=== PATIENT | female | born 1940 | race Caucasian/White ===

== ENCOUNTER 2021-10-15 16:16 | Inpatient (IN) | payer MEDICARE ==
--- NOTE | 2021-10-15 17:57 | RAD REPORT ---
EXAM DESCRIPTION: RAD - Chest Single View - 10/15/2021 5:49 pm CLINICAL HISTORY: SOB Chest pain. COMPARISON: No comparisons FINDINGS: Portable technique limits examination quality. Bilateral pulmonary opacities are present which may represent pulmonary edema or pneumonia. The heart is moderately enlarged in size. Small right pleural effusion.
[2021-10-15 18:01] LABS: Absolute Lymphocytes (CBC) 0.9 K/uL (0.7-4.9); Hematocrit 42.5 % (36.0-45.0); Lymphocytes % 16.5 % (15.3-44.8); MCV 106.3 fL (80-100); MPV 8.6 fL (7.6-11.3); RBC Red Blood Cell Count 3.99 M/uL (3.86-4.86)
[2021-10-15 18:02] LABS: Protime INR 1.21
[2021-10-15 18:21] LABS: Albumin 3.5 g/dL (3.4-5.0); Bilirubin Direct 0.3 mg/dL (0-0.2); Bilirubin Total 0.7 mg/dL (0.2-1.0); Magnesium 1.5 mg/dL (1.8-2.4); Potassium 4.6 mmol/L (3.5-5.1); Protein, Total 7.5 g/dL (6.4-8.2)
[2021-10-15 18:32] LABS: Troponin High Sensitivity 1025.9 pg/mL (<58.9)
[2021-10-15] MEDS ORDERED: Magnesium Sulfate 2gm IVPB 2 G/50 ML BAG IV ONE (18:42)
[2021-10-15] MEDS ORDERED: METOPROLOL TARTRATE 5 MG/5 ML INJ IV ONE (18:51)
--- NOTE | 2021-10-15 19:59 | EDPHYS ---
Physician Documentation [facility] Name: Judy Acevedo Age: 81 yrs Sex: Female : 1940 Arrival Date: 10/15/2021 Time: 16:19 Bed 7 Private MD: TUAN Physician Herbert Garnica HPI: 10/15 16:51 This 81 yrs old Female presents to ER via Wheelchair with complaints of Cough, jmm Congestion, Weakness. 16:51 Onset: The symptoms/episode began/occurred gradually, 2 week(s) ago. jmm 16:51 This is a 81-year-old female with history of hypertension that presents emerged [facility] department with complaints of progressively worsening weakness and fatigue beginning approximately 2 weeks ago. Symptoms began as cough and congestion. Patient states that now she has difficulty walking and is very short of breath.. Historical: - Allergies: 16:29 No Known Allergies; vg1 - Home Meds: 16:29 Prilosec Oral [Active]; Simvastatin Oral [Active]; Zoloft Oral [Active]; vg1 - PMHx: 16:29 Hypertensive disorder; Breast Cancer; Bowel Obstruction; Syncope; vg1 - PSHx: 16:29 Hysterectomy; Left Mastectomy; vg1 - Immunization history:: Client reports receiving the 2nd dose of the Covid vaccine. - Social history:: Smoking status: Patient denies any tobacco usage or history of. ROS: 16:51 Abdomen/GI: Negative for abdominal pain, nausea, vomiting, diarrhea, and constipation. jmm 16:51 Constitutional: Positive for body aches, malaise. 16:51 Respiratory: Positive for shortness of breath. 16:51 Neuro: Positive for weakness. 16:51 All other systems are negative. Exam: 16:51 Constitutional: This is a well developed, well nourished patient who is awake, alert, jmm and in no acute distress. Head/Face: atraumatic. Eyes: EOMI, no conjunctival erythema appreciated ENT: Moist Mucus Membranes Neck: Trachea midline, Supple Chest/axilla: Normal chest wall appearance and motion. Respiratory: Normal respirations, no respiratory distress appreciated Abdomen/GI: Non distended, soft Back: Normal ROM Skin: General appearance color normal 16:51 Neuro: Awake and alert Psych: Behavior is normal, Mood is normal, Patient is cooperative and pleasant 16:51 Cardiovascular: Rate: tachycardic. 16:51 Musculoskeletal/extremity: Edema noted to the extremities bilaterally, compartments are soft, full dorsalis pedis pulse, neurovascular intact. 16:51 Skin: Appearance: Color: normal in color. Vital Signs: 16:26 BP 137 / 85; Pulse 125; Resp 18; Temp 98.6(TE); Pulse Ox 98% on R/A; Weight 60.78 kg; vg1 Height 5 ft. 6 in. (167.64 cm); Pain 0/10; 18:43 BP 142 / 96; Pulse 152; Resp 20 S; Pulse Ox 100% on R/A; jd3 19:02 BP 112 / 88; Pulse 130; Resp 20 S; Pulse Ox 95% on R/A; jd3 21:01 BP 130 / 96; Pulse 117; Resp 20; Pulse Ox 96% ; tw5 16:26 Body Mass Index 21.63 (60.78 kg, 167.64 cm) vg1 18:43 provider notified of heart rate jd3 MDM: 17:11 Patient medically screened. [facility] 19:56 Data reviewed: vital signs, nurses notes. [facility] 19:56 Counseling: I had a detailed discussion with the patient and/or guardian regarding: the [facility] historical points, exam findings, and any diagnostic results supporting the discharge/admit diagnosis, lab results, radiology results, the need for further work-up and treatment in the hospital. ED course: I discussed the patient with Ms. Yin Cerrato PA-C whom accepted the patient to Dr. Cristhian rhoades.. 10/15 16:51 Order name: Basic Metabolic Panel; Complete Time: 19:21 [facility] 10/15 16:51 Order name: CBC with Diff; Complete Time: 18:10 [facility] 10/15 16:51 Order name: LFT's; Complete Time: 19:21 [facility] 10/15 16:51 Order name: Magnesium; Complete Time: 19:21 [facility] 10/15 16:51 Order name: NT PRO-BNP; Complete Time: 19:21 [facility] 10/15 16:51 Order name: PT-INR; Complete Time: 18:10 [facility] 10/15 16:51 Order name: Troponin HS; Complete Time: 19:21 [facility] 10/15 16:51 Order name: XRAY Chest (1 view); Complete Time: 18:10 [facility] 10/15 16:52 Order name: SARS-COV-2 RT PCR (Document "Date of Onset" if Symptomatic); Complete Time: [facility] 19:10/15 16:52 Order name: Influenza Screen (a \\T\\ B); Complete Time: 18:31 [facility] 10/15 19:08 Order name: US Extremity Venous W Compression Wilberto; Complete Time: 20:53 [facility] 10/15 16:51 Order name: EKG; Complete Time: 16:52 [facility] 10/15 16:51 Order name: Cardiac monitoring; Complete Time: 18:35 [facility] 10/15 16:51 Order name: EKG - Nurse/Tech; Complete Time: 18:22 [facility] 10/15 16:51 Order name: IV Saline Lock; Complete Time: 18:22 [facility] 10/15 16:51 Order name: Labs collected and sent; Complete Time: 18:22 [facility] 10/15 16:51 Order name: O2 Per Protocol; Complete Time: 18:35 [facility] 10/15 16:51 Order name: O2 Sat Monitoring; Complete Time: 18:35 [facility] Administered Medications: 18:42 Drug: Magnesium Sulfate 2 grams Route: IVPB; Infused Over: 2 hrs; Site: right jd3 antecubital; 21:33 Follow up: IV Status: Infusion continued upon admission bb 18:48 Drug: Metoprolol 5 mg Route: IVP; Site: right antecubital; jd3 18:53 Drug: Metoprolol 5 mg Route: IVP; Site: right antecubital; jd3 18:58 Drug: Metoprolol 5 mg Route: IVP; Site: right antecubital; jd3 19:16 Follow up: Response: No adverse reaction jd3 20:06 Drug: Aspirin Chewable Tablet 324 mg Route: PO; jb4 21:33 Follow up: Response: No adverse reaction bb 20:07 Drug: Digoxin 0.5 mg Route: IVP; Site: right antecubital; jb4 21:33 Follow up: Response: No adverse reaction bb 20:20 Drug: Lovenox (enoxaparin) 1 mg/kg Route: Sub-Q; Site: right lower abdomen; jb4 21:33 Follow up: Response: No adverse reaction bb Disposition Summary: 10/15/21 19:58 Hospitalization Ordered Hospitalization Status: Inpatient Admission [facility] Provider: Reese Morrow Location: Telemetry/MedSurg (Inpatient) jmm Condition: Stable jmm Problem: new jmm Symptoms: have improved jmm Bed/Room Type: Standard [facility] Room Assignment: 214(10/15/21 20:57) bb Diagnosis - Unspecified atrial flutter jmm - Dyspnea jmm Forms: - Medication Reconciliation Form jmm - SBAR form jmm Addendum: 10/29/2021 13:52 Co-signature as Attending Physician, Herbert Garnica MD I agree with the assessment and c duncan plan of care. Signatures: Dispatcher [employer] EDHerbert Garcia MD MD cha Mickail, Joel, PA PA jmm Ballard, Brenda RN RN Alhaji Ugalde, RN RN jb4 Weston Kidd RN RN jMarbella Wilks RN RN vg1 Corrections: (The following items were deleted from the chart) 10/15 16:31 16:29 Home Meds: Bowel Obstruction; vg1 vg1 20:57 19:58 jmm bb
--- NOTE | 2021-10-15 19:59 | ER ---
Nurse's Notes [facility] Name: Judy Acevedo Age: 81 yrs Sex: Female : 1940 Arrival Date: 10/15/2021 Time: 16:19 Bed 7 Private MD: Diagnosis: Unspecified atrial flutter;Dyspnea Presentation: 10/15 16:26 Chief complaint: Patient states: cough and congestion x 2 weeks with SOB; states vg1 fatigue and decreased appetite. Also state Right foot swelling. Denies CP. Coronavirus screen: Vaccine status: Patient reports receiving the 2nd dose of the covid vaccine. Client denies travel out of the [place] in the last 14 days. Ebola Screen: Patient denies exposure to infectious person. Patient denies travel to an Ebola-affected area in the 21 days before illness onset. Initial Sepsis Screen: Does the patient meet any 2 criteria? HR > 90 bpm. Yes Does the patient have a suspected source of infection? No. Patient's initial sepsis screen is negative. Risk Assessment: Do you want to hurt yourself or someone else? Patient reports no desire to harm self or others. Onset of symptoms was October 01, 2021. 16:26 Method Of Arrival: Wheelchair vg1 16:26 Acuity: HENRIETTA 3 vg1 Triage Assessment: 16:29 General: Appears uncomfortable, Behavior is calm, cooperative. Pain: Denies pain. vg1 Respiratory: Airway is patent Respiratory effort is even, unlabored. Historical: - Allergies: 16:29 No Known Allergies; vg1 - Home Meds: 16:29 Prilosec Oral [Active]; Simvastatin Oral [Active]; Zoloft Oral [Active]; vg1 - PMHx: 16:29 Hypertensive disorder; Breast Cancer; Bowel Obstruction; Syncope; vg1 - PSHx: 16:29 Hysterectomy; Left Mastectomy; vg1 - Immunization history:: Client reports receiving the 2nd dose of the Covid vaccine. - Social history:: Smoking status: Patient denies any tobacco usage or history of. Screenin:50 Abuse screen: Denies threats or abuse. Nutritional screening: No deficits noted. jd3 Tuberculosis screening: No symptoms or risk factors identified. Fall Risk IV access (20 points). Ambulatory Aid- None/Bed Rest/Nurse Assist (0 pts). Gait- Weak (10 pts.). Mental Status- Oriented to own ability (0 pts). Total Cole Fall Scale indicates Low Risk Score (25-44 pts). Fall prevention measures have been instituted. Side Rails Up X 2 Placed close to Nursing Station Frequent Obs/Assesments occuring Family Present and informed to notify staff if they need to leave bedside. Assessment: 18:45 General: Appears uncomfortable, Behavior is calm, cooperative, appropriate for age, jd3 Reports fatigue for 2-3 days. Pain: Denies pain. Neuro: Merino Agitation-Sedation Scale (RASS): 0 - Alert and Calm Level of Consciousness is awake, alert, obeys commands, Oriented to person, place, time, situation. Cardiovascular: Denies chest pain, Heart tones present Capillary refill < 3 seconds Patient's skin is warm and dry. Rhythm is irregular. Respiratory: Reports shortness of breath at rest cough that is persistent Airway is patent Respiratory effort is even, unlabored, Respiratory pattern is regular, symmetrical, Breath sounds are clear bilaterally. GI: No signs and/or symptoms were reported involving the gastrointestinal system. Patient currently denies diarrhea, nausea, vomiting. : No signs and/or symptoms were reported regarding the genitourinary system. EENT: No signs and/or symptoms were reported regarding the EENT system. Derm: Skin is intact, Skin is dry, Skin is normal, Skin temperature is warm. Musculoskeletal: Circulation, motion, and sensation intact. Range of motion:. 21:02 Reassessment: Patient appears in no apparent distress at this time. tw5 Vital Signs: 16:26 BP 137 / 85; Pulse 125; Resp 18; Temp 98.6(TE); Pulse Ox 98% on R/A; Weight 60.78 kg; vg1 Height 5 ft. 6 in. (167.64 cm); Pain 0/10; 18:43 BP 142 / 96; Pulse 152; Resp 20 S; Pulse Ox 100% on R/A; jd3 19:02 BP 112 / 88; Pulse 130; Resp 20 S; Pulse Ox 95% on R/A; jd3 21:01 BP 130 / 96; Pulse 117; Resp 20; Pulse Ox 96% ; tw5 16:26 Body Mass Index 21.63 (60.78 kg, 167.64 cm) vg1 18:43 provider notified of heart rate jd3 ED Course: 16:19 Patient arrived in ED. rg4 16:29 Triage completed. vg1 16:29 Arm band placed on. vg1 16:39 [facility] jmm 16:39 Herbert Garnica MD is Attending Physician. jmm 17:40 Missed attempt(s): 22 gauge in right forearm. Bleeding controlled, band aid applied, ll1 catheter tip intact. 17:43 Missed attempt(s): 24 gauge in right forearm. Bleeding controlled, band aid applied, ll1 catheter tip intact. 17:51 XRAY Chest (1 view) In Process Unspecified. EDMS 18:16 EKG done, by ED staff, reviewed by Travis ARANDA. jw7 18:22 SARS-COV-2 RT PCR (Document "Date of Onset" if Symptomatic) Sent. ll1 18:22 Influenza Screen (a \\T\\ B) Sent. ll1 18:51 Patient has correct armband on for positive identification. Placed in gown. Bed in low jd3 position. Call light in reach. Side rails up X2. Child being held by parent. Client placed on continuous cardiac and pulse oximetry monitoring. NIBP monitoring applied. party director on. Pulse ox on. NIBP on. 19:09 Marianne Hilton is Primary Nurse. tw5 19:10 NT PRO-BNP Sent. tw5 19:57 Reese Morrow MD is Hospitalizing Provider. jmm 20:16 US Extremity Venous W Compression Wilberto In Process Unspecified. EDMS 21:02 No provider procedures requiring assistance completed. Patient admitted, IV remains in tw5 place. Administered Medications: 18:42 Drug: Magnesium Sulfate 2 grams Route: IVPB; Infused Over: 2 hrs; Site: right jd3 antecubital; 21:33 Follow up: IV Status: Infusion continued upon admission bb 18:48 Drug: Metoprolol 5 mg Route: IVP; Site: right antecubital; jd3 18:53 Drug: Metoprolol 5 mg Route: IVP; Site: right antecubital; jd3 18:58 Drug: Metoprolol 5 mg Route: IVP; Site: right antecubital; jd3 19:16 Follow up: Response: No adverse reaction jd3 20:06 Drug: Aspirin Chewable Tablet 324 mg Route: PO; jb4 21:33 Follow up: Response: No adverse reaction bb 20:07 Drug: Digoxin 0.5 mg Route: IVP; Site: right antecubital; jb4 21:33 Follow up: Response: No adverse reaction bb 20:20 Drug: Lovenox (enoxaparin) 1 mg/kg Route: Sub-Q; Site: right lower abdomen; jb4 21:33 Follow up: Response: No adverse reaction bb Medication: 18:50 VIS not applicable for this client. jd3 Outcome: 19:58 Decision to Hospitalize by Provider. tri 21:03 Admitted to Med/surg Report called to Attempted to call report. Spoke to Sun Banegas tw5 stated Gus will be receiving the patient. Nurse unavailable at this time. 21:03 Condition: stable 21:35 Patient left the ED. bb Signatures: Dispatcher [employer] EDMS Travis Sequeira PA PA jmm Ballard, Brenda, RN RN Stacey Taylor rg4 Alhaji Garza RN RN jb4 Weston Kidd RN RN Marbella De La Fuente RN RN martin1 Guille Melendez, RN RN Marianne Neville tw5 Ayala Small jw7 Corrections: (The following items were deleted from the chart) 16:31 16:29 Home Meds: Bowel Obstruction; vg1 vg1
[2021-10-15] MEDS ORDERED: DIGOXIN 0.25 MG/ML AMP ONE (20:01)
[2021-10-15] MEDS ORDERED: ASPIRIN 81 MG CHEWABLE TABLET ONE (20:01)
[2021-10-15] MEDS ORDERED: ENOXAPARIN 60 MG/0.6 ML SQ ONE (20:01)
--- NOTE | 2021-10-15 20:37 | P.HP ---
Certification for Inpatient Patient admitted to: Inpatient With expected LOS: <2 Midnights Patient will require the following post-hospital care: None Practitioner: I am a practitioner with admitting privileges, knowledge of patient current condition, hospital course, and medical plan of care. Services: Services provided to patient in accordance with Admission requirements found in Title 42 Section 412.3 of the Code of Federal Regulations <Marika Cerrato - Last Filed: 10/16/21 02:02> Patient History Date of Service: 10/15/21 Reason for admission: ACS R/O History of Present Illness: Patient is a 81 y/o F with PMH of HTN and HLD who presented to the ED with complaints of 2 weeks of increasing SHOB, weakness, fatigue, and R foot swelling. Labs significant for troponin 1025, BNP 32,000, mag 1.5, Cr 1.89, CXR showed Bilateral pulmonary opacities are present which may represent pulmonary edema or pneumonia. The heart is moderately enlarged in size. Small right pleural effusion. Venous US negative for VTE. EKG showed aflutter with rate ranging from 130-150. She denies chest pain. She was given a total of 15 mg IV metoprolol, 0.5 IV digoxin, 324 aspirin, 70 lovenox, and magnesium replacement. Patient denies cardiac history. Will admit patient for further evaluation and treatment. Home medications list reviewed: Yes - Past Medical/Surgical History Diabetic: No -: Hypertension -: Breast Cancer -: Hysterectomy -: Mastectomy - Family History Father -: Heart disease Brother -: Heart disease Sister -: Heart disease - Social History Smoking Status: Never smoker Alcohol use: Yes CD- Drugs: No Caffeine use: Yes Place of Residence: Home <Marika Cerrato - Last Filed: 10/16/21 02:02> Date of Service: 10/15/21 <Reese Morrow - Last Filed: 10/18/21 00:09> Allergies No Known Allergies Allergy (Verified 10/15/21 22:25) Home Medications: Celecoxib [Celebrex] 1 cap PO SEECOM 10/15/21 Hyoscyamine Sulfate [Anaspaz] 0.125 mg PO DAILY PRN 10/15/21 Irbesartan 150 mg PO DAILY 10/15/21 Magnesium Oxide [Mag 0X*] 1 tab PO BID 10/15/21 Omeprazole 20 mg PO BID 10/15/21 Sertraline [Zoloft*] 1 tab PO DAILY 10/15/21 Simvastatin 1 tab PO BEDTIME 10/15/21 Vit D3 50 Mcg (2,000 Unit Tab) 4,000 unit PO DAILY 10/15/21 Vitamin B Complex [B Complex] 1 tab PO DAILY 10/15/21 Review of Systems General: Weakness, Other (decreased appetite) Respiratory: Shortness of Breath Musculoskeletal: Other (R foot swelling) <Marika Cerrato - Last Filed: 10/16/21 02:02> Physical Examination - Physical Exam General: Alert, In no apparent distress HEENT: Atraumatic, PERRLA, EOMI, Sclerae nonicteric Neck: Supple, 2+ carotid pulse no bruit, No LAD, Without JVD or thyroid abnormality Respiratory: Clear to auscultation bilaterally, Normal air movement Cardiovascular: Normal S1 S2, Other (tachycardic) Gastrointestinal: Normal bowel sounds, Soft and benign, Non-distended, No tenderness Musculoskeletal: No erythema, No tenderness, No warmth, Swelling (mild swelling R foot ) Integumentary: No rashes Neurological: Normal speech, Normal strength at 5/5 x4 extr, Normal tone, Normal affect - Studies Laboratory Data (last 24 hrs) 10/15/21 17:50: PT 13.4 H, INR 1.21 10/15/21 17:50: WBC 5.5, Hgb 13.4, Hct 42.5, Plt Count 206 10/15/21 17:50: Sodium 139, Potassium 4.6, BUN 41 H, Creatinine 1.89 H, Glucose 111 H, Magnesium 1.5 L, Total Bilirubin 0.7, AST 45 H, ALT 29, Alkaline Phosphatase 31 L Microbiology Data (last 24 hrs): 10/15/21 17:16 Nasopharnyx Influenza Type A Antigen Screen - Final 10/15/21 17:16 Nasopharnyx Influenza Type B Antigen Screen - Final <Marika Cerrato - Last Filed: 10/16/21 02:02> - Studies Laboratory Data (last 24 hrs) 10/17/21 05:36: Sodium 137, Potassium 3.7, BUN 29 H, Creatinine 1.39 H, Glucose 103, Magnesium 1.5 L, Total Bilirubin 0.5, AST 35, ALT 24, Alkaline Phosphatase 23 L 06/05/22 05:36: WBC 5.3, Hgb 12.0, Hct 36.5, Plt Count 180 Microbiology Data (last 24 hrs): 10/16/21 00:08 Clean Catch Urine [place] Count - Final <10,000 CFU/ML. 10/16/21 00:08 Clean Catch Urine - Final MIXED RANJAN. <CristhianKassyryan Jonnathan - Last Filed: 10/18/21 00:09> Assessment and Plan - Problems (Diagnosis) (1) Elevated troponin Current Visit: Yes Status: Acute (2) Acute congestive heart failure Current Visit: Yes Status: Acute Qualifiers: Heart failure type: unspecified Qualified Code(s): I50.9 - Heart failure, unspecified (3) Hypomagnesemia Current Visit: Yes Status: Acute (4) BRAD (acute kidney injury) Current Visit: Yes Status: Acute (5) Hypertension Current Visit: Yes Status: Chronic Qualifiers: Hypertension type: primary hypertension Qualified Code(s): I10 - Essential (primary) hypertension - Plan -Cardiology consulted. NPO at midnight for possible catheterization. Echo ordered -Troponin elevated at 1025. Trend q6hx2 and check CPK and CKMB. Patient denies chest pain or cardiac history. Lovenox given in ED and ordered daily. -EKG showed aflutter with RVR. Patient has converted to NSR. Cont to monitor on telemetry -BNP elevated at 32,000. Chest xray showed pleural effusions. IV lasix and echo ordered. Patient does not have a history of CHF -Monitor and replace magnesium -Aspirin and atorvastatin daily -Reconcile and continue home medications -Lovenox for VTE ppx -Full code Discharge Plan: Home Plan to discharge in: 48 Hours - Advance Directives Does patient have a Living Will: No Does patient have a Durable POA for Healthcare: No - Code Status/Comfort Care Code Status Assessed: Yes (Full) Critical Care: No Time Spent Managing Pts Care (In Minutes): 70 <Marika Cerrato - Last Filed: 10/16/21 02:02> - Problems (Diagnosis) (1) BRAD (acute kidney injury) Current Visit: Yes Status: Acute (2) Acute congestive heart failure Current Visit: Yes Status: Acute Qualifiers: Heart failure type: unspecified Qualified Code(s): I50.9 - Heart failure, unspecified (3) Elevated troponin Current Visit: Yes Status: Acute (4) Hypomagnesemia Current Visit: Yes Status: Acute (5) Hypertension Current Visit: Yes Status: Chronic Qualifiers: Hypertension type: primary hypertension Qualified Code(s): I10 - Essential (primary) hypertension <Reese Morrow - Last Filed: 10/18/21 00:09> Date of Service: 10/15/21 Subjective: HPI as mentioned above Physical Examination: Vitals: Afebrile vital signs are stable Physical exam: Cardiovascular: Within normal limits. Lungs: Within normal limits Abdomen: Within normal limits Neuro: Awake, alert, oriented to person place and time Assessment: 1. Elevated troponin Plan: 1. Continue with current plan of care as mentioned above <Reese Morrow - Last Filed: 10/18/21 00:09>
--- NOTE | 2021-10-15 20:52 | RAD REPORT ---
EXAM DESCRIPTION: US - Extrem Venous W Compress Wilberto - 10/15/2021 8:14 pm CLINICAL HISTORY: leg swelling Bilateral leg edema and swelling. COMPARISON: No comparisons TECHNIQUE: Real-time sonographic interrogation of the left and right lower extremity deep venous sys tems was performed. FINDINGS: Normal compressibility, flow augmentation, phasic flow and spontaneous flow is identified in both the left and right lower extremity deep venous systems. IMPRESSION: No sonographic evidence of left or right lower extremity deep venous thrombosis.
[2021-10-15 21:41] LABS: Urine Blood Negative (Negative); Urine Glucose Negative (Negative); Urine Protein 2+ (Negative); Urine Specific Gravity >=1.030 (1.005-1.030); Urine pH 5.5 (5.0-7.0)
[2021-10-15] MEDS ORDERED: ACETAMINOPHEN 500 MG TAB PO PRN (21:59)
[2021-10-15] MEDS ORDERED: ONDANSETRON 4 MG/2 ML VIAL IV PRN (21:59)
[2021-10-15] MEDS: ATORVASTATIN 40 MG TAB PO SCH (21:59)
[2021-10-15] MEDS ORDERED: FUROSEMIDE 20 MG/ 2ML VIAL IV ONE (22:32)
[2021-10-15 22:40] VITALS: BMI 22.1
[2021-10-16 00:04] LABS: CKMB Creatine Kinase MB 4.1 ng/mL (1.0-3.6)
[2021-10-16 00:11] LABS: Urine Appearance Clear (Clear); Urine Bilirubin Negative (Negative); Urine Blood Negative (Negative); Urine Color Yellow (Yellow); Urine Glucose Negative (Negative); Urine Microscopic Reflex ORDER UMIC; Urine Protein 2+ (Negative); Urine Specific Gravity 1.025 (1.005-1.030); Urine Urobilinogen 0.2 mg/dL (0.2-1.0); Urine pH 5.5 (5.0-7.0)
[2021-10-16 00:46] LABS: Urine Bacteria >50 /HPF (<20); Urine RBC <5 /HPF (NONE SEEN)
[2021-10-16 00:47] LABS: Urine Amorphous Sediment 1+ /HPF (NONE SEEN); Urine Mucus 2+ /HPF (NONE SEEN)
[2021-10-16 06:10] LABS: Absolute Lymphocytes (CBC) 0.8 K/uL (0.7-4.9); Hematocrit 40.2 % (36.0-45.0); Lymphocytes % 16.5 % (15.3-44.8); MCV 106.7 fL (80-100); MPV 9.1 fL (7.6-11.3); RBC Red Blood Cell Count 3.77 M/uL (3.86-4.86)
[2021-10-16 06:40] LABS: Albumin 3.3 g/dL (3.4-5.0); Bilirubin Total 0.7 mg/dL (0.2-1.0); Magnesium 1.8 mg/dL (1.8-2.4); Potassium 4.4 mmol/L (3.5-5.1); Protein, Total 6.9 g/dL (6.4-8.2)
[2021-10-16 06:43] LABS: Thyroid Stimulating Hormone 6.39 uIU/mL (0.360-3.740)
[2021-10-16] MEDS ORDERED: MAGNESIUM SULFATE 1 gm IVPB 1 GM/100 ML BAG IV ONE (06:55)
[2021-10-16 09:04] LABS: Anisocytosis 2+; Blood Morphology Comment NOTED (NOT SEEN); Macrocytosis 2+; Platelet Estimate ADEQ; Platelets, Giant 1+; White Blood Cell Scan OK (OK)
[2021-10-16] MEDS: ASPIRIN EC 81 MG TAB PO SCH (09:58)
[2021-10-16] MEDS ORDERED: PNEUMOCOCCAL VACCINE 0.5 ML IMVAC ONE (12:00)
[2021-10-16] MEDS ORDERED: CEFTRIAXONE 1,000 MG in NA CHLORIDE 0.9% 50 ML IVPB ONE (12:16)
[2021-10-16] MEDS ORDERED: METOPROLOL TAR 25 MG TAB PO ONE (12:16)
[2021-10-16 13:36] LABS: Potassium 4.2 mmol/L (3.5-5.1)
[2021-10-16 14:13] LABS: Folic Acid, (Folate) > 20.0 ng/mL (3.1-17.5)
[2021-10-16] MEDS: NACHLORIDE 0.45% 1,000 ML with NA BICARB 8.4% 50 MEQ IV SCH ×2 (16:25)
--- NOTE | 2021-10-16 16:54 | CON ---
Date of Consultation: 10/16/2021 Reason For Consultation: Elevated troponin. History Of Present Illness: A 81-year-old female with no history of cardiac disease. She has histor y of hypertension, dyslipidemia, presented to the emergency room with worsening shortness of breath, fatigue, and extremity swelling. Troponin was above 1000 in the emergency room with elevated NT-proB MANAGER OF PATIENT. She had orthopnea as well and is having mild cough. She was tested for COVID and was negative. She was running fast initially with atrial fibrillation and flutter with rapid ventricular response, responded to IV metoprolol. Past Medical History: As outlined above in the HPI. Medications: Refer to reconciliation sheet for detailed list. Allergies: NO KNOWN DRUG ALLERGIES. Social History: She does not smoke or drink. Does not use any drugs. Family History: No premature coronary artery disease or cancer. Review of Systems: All systems reviewed and negative except for what mentioned in HPI. Physical Examination: Vital Signs: Temperature is 97.6, pulse is 84, breathing at 16, blood pressure 135/89, saturating 95 % on room air. General: Pleasant, elderly female, in no apparent distress. Head and Neck: Pupils are equal, reactive to light. Intact eye movements. No JVD. No cervical lym phadenopathy. Neck: Supple. Thyroid is not enlarged. Lungs: Clear to auscultation bilaterally. No rhonchi, rales, or crackles. No accessory muscle use. Heart: Irregular. No extra sounds. Abdomen: Soft, nontender. Bowel sounds positive. No organomegaly. No masses or hernia. No rigidi ty or rebound. Extremities: No clubbing or cyanosis. Intact pulses. Skin: No rash noted. Neurologic: Alert, awake, oriented x3. No acute focal deficits appreciated. Investigations: Troponin today is 904, down from 1000. Creatinine is 1.63 with BUN of 37. NT-proBN P is 37,000. Assessment And Recommendations: 1.Atrial fibrillation/flutter with rapid ventricular response. Increase metoprolol to 25 mg twice a day and continue Lovenox. 2.Non-ST elevation myocardial infarction. Continue baby aspirin and Lovenox. Increase metoprolol t o 25 mg twice a day and continue statin and plan for coronary angiogram on Monday. 3.Congestive heart failure, unknown ejection fraction. The patient will benefit from low-dose Lasix , start her on 40 mg IV q.24 hours and carefully monitor BUN, creatinine, and electrolytes. 4.Urinary tract infection, on antibiotics. SR/MODL Voice ID: [id number] Report ID: [id number]
[2021-10-16] MEDS: METOPROLOL TAR 25 MG TAB PO SCH (17:40)
[2021-10-16] MEDS ORDERED: LOPERAMIDE HCL 2 MG CAPSULE PO PRN (18:10)
[2021-10-16] MEDS: ENOXAPARIN 60 MG/0.6 ML SQ SCH (20:55)
[2021-10-16] MEDS: ATORVASTATIN 40 MG TAB PO SCH (20:55)
[2021-10-17] MEDS: NACHLORIDE 0.45% 1,000 ML with NA BICARB 8.4% 50 MEQ IV SCH ×8 (02:30→14:15)
[2021-10-17] MEDS: METOPROLOL TAR 25 MG TAB PO SCH ×2 (05:23→17:35)
[2021-10-17 06:16] LABS: Absolute Lymphocytes (CBC) 0.8 K/uL (0.7-4.9); Hematocrit 36.5 % (36.0-45.0); MCV 104.8 fL (80-100); MPV 8.6 fL (7.6-11.3); RBC Red Blood Cell Count 3.48 M/uL (3.86-4.86)
[2021-10-17 06:21] LABS: Albumin 2.9 g/dL (3.4-5.0); Bilirubin Total 0.5 mg/dL (0.2-1.0); Magnesium 1.5 mg/dL (1.8-2.4); Potassium 3.7 mmol/L (3.5-5.1); Protein, Total 6.2 g/dL (6.4-8.2)
[2021-10-17] MEDS ORDERED: Magnesium Sulfate 2gm IVPB 2 G/50 ML BAG IV ONE (07:50)
[2021-10-17] MEDS: ASPIRIN EC 81 MG TAB PO SCH (08:22)
[2021-10-17] MEDS: CEFTRIAXONE 1,000 MG in NA CHLORIDE 0.9% 50 ML IVPB SCH (08:22)
--- NOTE | 2021-10-17 12:53 | EKG ---
Test Date: 2021-10-15 Test Time: 18:11:37 Visual Merchandising Coordinator: MANISHA MEASUREMENT RESULTS: Intervals: Rate: 146 [place]: QRSD: 88 QT: 296 QTc: 461 [place]: P: NJ: QRS: 98 T: -47 INTERPRETIVE STATEMENTS: Atrial flutter with variable AV block Rightward axis Abnormal QRS-T angle, consider primary T wave abnormality Abnormal ECG No previous ECG available for comparison Electronically Signed On 10-17-21 12:51:59 CDT by Gilberto Barillas
--- NOTE | 2021-10-17 14:46 | PN ---
Date of Progress Note: 10/17/2021 Subjective: Seen by bedside, doing well. Has no chest pain. Review of Systems: No chest pain, shortness of breath, orthopnea, cough. No nausea, vomiting, diarrhea. No abdominal p ain. No dysuria, polyuria, or urinary urgency. No skin rash. All other systems reviewed and they w ere negative. Physical Examination: Vital Signs: Temperature is 98.8, heart rate is 91, breathing at 18, blood pressure is 148/85, satur ating 95% on room air. General: Pleasant elderly female, in no apparent distress. Head and Neck: Pupils are equal, reactive to light. Intact eye movements. No JVD. No cervical lym phadenopathy. Neck is supple. Thyroid is not enlarged. Lungs: Clear to auscultation. No rhonchi, wheezing, or crackles. No accessory muscle use. Heart: Irregular. No extra sounds. Abdomen: Soft, nontender. Bowel sounds positive. No organomegaly. No masses or hernia. No rigidi ty or rebound. Extremities: No clubbing or cyanosis. Intact pulses. Skin: No rash. Neurologic: Alert, awake, oriented x3. No acute focal deficits appreciated. Lymph Nodes: No cervical or axillary lymphadenopathy. Investigations: Creatinine is 1.39 today. Assessment And Recommendations: 1.Non-ST elevation myocardial infarction. Continue aspirin and Lovenox. Keep n.p.o. past midnight. Plan for coronary angiogram tomorrow morning and please obtain an echocardiogram. 2.Atrial fibrillation. Rate is still high and her blood pressure allows to go further on metoprolol . Please increase metoprolol to 50 mg twice a day for better rate control. The patient will need anticoagulation orally post discharge; however, we will wait until after the coronary angiogram. SR/MODL Voice ID: [id number] Report ID: [id number]
[2021-10-17] MEDS: ATORVASTATIN 40 MG TAB PO SCH (21:00)
[2021-10-17] MEDS: ENOXAPARIN 60 MG/0.6 ML SQ SCH (21:00)
[2021-10-17] MEDS ORDERED: DIAZEPAM 5 MG TABLET PO ONE (22:18)
[2021-10-17] MEDS ORDERED: METOPROLOL TAR 25 MG TAB PO ONE (23:00)
[2021-10-18] MEDS: NACHLORIDE 0.45% 1,000 ML with NA BICARB 8.4% 50 MEQ IV SCH ×6 (00:06→13:46)
--- NOTE | 2021-10-18 00:08 | P.PN ---
Subjective Date of Service: 10/16/21 Subjective: No new changes, No C/O voiced, Improving Review of Systems 10-point ROS is otherwise unremarkable Physical Examination - Vital Signs Temperature: 98.9 F Blood Pressure: 138/95 Pulse: 95 Respirations: 12 Pulse Ox (%): 93 - Physical Exam General: Alert, In no apparent distress, Oriented x3 Respiratory: Clear to auscultation bilaterally, Normal air movement Cardiovascular: Regular rate/rhythm, Normal S1 S2, No murmurs Gastrointestinal: Normal bowel sounds, Soft and benign, Non-distended, No tenderness Musculoskeletal: No clubbing, No swelling, No tenderness Neurological: Sensation intact, Cranial nerves 3-12 intact - Studies Laboratory Data (last 24 hrs) 10/17/21 05:36: Sodium 137, Potassium 3.7, BUN 29 H, Creatinine 1.39 H, Glucose 103, Magnesium 1.5 L, Total Bilirubin 0.5, AST 35, ALT 24, Alkaline Phosphatase 23 L 10/17/21 05:36: WBC 5.3, Hgb 12.0, Hct 36.5, Plt Count 180 Microbiology Data (last 24 hrs): 10/16/21 00:08 Clean Catch Urine [place] Count - Final <10,000 CFU/ML. 10/16/21 00:08 Clean Catch Urine - Final MIXED RANJAN. Medications List Reviewed: Yes Assessment & Plan - Problems (Diagnosis) (1) BRAD (acute kidney injury) Current Visit: Yes Status: Acute (2) Acute congestive heart failure Current Visit: Yes Status: Acute Qualifiers: Heart failure type: unspecified Qualified Code(s): I50.9 - Heart failure, unspecified (3) Elevated troponin Current Visit: Yes Status: Acute (4) Hypomagnesemia Current Visit: Yes Status: Acute (5) Hypertension Current Visit: Yes Status: Chronic Qualifiers: Hypertension type: primary hypertension Qualified Code(s): I10 - Essential (primary) hypertension - Plan -Cardiac cath in a.m. -Cardiology consultation appreciated -Echocardiogram in a.m. -Monitor renal function and continue bicarb drip until after cardiac catheterization -Continue with lipid profile -Transfer Iron Operator regarding modifying risk for cardiac disease Discharge Plan: Home Plan to discharge in: Greater than 2 days - Advance Directives Does patient have a Living Will: No Does patient have a Durable POA for Healthcare: No - Code Status/Comfort Care Code Status Assessed: Yes Code Status: Full Code Critical Care: No Time Spent Managing PTS Care (In Minutes): 45
--- NOTE | 2021-10-18 00:10 | P.PN ---
Subjective Date of Service: 10/16/21 Subjective: No new changes, No C/O voiced, Improving Review of Systems 10-point ROS is otherwise unremarkable Physical Examination - Vital Signs Temperature: 98.9 F Blood Pressure: 138/95 Pulse: 95 Respirations: 12 Pulse Ox (%): 93 - Physical Exam General: Alert, In no apparent distress, Oriented x3 HEENT: Atraumatic, PERRLA, EOMI Neck: Supple, JVD not distended Respiratory: Clear to auscultation bilaterally, Normal air movement Cardiovascular: Regular rate/rhythm, Normal S1 S2, No murmurs Gastrointestinal: Normal bowel sounds, Soft and benign, Non-distended, No tenderness Musculoskeletal: No clubbing, No swelling, No tenderness Neurological: Sensation intact, Cranial nerves 3-12 intact - Studies Laboratory Data (last 24 hrs) 10/17/21 05:36: Sodium 137, Potassium 3.7, BUN 29 H, Creatinine 1.39 H, Glucose 103, Magnesium 1.5 L, Total Bilirubin 0.5, AST 35, ALT 24, Alkaline Phosphatase 23 L 10/17/21 05:36: WBC 5.3, Hgb 12.0, Hct 36.5, Plt Count 180 Microbiology Data (last 24 hrs): 10/16/21 00:08 Clean Catch Urine [place] Count - Final <10,000 CFU/ML. 10/16/21 00:08 Clean Catch Urine - Final MIXED RANJAN. Medications List Reviewed: Yes Assessment & Plan - Problems (Diagnosis) (1) BRAD (acute kidney injury) Current Visit: Yes Status: Acute (2) Acute congestive heart failure Current Visit: Yes Status: Acute Qualifiers: Heart failure type: unspecified Qualified Code(s): I50.9 - Heart failure, unspecified (3) Elevated troponin Current Visit: Yes Status: Acute (4) Hypomagnesemia Current Visit: Yes Status: Acute (5) Hypertension Current Visit: Yes Status: Chronic Qualifiers: Hypertension type: primary hypertension Qualified Code(s): I10 - Essential (primary) hypertension - Plan Plan: 1. Continue with current plan of care with antiplatelet therapy and anticoagulation 2. Continue with statin therapy 3. Echo in the morning 4. Cardiac cath the morning/n.p.o. after midnight 5. Continue monitoring renal function; DC bicarb drip in a.m. 6. GI DVT prophylaxis Discharge Plan: Home Plan to discharge in: Greater than 2 days - Advance Directives Does patient have a Living Will: No Does patient have a Durable POA for Healthcare: No - Code Status/Comfort Care Code Status: Full Code Critical Care: No Time Spent Managing PTS Care (In Minutes): 45
--- NOTE | 2021-10-18 00:13 | P.PN ---
Date of Service: 10/17/21 Subjective Subjective: Patient continues to improve with no new complaints. Clinical symptoms are improved. Review of Systems 10-point ROS is otherwise unremarkable Physical Examination - Vital Signs Reviewed - Physical Exam General: Alert, In no apparent distress, Oriented x3 Respiratory: Clear to auscultation bilaterally, Normal air movement Cardiovascular: Regular rate/rhythm, Normal S1 S2, No murmurs Gastrointestinal: Normal bowel sounds, Soft and benign, Non-distended, No tende rness Musculoskeletal: No clubbing, No swelling, No tenderness Neurological: No focal deficits Assessment & Plan - Problems (Diagnosis) (1) BRAD (acute kidney injury) Current Visit: Yes Status: Acute (2) Acute congestive heart failure Current Visit: Yes Status: Acute Qualifiers: Heart failure type: unspecified Qualified Code(s): I50.9 - Heart failure, unspecified (3) Elevated troponin Current Visit: Yes Status: Acute (4) Hypomagnesemia Current Visit: Yes Status: Acute (5) Hypertension Current Visit: Yes Status: Chronic Qualifiers: Hypertension type: primary hypertension Qualified Code(s): I10 - Essential (primary) hypertension - Plan Continue plan of care as mentioned below: -Cardiac cath in a.m. -Cardiology consultation appreciated -Echocardiogram in a.m. -Monitor renal function and continue bicarb drip until after cardiac catheterization -Sales Receptionist regarding modifying risk for cardiac disease
[2021-10-18] MEDS: METOPROLOL TAR 50 MG TAB PO SCH ×2 (06:29→20:24)
[2021-10-18] MEDS: ASPIRIN EC 81 MG TAB PO SCH (06:30)
[2021-10-18] MEDS: CEFTRIAXONE 1,000 MG in NA CHLORIDE 0.9% 50 ML IVPB SCH (07:55)
[2021-10-18] MEDS ORDERED: NA CHLORIDE 0.9% 500 ML ONE (09:06)
[2021-10-18] MEDS ORDERED: FENTANYL CITR 100 MCG/2 ML ONE (10:04)
[2021-10-18] MEDS ORDERED: HEPA 1000U/500MLS 1,000 UNIT/500 ML BAG IV ONE (10:04)
[2021-10-18] MEDS ORDERED: LIDOCAINE 1% 20 ML MDV ONE (10:04)
[2021-10-18] MEDS ORDERED: MIDAZOLAM HCL 2 MG/2 ML INJ ONE (10:04)
[2021-10-18] MEDS ORDERED: NA CHLORIDE 0.9% 50 ML ONE (10:05)
[2021-10-18] MEDS ORDERED: ATROPINE SULF 1 MG/10 ML SYR IV ONE (10:05)
[2021-10-18] MEDS ORDERED: NITROGLYCERIN 100 MCG/ML SYR (for cath lab use only) IV ONE (10:05)
[2021-10-18] MEDS ORDERED: PRASUGREL (EFFIENT) 10 MG TAB ONE (10:54)
--- NOTE | 2021-10-18 12:13 | P.DS ---
Admission Date: 10/17/21 Discharge Date: 10/18/21 Disposition: ROUTINE DISCHARGE Discharge Condition: GOOD Reason for Admission: ACS R/O Brief History of Present Illness: Patient is a 81 y/o F with PMH of HTN and HLD who presented to the ED with complaints of 2 weeks of increasing SHOB, weakness, fatigue, and R foot swelling. Labs significant for troponin 1025, BNP 32,000, mag 1.5, Cr 1.89, CXR showed Bilateral pulmonary opacities are present which may represent pulmonary edema or pneumonia. The heart is moderately enlarged in size. Small right pleural effusion. Venous US negative for VTE. EKG showed aflutter with rate ranging from 130-150. She denies chest pain. She was given a total of 15 mg IV metoprolol, 0.5 IV digoxin, 324 aspirin, 70 lovenox, and magnesium replacement. Patient denies cardiac history. Will admit patient for further evaluation and treatment. Hospital Course: Pt was admitted for inpatient care and there was concern for possible ACS. She was started on therapeutic Lovenox and aspirin therapy and she was evaluated by cardiology. She had left heart cath done today and she had a stent placed in the left circumflex artery. After review by cardiology she was put on Plavix and Xarelto and Lasix therapy. She is to follow-up with layboy operator on outpatient. She will continue to take care of her comorbid health condition and to follow-up with her primary care doctor for post hospital discharge care. Vital Signs/Physical Exam: Temp Pulse Resp BP Pulse Ox 97.3 F 50 18 137/83 91 10/18/21 08:00 10/18/21 08:00 10/18/21 08:00 10/18/21 08:00 10/18/21 08:00 General: Alert, Oriented x3 HEENT: Atraumatic, Normocephalic Neck: Supple Respiratory: Normal air movement Cardiovascular: Regular rate/rhythm, Normal S1 S2 Gastrointestinal: Soft and benign Musculoskeletal: No swelling Neurological: Normal speech, Normal strength at 5/5 x4 extr Laboratory Data at Discharge: WBC 5.3 K/uL (4.3-10.9) 10/17/21 05:36 Hgb 12.0 g/dL (12.0-15.0) 10/17/21 05:36 Hct 36.5 % (36.0-45.0) 10/17/21 05:36 Plt Count 180 K/uL (152-406) 10/17/21 05:36 PT 13.4 SECONDS (9.5-12.5) H 10/15/21 17:50 INR 1.21 10/15/21 17:50 Sodium 137 mmol/L (136-145) 10/17/21 05:36 Potassium 3.7 mmol/L (3.5-5.1) 10/17/21 05:36 BUN 29 mg/dL (7-18) H 10/17/21 05:36 Creatinine 1.39 mg/dL (0.55-1.3) H 10/17/21 05:36 Glucose 103 mg/dL (74-106) 10/17/21 05:36 Magnesium 1.9 mg/dL (1.8-2.4) 10/18/21 06:10 Total Bilirubin 0.5 mg/dL (0.2-1.0) 10/17/21 05:36 AST 35 U/L (15-37) 10/17/21 05:36 ALT 24 U/L (12-78) 10/17/21 05:36 Alkaline Phosphatase 23 U/L (45-117) L 10/17/21 05:36 Triglycerides 104 mg/dL (<150) 10/16/21 05:22 Cholesterol 99 mg/dL (<200) 10/16/21 05:22 HDL Cholesterol 46 mg/dL (40-60) 10/16/21 05:22 Cholesterol/HDL Ratio 2.15 10/16/21 05:22 Home Medications: Celecoxib [Celebrex] 1 cap PO SEECOM 10/15/21 Hyoscyamine Sulfate [Anaspaz] 0.125 mg PO DAILY PRN 10/15/21 Irbesartan 150 mg PO DAILY 10/15/21 Magnesium Oxide [Mag 0X*] 1 tab PO BID 10/15/21 Omeprazole 20 mg PO BID 10/15/21 Sertraline [Zoloft*] 1 tab PO DAILY 10/15/21 Simvastatin 1 tab PO BEDTIME 10/15/21 Vit D3 50 Mcg (2,000 Unit Tab) 4,000 unit PO DAILY 10/15/21 Vitamin B Complex [B Complex] 1 tab PO DAILY 10/15/21 Diet: AHA Activity: Ad kendra Followup: NONE,NONE [Primary Care Provider] -
[2021-10-18] MEDS ORDERED: MORPHINE 4 MG/ML SYR IV PRN (12:41)
[2021-10-18] MEDS ORDERED: NITROGLYCERIN 0.4 MG/TAB SL PRN (13:00)
[2021-10-18] MEDS ORDERED: ACETAMINOPHEN 325 MG TABLET PO PRN (13:00)
--- NOTE | 2021-10-18 13:10 | OP ---
Surgeon: Allan Godfrey MD Nail Welter: Ms. Ethel Shaikh. Admitted to Dr. Morrow on 10/17/2021 with a non-STEMI. The patient was brought to the laboratory tech on 10/2021. She underwent a left heart catheterization, selective coronary arteriogram, primary stent of the circumflex and common femoral artery angiogram. Indication: Non-STEMI. Procedure In Detail: The patient was brought to the laboratory tech as an inpatient, prepped and draped in the routine sterile fashion. Given Versed and fentanyl for sedation. A 6-E[place]ian sheath was introduc ed in the right common femoral artery successfully using the Seldinger technique and 10 cc of Xylocai ne. Common femoral artery angiogram was done and was normal. Angio-Seal was used to close the case. Anna catheter left and right were used to cannulate the left main and right main respectively. RCA was normal. She was codominant on the left system. The JR4 cannulated the left main and the lef t main was normal. LAD had about 20% proximal and 20% mid stenosis with diffuse plaquing. The circu mflex was normal. In the proximal region, the distal area had a 90% stenosis. We decided to interve ne. She was given Angiomax. She was given Effient 60 mg. An XB3.5 with sidehole guide was used to cannulate the left main successfully. A [place] wire 0.14 was used to cross the lesion successfully. A 2.5 x 16 Synergy stent was deployed at 11 atmospheres without any residual stenosis. She was give n 100 mcg of intracoronary nitroglycerin before the final picture. There was no dissection, no throm bosis, excellent flow, 0% residual. Anesthesia: Total conscious sedation was 60 minutes. Complications: None. Blood Loss: 5 cc. Final Diagnosis: Coronary artery disease, status post successful primary circumflex stent. She will go home today in about 6 hours. Continue her home medication which should include statin, b eta-blockers, anticoagulation for atrial fibrillation as well as Plavix. WILLARD/MODL Voice ID: [id number] Report ID: [id number]
[2021-10-18] MEDS ORDERED: DIAZEPAM 5 MG TABLET PO ONE (13:38)
[2021-10-18 18:26] VITALS: O2SAT 96
[2021-10-18] MEDS: ENOXAPARIN 60 MG/0.6 ML SQ SCH (20:23)
[2021-10-18] MEDS: BENZONATATE 100 MG CAP PO PRN (20:24)
[2021-10-18] MEDS: ATORVASTATIN 40 MG TAB PO SCH (20:24)
[2021-10-19] MEDS: BENZONATATE 100 MG CAP PO PRN ×3 (03:25→20:48)
[2021-10-19 05:10] LABS: Absolute Lymphocytes (CBC) 0.8 K/uL (0.7-4.9); Hematocrit 32.7 % (36.0-45.0); Lymphocytes % 15.3 % (15.3-44.8); MCV 104.2 fL (80-100); MPV 8.7 fL (7.6-11.3); RBC Red Blood Cell Count 3.13 M/uL (3.86-4.86)
[2021-10-19 05:40] LABS: Magnesium 1.6 mg/dL (1.8-2.4); Phosphorus 2.6 mg/dL (2.5-4.9); Potassium 3.5 mmol/L (3.5-5.1)
[2021-10-19 05:42] LABS: Troponin High Sensitivity 387.7 pg/mL (<58.9)
--- NOTE | 2021-10-19 06:46 | ECHO ---
HEIGHT: 5 ft 6 in WEIGHT: 137 lb 9 oz DATE OF STUDY: 10/18/[address]: Marika Cerrato 2-DIMENSIONAL: YES M.MODE: YES DOPPLER: YES COLOR FLOW: YES TDS: PORTABLE: DEFINITY: BUBBLE STUDY: DIAGNOSIS: ACUTE CONORARY SYNDROME CARDIAC HISTORY: CATHERIZATION: YES SURGERY: PROSTHETIC VALVE: PACEMAKER: MEASUREMENTS (cm) DIASTOLIC (NORMALS) SYSTOLIC (NORMALS) IVSd 1.1 (0.6-1.2) LA Diam 3.9 (1.9-4.0) LVEF 25-30% LVIDd 5.2 (3.5-5.7) LVIDs 4.9 (2.0-3.5) %FS 5% LVPWd 1.2 (0.6-1.2) Ao Diam 2.8 (2.0-3.7) 2 DIMENSIONAL ASSESSMENT: RIGHT ATRIUM: NORMAL LEFT ATRIUM: NORMAL RIGHT VENTRICLE: NORMAL LEFT VENTRICLE: DEPRESSED LEFT VENTRICULAR EJECTION FRACTION TRICUSPID VALVE: MILD TRICUSPID REGURGITATION MITRAL VALVE: MILD MITRAL REGURGITATION PULMONIC VALVE: MILD PULMONIC INSUFFICIENCY AORTIC VALVE: MILD AORTIC INSUFFICIENCY PERICARDIAL EFFUSION: NONE AORTIC ROOT: NORMAL LEFT VENTRICULAR WALL MOTION: MODERATE GLOBAL HYPOKINESIS WITH SEVERE ANTERIOR/ JOI SEPTAL HYPOKINESIS. DOPPLER/COLOR FLOW: SEE BELOW COMMENTS: SEVERELY DEPRESSED LEFT VENTRICULAR EJECTION FRACTION 25-30%. MODERATELY GLOBAL HYPOKINESIS AND SEVERE ANTERIOR HYPOKINESIS. MILD TRICUSPID REGURGITATION. MILD MITRAL REGURGITATION. MILD AORTIC INSUFFICIENCY. MILD PULMONIC INSUFFICIENCY. TECHNOLOGIST: ZELDA [place]
[2021-10-19] MEDS ORDERED: CLOPIDOGREL 75 MG TABLET PO SCH (09:00)
[2021-10-19] MEDS: ASPIRIN EC 81 MG TAB PO SCH (09:05)
[2021-10-19] MEDS: METOPROLOL TAR 50 MG TAB PO SCH ×2 (09:06→20:47)
[2021-10-19] MEDS: ATORVASTATIN 40 MG TAB PO SCH (20:47)
[2021-10-19 20:48] VITALS: BP 178/96
[2021-10-20 00:19] VITALS: TEMP 98.8
== END 2021-10-19 21:00 | disposition home or self-care (01) | DRG 246 ==
LOC: ER 16:16 → ERHOLD 20:32 → OBSVTOIN 20:32 → INTOOBSV 20:32 → 2ND 21:01 → INTOOBSV 10-17 09:50 → OBSVTOIN 10-17 09:50
PROVIDERS: ADMIT Hospitalist; ATTEND Hospitalist
PROC: 027034Z Dilation of Coronary Artery, One Artery with Drug-eluting Intraluminal Device, Percutaneous Approach (ICD-10-PCS; principal; 2021-10-18)
PROC: B2011ZZ Plain Radiography of Multiple Coronary Arteries using Low Osmolar Contrast (ICD-10-PCS; 2021-10-18)
DX: I21.4 Non-ST elevation (NSTEMI) myocardial infarction (principal); I50.21 Acute systolic (congestive) heart failure; J18.9 Pneumonia, unspecified organism; N17.9 Acute kidney failure, unspecified; N39.0 Urinary tract infection, site not specified; I48.92 Unspecified atrial flutter; I11.0 Hypertensive heart disease with heart failure; E78.5 Hyperlipidemia, unspecified; E83.42 Hypomagnesemia; Z23 Encounter for immunization; I48.91 Unspecified atrial fibrillation; Z85.3 Personal history of malignant neoplasm of breast; Z90.10 Acquired absence of unspecified breast and nipple; Z20.822 Contact with and (suspected) exposure to COVID-19
CPT/HCPCS: 36415; 71045; 80048; 80053; 80061; 80076; 81003; 81015; 82550; 82553; 82607; 82746; 83735; 83880; 84100; 84439; 84443; 84484; 85025; 85347; 85610; 87086; 87088; 87804; 90471; 90732; 93005; 93306; 93458; 93970; 96365; 96366; 96372; 96375; 99285; C1725; C1760; C1893; C9600; G0269; J0583; J1160; J1644; J1650; J1940; J2250; J3010; J3475; J7040; Q9967; U0003

== ENCOUNTER 2022-01-07 14:30 | Emergency (ER) | payer MEDICARE ==
[2022-01-07] MEDS ORDERED: FENTANYL CITR 100 MCG/2 ML ONE (15:47)
[2022-01-07] MEDS ORDERED: ONDANSETRON 4 MG/2 ML VIAL ONE (15:48)
[2022-01-07 15:55] LABS: Absolute Lymphocytes (CBC) 1.2 K/uL (0.7-4.9); Hematocrit 44.4 % (36.0-45.0); Lymphocytes % 13.9 % (15.3-44.8); MCV 95.8 fL (80-100); MPV 8.1 fL (7.6-11.3); RBC Red Blood Cell Count 4.63 M/uL (3.86-4.86)
[2022-01-07 15:57] LABS: Protime INR 1.33
[2022-01-07 16:13] LABS: Magnesium 2.1 mg/dL (1.8-2.4); Potassium 4.6 mmol/L (3.5-5.1)
[2022-01-07 16:18] LABS: Troponin High Sensitivity 61.8 pg/mL (<58.9)
--- NOTE | 2022-01-07 16:22 | RAD REPORT ---
EXAM DESCRIPTION: CT - Head C Spine Cap Shant Be - 01/07/2022 3:53 pm CLINICAL HISTORY: fall, low back pain, head and neck injury, chest pain, abdominal pain COMPARISON: No comparisons TECHNIQUE: Axial [address] head images were obtained. Axial [address] cervical spine images were obtaine d with sagittal and coronal reconstruction images reviewed. During dynamic enhancement of 100mL non-i onic contrast, axial 5 mm images of the chest, abdomen and pelvis were obtained. Biphasic technique p erformed of the abdomen and pelvis. All CT scans are performed using dose optimization technique as appropriate and may include automated exposure control or mA/KV adjustment according to patient size. FINDINGS: No intracranial hemorrhage, mass or edema. No midline shift or abnormal fluid collection. Moderate severity atrophy is present with ventricles in proportion. Chronic ischemic changes are mild . Arterial calcifications are present. Mastoid air cells and paranasal sinuses are clear. No skull fr acture. CT cervical spine imaging shows normal height. 2 mm anterior subluxation of C3 on C4 and C4 on C5 not ed secondary to prominent facet joint degenerative change. Prominent disc space narrowing and C5-6 an d C6-7. Endplate spurring changes are present at these levels. Prominent facet joint degenerative carmencita nges are seen. Left foraminal stenosis present at C3-4 and on the right at C4-5. Bilateral foraminal stenosis present at C5-6 and C6-7. No paraspinal mass or hematoma seen. Central canal detail is inher ently limited. No fracture or pathologic bone process seen. Concerns for traumatic disc herniation or traumatic cord injury can be further addressed with MR imaging. Extensive fibro emphysematous lung changes are present worse in each lung base. CT chest shows no pne umothorax, pulmonary contusion or pleural fluid collection. No mediastinal hematoma and the aorta and pulmonary arteries are unremarkable. No chest will mass or abnormal axillary finding. No displaced r ib fractures are present. Irregular cortical margins are seen in the anterior left fourth-sixth ribs near the costochondral junction suspicious for fracture. Correlation is needed with any localized sym ptoms. Patient appears to have left mastectomy surgical changes. No acute or pathologic changes in th e thoracic spine. CT abdomen and pelvis show no injury to solid abdominal viscera. Gallbladder is distended but not dil ated. Acute gallbladder process is doubtful. No abnormal biliary tree dilatation. No bowel injury or significant finding. No free air, free fluid or abnormal stranding. No urinary bladder abnormality. No fracture of the bony pelvis or proximal femora. L1 compression fractures present approximately 20% loss in height. Posterior wall height is preserved. No bony encroachment into the central canal. Fra cture appears to be acute. There is no pathologic component. Remaining lumbar vertebrae without acute finding. No significant vascular finding. IMPRESSION: Approximately 20% L1 compression fracture suspected to be acute. Posterior wall height i s preserved with no encroachment into the central canal. No pathologic component. No acute intracranial finding. Patient has moderate severity atrophy and mild chronic ischemic change . Cervical spine degenerative change as detailed with no acute finding. Suspected nondisplaced fractures of the anterior left fourth- sixth ribs at the costochondral junctio n. Correlation is needed with any focal symptoms. Extensive fibro emphysematous lung parenchymal change. No posttraumatic injury to the lung parenchyma or pleura. No acute traumatic injury to the soft tissues of the abdomen or pelvis.
--- NOTE | 2022-01-07 17:22 | EDPHYS ---
Physician Documentation [facility] Name: Judy Acevedo Age: 81 yrs Sex: Female : 1940 Arrival Date: 01/07/2022 Time: 14:32 Bed 12 Private MD: Isabella Richardson ED Physician Nino Barrett HPI: 01/07 15:25 This 81 yrs old Female presents to ER via Wheelchair with complaints of Fall Injury, cp Back Pain. 15:25 Details of fall: The patient fell from an upright position, while walking, and struck a cp tile surface, with lower back striking toilet. Onset: The symptoms/episode began/occurred 2 day(s) ago, early Monday morning at about 0400. Associated injuries: The patient sustained injury to the low back, contusion, pain, pain with movement. Severity of symptoms: in the emergency department the symptoms are unchanged, despite home interventions. Patient reports getting up to use bathroom Monday morning at about 0400, becoming lightheaded, passing out and falling to ground. Historical: - Allergies: 14:45 No Known Allergies; ap3 - PMHx: 14:45 bowel obstruction; breast cancer; Hypertensive disorder; syncope; ap3 - PSHx: 14:45 hysterectomy; Left Mastectomy; ap3 - Immunization history:: Client reports receiving the 2nd dose of the Covid vaccine. - Social history:: Smoking status: Patient denies any tobacco usage or history of. ROS: 15:40 Constitutional: Negative for body aches, chills, fever, poor PO intake. cp 15:40 Eyes: Negative for injury, pain, redness, and discharge. cp 15:40 ENT: Negative for drainage from ear(s), ear pain, sore throat, difficulty swallowing, difficulty handling secretions. 15:40 Neck: Negative for pain with movement, pain at rest, stiffness. 15:40 Cardiovascular: Negative for chest pain, edema, palpitations. 15:40 Respiratory: Negative for cough, shortness of breath, wheezing. 15:40 Abdomen/GI: Positive for nausea and vomiting, Negative for abdominal pain, constipation. 15:40 Back: Positive for pain at rest, pain with movement, of the lumbar area. 15:40 : Negative for urinary symptoms, difficulty urinating, bladder incontinence. 15:40 Neuro: Positive for syncope, weakness, Negative for altered mental status, headache, numbness. 15:40 All other systems are negative. Exam: 15:43 Constitutional: The patient appears in no acute distress, alert, awake, non-toxic, well cp developed, well nourished, uncomfortable. 15:43 Head/Face: Normocephalic, atraumatic. cp 15:43 Eyes: Periorbital structures: appear normal, Conjunctiva: normal, no exudate, no injection, Sclera: no appreciated abnormality, Lids and lashes: appear normal, bilaterally. 15:43 ENT: External ear(s): are unremarkable, Nose: is normal, Mouth: Lips: moist, Oral mucosa: pink and intact, moist, Posterior pharynx: Airway: no evidence of obstruction, patent. 15:43 Neck: ROM/movement: is normal, is supple, without pain, no range of motions limitations, no nuchal rigidity. 15:43 Chest/axilla: Inspection: normal, Palpation: is normal, no crepitus, no tenderness. 15:43 Cardiovascular: Rate: normal, Rhythm: regular, Edema: is not appreciated, JVD: is not appreciated. 15:43 Respiratory: the patient does not display signs of respiratory distress, Respirations: normal, no use of accessory muscles, no retractions, labored breathing, is not present, Breath sounds: are clear throughout, no decreased breath sounds, no stridor, no wheezing. 15:43 Abdomen/GI: Inspection: abdomen appears normal, Bowel sounds: active, all quadrants, Palpation: abdomen is soft and non-tender, in all quadrants. 15:43 Back: pain, that is severe, of the lumbar area, ROM is painful, with all movement, Straight leg raises: of both lower extremities does not illicit pain. 15:43 Musculoskeletal/extremity: Extremities: all appear grossly normal, with no appreciated pain with palpation. 15:43 Neuro: Orientation: to person, place \T\ time. Mentation: is normal, Motor: moves all fours, general weakness with no focal deficits, Sensation: is normal. 16:15 ECG was reviewed by the Attending Physician. cp Vital Signs: 14:44 Temp 98.7; Weight 52.62 kg; Height 5 ft. 6 in. (167.64 cm); ap3 16:18 BP 123 / 63; Pulse 70; Resp 16; Pulse Ox 98% ; Pain 6/10; mb8 14:44 Body Mass Index 18.72 (52.62 kg, 167.64 cm) ap3 MDM: 14:56 Patient medically screened. cp 17:15 Test interpretation: by ED physician or midlevel provider: ECG. ED course: VSS. cp Discussed results of labs, trauma CT indicating acute L1 compression fracture. Patient reports pain improved and requesting discharge to home. 17:20 Data reviewed: vital signs, nurses notes, lab test result(s), EKG, radiologic studies, cp CT scan. 17:20 Counseling: I had a detailed discussion with the patient and/or guardian regarding: the cp historical points, exam findings, and any diagnostic results supporting the discharge/admit diagnosis, lab results, radiology results, to return to the emergency department if symptoms worsen or persist or if there are any questions or concerns that arise at home. 01/07 15:18 Order name: Basic Metabolic Panel; Complete Time: 16:44 01/07 16:44 Interpretation: Normal except: NA 134; CL 97; GLUC 160; BUN 55; CRE 1.65; GFR 31; CA cp 10.5. 01/07 15:18 Order name: CBC with Diff; Complete Time: 16:44 01/07 16:44 Interpretation: Normal except: MCV 95.8; RDW 17.2; LYM% 13.9. 01/07 15:18 Order name: Magnesium; Complete Time: 16:44 01/07 16:45 Interpretation: MG 2.1; Reviewed. 01/07 15:18 Order name: NT PRO-BNP; Complete Time: 16:44 01/07 16:45 Interpretation: Abnormal: NT PRO-BNP 02903. 01/07 15:18 Order name: PT-INR; Complete Time: 16:44 01/07 15:18 Order name: Troponin HS; Complete Time: 16:44 01/07 16:45 Interpretation: Abnormal: Troponin HS 61.8. 01/07 15:18 Order name: EKG; Complete Time: 15:19 01/07 15:18 Order name: Cardiac monitoring; Complete Time: 16:14 01/07 15:18 Order name: EKG - Nurse/Tech; Complete Time: 16:14 01/07 15:18 Order name: IV Saline Lock; Complete Time: 15:39 cp 01/07 15:18 Order name: CT Traumagram (Head C Spine CAP W Con); Complete Time: 16:44 cp 01/07 17:09 Order name: CREATININE WHOLE BLOOD; Complete Time: 17:12 EDMS 01/07 15:18 Order name: Labs collected and sent; Complete Time: 15:39 cp 01/07 15:18 Order name: O2 Per Protocol; Complete Time: 15:39 cp 01/07 15:18 Order name: O2 Sat Monitoring; Complete Time: 15:39 cp EC:15 Rate is 77 beats/min. Rhythm is regular. [place] interval is normal. QRS interval is cp prolonged at 150 msec. QT interval is normal. T waves are Inverted in leads I, aVL, V5, V6. Interpreted by me. Reviewed by me. Administered Medications: 16:04 Drug: fentaNYL (PF) 25 mcg Route: IVP; Site: right antecubital; mb8 16:24 Follow up: Response: No adverse reaction; Pain is decreased mb8 16:04 Drug: Zofran (Ondansetron) 4 mg Route: IVP; Site: right antecubital; mb8 16:24 Follow up: Response: No adverse reaction; Nausea is decreased mb8 Disposition: 17:54 Co-signature as Attending Physician, Nino Barrett MD I agree with the assessment and kdr plan of care. Disposition Summary: 01/07/22 17:21 Discharge Ordered Location: Home cp Problem: new cp Symptoms: have improved cp Condition: Stable cp Diagnosis - Syncope Near cp - Fall on same level, unspecified cp - Fracture of first lumbar vertebra - Compression type cp Followup: cp - With: Isabella Richardson MD - When: 2 - 3 days - Reason: Recheck today's complaints Discharge Instructions: - Discharge Summary Sheet cp - Spinal Compression Fracture cp - Fall Prevention in the Home, Adult cp - Syncope cp Forms: - Medication Reconciliation Form cp - Thank You Letter cp - Antibiotic Education cp - Prescription Opioid Use cp Prescriptions: - Tylenol-Codeine #3 300 mg-30 mg Oral - take 2 tablet by ORAL route every 8-10 hours; 20 tablet; Refills: 0, Product cp Selection Permitted Signatures: Dispatcher [employer] Nino Reyes MD MD kdr Page, Corey, PA PA cp Deana Mason RN RN ap3 Zacarias Schneider RN RN mb8 Corrections: (The following items were deleted from the chart) 16:44 16:44 Normal except: NA 134; CL 97; GLUC 160; BUN 55; CRE 1.65; GFR 31. cp cp 17:24 17:21 Wedge compression fracture of first lumbar vertebra cp cp
--- NOTE | 2022-01-07 17:22 | ER ---
Nurse's Notes [facility] Name: Judy Acevedo Age: 81 yrs Sex: Female : 1940 Arrival Date: 01/07/2022 Time: 14:32 Bed 12 Private MD: Isabella Richardson Diagnosis: Syncope Near;Fall on same level, unspecified;Fracture of first lumbar vertebra-Compression type Presentation: 01/07 14:44 Chief complaint: Patient states: she fell at approx 0400 Monday01/05/2022. Patient ap3 denies LOC, but reports continued back pain and nausea from the pain. Coronavirus screen: At this time, the client does not indicate any symptoms associated with coronavirus-19. Ebola Screen: No symptoms or risks identified at this time. Initial Sepsis Screen:. Risk Assessment: Do you want to hurt yourself or someone else? Patient reports no desire to harm self or others. Onset of symptoms was January 05, 2022. 14:44 Method Of Arrival: Wheelchair ap3 14:44 Acuity: [place] 4 ap3 14:48 Initial Sepsis Screen: Does the patient meet any 2 criteria?. mb8 16:17 Acuity: HENRIET[place] 3 iw 17:40 Initial Sepsis Screen: Does the patient have a suspected source of infection? No. mb8 Patient's initial sepsis screen is negative. Triage Assessment: 14:46 General: Appears uncomfortable, Behavior is calm, cooperative. Pain: Complains of pain ap3 in back. Neuro: Level of Consciousness is awake, alert, obeys commands, Oriented to person, place, time, situation. Cardiovascular: Patient's skin is warm and dry. Respiratory: Airway is patent Respiratory effort is even, unlabored. Musculoskeletal: Reports pain in back. Historical: - Allergies: 14:45 No Known Allergies; ap3 - PMHx: 14:45 bowel obstruction; breast cancer; Hypertensive disorder; syncope; ap3 - PSHx: 14:45 hysterectomy; Left Mastectomy; ap3 - Immunization history:: Client reports receiving the 2nd dose of the Covid vaccine. - Social history:: Smoking status: Patient denies any tobacco usage or history of. Screenin:47 Abuse screen: Denies threats or abuse. Nutritional screening: No deficits noted. ap3 Tuberculosis screening: No symptoms or risk factors identified. 14:47 Abuse screen: Denies threats or abuse. Denies injuries from another. Nutritional mb8 screening: No deficits noted. Tuberculosis screening: No symptoms or risk factors identified. Fall Risk Fall in past 12 months (25 points). Secondary diagnosis (15 points) No IV (0 pts). Ambulatory Aid- None/Bed Rest/Nurse Assist (0 pts). Gait- Weak (10 pts.). Mental Status- Oriented to own ability (0 pts). Total Cole Fall Scale indicates Low Risk Score (25-44 pts). Side Rails Up X 2 Family Present and informed to notify staff if they need to leave bedside As available Patient and Family Educated on Fall Prevention Program and strategies. Assessment: 14:46 General: Appears uncomfortable, Behavior is calm, cooperative, appropriate for age. mb8 Pain: Complains of pain in lower back Pain began 2-3 days ago. Also complains of nausea, Current management is with Tylenol. Respiratory: No deficits noted. Musculoskeletal: Circulation, motion, and sensation intact. Capillary refill < 3 seconds, Range of motion: intact in all extremities, bruising to lower back. 16:18 Reassessment: Patient and/or family updated on plan of care and expected duration. Pain mb8 level reassessed. Patient is alert, oriented x 3, equal unlabored respirations, skin warm/dry/pink. Patient states feeling better. Vital Signs: 14:44 Temp 98.7; Weight 52.62 kg; Height 5 ft. 6 in. (167.64 cm); ap3 16:18 BP 123 / 63; Pulse 70; Resp 16; Pulse Ox 98% ; Pain 6/10; mb8 14:44 Body Mass Index 18.72 (52.62 kg, 167.64 cm) ap3 ED Course: 14:32 Patient arrived in ED. rg4 14:33 Isabella Richardson MD is Private Physician. rg4 14:39 Zacarias Schneider RN is Primary Nurse. mb8 14:43 [facility]. cp 14:43 Nino Barrett MD is Attending Physician. cp 14:45 Triage completed. ap3 14:47 Arm band placed on right wrist. ap3 14:48 Patient has correct armband on for positive identification. Bed in low position. Call ap3 light in reach. Side rails up X 1. Adult w/ patient. Pulse ox on. NIBP on. Door closed. Noise minimized. 14:48 No provider procedures requiring assistance completed. mb8 15:39 Note: 20 g iv to rt ac and labs collected and sent by golf club head inspector . 15:55 CT Traumagram (Head C Spine CAP W Con) In Process Unspecified. EDMS 16:18 Client placed on continuous cardiac and pulse oximetry monitoring. NIBP monitoring mb8 applied. satellite project site monitor on. 17:19 Isabella Richardson MD is Referral Physician. cp 17:38 Walker given to patient. Return demostration preformed correctly. mb8 17:40 IV discontinued, intact, bleeding controlled, No redness/swelling at site. Pressure mb8 dressing applied. Administered Medications: 16:04 Drug: fentaNYL (PF) 25 mcg Route: IVP; Site: right antecubital; mb8 16:24 Follow up: Response: No adverse reaction; Pain is decreased mb8 16:04 Drug: Zofran (Ondansetron) 4 mg Route: IVP; Site: right antecubital; mb8 16:24 Follow up: Response: No adverse reaction; Nausea is decreased mb8 Medication: 14:47 VIS not applicable for this client. mb8 Outcome: 17:21 Discharge ordered by MD. cp 17:39 Discharged to home with family. mb8 17:39 Condition: stable 17:39 Discharge instructions given to patient, family, Instructed on discharge instructions, follow up and referral plans. medication usage, walker use Demonstrated understanding of instructions, follow-up care, medications, walker use Prescriptions given X 1. 17:40 Patient left the ED. mb8 Signatures: Dispatcher [employer] Ellie Campbell Irene, RN RN iw Herbert Arreguin PA PA cp Garcia, Rubi rg4 Deana Mason RN RN ap3 Zacarias Schneider RN RN mb8
[2022-01-07 18:31] VITALS: TEMP 98.7
[2022-01-07 18:42] VITALS: BP 123/63; O2SAT 98
--- NOTE | 2022-01-08 15:20 | EKG ---
Test Date: 2022-01-07 Test Time: 16:09:35 Senior Sales Administrator: MEASUREMENT RESULTS: Intervals: Rate: 77 MT: 186 QRSD: 150 QT: 450 QTc: 509 [place]: P: 19 MT: 186 QRS: -38 T: 129 INTERPRETIVE STATEMENTS: Normal sinus rhythm Left axis deviation Left bundle branch block Abnormal ECG Compared to ECG 10/15/2021 18:11:37 Left-axis deviation now present Left bundle-branch block now present Atrial flutter no longer present Right-axis deviation no longer present T-wave abnormality no longer present Electronically Signed On 01-08-22 15:18:40 CDT by Gilberto Barillas
== END 2022-01-07 17:40 | disposition home or self-care (01) ==
LOC: ER 14:30
DX: R55 Syncope and collapse (principal); S32.019A Unspecified fracture of first lumbar vertebra, initial encounter for closed fracture; W18.30XA Fall on same level, unspecified, initial encounter; I10 Essential (primary) hypertension; Z85.3 Personal history of malignant neoplasm of breast; Z90.12 Acquired absence of left breast and nipple
CPT/HCPCS: 93005; 85025; 80048; 36415; 83735; 85610; 82565; 84484; 83880; 70450; 72125; 71260; 74177; 96375; 96374; 99284; Q9967; J3010; J2405

== ENCOUNTER 2022-02-14 12:26 | Inpatient (IN) | payer OTHER ==
--- OUTSIDE RECORDS SUMMARY | 2022-02-14 12:30 | XMS REPORT | Continuity of Care Document ---
:1940 Author Organization [facility] t Address [address] [place] [address] Care Team Providers Name Role Phone Debra Isabella Attending Clinician Unavailable Gilberto Barillas Attending Clinician Unavailable Physician, No Primary or Family Admitting Clinician [facility] Payers Payer Name Policy Type Policy Number Effective Date Expiration Date S ource Problems This patient has no known problems. Allergies, Adverse Reactions, Alerts This patient has no known allergies or adverse reactions. Medications This patient has no known medications. Procedures This patient has no known procedures. Encounters Start End Encounter Admission Attending Care Care Encounter Source Date/Time Date/Time Type Type Clinicians Facility Department ID 2022-01-[address] [facility] [id number] Common 14:16:03 [facility] 2022-01-[address] [facility] [id number] Common 15:58:02 Isabella [facility] 2022-01-12 Inpatient ULISES Agudelo [facility] [id number] [facility] 09:15:00 Gilberto [facility] 2022-01-10 Outpatient Richardson, STLMLC STLMLC [id number] Common 10:43:01 Isabella [facility] 2021-12-22 Outpatient Richardson, STLMLC STLMLC [id number] Common 14:43:01 Isabella [facility] 2021-11-09 Outpatient Richardson, STLMLC STLMLC [id number] Common 13:02:02 Isabella [facility] 2021-11-08 Outpatient Richardson, STLMLC STLMLC [id number] Common 14:34:03 Isabella [facility] 2022-01-28 2022-01-28 ambulatory STLMLC STLMLC [id number] Common 00:00:00 00:00:00 [facility] 2022-01-27 2022-01-27 ambulatory STLMLC STLMLC [id number] Common 00:00:00 00:00:00 [facility] 2022-01-26 2022-01-26 ambulatory STLMLC STLMLC [id number] Common 00:00:00 00:00:00 [facility] 2022-01-26 2022-01-26 ambulatory STLMLC STLMLC [id number] Common 00:00:00 00:00:00 [facility] 2022-01-13 2022-01-13 ambulatory STLMLC STLMLC [id number] Common 00:00:00 00:00:00 [facility] 2022-01-12 2022-01-12 ambulatory STLMLC STLMLC [id number] Common 00:00:00 00:00:00 [facility] 2022-01-10 2022-01-10 ambulatory STLMLC STLMLC [id number] Common 00:00:00 00:00:00 [facility] 2021-12-24 2021-12-24 ambulatory STLMLC STLMLC [id number] Common 00:00:00 00:00:00 [facility] 2021-12-24 2021-12-24 ambulatory STLMLC STLMLC [id number] Common 00:00:00 00:00:00 [facility] 2021-12-21 2021-12-21 ambulatory STLMLC STLMLC [id number] Common 00:00:00 00:00:00 [facility] 2021-11-09 2021-11-09 ambulatory STLMLC STLMLC [id number] Common 00:00:00 00:00:00 [facility] 2021-11-09 2021-11-09 ambulatory STLMLC STLMLC [id number] Common 00:00:00 00:00:00 [facility] Results This patient has no known results.
[2022-02-14] MEDS ORDERED: NA CHLORIDE 0.9% 1,000 ML ONE ×2 (12:46→15:20)
[2022-02-14 13:15] LABS: Absolute Lymphocytes (CBC) 1.4 K/uL (0.7-4.9); Hematocrit 32.1 % (36.0-45.0); Lymphocytes % 22.9 % (15.3-44.8); MCV 94.8 fL (80-100); MPV 9.5 fL (7.6-11.3); RBC Red Blood Cell Count 3.39 M/uL (3.86-4.86)
[2022-02-14 13:31] LABS: Potassium 3.9 mmol/L (3.5-5.1)
--- NOTE | 2022-02-14 15:00 | ER ---
Nurse's Notes [facility] Name: Judy Acevedo Age: 81 yrs Sex: Female : 1940 Arrival Date: 02/14/2022 Time: 12:27 Bed 6 Private MD: Diagnosis: Dehydration;Acute kidney failure, unspecified Presentation: 02/14 12:42 Chief complaint: Patient's son or daughter states: Nausea, weakness, no appetite for 6 ll1 days. Coronavirus screen: Vaccine status: Patient reports receiving the 2nd dose of the covid vaccine. Client denies travel out of the [place] in the last 14 days. fatigue, nausea, Client presents with at least one sign or symptom that may indicate coronavirus-19. Standard/surgical mask placed on the client. Ebola Screen: Patient denies travel to an Ebola-affected area in the 21 days before illness onset. Initial Sepsis Screen: Does the patient meet any 2 criteria? No. Patient's initial sepsis screen is negative. Does the patient have a suspected source of infection? No. Patient's initial sepsis screen is negative. Risk Assessment: Do you want to hurt yourself or someone else? Patient reports no desire to harm self or others. Onset of symptoms was February 10, 2022. 12:42 Method Of Arrival: Wheelchair ll1 12:42 Acuity: HEN[place]ET[place] 3 ll1 Triage Assessment: 12:45 General: Appears ill, Behavior is cooperative, appropriate for age. Pain: Denies pain. ll1 Neuro: Reports weakness. GI: Reports nausea. Historical: - Allergies: 12:38 No Known Allergies; kr3 - PMHx: 12:38 bowel obstruction; breast cancer; Hypertensive disorder; syncope; kr3 - PSHx: 12:38 hysterectomy; Left Mastectomy; kr3 - Immunization history:: Client reports receiving the 2nd dose of the Covid vaccine. - Social history:: Smoking status: Patient denies any tobacco usage or history of. Screenin:11 Abuse screen: Denies threats or abuse. Nutritional screening: Has had N/V for 3 or more ll1 days Intervention for positive screen: ED Physician notified. Tuberculosis screening: No symptoms or risk factors identified. Fall Risk IV access (20 points). Ambulatory Aid- Crutches/Cane/Walker (15 pts). Gait- Weak (10 pts.). Total Cole Fall Scale indicates High Risk Score (45 or more points). Fall prevention measures have been instituted. Side Rails Up X 2 Placed Close to Nursing Station Frequent Obs/Assessments Occuring Family Present and informed to notify staff if the need to leave the bedside As available patient and family educated on Fall Prevention Program and Strategies. Assessment: 13:11 Reassessment: No changes from previously documented assessment. Patient and/or family ll1 updated on plan of care and expected duration. Pain level reassessed. Patient is alert, oriented x 3, equal unlabored respirations, skin warm/dry/pink. given warm blanket. 13:41 Reassessment: No changes from previously documented assessment. drinking water. kr3 14:15 Reassessment: No changes from previously documented assessment. kr3 15:25 Reassessment: No changes from previously documented assessment. Patient and/or family kr3 updated on plan of care and expected duration. Pain level reassessed. 16:23 Reassessment: No changes from previously documented assessment. Patient and/or family kr3 updated on plan of care and expected duration. Pain level reassessed. Patient states feeling better. 17:30 Reassessment: No changes from previously documented assessment. Patient and/or family kr3 updated on plan of care and expected duration. Pain level reassessed. Patient is alert, oriented x 3, equal unlabored respirations, skin warm/dry/pink. 19:57 General: Appears in no apparent distress. Behavior is calm, cooperative. Pain: Denies kd3 pain. Neuro: Level of Consciousness is awake, alert, Oriented to person, place, time, situation. Respiratory: Airway is patent Trachea midline Respiratory effort is even, unlabored, Respiratory pattern is regular, symmetrical. GI: Abdomen is flat, non-distended, Reports not eating for a week due to nausea and has cause weakness. pt. eating right now and denies any nausea at this moment. 21:50 Reassessment: Patient and/or family updated on plan of care and expected duration. Pain ha1 level reassessed. Patient is alert, oriented x 3, equal unlabored respirations, skin warm/dry/pink. Vital Signs: 12:42 BP 94 / 54; Pulse 62; Resp 16; Temp 97.2; Pulse Ox 100% on R/A; ll1 13:42 BP 117 / 73; Pulse 67; Resp 16; Pulse Ox 100% on R/A; kr3 14:42 BP 122 / 68; Pulse 70; Resp 16; Pulse Ox 100% on R/A; kr3 15:45 BP 111 / 64; Pulse 67; Resp 67; Pulse Ox 100% on R/A; kr3 16:45 BP 114 / 77; Pulse 66; Resp 16; Pulse Ox 100% on R/A; kr3 17:54 BP 129 / 73; Pulse 63; Resp 16; Pulse Ox 97% on R/A; kr3 19:50 BP 120 / 62; Pulse 62; Resp 18 S; Pulse Ox 100% on R/A; ha1 ED Course: 12:27 Patient arrived in ED. rg4 12:30 Tammi Hilton FNP-C is PHCP. kb 12:30 González Reagan MD is Attending Physician. kb 12:38 Arm band placed on Patient placed in an exam room, on a stretcher. kr3 12:42 Tabitha Francois, RN is Primary Nurse. kr3 12:45 Triage completed. ll1 13:00 Inserted saline lock: 24 gauge in right antecubital area, using aseptic technique. ll1 Blood collected. 13:12 Patient has correct armband on for positive identification. Bed in low position. Call ll1 light in reach. Side rails up X 1. Client placed on continuous cardiac and pulse oximetry monitoring. NIBP monitoring applied. 14:59 José Antonio Correia MD is Hospitalizing Provider. kb 15:28 IV discontinued, intact, bleeding controlled, Pressure dressing applied, IV infiltrated kr3 slightly while flushing. 16:00 Inserted saline lock: 22 gauge in right antecubital area, using aseptic technique. dh3 17:31 SARS-COV-2 Antigen Rapid Sent. kr3 19:27 Primary Nurse role handed off by Tabitha Francois, RN mw2 19:57 Eve Reyes, MANUEL is Primary Nurse. kd3 02/15 10:32 No provider procedures requiring assistance completed. ha1 Administered Medications: 02/14 13:10 Drug: NS 0.9% 1000 ml Route: IV; Rate: 1000 ml; Site: right antecubital; ll1 15:27 Follow up: Response: No adverse reaction; IV Status: Completed infusion; IV Intake: kr3 1000ml 16:05 Drug: NS 0.9% 1000 ml Route: IV; Rate: 75 ml/hr; Site: right antecubital; kr3 Medication: 13:12 VIS not applicable for this client. ll1 Intake: 15:27 IV: 1000ml; Total: 1000ml. kr3 Outcome: 15:00 Decision to Hospitalize by Provider. kb 02/15 10:32 Admitted to Med/surg accompanied by nurse, via stretcher, room 210. ha1 Condition: stable 10:33 Patient left the ED. ha1 Signatures: Tammi Hilton, CALLI CELESTINP-Stacey Hernandez rg4 Alicia Feliz 3 Sara Kothari 2 Guille Melendez RN RN ll1 Eve Reyes RN RN kd3 Faviola Mason RN RN 1 Tabitha Francois, RN RN kr3 Corrections: (The following items were deleted from the chart) 02/14 20:07 19:57 GI: Abdomen is flat, non-distended, Reports not eating for a week kd3 ha1
--- NOTE | 2022-02-14 15:00 | EDPHYS ---
Physician Documentation [facility] Name: Judy Acevedo Age: 81 yrs Sex: Female : 1940 Arrival Date: 02/14/2022 Time: 12:27 Bed 6 Private MD: ED Physician González Reagan HPI: 02/14 15:18 This 81 yrs old Female presents to ER via Wheelchair with complaints of Nausea, kb Weakness. 15:18 The patient presents with generalized weakness. Onset: The symptoms/episode kb began/occurred 6 day(s) ago. Context: occurred at home, just prior to the episode the patient experienced nausea, decreased appetite. Modifying factors: The symptoms are alleviated by nothing, the symptoms are aggravated by nothing. Associated signs and symptoms: Pertinent positives: nausea, decreased appetite. Severity of symptoms: At their worst the symptoms were moderate in the emergency department the symptoms are unchanged. Patient's baseline: Neuro: alert and fully oriented, Motor: no deficits, Ambulation: walks with assist only, Speech: normal. The patient has not experienced similar symptoms in the past. The patient has not recently seen a physician. Son reports pt has had nausea and decreased appetite for 6 days. States she has become weak due to not eating. States they were at the hospital for a MRI so he brought her by to get her electrolytes checked and IV fluids. Historical: - Allergies: 12:38 No Known Allergies; kr3 - PMHx: 12:38 bowel obstruction; breast cancer; Hypertensive disorder; syncope; kr3 - PSHx: 12:38 hysterectomy; Left Mastectomy; kr3 - Immunization history:: Client reports receiving the 2nd dose of the Covid vaccine. - Social history:: Smoking status: Patient denies any tobacco usage or history of. ROS: 15:13 Constitutional: Negative for fever, chills, and weight loss. kb 15:13 Constitutional: Positive for poor PO intake. 15:13 Abdomen/GI: Positive for nausea, Negative for abdominal pain, vomiting, diarrhea. 15:13 Neuro: Positive for weakness. 15:13 All other systems are negative. Exam: 15:13 Constitutional: This is a well developed, well nourished patient who is awake, alert, kb and in no acute distress. Head/Face: Normocephalic, atraumatic. ENT: Moist Mucous membranes Cardiovascular: Regular rate and rhythm with a normal S1 and S2. No gallops, murmurs, or rubs. No pulse deficits. Respiratory: Respirations even and unlabored. No increased work of breathing. Talking in full sentences Abdomen/GI: Soft, non-tender. No distention Skin: Warm, dry with normal turgor. Normal color. MS/ Extremity: Pulses equal, no cyanosis. Neurovascular intact. Full, normal range of motion. Neuro: Awake and alert, GCS 15, oriented to person, place, time, and situation. Moves all extremities. Normal gait, but needs assist due to weakness Psych: Awake, alert, with orientation to person, place and time. Behavior, mood, and affect are within normal limits. Vital Signs: 12:42 BP 94 / 54; Pulse 62; Resp 16; Temp 97.2; Pulse Ox 100% on R/A; ll1 13:42 BP 117 / 73; Pulse 67; Resp 16; Pulse Ox 100% on R/A; kr3 14:42 BP 122 / 68; Pulse 70; Resp 16; Pulse Ox 100% on R/A; kr3 15:45 BP 111 / 64; Pulse 67; Resp 67; Pulse Ox 100% on R/A; kr3 16:45 BP 114 / 77; Pulse 66; Resp 16; Pulse Ox 100% on R/A; kr3 17:54 BP 129 / 73; Pulse 63; Resp 16; Pulse Ox 97% on R/A; kr3 19:50 BP 120 / 62; Pulse 62; Resp 18 S; Pulse Ox 100% on R/A; ha1 MDM: 12:40 Patient medically screened. kb 14:59 Data reviewed: vital signs, nurses notes. Data interpreted: Pulse oximetry: on room air kb is 100 %. Interpretation: normal. Counseling: I had a detailed discussion with the patient and/or guardian regarding: the historical points, exam findings, and any diagnostic results supporting the discharge/admit diagnosis, lab results, the need for further work-up and treatment in the hospital. Physician consultation: Oni contacted about admission. Pt accepted under Dr Correia to hospitalist group. 02/14 12:40 Order name: CBC with Diff kb 02/14 12:40 Order name: Basic Metabolic Panel kb 02/14 13:31 Order name: CBC with Automated Diff; Complete Time: 13:33 EDMS 02/14 13:33 Order name: Basic Metabolic Panel; Complete Time: 13:33 EDMS 02/14 16:54 Order name: SARS-COV-2 Antigen Rapid bd 02/14 17:32 Order name: Phosphorus; Complete Time: 22:24 EDMS 02/14 17:32 Order name: Creatine Phosphokinase; Complete Time: 22:24 EDMS 02/14 17:32 Order name: Magnesium; Complete Time: 22:24 EDMS 02/14 17:34 Order name: SARS-COV-2 Antigen Rapid; Complete Time: 22:24 EDMS 02/14 18:50 Order name: NT PRO-BNP; Complete Time: 22:24 EDMS 02/14 21:58 Order name: RAD; Complete Time: 22:24 EDMS 02/15 03:12 Order name: CBC with Automated Diff; Complete Time: 10:30 EDMS 02/15 03:12 Order name: Basic Metabolic Panel; Complete Time: 10:30 EDMS 02/14 12:40 Order name: IV Start; Complete Time: 13:10 kb Administered Medications: 13:10 Drug: NS 0.9% 1000 ml Route: IV; Rate: 1000 ml; Site: right antecubital; ll1 15:27 Follow up: Response: No adverse reaction; IV Status: Completed infusion; IV Intake: kr3 1000ml 16:05 Drug: NS 0.9% 1000 ml Route: IV; Rate: 75 ml/hr; Site: right antecubital; kr3 Disposition: 17:29 PA/CULINARY WORKER's history reviewed, patient interviewed, and examined. I agree with assessment jr11 and care plan and confirm the diagnosis (es) above. Attestation: The patient's history, exam findings, diagnostics, and a summary of any interventions or procedures was reviewed in detail with Tammi MCCURDY. Disposition Summary: 02/14/22 15:00 Hospitalization Ordered Hospitalization Status: Observation kb Provider: José Antonio Correia Condition: Stable kb Problem: new kb Symptoms: are unchanged kb Bed/Room Type: Standard kb Location: Telemetry/MedSurg (observation)(02/15/22 08:04) bd Room Assignment: 210(02/15/22 08:04) bd Diagnosis - Dehydration kb - Acute kidney failure, unspecified kb Forms: - Medication Reconciliation Form kb - SBAR form kb Signatures: Dispatcher [employer] EDMS Tammi Hilton, NOUGAT CANDY MAKER HELPER-C NOUGAT CANDY MAKER HELPER-Ckb Mayuri Cooper Cindy, RN RN cg Guille Melendez RN RN ll1 González Reagan MD MD jr11 Tabitha Francois RN RN kr3 Marika Cerrato PA-C PAAsher sb4 Corrections: (The following items were deleted from the chart) 15:17 15:13 Constitutional: This is a well developed, well nourished patient who is awake, kb alert, and in no acute distress. Head/Face: Normocephalic, atraumatic. ENT: Moist Mucous membranes Cardiovascular: Regular rate and rhythm with a normal S1 and S2. No gallops, murmurs, or rubs. No pulse deficits. Respiratory: Respirations even and unlabored. No increased work of breathing. Talking in full sentences Abdomen/GI: Soft, non-tender. No distention Skin: Warm, dry with normal turgor. Normal color. MS/ Extremity: Pulses equal, no cyanosis. Neurovascular intact. Full, normal range of motion. Neuro: Awake and alert, GCS 15, oriented to person, place, time, and situation. Moves all extremities. Normal gait. Psych: Awake, alert, with orientation to person, place and time. Behavior, mood, and affect are within normal limits. kb 15:17 15:13 Constitutional: This is a well developed, well nourished patient who is awake, kb alert, and in no acute distress. Head/Face: Normocephalic, atraumatic. ENT: Moist Mucous membranes Cardiovascular: Regular rate and rhythm with a normal S1 and S2. No gallops, murmurs, or rubs. No pulse deficits. Respiratory: Respirations even and unlabored. No increased work of breathing. Talking in full sentences Abdomen/GI: Soft, non-tender. No distention Skin: Warm, dry with normal turgor. Normal color. MS/ Extremity: Pulses equal, no cyanosis. Neurovascular intact. Full, normal range of motion. Neuro: Awake and alert, GCS 15, oriented to person, place, time, and situation. Moves all extremities. Normal gait, but weak. Psych: Awake, alert, with orientation to person, place and time. Behavior, mood, and affect are within normal limits. kb 20:03 15:00 Telemetry/MedSurg (observation) kb cg 20:03 15:00 kb cg 02/15 08:04 02/14 20:03 [facility] ER HOLD cg bd 02/15 08:04 02/14 20:03 ERHOLD- cg bd
[2022-02-14] MEDS ORDERED: HYOSCYAMINE SULF 0.125 MG TAB PO PRN (16:47)
[2022-02-14] MEDS ORDERED: HYDROCODONE/APAP 5/325 MG TAB PO PRN (16:50)
--- NOTE | 2022-02-14 17:00 | P.HP ---
Certification for Inpatient Patient admitted to: Observation With expected LOS: <2 Midnights Patient will require the following post-hospital care: None Practitioner: I am a practitioner with admitting privileges, knowledge of patient current condition, hospital course, and medical plan of care. Services: Services provided to patient in accordance with Admission requirements found in Title 42 Section 412.3 of the Code of Federal Regulations Patient History Date of Service: 02/14/22 Reason for admission: Dehydration, Poor PO intake History of Present Illness: Patient is a 81-year-old female with a past medical history significant for hypertension, GERD, CHF, atrial fibrillation, breast cancer, depression, hyperlipidemia, osteoarthritis who presents with complaint of poor p.o. intake and dehydration. Patient was on hospice for heart failure prior to admission. Patient's son reported that patient had a compression fracture on January 07, 2022. Patient was seen in the ER and discharged home. Patient followed up with her PCP who referred her to a spine doctor. Patient followed up with the spine doctor who requested an MRI lumbar to assess if patient is a candidate for vertebroplasty and MRI was done today. Patient's son decided to bring patient to the ER after the MRI procedure out of concern for dehydration since patient has been having poor p.o. intake and nausea for the past 6 days. Patient reported associated signs and symptoms of lethargy, weakness and nausea. Patient denies any other signs and symptoms. Symptoms are aggravated or relieved by nothing. Patient currently resting in bed with son at bedside. Allergies No Known Allergies Allergy (Verified 10/15/21 22:25) Home Medications: Celecoxib [Celebrex] 1 cap PO SEECOM 10/15/21 Hyoscyamine Sulfate [Anaspaz] 0.125 mg PO DAILY PRN 10/15/21 Irbesartan 150 mg PO DAILY 10/15/21 Magnesium Oxide [Mag 0X*] 1 tab PO BID 10/15/21 Omeprazole 20 mg PO BID 10/15/21 Sertraline [Zoloft*] 1 tab PO DAILY 10/15/21 Vit D3 50 Mcg (2,000 Unit Tab) 4,000 unit PO DAILY 10/15/21 Vitamin B Complex [B Complex] 1 tab PO DAILY 10/15/21 Atorvastatin Calcium [Lipitor] 40 mg PO BEDTIME tab 10/18/21 Loperamide [Imodium*] 2 mg PO Q4H PRN cap 10/18/21 Metoprolol Tartrate [Lopressor*] 50 mg PO BID tab 10/18/21 Apixaban [Eliquis] 2.5 mg PO BID 30 Days #60 tablet 10/19/21 Atorvastatin Calcium [Lipitor] 40 mg PO BEDTIME 30 Days #30 tablet 10/19/21 Clopidogrel Bisulfate [Plavix] 75 mg PO DAILY 30 Days #30 tablet 10/19/21 Metoprolol Tartrate 50 mg PO BID 30 Days #60 tablet 10/19/21 - Past Medical/Surgical History Diabetic: No -: Hypertension -: Breast Cancer -: Hypertension -: CHF -: GERD -: Hysterectomy -: Mastectomy - Family History Father -: Heart disease Brother -: Heart disease Sister -: Heart disease - Social History Smoking Status: Never smoker Alcohol use: Yes CD- Drugs: No Caffeine use: Yes Place of Residence: Home Review of Systems General: Weakness, Other (Lethargy, Poor PO intake ) Eyes: Unremarkable ENT: Unremarkable Respiratory: Unremarkable Cardiovascular: Unremarkable Gastrointestinal: Nausea Genitourinary: Unremarkable Musculoskeletal: Unremarkable Integumentary: Unremarkable Neurological: Weakness Lymphatics: Unremarkable Physical Examination - Physical Exam General: Alert, Oriented x3 HEENT: Normocephalic, PERRLA Neck: Supple, 2+ carotid pulse no bruit, JVD not distended Respiratory: Clear to auscultation bilaterally, Normal air movement Cardiovascular: No edema, Normal pulses Capillary refill: <2 Seconds Gastrointestinal: Normal bowel sounds, Soft and benign Musculoskeletal: No clubbing, No swelling, No contractures, No erythema Integumentary: No rashes, No breakdown, No significant lesion, No tenderness/swelling, No erythema Neurological: Normal speech, Normal tone Lymphatics: No axilla or inguinal lymphadenopathy - Studies Laboratory Data (last 24 hrs) 02/14/22 13:00: Sodium 134 L, Potassium 3.9, BUN 138 H, Creatinine 5.97 H*, Glucose 111 H 02/14/22 13:00: WBC 6.20, Hgb 10.7 L, Hct 32.1 L, Plt Count 260 Assessment and Plan - Plan --Acute renal failure. Patient has a baseline of CKD 3B. Patient given bolus IV hydration in the ER. Nephrology consulted. We will continue gentle IV hydration pending assessment by cone chocolate dipper. We will await further recommendation from cone chocolate dipper. . --Chronic systolic CHF. Patient's son reported that patient has been off Lasix for the past 6 days due to patient's poor p.o. intake. BNP pending. Daily weight and strict I/O. Continue supportive care. --Compression fracture. MRI indicates proximally 60% subacute compression fracture L1 body. Patient follows up with an orthopedic spine doctor outpatient. We will manage pain with current pain medication regimen. Continue supportive care. --Hypertension. Patient currently hypotensive. Patient had IV bolus hydration in the ER. We will continue gentle IV hydration and continue to monitor blood pressure. --GERD. Continue home medication. --Depression. Continue Zoloft. --Hyperlipidemia. Continue statin. -- Osteoarthritis. We will manage pain with current pain medication regimen. --Anemia of chronic disease. H&H stable. We will continue to monitor hemoglobin and transfuse if less than 7.0. --Atrial fibrillation. Continue Eliquis. --Nausea. Antiemetics on board. --History of breast cancer. Status unknown. Continue supportive care. -- Poor p.o. intake. Dam Operator consulted. Will await further recommendations. -- DVT prophylaxis with Eliquis. Discharge Plan: Home Plan to discharge in: 48 Hours - Advance Directives Does patient have a Living Will: No Does patient have a Durable POA for Healthcare: No - Code Status/Comfort Care Code Status Assessed: Yes Code Status: Do Not Attempt Resuscitat Physician Review: Patient Assessed, Agree with Above Assessment and Plan Critical Care: No
[2022-02-14 17:32] LABS: Magnesium 1.8 mg/dL (1.8-2.4); Phosphorus 5.4 mg/dL (2.5-4.9)
[2022-02-14 17:34] LABS: SARS-CoV-2 Antigen Rapid Res Negative (Negative)
[2022-02-14] MEDS ORDERED: NA CHLORIDE 0.9% 1,000 ML IV SCH ×2 (18:00→20:40)
[2022-02-14] MEDS: MAGNESIUM OXIDE 400 MG TAB PO SCH (21:00)
[2022-02-14] MEDS ORDERED: HOME MED 1 EA UNK (Omeprazole [Omeprazole] 20 MG Tablet.Dr) PO SCH (21:00)
[2022-02-14] MEDS: APIXABAN 2.5 MG TABLET PO SCH (21:00)
--- NOTE | 2022-02-14 21:57 | RAD REPORT ---
EXAM DESCRIPTION: RAD - Chest Pa And Lat (2 Views) - 02/14/2022 9:36 pm CLINICAL HISTORY: connie COMPARISON: Portable 10/15/2021 TECHNIQUE: Frontal and lateral views of the chest were obtained. FINDINGS: The lungs are slightly underinflated. Fibrotic lung pattern is present most pronounced at each lung base. Findings are not substantially different from comparison. Mild or early lung base inf iltrates could be masked. Numerous surgical clips are seen along the left chest and axilla. Right axi llary surgical clips are seen. Heart size is normal and central vasculature is within normal limits. No pleural effusion or pneu mothorax seen. Compression fracture of the thoracolumbar junction is detailed on the MRI study of e same date. No aortic abnormality. IMPRESSION: Chronic interstitial lung disease most pronounced at each lung base. Lung markings are a ccentuated by shallow inspiration. Baseline pattern could mask early edema or infiltrate.
[2022-02-14] MEDS: ATORVASTATIN 40 MG TAB PO SCH (23:00)
[2022-02-14] MEDS ORDERED: APIXABAN 5 MG TABLET ONE (23:35)
[2022-02-14] MEDS ORDERED: MAGNESIUM OXIDE 400 MG TAB ONE (23:36)
[2022-02-14] MEDS ORDERED: ATORVASTATIN 20 MG TAB ONE (23:36)
[2022-02-15 03:06] LABS: Absolute Lymphocytes (CBC) 1.1 K/uL (0.7-4.9); Hematocrit 37.4 % (36.0-45.0); Lymphocytes % 29.9 % (15.3-44.8); MCV 95.3 fL (80-100); MPV 9.5 fL (7.6-11.3); RBC Red Blood Cell Count 3.92 M/uL (3.86-4.86)
[2022-02-15] MEDS ORDERED: ALBUMIN HUMAN 25% 50 ML IV ONE ×2 (04:15→04:29)
[2022-02-15] MEDS ORDERED: NA CHLORIDE 0.9% 0 ML IV ONE (04:29)
[2022-02-15] MEDS: PANTOPRAZOLE 40MG TABLET PO SCH ×2 (07:30→16:38)
[2022-02-15] MEDS ORDERED: PNEUMOCOCCAL VACCINE 0.5 ML IMVAC ONE (08:00)
[2022-02-15] MEDS ORDERED: INFLUENZA VACCINE (for 6+ mo) 0.5 ML DOSE IMVAC ONE (08:00)
[2022-02-15] MEDS: VITAMIN B COMPLEX 1 CAP PO SCH (09:00)
[2022-02-15] MEDS ORDERED: CHOLECALCIFEROL PO SCH (09:00)
[2022-02-15] MEDS: ASPIRIN EC 81 MG TAB PO SCH (09:00)
[2022-02-15] MEDS: SERTRALINE HCL 100 MG TAB PO SCH (09:00)
[2022-02-15] MEDS: VITAMIN D 1000 UNIT TAB PO SCH (09:00)
[2022-02-15] MEDS: CLOPIDOGREL 75 MG TABLET PO SCH (09:00)
[2022-02-15] MEDS: MAGNESIUM OXIDE 400 MG TAB PO SCH ×2 (09:00→21:16)
[2022-02-15] MEDS ORDERED: HOME MED 1 EA UNK (Vitamin B Complex [B Complex] Tablet) PO SCH (09:00)
[2022-02-15] MEDS: APIXABAN 2.5 MG TABLET PO SCH ×2 (09:00→21:16)
[2022-02-15] MEDS ORDERED: ASPIRIN EC 81 MG TAB PO ONE (09:05)
[2022-02-15] MEDS ORDERED: ATORVASTATIN 20 MG TAB ONE (09:06)
[2022-02-15] MEDS ORDERED: APIXABAN 5 MG TABLET ONE (09:06)
[2022-02-15] MEDS ORDERED: VITAMIN D 1000 UNIT TAB ONE (09:06)
[2022-02-15] MEDS ORDERED: CLOPIDOGREL 75 MG TABLET ONE (09:06)
[2022-02-15] MEDS ORDERED: MAGNESIUM OXIDE 400 MG TAB ONE (09:06)
[2022-02-15] MEDS ORDERED: VITAMIN B COMPLEX 1 CAP ONE (09:13)
[2022-02-15] MEDS ORDERED: NA CHLORIDE 0.9% 1,000 ML IV ONE (14:02)
[2022-02-15] MEDS ORDERED: NA CHLORIDE 0.9% 1,000 ML IV SCH (15:00)
--- NOTE | 2022-02-15 15:02 | RAD REPORT ---
EXAM DESCRIPTION: US - Renal Ultrasound-Complete - 02/15/2022 2:48 pm CLINICAL HISTORY: BRAD Flank pain COMPARISON: No comparisons FINDINGS: Both kidneys appear mildly echogenic. The right kidney measures 10.2 x 3.7 x 3.5 cm. Mild hydronephrosis. The left kidney measures 8.9 x 4.1 x 3.6 cm. Mild hydronephrosis. The urinary bladder is incompletely distended without gross abnormality seen. IMPRESSION: Mild bilateral hydronephrosis is noted.
--- NOTE | 2022-02-15 15:31 | P.PN ---
Subjective Date of Service: 02/15/22 Chief Complaint: Dehydration, Poor PO intake Patient is awake and denies any complaint. She denies any back pain. She endorsed poor oral intake. Physical Examination - Vital Signs Temperature: 96.6 F Blood Pressure: 85/52 Pulse: 89 Respirations: 18 Pulse Ox (%): 97 - Studies Laboratory Data (last 24 hrs) 02/14/22 13:00: Phosphorus 5.4 H, Magnesium 1.8 Assessment And Plan - Current Problems (Diagnosis) (1) BRAD (acute kidney injury) Current Visit: No Status: Acute (2) Chronic systolic heart failure Current Visit: Yes Status: Acute (3) Hypotension Current Visit: Yes Status: Acute (4) Vertebral compression fracture Current Visit: Yes Status: Acute Qualifiers: Lumbar vertebra fracture level: L1 (5) Functional quadriplegia Current Visit: Yes Status: Acute - Plan Physical Exam General: Alert, Oriented x3 Neck: Supple, JVD not distended Respiratory: Clear to auscultation bilaterally, Normal air movement Cardiovascular: No edema, Normal pulses Gastrointestinal: Normal bowel sounds, Soft and benign, nontender. Musculoskeletal: No clubbing, No swelling, No contractures, No erythema Integumentary: No rashes, No breakdown, No tenderness/swelling, No erythema Neurological: Normal speech, Normal tone Lymphatics: No axilla or inguinal lymphadenopathy Plan: Patient has a baseline of CKD 3B Continue IV fluid. Renal ultrasound shows mild bilateral hydronephrosis. Nephrology was consulted. Encourage oral intake. Continue to monitor renal function. Hold Lasix. Follow-up with spine surgery as an outpatient regarding L1 vertebral compression fracture. Patient is currently bedridden. Continue Eliquis for atrial fibrillation. Metoprolol on hold due to low blood pressure. Patient appears compensated for CHF IV normal saline bolus as needed for hypotension. PT evaluation once BP stabilizes. Continue home medications for other chronic medical problems. Physician Review: Patient Assessed, Agree with Above Assessment and Plan
--- NOTE | 2022-02-15 20:19 | CON ---
Date of Consultation: 02/15/2022 Reason For Consultation: Elevated BUN and creatinine, dehydration, fluid management. History Of Present Illness: This is a pleasant 81-year-old female with significant past medical history of hypertension, CAD complicated with congestive heart failure, ejection fraction of 60%, diastolic dysfunction, GERD, breast cancer, AFib, CAD status post PTCA back in October 2021, the patient was in her regular state of health. The patient used to be on hospice, had compression fracture back in December 2021, admitted to the ER, then released to outpatient. The patient came for evaluation by her PCP for spinal MRI. After the MRI, apparently patient was so weak. For that reason, the son brought her to the hospital. According to the family, the patient used to be on Lasix that was discontinued 1 week ago as the patient has poor intake, nausea and vomiting. The patient denied taking any nonsteroidal. The patient had IV contrast as I mentioned in October 2021 for the cardiac cath and stenting. Reviewing the record of the patient, the patient's home medication was include Celebrex and metformin and irbesartan and as I mentioned the patient used to be on Lasix that has been discontinued 1 week ago. Upon arrival to the hospital, creatinine was above 5. The patient was started on aggressive hydration, kidney function improved, creatinine down to 3. Obstructive uropathy has been ruled out with the ultrasound. Insulting medication has been held and as I mentioned, kidney function has been improved. Past Medical History: Includes; 1. Chronic kidney disease, baseline creatinine back in December 2021 of 1.6. According to the family back in January, her GFR was 27. 2. Breast cancer. 3. CAD, status post PTCA back in October 2021 complicated with congestive heart failure, preserved ejection fraction, ejection fraction of 60%. 4. GERD. 5. AFib. Allergies: NO KNOWN DRUG ALLERGIES. Home Medications: Include Celebrex, irbesartan, omeprazole, Zoloft, B complex, vitamin D, atorvastatin, loperamide, metoclopramide, Eliquis, Plavix, and metoprolol. Past Surgical History: Includes spinal fusion. Family History: Positive for CAD, hypertension. Social History: Denied smoking. Occasional alcohol. Denied drugs abuse. Review of Systems: Head and Neck: Has neck pain. GI: Has nausea. No vomiting. Poor intake. : No polyuria. No dysuria. No hematuria. Chronometer Assembler: No vaginal discharge. Respiratory: No shortness of breath. Cardiovascular: No chest pain. No orthopnea. Endocrine: No polydipsia. Skin: No rash. Neuro: Has neck pain and weakness. Musculoskeletal: Low back pain. Physical Examination: Vital Signs: When I saw the patient; blood pressure 85/52, pulse of 89, afebrile. Chest: Clear to auscultation. Heart: S1, S2. Regular. Abdomen: Soft, nontender. Extremity: No edema. Neurologic: Alert. No focality. Laboratory Data: Upon admission yesterday; WBC 6.2, H and H 10.7/32.1. Sodium 134, potassium 3.9, bicarb 24, BUN 138, creatinine 5.9, calcium 10.5. Today lab data; sodium 139, potassium 4, bicarb 23, BUN 111, creatinine 3.7, GFR of 12, calcium 8.7, phosphorus 5.4, CK 214. BNP 2100. Hemoglobin 12.4. Chest x-ray, no congestion. Current Medications: The patient on include; 1. IV fluid. 2. Aspirin. 3. Eliquis. 4. Atorvastatin. 5. Zoloft. 6. Magnesium oxide. 7. Cholecalciferol. Assessment And Plan: 1. Acute kidney injury secondary to prerenal, superimposed with ARB use, diuresis and nonsteroidal anti-inflammatory drug abuse including Celebrex. Nonoliguric, still on the dry side, superimposed with calcium diuresis secondary to hypercalcemia. I am going to resume IV fluid and we will monitor the patient closely. I agree with holding Celebrex, ARB, and/or other blood pressure medications given the low blood pressure. We will aggressively hydrate. We will send for renal ultrasound and PTH to evaluate the chronicity of the disease and we will follow up. 2. Hypercalcemia, mostly secondary to depletional, secondary to poor intake. Discontinue any calcium supplement, start hydrating, and we will follow up. We will send for PTH, vitamin D to rule out any Milk-alkali. 3. Mild rhabdomyolysis secondary to bed-bound. We will start hydration. 4. Hyponatremia, depletional as above. We will continue hydration. 5. Chronic kidney disease, baseline creatinine on December 2021 of 1.6, GFR of 35 with acute kidney injury as above. 6. Hypertension, currently blood pressure on the lower side. Hold all blood pressure medications, especially ARB and we will start hydration. I am going to go ahead and send for cortisol, TSH and we will follow up the patient closely. Thank you, Dr. Correia for allowing us to participate in the care of your patient. Time spent examining the patient, [id number], reviewing data and radiology, placing ordered, discussing the case with the hospitalist and the caregiver by bedside / son , discussing the case with nursing more than 65 minutes. OTTO Voice ID: [id number] Report ID: [id number] WILL
[2022-02-15 20:23] LABS: Specific Gravity 1.011 (1.005-1.030); Urine Bacteria <20 /HPF (<20); Urine Bilirubin NEGATIVE (Negative); Urine Blood 1+ (Negative); Urine Clarity Clear (Clear); Urine Color Light-Yellow (Yellow); Urine Glucose NEGATIVE (Negative); Urine Mucus Slight /HPF (None Seen); Urine Protein NEGATIVE (Negative); Urine RBC <5 /HPF (None Seen); Urine Urobilinogen Normal (Normal); Urine pH 5.5 (5.0-7.0)
[2022-02-15] MEDS: ATORVASTATIN 40 MG TAB PO SCH (21:16)
[2022-02-15 23:05] LABS: UR PROTEIN 28.5 mg/dL (<11.9); Urine Protein/Creatinine Ratio 0.39 ratio (<0.15)
[2022-02-16] MEDS: ACETAMINOPHEN 500 MG TAB PO PRN (04:59)
[2022-02-16 06:04] LABS: Albumin 2.9 g/dL (3.4-5.0); Magnesium 1.8 mg/dL (1.8-2.4); Phosphorus 3.1 mg/dL (2.5-4.9); Thyroid Stimulating Hormone 0.831 uIU/mL (0.360-3.740); Uric Acid 13.9 mg/dL (2.6-6.0)
[2022-02-16] MEDS: VITAMIN D 1000 UNIT TAB PO SCH (09:34)
[2022-02-16] MEDS: ASPIRIN EC 81 MG TAB PO SCH (09:34)
[2022-02-16] MEDS: VITAMIN B COMPLEX 1 CAP PO SCH (09:34)
[2022-02-16] MEDS: PANTOPRAZOLE 40MG TABLET PO SCH (09:34)
[2022-02-16] MEDS: APIXABAN 2.5 MG TABLET PO SCH ×2 (09:34→21:54)
[2022-02-16] MEDS: CLOPIDOGREL 75 MG TABLET PO SCH (09:35)
[2022-02-16] MEDS: SERTRALINE HCL 100 MG TAB PO SCH (09:35)
[2022-02-16] MEDS: MAGNESIUM OXIDE 400 MG TAB PO SCH ×2 (09:35→21:54)
[2022-02-16] MEDS: D5 0.45 NS 1,000 ML IV SCH (10:57)
--- NOTE | 2022-02-16 14:06 | P.PN ---
Subjective Date of Service: 02/16/22 Chief Complaint: Dehydration, Poor PO intake Patient reports loss of appetite. According to the son patient anorexia started about 1 and half months ago. Patient denied altered taste in the mouth or easy satiety. She was on Lasix for CHF which was discontinued by hospice a few days ago. Physical Examination - Vital Signs Temperature: 97.9 F Blood Pressure: 157/93 Pulse: 85 Respirations: 16 Pulse Ox (%): 96 Assessment And Plan - Current Problems (Diagnosis) (1) BRAD (acute kidney injury) Current Visit: No Status: Acute (2) Chronic systolic heart failure Current Visit: Yes Status: Acute (3) Hypotension Current Visit: Yes Status: Acute (4) Vertebral compression fracture Current Visit: Yes Status: Acute Qualifiers: Lumbar vertebra fracture level: L1 (5) Functional quadriplegia Current Visit: Yes Status: Acute - Plan Physical Exam General: Alert, Oriented x3 Neck: Supple, JVD not distended Respiratory: Clear to auscultation bilaterally, Normal air movement Cardiovascular: No edema, Normal pulses Gastrointestinal: Normal bowel sounds, Soft and benign, nontender. Musculoskeletal: No swelling, No erythema Integumentary: No rashes, No breakdown. Neurological: Normal speech, No focal motor deficit. Plan: Patient has a baseline of CKD 3B. Serum creatinine is responding to IV hydration, and down to 2.9 Continue IV fluid. Renal ultrasound shows mild bilateral hydronephrosis. Nephrology is following Encourage oral intake. Trial of PPI. Continue to monitor renal function. Hold Lasix. Follow-up with spine surgery as an outpatient regarding L1 vertebral compression fracture. Patient is currently bedridden. Continue Eliquis for atrial fibrillation. Resume metoprolol once systolic blood pressure is consistently greater than 140. Patient appears compensated for CHF IV normal saline bolus as needed for hypotension. PT evaluation. Continue home medications for other chronic medical problems. I had a discussion with the son who stated he and the patient are not interested in hospice and would rather prefer home health. They are looking forward for appetite to improve, see the spine surgeon for possible vertebroplasty followed by rehab with a goal of getting her to walk if that is feasible. Physician Review: Patient Assessed, Agree with Above Assessment and Plan
[2022-02-16] MEDS ORDERED: SODIUM CHLORIDE 0.9% 10ML INJ IV PRN (14:09)
--- NOTE | 2022-02-16 15:01 | PN ---
Date of Progress Note: 02/16/2022 Subjective: The patient was admitted with acute kidney injury secondary to prerenal, secondary to over diuresis superimposed with Entresto. The patient was started on aggressive hydration. The patient still feeling weak, poor appetite. Blood pressure still on the lower side. Physical Examination: Vital Signs: Blood pressure 91/57, pulse of 87, afebrile. Chest: Clear to auscultation. Heart: S1, S2. Systolic murmur. Abdomen: Soft, nontender. Extremities: No edema. Neurologic: Alert. No focality. Laboratory Data: WBC 3.8, H and H 12.4/37.4. Sodium 138, potassium 4, bicarb 25, BUN 99, creatinine 2.9, GFR of 16, uric acid 13.9, calcium 10.1, phosphorus 3.1, magnesium 1.8, albumin 2.9, corrected calcium is 11, PTH of 15. Current Medications: The patient on include Eliquis, Plavix, atorvastatin, and Zoloft. Assessment And Plan: 1. Acute kidney injury secondary to prerenal, secondary to over diuresis superimposed with Lasix and Entresto, on the recovery phase, nonoliguric. No hyperkalemia. I am going to resume IV fluid and we will monitor. 2. Hypercalcemia, trending down. Continue hydration. Keep avoiding any supplement. PTH appropriately suppressed. We will follow up vitamin D level. 3. Hyponatremia, depletional. We will resume IV fluid. 4. Rhabdomyolysis. Continue hydration. 5. Congestive heart failure, currently the patient on the dry side. I am going to resume IV fluid. Keep holding diuresis. Keep holding Entresto. 6. Altered mental status, improving. Time spent examining the patient, [id number], reviewing data and radiology, placing ordered, discussing the case with the hospitalist a, discussing the case with nursing more than 35 minutes. OTTO Voice ID: [id number] Report ID: [id number] WILL
[2022-02-16] MEDS ORDERED: INFLUENZA VACCINE (for 6+ mo) 0.5 ML DOSE IMVAC ONE (21:00)
[2022-02-16] MEDS ORDERED: PNEUMOCOCCAL VACCINE 0.5 ML IMVAC ONE (21:00)
[2022-02-16] MEDS: PANTOPRAZOLE 40 MG INJ IVP SCH (21:53)
[2022-02-16] MEDS: ATORVASTATIN 40 MG TAB PO SCH (21:54)
[2022-02-16] MEDS: MIRTAZAPINE 15 MG TAB PO SCH (22:01)
[2022-02-16] MEDS: ENSURE CLEAR 200 ML CAN PO SCH (22:09)
[2022-02-17] MEDS ORDERED: DIPHENHYDRAMINE 25 MG TAB/CAP PO ONE (01:21)
[2022-02-17] MEDS: ACETAMINOPHEN 500 MG TAB PO PRN (01:42)
[2022-02-17 03:52] LABS: Albumin 2.8 g/dL (3.4-5.0); Phosphorus 2.1 mg/dL (2.5-4.9); Potassium 3.3 mmol/L (3.5-5.1)
[2022-02-17] MEDS: D5 0.45 NS 1,000 ML IV SCH (08:28)
[2022-02-17 08:59] LABS: Albumin 2.9 g/dL (3.4-5.0); Bilirubin Direct 0.2 mg/dL (0-0.2); Bilirubin Total 0.6 mg/dL (0.2-1.0); Protein, Total 7.6 g/dL (6.4-8.2)
[2022-02-17] MEDS: MAGNESIUM OXIDE 400 MG TAB PO SCH ×2 (09:00→20:35)
[2022-02-17] MEDS ORDERED: POTASSIUM CL SA 10 MEQ TAB PO ONE (09:00)
[2022-02-17] MEDS: ENSURE CLEAR 200 ML CAN PO SCH ×2 (09:00→20:35)
[2022-02-17] MEDS: ASPIRIN EC 81 MG TAB PO SCH (09:53)
[2022-02-17] MEDS: VITAMIN B COMPLEX 1 CAP PO SCH (09:53)
[2022-02-17] MEDS: APIXABAN 2.5 MG TABLET PO SCH ×2 (09:53→20:35)
[2022-02-17] MEDS: POTASS/SODIUM PHOSPHATE 1 PKT POWD.PACK PO SCH ×2 (09:55→09:56)
[2022-02-17] MEDS: CLOPIDOGREL 75 MG TABLET PO SCH (09:56)
[2022-02-17] MEDS: PANTOPRAZOLE 40 MG INJ IVP SCH ×2 (09:56→20:35)
[2022-02-17] MEDS: SERTRALINE HCL 100 MG TAB PO SCH (09:56)
[2022-02-17] MEDS: VITAMIN D 1000 UNIT TAB PO SCH (09:56)
[2022-02-17] MEDS: D5.45NS W/KCL 20MEQ 1,000 ML IV SCH (13:08)
--- NOTE | 2022-02-17 15:54 | P.PN ---
Subjective Date of Service: 02/17/22 Chief Complaint: Dehydration, Poor PO intake Son states patient's appetite was better this morning. She ate half of her breakfast. Serum creatinine continue to improve. She has no other complaint. Physical Examination - Vital Signs Temperature: 97.4 F Blood Pressure: 109/63 Pulse: 98 Respirations: 16 Pulse Ox (%): 94 Assessment And Plan - Current Problems (Diagnosis) (1) BRAD (acute kidney injury) Current Visit: No Status: Acute (2) Chronic systolic heart failure Current Visit: Yes Status: Acute (3) Hypotension Current Visit: Yes Status: Acute (4) Vertebral compression fracture Current Visit: Yes Status: Acute Qualifiers: Lumbar vertebra fracture level: L1 (5) Functional quadriplegia Current Visit: Yes Status: Acute - Plan Physical Exam General: Alert, Oriented x3 Neck: Supple, JVD not distended Respiratory: Clear to auscultation bilaterally, Normal air movement Cardiovascular: No edema, Normal pulses Gastrointestinal: Normal bowel sounds, Soft and benign, nontender. Musculoskeletal: No swelling, No erythema Integumentary: No rashes, No breakdown. Neurological: Normal speech, No focal motor deficit. Plan: Patient has a baseline of CKD 3B. Serum creatinine continue to improve with IV fluid. Creatinine is down to 2.3. Renal ultrasound shows mild bilateral hydronephrosis. Nephrology is following Patient stated her appetite is better today. She was started on Remeron last night. Continue PPI On IV fluid per nephrology. Continue to monitor renal function. Hold Lasix. Follow-up with spine surgery as an outpatient regarding L1 vertebral compression fracture. Patient is currently bedridden. Continue Eliquis for atrial fibrillation. Resume metoprolol once systolic blood pressure is consistently greater than 140. Patient appears compensated for CHF IV normal saline bolus as needed for hypotension. PT evaluation. Continue home medications for other chronic medical problems. I had a discussion with the son who stated he and the patient are not interested in hospice and would rather prefer home health. They are looking forward for appetite to improve, see the spine surgeon for possible vertebroplasty followed by rehab with a goal of getting her to walk if that is feasible. Physician Review: Patient Assessed, Agree with Above Assessment and Plan
--- NOTE | 2022-02-17 16:55 | PN ---
Date of Progress Note: 02/17/2022 Subjective: The patient was admitted to the hospital with acute kidney injury secondary to dehydration, over diuresis. The patient was started on IV hydration, tolerated well. The patient complaining from diarrhea today. Physical Examination: Vital Signs: When I saw the patient; blood pressure 109/63, pulse of 98, afebrile. Chest: Clear to auscultation. Heart: S1, S2. Regular. Abdomen: Soft, nontender. Extremity: No edema. Neurologic: Alert. No focality. Laboratory Data: Hemoglobin 12.4. Sodium 138, potassium 3.3, bicarb 29, BUN 76, creatinine 2.3, GFR of 21, calcium 10.2, phosphorus 2.1. TSH 0.8. Current Medications: The patient on include; 1. Aspirin. 2. Diphenhydramine. 3. Plavix. 4. Atorvastatin. 5. Mirtazapine. 6. Zoloft. 7. Ensure. Assessment And Plan: 1. Acute kidney injury secondary to prerenal, dehydration, superimposed with diuresis, superimposed with ARB and rhabdomyolysis, on the recovery phase. Given the presence of diarrhea, I am going to go ahead and continue on the hydration for the time being. 2. Hypokalemia. The patient started on supplement. We will add potassium to her fluid. 3. Hypertension, controlled, optimal. Keep holding diuresis. 4. Diarrhea as by primary. 5. Rhabdomyolysis, recovered, resolved. 6. Hypercalcemia secondary to Milk-alkali/immobilization. Calcium continued to trend down. We will follow up. 7. Hyponatremia, depletional. Continue IV hydration. Time spent examining the patient, [id number], reviewing data and radiology, placing ordered, discussing the case with the hospitalist a, discussing the case with nursing more than 35 minutes. OTTO Voice ID: [id number] Report ID: [id number] WILL
[2022-02-17] MEDS: ATORVASTATIN 40 MG TAB PO SCH (20:35)
[2022-02-17] MEDS: MIRTAZAPINE 15 MG TAB PO SCH (20:35)
[2022-02-18] MEDS: D5.45NS W/KCL 20MEQ 1,000 ML IV SCH (05:34)
[2022-02-18 06:42] LABS: Absolute Lymphocytes (CBC) 1.3 K/uL (0.7-4.9); Hematocrit 34.3 % (36.0-45.0); Lymphocytes % 26.5 % (15.3-44.8); MCV 93.5 fL (80-100); MPV 9.2 fL (7.6-11.3); RBC Red Blood Cell Count 3.67 M/uL (3.86-4.86)
[2022-02-18 07:01] LABS: Albumin 2.6 g/dL (3.4-5.0); Phosphorus 1.2 mg/dL (2.5-4.9)
[2022-02-18] MEDS: ENSURE CLEAR 200 ML CAN PO SCH ×2 (09:00→21:12)
[2022-02-18] MEDS: MAGNESIUM OXIDE 400 MG TAB PO SCH ×2 (09:00→21:09)
[2022-02-18] MEDS: SERTRALINE HCL 100 MG TAB PO SCH (09:00)
[2022-02-18] MEDS: PANTOPRAZOLE 40 MG INJ IVP SCH ×2 (10:32→21:09)
[2022-02-18] MEDS: CLOPIDOGREL 75 MG TABLET PO SCH (10:33)
[2022-02-18] MEDS: APIXABAN 2.5 MG TABLET PO SCH ×2 (10:33→21:08)
[2022-02-18] MEDS: VITAMIN B COMPLEX 1 CAP PO SCH (10:33)
[2022-02-18] MEDS: VITAMIN D 1000 UNIT TAB PO SCH (10:33)
[2022-02-18] MEDS: ASPIRIN EC 81 MG TAB PO SCH (10:33)
--- NOTE | 2022-02-18 11:55 | P.PN ---
Subjective Date of Service: 02/18/22 Chief Complaint: Dehydration, Poor PO intake Subjective: No new changes Physical Examination - Vital Signs Temperature: 97.4 F Blood Pressure: 105/70 Pulse: 110 Respirations: 18 Pulse Ox (%): 96 - Physical Exam General: Other (appears as her stated age) HEENT: Atraumatic, Normocephalic Neck: Supple Respiratory: Other (symmetric chest expansion) Cardiovascular: No rubs, No murmurs Gastrointestinal: Soft and benign, No rebound Musculoskeletal: No clubbing Integumentary: No warmth Neurological: Normal tone Urinary: Other (no bladder distention) External genitalia: Deferred Rectal: Deferred Assessment And Plan - Plan 1. Acute kidney injury secondary to prerenal, dehydration, superimposed with diuresis, superimposed with ARB and rhabdomyolysis. SCr improved to 2.2. [place] po fluid intake. 2. Hypokalemia. KCl suppl prn. 3. Hypertension. BP controlled. Cont current med regimen. 4. Diarrhea as per primary. 5. Rhabdomyolysis, recovered, resolved. 6. Hypercalcemia secondary to Milk-alkali/immobilization. Calcium continued to trend down. We will follow up. 7. Hyponatremia, depletional. Continue IV hydration. 8. HypoPO4. Phos IV repletion today. 9. Afib - Eliquis 10. Vertebral compression fx. Per other services. Physician Review: Patient Assessed, Agree with Above Assessment and Plan
[2022-02-18] MEDS ORDERED: SODIUM PHOSPHATE 10 MM in NA CHLORIDE 0.9% 250 ML IV ONE (13:00)
--- NOTE | 2022-02-18 14:43 | P.PN ---
Subjective Date of Service: 02/18/22 Chief Complaint: Dehydration, Poor PO intake Patient report better appetite. She is eating more. Stated she slept well last night. She is needing assistance with transfers. Physical Examination - Vital Signs Temperature: 97.1 F Blood Pressure: 105/63 Pulse: 98 Respirations: 18 Pulse Ox (%): 95 Assessment And Plan - Current Problems (Diagnosis) (1) BRAD (acute kidney injury) Current Visit: No Status: Acute (2) Chronic systolic heart failure Current Visit: Yes Status: Acute (3) Hypotension Current Visit: Yes Status: Acute (4) Vertebral compression fracture Current Visit: Yes Status: Acute Qualifiers: Lumbar vertebra fracture level: L1 (5) Functional quadriplegia Current Visit: Yes Status: Acute - Plan Physical Exam General: Alert, Oriented x3 Respiratory: Clear to auscultation bilaterally, Normal air movement Cardiovascular: No edema, regular heart rhythm Gastrointestinal: Normal bowel sounds, Soft and benign, nontender. Musculoskeletal: No swelling, No erythema Integumentary: No rashes, No breakdown. Neurological: Normal speech, No focal motor deficit. Plan: Patient has a baseline of CKD 3B. Not much improvement in serum creatinine compared to yesterday. Renal ultrasound shows mild bilateral hydronephrosis. Nephrology is following Appetite is improving, patient is eating more. Continue PPI On IV fluid per nephrology. Continue to monitor renal function. Lasix is on hold Follow-up with spine surgery as an outpatient regarding L1 vertebral compression fracture. Patient currently able to transfer with assistance. PT consult Continue Eliquis for atrial fibrillation. Metoprolol is on hold due to soft blood pressure She is compensated for CHF IV normal saline bolus as needed for hypotension. Continue home medications for other chronic medical problems. Goals of care: Patient goal is improvement in performance status. Anticipating home with home health for PT. She may need outpatient follow-up for evaluation for vertebroplasty. Physician Review: Patient Assessed, Agree with Above Assessment and Plan
[2022-02-18] MEDS: POTASS/SODIUM PHOSPHATE 1 PKT POWD.PACK PO SCH ×2 (16:00→17:00)
[2022-02-18] MEDS: MIRTAZAPINE 15 MG TAB PO SCH (21:07)
[2022-02-18] MEDS: ATORVASTATIN 40 MG TAB PO SCH (21:08)
[2022-02-19] MEDS: D5.45NS W/KCL 20MEQ 1,000 ML IV SCH (04:46)
[2022-02-19 05:39] LABS: Albumin 2.6 g/dL (3.4-5.0); Phosphorus 1.3 mg/dL (2.5-4.9); Potassium 4.1 mmol/L (3.5-5.1)
[2022-02-19] MEDS: ENSURE CLEAR 200 ML CAN PO SCH ×2 (08:05→20:42)
[2022-02-19] MEDS: POTASS/SODIUM PHOSPHATE 1 PKT POWD.PACK PO SCH ×3 (08:05→11:22)
[2022-02-19] MEDS: VITAMIN D 1000 UNIT TAB PO SCH (08:06)
[2022-02-19] MEDS: SERTRALINE HCL 100 MG TAB PO SCH (08:06)
[2022-02-19] MEDS: APIXABAN 2.5 MG TABLET PO SCH ×2 (08:06→20:31)
[2022-02-19] MEDS: VITAMIN B COMPLEX 1 CAP PO SCH (08:06)
[2022-02-19] MEDS: PANTOPRAZOLE 40 MG INJ IVP SCH ×2 (08:06→20:33)
[2022-02-19] MEDS: CLOPIDOGREL 75 MG TABLET PO SCH (08:06)
[2022-02-19] MEDS: ASPIRIN EC 81 MG TAB PO SCH (08:06)
[2022-02-19] MEDS: MAGNESIUM OXIDE 400 MG TAB PO SCH ×2 (08:07→20:31)
--- NOTE | 2022-02-19 12:48 | P.PN ---
Subjective Date of Service: 02/19/22 Chief Complaint: Dehydration, Poor PO intake Pt with quadriplegia , admitted with poor roal intake and BRAD , in ER Cr 5.9 today No overnight events cr down to 1.9 cont gentle hydration will repeat renal US Physical exam General: Awake, NAD HEENT: Atraumatic, Normocephalic Neck: Supple, no elevated JVD Respiratory: Other CTAB. No rales or wheezes Cardiovascular: No rubs, No murmurs Gastrointestinal: Soft and benign, Non-distended Musculoskeletal: No clubbing Integumentary: No warmth Neurological: Normal tone, Sensation intact Lymphatics: No axilla or inguinal lymphadenopathy Urinary: Other (no bladder distention) A/P # Acute kidney injury secondary to prerenal, dehydration, superimposed with diuresis, superimposed with ARB and rhabdomyolysis. cr in Er 5.9 and imoroving to 1.9 today renal diet renal dose medications avoid NSAID and contrast #mild hydronephrosis will repeat US today #Hypokalemia. KCl suppl prn. #Hypertension. BP controlled. Cont current med regimen. #Hypercalcemia secondary to Milk-alkali/immobilization. Calcium continued to trend down. We will follow up. #HypoPO4. Monitor and replace prn #Afib - Eliquis #Vertebral compression fx. F/u with Ortho as an OP Total time spent 45 minutes including documentation, reviewing labs , placing orders and discussing plan of care with medical staff and pt Physical Examination - Vital Signs Temperature: 97.9 F Blood Pressure: 109/68 Pulse: 112 Respirations: 14 Pulse Ox (%): 96 Assessment And Plan Physician Review: Patient Assessed, Agree with Above Assessment and Plan
--- NOTE | 2022-02-19 14:35 | P.PN ---
Subjective Date of Service: 02/19/22 Chief Complaint: Dehydration, Poor PO intake Patient is more functional. She was seen walking to the bathroom with 2 person assist. Serum creatinine continues to improve and she is tolerating her diet. Physical Examination - Vital Signs Temperature: 97.9 F Blood Pressure: 109/68 Pulse: 112 Respirations: 14 Pulse Ox (%): 96 Assessment And Plan - Current Problems (Diagnosis) (1) BRAD (acute kidney injury) Current Visit: No Status: Acute (2) Chronic systolic heart failure Current Visit: Yes Status: Acute (3) Hypotension Current Visit: Yes Status: Acute (4) Vertebral compression fracture Current Visit: Yes Status: Acute Qualifiers: Lumbar vertebra fracture level: L1 (5) Functional quadriplegia Current Visit: Yes Status: Acute - Plan Physical Exam General: Alert, Oriented x3 Respiratory: Clear to auscultation bilaterally, Normal air movement Cardiovascular: No edema, regular heart rhythm Gastrointestinal: Normal bowel sounds, Soft and benign, nontender. Musculoskeletal: No swelling, No erythema Integumentary: No rashes, No breakdown. Neurological: Normal speech, No focal motor deficit. Plan: Serum creatinine continues to improve. Renal ultrasound shows mild bilateral hydronephrosis. Nephrology is following Appetite is improving, patient is eating more. Continue PPI On IV fluid per nephrology. Continue to monitor renal function. Jose Miguel is on hold Follow-up with spine surgery as an outpatient regarding L1 vertebral compression fracture. Patient currently able to transfer with assistance and ambulating with PT assist. She is looking forward to acute rehab Continue PT. Continue Eliquis for atrial fibrillation. Metoprolol is on hold due to soft blood pressure She is compensated for CHF Continue home medications for other chronic medical problems. Physician Review: Patient Assessed, Agree with Above Assessment and Plan
[2022-02-19] MEDS: MIRTAZAPINE 15 MG TAB PO SCH (20:32)
[2022-02-19] MEDS: ATORVASTATIN 40 MG TAB PO SCH (20:32)
[2022-02-19 23:58] LABS: Vitamin D 1,25-Dihydroxy Total 16 pg/mL (18-72); Vitamin D,1,25-OH2, D2 <8 pg/mL
[2022-02-20] MEDS: D5.45NS W/KCL 20MEQ 1,000 ML IV SCH (00:26)
[2022-02-20 06:30] LABS: Phosphorus 1.2 mg/dL (2.5-4.9); Potassium 4.1 mmol/L (3.5-5.1)
[2022-02-20 06:42] LABS: Albumin 2.5 g/dL (3.4-5.0); Phosphorus 1.1 mg/dL (2.5-4.9); Potassium 4.1 mmol/L (3.5-5.1)
--- NOTE | 2022-02-20 08:22 | RAD REPORT ---
EXAM DESCRIPTION: US - Renal Ultrasound-Complete - 02/20/2022 12:09 am CLINICAL HISTORY: F/U on hydronephrosis COMPARISON: Renal Ultrasound-Complete dated 02/15/2022 FINDINGS: Both kidneys are normal in size, shape and echotexture. The right kidney measures 9.9 cm. Mild hydronephrosis is present. 6 mm echogenic focus in the interpo lar aspect of the right kidney is likely a stone. Normal echotexture. The left kidney measures 9.1 cm. Mild hydronephrosis is present. Normal echotexture. The urinary bladder is incompletely distended without gross abnormality seen. IMPRESSION: Similar mild bilateral hydronephrosis. Probable right renal calculus.
[2022-02-20] MEDS: PANTOPRAZOLE 40 MG INJ IVP SCH ×2 (08:33→21:24)
[2022-02-20] MEDS: SERTRALINE HCL 100 MG TAB PO SCH (08:33)
[2022-02-20] MEDS: VITAMIN D 1000 UNIT TAB PO SCH (08:33)
[2022-02-20] MEDS: MAGNESIUM OXIDE 400 MG TAB PO SCH (08:33)
[2022-02-20] MEDS: ASPIRIN EC 81 MG TAB PO SCH (08:33)
[2022-02-20] MEDS: CLOPIDOGREL 75 MG TABLET PO SCH (08:33)
[2022-02-20] MEDS: APIXABAN 2.5 MG TABLET PO SCH ×2 (08:33→21:22)
[2022-02-20] MEDS: VITAMIN B COMPLEX 1 CAP PO SCH (08:33)
[2022-02-20] MEDS: POTASS/SODIUM PHOSPHATE 1 PKT POWD.PACK PO SCH ×3 (08:33→10:00)
[2022-02-20] MEDS: ENSURE CLEAR 200 ML CAN PO SCH ×2 (08:34→21:00)
[2022-02-20] MEDS ORDERED: POTASSIUM PHOS IN 0.9 % NACL 15 MMOL/250 ML BAG IV ONE (10:00)
[2022-02-20] MEDS ORDERED: D5 0.45 NS 1,000 ML IV SCH (10:00)
--- NOTE | 2022-02-20 11:11 | P.PN ---
Subjective Date of Service: 02/20/22 Chief Complaint: Dehydration, Poor PO intake Pt with quadriplegia , admitted with poor roal intake and BRAD , in ER Cr 5.9 today No overnight events cr down to 1.8 us with hydronephrosis , will order CT scan without contrast corrected calcium 11.5, will change IVF to NS , will order SPEP and UPEP Physical exam General: Awake, NAD HEENT: Atraumatic, Normocephalic Neck: Supple, no elevated JVD Respiratory: Other CTAB. No rales or wheezes Cardiovascular: No rubs, No murmurs Gastrointestinal: Soft and benign, Non-distended Musculoskeletal: No clubbing Integumentary: No warmth Neurological: Normal tone, Sensation intact Lymphatics: No axilla or inguinal lymphadenopathy A/P # Acute kidney injury secondary to prerenal, dehydration, superimposed with diuresis, superimposed with ARB and rhabdomyolysis. cr in Er 5.9 and imoroving to 1.9 today renal diet renal dose medications avoid NSAID and contrast #mild hydronephrosis US X2 ; showed hydronephrosis hx of bowel obstruction and hysterectomy us with hydronephrosis , will order CT scan without contrast corrected calcium 11.5, will change IVF to NS , will order SPEP and UPEP #Hypokalemia. KCl suppl prn. #Hypertension. BP controlled. Cont current med regimen. #Hypercalcemia secondary to immobilization. corrected calcium 11.5 PTH appropriately suppressed will change IVF to NS will order SPEP an UPEP #HypoPO4. Monitor and replace prn #Afib - Eliquis #Vertebral compression fx. F/u with Ortho as an OP Total time spent 45 minutes including documentation, reviewing labs , placing orders and discussing plan of care with medical staff and pt Physical Examination - Vital Signs Temperature: 97.1 F Blood Pressure: 135/74 Pulse: 114 Respirations: 14 Pulse Ox (%): 96 Assessment And Plan Physician Review: Patient Assessed, Agree with Above Assessment and Plan
[2022-02-20] MEDS: NA CHLORIDE 0.9% 1,000 ML IV SCH (12:08)
--- NOTE | 2022-02-20 12:30 | RAD REPORT ---
EXAM DESCRIPTION: CTAbdomen Pelvis Wo Contrast - 02/20/2022 11:40 am CLINICAL HISTORY: Hydronephrosis, dehydration, poor p.o. intake COMPARISON: Lumbar Spine Wo Con dated 02/14/2022; Renal Ultrasound-Complete dated 02/19/2022; Renal Ul trasound-Complete dated 02/15/2022 TECHNIQUE: CT of the abdomen and pelvis was performed without contrast. All CT scans are performed using dose optimization technique as appropriate and may include automated exposure control or mA/KV adjustment according to patient size. FINDINGS: Lower chest: Fibrotic changes are present in the lung bases. Coronary artery calcification s. Liver: No acute abnormality or suspicious lesions. Biliary: No biliary ductal dilatation. Stomach: No significant focal abnormality. Duodenum: No significant focal abnormality. Pancreas: No significant abnormality. Spleen: No significant abnormality. Adrenal: No suspicious lesions. Kidney/ureter: No hydronephrosis. No renal calculi. Bilateral pelvicaliectasis but no josue hydroneph rosis. Retroperitoneum: No retroperitoneal adenopathy. Vascular: No aneurysm. Bowel: Scattered air-fluid levels in the colon with mild colonic wall thickening.. Peritoneum: No ascites or free air. Bladder: Grossly unremarkable. Reproductive: No adnexal masses. Hysterectomy. Bones: L1 compression fracture with bony retropulsion that results in mild central spinal stenosis. T his was better assessed on the MRI from 02/14/2022. 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 Other: n/a IMPRESSION: Multiple air-fluid levels are present within the colon with mild colonic wall thickening that may represent a colitis. Bilateral pelvicaliectasis but no josue hydronephrosis.
--- NOTE | 2022-02-20 14:30 | P.PN ---
Subjective Date of Service: 02/20/22 Chief Complaint: Dehydration, Poor PO intake Patient an episode of diarrhea yesterday. Patient denies diarrhea today. Not much change in serum creatinine from yesterday. Patient was able to ambulate to the bathroom with one-person assist. Physical Examination - Vital Signs Temperature: 97.9 F Blood Pressure: 108/70 Pulse: 115 Respirations: 14 Pulse Ox (%): 96 Assessment And Plan - Current Problems (Diagnosis) (1) BRAD (acute kidney injury) Current Visit: No Status: Acute (2) Chronic systolic heart failure Current Visit: Yes Status: Acute (3) Hypotension Current Visit: Yes Status: Acute (4) Vertebral compression fracture Current Visit: Yes Status: Acute Qualifiers: Lumbar vertebra fracture level: L1 (5) Functional quadriplegia Current Visit: Yes Status: Acute - Plan Physical Exam General: Alert, Oriented x3 Respiratory: Clear to auscultation bilaterally, Normal air movement Cardiovascular: No edema, regular heart rhythm Gastrointestinal: Normal bowel sounds, Soft and benign, nontender. Musculoskeletal: No swelling, No erythema Integumentary: No rashes, No breakdown. Neurological: Normal speech, No focal motor deficit. Plan: Not much change in serum creatinine from yesterday Renal ultrasound shows mild bilateral hydronephrosis. CT abdomen pelvis shows no hydronephrosis but bilateral pelvicaliectasis. Nephrology is following. Noted hypercalcemia. Screen for multiple myeloma ordered by nephrology. PTH-low. Appetite is improving, patient is eating more. Continue PPI On IV fluid per nephrology. Continue to monitor renal function. Lasix is on hold CT abdomen and pelvis demonstrated air-fluid levels in the colon suggesting colitis. Check stool for C. difficile. Follow-up with spine surgery as an outpatient regarding L1 vertebral compression fracture. Patient currently able to transfer with assistance and ambulating with assistance. She is looking forward to skilled rehab. Continue PT. Continue Eliquis for atrial fibrillation. Metoprolol is on hold due to soft blood pressure She is compensated for CHF Continue home medications for other chronic medical problems. Physician Review: Patient Assessed, Agree with Above Assessment and Plan
[2022-02-20 19:17] LABS: UR PROTEIN 20.7 mg/dL (<11.9); Urine Protein/Creatinine Ratio 0.35 ratio (<0.15)
[2022-02-20] MEDS: ATORVASTATIN 40 MG TAB PO SCH (21:23)
[2022-02-20] MEDS: MIRTAZAPINE 15 MG TAB PO SCH (21:23)
[2022-02-21] MEDS: PANTOPRAZOLE 40 MG INJ IVP SCH ×2 (08:40→21:03)
[2022-02-21] MEDS: NA CHLORIDE 0.9% 1,000 ML IV SCH (08:40)
[2022-02-21] MEDS: VITAMIN D 1000 UNIT TAB PO SCH (08:40)
[2022-02-21] MEDS: CLOPIDOGREL 75 MG TABLET PO SCH (08:41)
[2022-02-21] MEDS: APIXABAN 2.5 MG TABLET PO SCH ×2 (08:41→21:02)
[2022-02-21] MEDS: ASPIRIN EC 81 MG TAB PO SCH (08:41)
[2022-02-21] MEDS: MAGNESIUM OXIDE 400 MG TAB PO SCH (08:41)
[2022-02-21] MEDS: VITAMIN B COMPLEX 1 CAP PO SCH (08:41)
[2022-02-21] MEDS: ENSURE CLEAR 200 ML CAN PO SCH (08:41)
[2022-02-21] MEDS: SERTRALINE HCL 100 MG TAB PO SCH (08:41)
[2022-02-21 09:06] LABS: Absolute Lymphocytes (CBC) 1.1 K/uL (0.7-4.9); Hematocrit 30.7 % (36.0-45.0); Lymphocytes % 23.9 % (15.3-44.8); MCV 96.1 fL (80-100); MPV 9.1 fL (7.6-11.3)
[2022-02-21 09:16] LABS: Phosphorus 2.6 mg/dL (2.5-4.9); Potassium 3.5 mmol/L (3.5-5.1)
[2022-02-21] MEDS ORDERED: POTASSIUM CL SA 10 MEQ TAB PO ONE (10:12)
--- NOTE | 2022-02-21 13:10 | P.PN ---
Subjective Date of Service: 02/21/22 Chief Complaint: Dehydration, Poor PO intake Patient denies any diarrhea. She is eating more. No issues overnight. She is eager to move onto the next stage-skilled rehab. Physical Examination - Vital Signs Temperature: 97.1 F Blood Pressure: 104/77 Pulse: 125 Respirations: 18 Pulse Ox (%): 98 Assessment And Plan - Current Problems (Diagnosis) (1) BRAD (acute kidney injury) Current Visit: No Status: Acute (2) Chronic systolic heart failure Current Visit: Yes Status: Acute (3) Hypotension Current Visit: Yes Status: Acute (4) Vertebral compression fracture Current Visit: Yes Status: Acute Qualifiers: Lumbar vertebra fracture level: L1 (5) Functional quadriplegia Current Visit: Yes Status: Acute - Plan Physical Exam General: Alert, Oriented x3 Respiratory: Clear to auscultation bilaterally, Normal air movement Cardiovascular: No edema, regular heart rhythm Gastrointestinal: Normal bowel sounds, Soft and benign, nontender. Musculoskeletal: No swelling, No erythema Integumentary: No rashes, No breakdown. Neurological: Normal speech, No focal motor deficit. Plan: Serum creatinine continue to improve. Level is almost normal. Renal ultrasound shows mild bilateral hydronephrosis. CT abdomen pelvis shows no hydronephrosis but bilateral pelvicaliectasis. Nephrology is following. Noted hypercalcemia. Screen for multiple myeloma ordered by nephrology. PTH-low. Appetite is improving, patient is eating more. Continue PPI On IV fluid per nephrology. Continue to monitor renal function. Lasix is on hold CT abdomen and pelvis demonstrated air-fluid levels in the colon suggesting colitis. Stool studies are pending. Follow-up with spine surgery as an outpatient regarding L1 vertebral compression fracture. Patient currently able to transfer with assistance and ambulating with assistance. She is looking forward to skilled rehab. Continue PT. Continue Eliquis for atrial fibrillation. Metoprolol is on hold due to soft blood pressure She is compensated for CHF Continue home medications for other chronic medical problems. Physician Review: Patient Assessed, Agree with Above Assessment and Plan
--- NOTE | 2022-02-21 20:48 | P.PN ---
Date of Service: 02/22/22 Subjective: no acute events overnight overall feels better more energy, more appetite, but not much increased PO intake, which patient and son report is typical does not like ensure - too sweet ROS: 10 point ROS as noted above, otherwise negative Physical Exam: Gen: NAD, AOx3 HEENT: normal conjunctiva, sclera anicteric CV: sinus tachycardia, no edema Pulm: non-labored respirations, clear bilaterally Abd: soft, non-tender, non-distended Neuro: normal speech, normal affect vitals reviewed Problem List BRAD secondary to dehydration, poor PO intake chronic systolic CHF vertebral compression fracture functional quadriplegia HTN hypercalcemia seocndary to immobilization afib, paroxysmal Severe Protein-Calorie Malnutrition BRAD resolving with IVF; nearly back to baseline secondary to prerenal - decreased PO intake / dehydration, diuretic usage nephrology consulted on IVF - NS@50 ml/hr at this time; dc today, monitor overnight renal U/S: mild b/l hydronephorisis CT abd/pelvis: no hydronephrosis noted, but bilateral pelvicaliectasis hypercalcemia felt secondary to immobilization Screen for multiple myeloma ordered by nephrology. PTH-low. Appetite is improving, patient is eating more, but still only 20-25% of meals Continue PPI CT abdomen and pelvis demonstrated air-fluid levels in the colon suggesting colitis. Stool studies are pending. loose stool, not having multiple diarrhea episodes c.diff antigen +, toxin negative ; improving, not on antibiotics Follow-up with spine surgery as an outpatient regarding L1 vertebral compression fracture. Patient currently able to transfer with assistance and ambulating with assistance. She is looking forward to skilled rehab. Continue PT. Continue Eliquis for atrial fibrillation. Metoprolol is on hold due to soft blood pressure, restart at lower dose, patient with sinus tachycardia She is compensated for CHF Continue home medications for other chronic medical problems. VTE: home eliquis Code: DNR Dispo: SNF, 1-2 days Time Spent Managing Pts Care (In Minutes): 35
[2022-02-21] MEDS: ATORVASTATIN 40 MG TAB PO SCH (21:02)
[2022-02-21] MEDS: MIRTAZAPINE 15 MG TAB PO SCH (21:03)
--- NOTE | 2022-02-22 02:37 | PN ---
Date of Progress Note: 02/21/2022 Chief Complaint: Acute kidney injury. In the emergency room, creatinine level was 5.9. The patient presented to the hospital because of generalized weakness and fatigue. She has had poor p.o. intake. She denies melena or hematemesis. Review of Systems: Denies fever or chills. Physical Examination: Lungs: Clear to auscultation bilaterally. Heart: S1 and S2. Abdomen: Soft. Extremities: Minimal edema. Diagnostic Studies: CT scan per stone protocol did not show hydronephrosis, but there are some changes showing pelviectasis bilaterally. The patient developed acute kidney injury secondary to renal hypoperfusion with volume depletion and diuretic effect with underlying angiotensin receptor abel and rhabdomyolysis. Serum creatinine level has improved to 1.9. Renal diet was started to prevent hyperkalemia. The patient is to avoid nonsteroidal anti-inflammatory medication. Impression And Plan: 1. Acute kidney injury. Continue to monitor urine output, avoid nephrotoxic medication. 2. Hypertension. Angiotensin receptor abel is on hold. 3. Rhabdomyolysis. Continue IV fluids with mild hydration when the patient is recovering from acute kidney injury and rhabdomyolysis. The patient may need to be seen by Urology, this can be done outpatient. The patient will need to follow up with Nephrology. Monitor renal panel. Avoid nephrotoxic medication. HERNAN/DEXTER Voice ID: [id number] Report ID: [id number] MTDD
[2022-02-22] MEDS: NA CHLORIDE 0.9% 1,000 ML IV SCH (04:05)
[2022-02-22 04:24] LABS: Potassium 3.9 mmol/L (3.5-5.1)
[2022-02-22 08:51] LABS: C.diff Antigen/Toxin Ag pos : Tox neg (NEG : NEG)
[2022-02-22] MEDS ORDERED: POTASSIUM CL SA 10 MEQ TAB PO ONE (09:00)
[2022-02-22] MEDS: PANTOPRAZOLE 40 MG INJ IVP SCH ×2 (10:31→20:19)
[2022-02-22] MEDS: VITAMIN B COMPLEX 1 CAP PO SCH (10:31)
[2022-02-22] MEDS: VITAMIN D 1000 UNIT TAB PO SCH (10:31)
[2022-02-22] MEDS: ASPIRIN EC 81 MG TAB PO SCH (10:32)
[2022-02-22] MEDS: APIXABAN 2.5 MG TABLET PO SCH ×2 (10:32→20:18)
[2022-02-22] MEDS: CLOPIDOGREL 75 MG TABLET PO SCH (10:32)
[2022-02-22] MEDS: MAGNESIUM OXIDE 400 MG TAB PO SCH (10:32)
[2022-02-22] MEDS: SERTRALINE HCL 100 MG TAB PO SCH (10:32)
--- NOTE | 2022-02-22 13:37 | EKG ---
Test Date: 2022-02-19 Test Time: 22:29:41 Communications Station Manager: RT MEASUREMENT RESULTS: Intervals: Rate: 123 ND: 220 QRSD: 90 QT: 328 QTc: 469 Paisley: P: 35 ND: 220 QRS: 20 T: 174 INTERPRETIVE STATEMENTS: Sinus tachycardia with 1st degree AV block ST & T wave abnormality, consider inferior ischemia ST & T wave abnormality, consider anterolateral ischemia Abnormal ECG Compared to ECG 01/07/2022 16:09:35 First degree AV block now present ST (T wave) deviation now present Possible ischemia now present Sinus rhythm no longer present Left-axis deviation no longer present Left bundle-branch block no longer present Electronically Signed On 02-22-22 13:35:07 CDT by Gilberto Barillas
--- NOTE | 2022-02-22 16:07 | PN ---
Date of Progress Note: 02/22/2022 Subjective: The patient was admitted with acute kidney injury secondary to dehydration and rhabdo with hyponatremia and hypercalcemia. The patient's after hydration kidney function has been improved. Physical Examination: Vital Signs: When I saw the patient; blood pressure 104/63, pulse of 119, afebrile. Chest: Clear to auscultation. Heart: S1, S2. Regular. Abdomen: Soft, nontender. Extremity: No edema. Neurologic: Alert. No focality. Laboratory Data: H and H 10.06/13.7. Sodium 138, potassium 3.9, bicarb 21, BUN 18, creatinine 1.4, calcium 9.1, phosphorus 2.6. Current Medications: The patient on include Plavix, Eliquis, aspirin, mirtazapine, Zoloft, Zofran, normal saline, cholecalciferol. Assessment And Plan: 1. Acute kidney injury secondary to prerenal, superimposed with nonsteroidal, rhabdomyolysis, and dehydration and hypercalcemia. The patient's kidney function has been plateaued. We will continue to monitor. I am going to discontinue IV fluid. We will monitor the patient off IV fluid. 2. Hypertension, controlled, optimal. Continue current treatment. 3. Hypercalcemia. I am going to hold on any supplement and we will follow up. Hold the vitamin D. 4. Vitamin D deficiency with the presence of hypercalcemia recently. I will hold on the supplement. 5. Hyponatremia, depletional, recovered, resolved. 6. Rhabdomyolysis, resolved. Time spent examining the patient, [id number], reviewing data and radiology, placing ordered, discussing the case with the hospitalist a, discussing the case with nursing more than 35 minutes. OTTO Voice ID: [id number] Report ID: [id number] WILL
[2022-02-22] MEDS: ATORVASTATIN 40 MG TAB PO SCH (20:18)
[2022-02-22] MEDS: MIRTAZAPINE 15 MG TAB PO SCH (20:18)
[2022-02-23 03:03] LABS: Hematocrit 30.6 % (36.0-45.0); MPV 9.1 fL (7.6-11.3); RBC Red Blood Cell Count 3.18 M/uL (3.86-4.86)
[2022-02-23 03:25] LABS: Potassium 3.8 mmol/L (3.5-5.1)
[2022-02-23] MEDS ORDERED: POTASSIUM CL SA 10 MEQ TAB PO ONE (09:00)
[2022-02-23] MEDS: MAGNESIUM OXIDE 400 MG TAB PO SCH (09:00)
[2022-02-23] MEDS: VITAMIN B COMPLEX 1 CAP PO SCH (09:56)
[2022-02-23] MEDS: SERTRALINE HCL 100 MG TAB PO SCH (09:56)
[2022-02-23] MEDS: PANTOPRAZOLE 40MG TABLET PO SCH ×2 (09:56→16:11)
[2022-02-23] MEDS: APIXABAN 2.5 MG TABLET PO SCH ×2 (09:57→21:00)
[2022-02-23] MEDS: METOPROLOL TAR 25 MG TAB PO SCH ×2 (09:57→16:59)
[2022-02-23] MEDS: CLOPIDOGREL 75 MG TABLET PO SCH (09:58)
[2022-02-23] MEDS: ONDANSETRON 4 MG/2 ML VIAL IV PRN ×2 (10:13→16:00)
[2022-02-23] MEDS ORDERED: KCL 20 MEQ/100 mL IVPB 20 MEQ/100 ML BAG IV SCH (11:00)
--- NOTE | 2022-02-23 12:37 | PN ---
Date of Progress Note: 02/23/2022 Subjective: The patient was admitted with acute kidney injury, hypercalcemia, and hyponatremia with rhabdomyolysis. The patient received hydration, kidney function back to baseline. Baseline creatinine used to be in 05.20. Physical Examination: Vital Signs: When I saw the patient; blood pressure 137/89, pulse 122, afebrile. The patient had good urine output, voiding. Chest: Clear to auscultation. Heart: S1, S2. Regular. Systolic murmur. Abdomen: Soft, nontender. Extremity: No edema. Neurologic: Alert. No focality. Laboratory Data: WBC 6, H and H 9.8/30.6. Sodium 139, potassium 3.8, bicarb 21, BUN 18, creatinine 1.4 back to baseline, GFR of 36, calcium of 9. Albumin 2.5, corrected calcium is 10.2. Current Medications: The patient on include; 1. Eliquis. 2. Plavix. 3. Atorvastatin. 4. Metoprolol 12.5 b.i.d. 5. Zoloft. 6. Magnesium oxide. Assessment And Plan: 1. Acute kidney injury, multifactorial, secondary to prerenal, superimposed with nonsteroidal use and ARB, recovered back to baseline, normal volume currently. Continue to monitor. 2. Hypercalcemia secondary to immobilization and calcium supplement/milk- alkali syndrome. The patient recovered. We will continue to monitor. 3. Tachycardia as by primary. I am going to go ahead and get chest x-ray for better evaluation of the fluid status for the patient. 4. Hyponatremia secondary to depletion, has been resolved. Currently, the patient normal volume. 5. Rhabdomyolysis, recovered, resolved. 6. Hypokalemia. We will supplement. Time spent examining the patient, [id number], reviewing data and radiology, placing ordered, discussing the case with the hospitalist a, discussing the case with nursing more than 35 minutes. OTTO Voice ID: [id number] Report ID: [id number] WILL
--- NOTE | 2022-02-23 13:53 | RAD REPORT ---
EXAM DESCRIPTION: Elbert Single View02/23/2022 12:42 pm CLINICAL HISTORY: Chest pain COMPARISON: February 14, 2022 FINDINGS: Moderate to marked bilateral interstitial lung opacities without significant change Heart is borderline enlarged IMPRESSION: Moderate to marked bilateral interstitial lung opacities probably pulmonary fibrosis
[2022-02-23] MEDS: VANCOMYCIN ORAL SOLN 250 MG/5 ML OSYR PO SCH (18:00)
[2022-02-23] MEDS ORDERED: NA CHLORIDE 0.9% 1,000 ML ONE (18:13)
[2022-02-23] MEDS ORDERED: PROMETHAZINE INJ 25 MG/ML AMP ONE (18:17)
[2022-02-23 18:36] LABS: Albumin, (SPE) 2.5 g/dL (3.8-4.8); Alpha-1-Globulins 0.3 g/dL (0.2-0.3); Alpha-2-Globulins 0.7 g/dL (0.5-0.9); Gamma Globulins 1.3 g/dL (0.8-1.7); INTERPRETATION REPORT
[2022-02-23] MEDS ORDERED: NA CHLORIDE 0.9% 1,000 ML IV SCH (19:00)
--- NOTE | 2022-02-23 20:14 | P.PN ---
Date of Service: 02/23/22 Subjective: increased diarrhea and nausea no abd pain not much PO intake ROS: 10 point ROS as noted above, otherwise negative Physical Exam: Gen: NAD, AOx3 HEENT: normal conjunctiva, sclera anicteric CV: sinus tachycardia, no edema Pulm: non-labored respirations, diminished bilaterally Abd: soft, non-tender, non-distended Neuro: normal speech, normal affect vitals reviewed Problem List BRAD secondary to dehydration, poor PO intake chronic systolic CHF vertebral compression fracture functional quadriplegia HTN hypercalcemia seocndary to immobilization afib, paroxysmal Severe Protein-Calorie Malnutrition BRAD resolving with IVF; nearly back to baseline secondary to prerenal - decreased PO intake / dehydration, diuretic usage nephrology consulted IVF dc'd 02/22; restart gentle IVF today due to decreased PO, n/v, diarrhea renal U/S: mild b/l hydronephorisis CT abd/pelvis: no hydronephrosis noted, but bilateral pelvicaliectasis hypercalcemia felt secondary to immobilization Screen for multiple myeloma ordered by nephrology. PTH-low. Appetite was improving, patient was eating more, but still only 20-25% of meals; worsened nausea/diarrhea 02/23 CT abdomen and pelvis demonstrated air-fluid levels in the colon suggesting colitis. Stool studies are pending. worsening diarrhea c.diff antigen +, toxin negative ; was improving, not on antibiotics now seems to be worsening 02/23 start PO vancomycin; gentle IVF zofran switched to phenergan Follow-up with spine surgery as an outpatient regarding L1 vertebral compression fracture. Patient currently able to transfer with assistance and ambulating with assistance. She is looking forward to skilled rehab. Continue PT. Continue Eliquis for atrial fibrillation. Metoprolol was on hold due to soft blood pressure, restarted at lower dose, patient with sinus tachycardia She is compensated for CHF Continue home medications for other chronic medical problems. VTE: home eliquis Code: DNR Dispo: SNF, ~2 days Time Spent Managing Pts Care (In Minutes): 35
[2022-02-23] MEDS: ATORVASTATIN 40 MG TAB PO SCH (21:00)
[2022-02-23] MEDS: MIRTAZAPINE 15 MG TAB PO SCH (21:00)
[2022-02-23] MEDS: PROMETHAZINE INJ 25 MG/ML AMP IV PRN (23:34)
[2022-02-24] MEDS: VANCOMYCIN ORAL SOLN 250 MG/5 ML OSYR PO SCH ×4 (01:00→17:36)
[2022-02-24] MEDS: PROMETHAZINE INJ 25 MG/ML AMP IV PRN (04:59)
[2022-02-24] MEDS: METOPROLOL TAR 25 MG TAB PO SCH ×2 (06:05→17:33)
[2022-02-24 06:12] LABS: Absolute Lymphocytes (CBC) 1.1 K/uL (0.7-4.9); Hematocrit 36.5 % (36.0-45.0); Lymphocytes % 16.5 % (15.3-44.8); MCV 97.1 fL (80-100); MPV 9.6 fL (7.6-11.3); RBC Red Blood Cell Count 3.76 M/uL (3.86-4.86)
[2022-02-24 06:27] LABS: C-Reactive Protein 9.05 mg/L (<3.00); Phosphorus 3.2 mg/dL (2.5-4.9); Potassium 4.5 mmol/L (3.5-5.1)
[2022-02-24] MEDS ORDERED: Magnesium Sulfate 2gm IVPB 2 G/50 ML BAG IV ONE (07:30)
[2022-02-24] MEDS: APIXABAN 2.5 MG TABLET PO SCH ×2 (08:26→20:49)
[2022-02-24] MEDS: VITAMIN B COMPLEX 1 CAP PO SCH (08:26)
[2022-02-24] MEDS: SERTRALINE HCL 100 MG TAB PO SCH (08:27)
[2022-02-24] MEDS: CLOPIDOGREL 75 MG TABLET PO SCH (08:27)
[2022-02-24] MEDS: MAGNESIUM OXIDE 400 MG TAB PO SCH (08:28)
[2022-02-24] MEDS: MAGNESIUM 50% 3 GM in NA CHLORIDE 0.9% 100 ML IV ONE ×2 (10:37→11:17)
[2022-02-24] MEDS ORDERED: PANTOPRAZOLE 40 MG INJ IVP ONE (10:54)
[2022-02-24] MEDS ORDERED: SODIUM CHLORIDE 0.9% 10ML INJ IV PRN (10:55)
[2022-02-24] MEDS: AMIODARONE HCL 200 MG TAB PO SCH ×2 (11:14→20:50)
[2022-02-24] MEDS ORDERED: NA CHLORIDE 0.9% IV ONE (11:17)
[2022-02-24] MEDS ORDERED: MAGNESIUM IV ONE (11:17)
--- NOTE | 2022-02-24 11:34 | CON ---
Date of Consultation: 02/24/2022 The patient has been in the hospital since 02/15/2022. I saw on 02/24/2022 because of an arrhythmia, possible atrial fibrillation or flutter. History Of Present Illness: Ms. Carrion came in with dehydration, acute renal failure, has a known ejection fraction 20% to 25%. Had a stent in October 2021 for circumflex. Has had paroxysmal atrial fi brillation, dyslipidemia, hypertension, gastroesophageal reflux disease. While she is being here renny carter treated for her dehydration and renal failure, she developed what appeared to be in atrial flutter , atrial fibrillation with a rate of 135. At one point, she was Entresto, which was stopped because of her renal failure. She was supposed to have a Watchman procedure for her atrial fibrillation and multiple falls, but that was canceled because she was admitted to the hospital. Past Medical History: As stated above. Allergies: NONE. Social History: Positive for DNR. She was supposed to be at hospice at one point, but that was can eled. Review of Systems: Negative. Medications: Presently include aspirin, Plavix, Eliquis, Lipitor, magnesium, metoprolol that is bein g held, normal saline, antibiotics, and Protonix. Physical Examination: General: She is alert and oriented x3. Vital Signs: Atrial fibrillation, flutter at 135. Afebrile. HEENT: Negative. Neck: Supple with no bruit. Chest: Clear. Cardiac: Revealed atrial fibrillation. No murmurs, gallops, or rubs. Abdomen: Benign. Extremities: Revealed no clubbing, cyanosis, or edema. Diagnostic Data: As stated earlier. Impression And Plan: 1.Renal failure, chronic with acute exacerbation secondary to dehydration. Off Entresto right now. Continue gentle hydration. 2.Chronic systolic congestive heart failure, ejection fraction 20% to 25%, not tolerating metoprolol because of hypotension. She is not a candidate for GEO inhibitors. We need to continue low-dose La six if we can after she gets hydrated. 3.Possible atrial fibrillation or flutter. I think we need to put her on amiodarone 400 mg b.i.d. Instead of metoprolol, we will put her on that for a week and see how she does and then we can switch her to 200 mg daily. Her other problems include dyslipidemia and gastroesophageal reflux disease, t hose are stable at this point. She has coronary artery disease, status post stent of the circumflex in October, this is stable. The case was discussed with Dr. Correia. She has magnesium of 1.0. She need s magnesium supplemented as well. We will continue to follow. WILLARD/DEXTER Voice ID: [id number] Report ID: [id number]
--- NOTE | 2022-02-24 12:25 | PN ---
Date of Progress Note: 02/24/2022 Subjective: The patient was admitted with acute kidney injury secondary to prerenal, ARB, and nonsteroidal use, superimposed with hypercalcemia and calcium diuresis. The patient's after hydration kidney function plateaued. The patient is still feeling weak. The patient off IV fluids. Physical Examination: Vital Signs: Blood pressure 100/66, tachycardic 133, afebrile. Chest: Clear to auscultation. Heart: S1, S2. Tachy cardiac. Abdomen: Soft, nontender. Extremity: No edema. Neuro: Alert. No focality. Generalized weakness. Laboratory Data: WBC 6.6, H and H 11.7/36.5. Sodium 138, potassium 4.5, bicarb 17, BUN 18, creatinine 1.6, GFR of 31, calcium 9.8, phosphorus 3.2, magnesium of 1. Chest x-ray; emphysematous change, no congestion. Current Medications: The patient on include vancomycin 125 every 6 hours, Plavix, Eliquis, amiodarone, metoprolol, mirtazapine, Zoloft, pantoprazole. Assessment And Plan: 1. Acute kidney injury, multifactorial, secondary to rhabdomyolysis, dehydration, nonsteroidal use and ARB use, on the recovery. Currently, slightly on the dry side. I am going to start the patient back on IV fluid normal saline at 50 per hour and we will follow up the patient. 2. Rhabdomyolysis, recovered, resolved. 3. Hyponatremia secondary to depletional, poor intakes, resolved. 4. Hypercalcemia, Milk-alkali and dehydration, resolved. 5. Tachycardia, possible component of dehydration. I am going to start back on the fluid. We will follow up with primary. I am going to go ahead and send for uric acid. 6. Gastroenteritis, Clostridium difficile. The patient on vancomycin. We will follow up with ID and primary. Time spent examining the patient, [id number], reviewing data and radiology, placing ordered, discussing the case with the hospitalist a, discussing the case with nursing more than 35 minutes. OTTO Voice ID: [id number] Report ID: [id number] WILL
[2022-02-24] MEDS: NA CHLORIDE 0.9% 1,000 ML IV SCH (12:40)
[2022-02-24] MEDS: SUCRALFATE 1GM/10ML UCUP FT SCH ×3 (12:40→20:49)
--- NOTE | 2022-02-24 20:17 | P.PN ---
Date of Service: 02/24/22 Subjective: diarrhea improving yesterday with increased nausea/vomiting, worse overnight this morning with burning feeling/ pain of stomach/throat denies abdominal cramping / pain son upset regarding slow response to his concerns yesterday regarding reinitiation of fluids upset protonix was discontinued. explained risks / association with c.diff esophageal pain/stomach acid pain began this morning, after patient had several small episodes of emesis ROS: 10 point ROS as noted above, otherwise negative Physical Exam: Gen: uncomfortable appearing, nauseous HEENT: normal conjunctiva, sclera anicteric CV: Tachycardia, no edema Pulm: non-labored respirations, diminished bilaterally Abd: soft, mildmoderate tenderness in epigastrium, non-distended Neuro: normal speech, normal affect, moves all extremities vitals reviewed Problem List BRAD secondary to dehydration, poor PO intake chronic systolic CHF vertebral compression fracture GERD HTN hypercalcemia secondary to immobilization afib/aflutter, paroxysmal Severe Protein-Calorie Malnutrition BRAD secondary to prerenaldecreased p.o. intake/dehydration/diuretic usage Initially resolved with IV fluids Over the last 24 to 36 hours, IV fluids were discontinued, patient developed more nausea, decreased p.o. intake Renal function worsened restarted IVF evening of 02/23; avoid over volume, last echo: 25% EF nephrology consulted renal U/S: mild b/l hydronephorisis CT abd/pelvis: no hydronephrosis noted, but bilateral pelvicaliectasis hypercalcemia secondary to immobilization Screen for multiple myeloma ordered by nephrology. PTH-low. Appetite was improving, patient was eating more, but still only 20-25% of meals; worsened nausea/diarrhea 02/23 CT abdomen and pelvis on admission demonstrated air-fluid levels in the colon suggesting colitis. worsening diarrhea c.diff antigen +, toxin negative; had mild improvements, without antibiotics, then worsened on 02/23 start PO vancomycin; gentle IVF on 02/23 zofran switched to phenergan Discontinued Protonix on 02/23, son upset regarding this change, discussed risk in association with C. difficile. Restarted at family request ID consulted 02/24 Follow-up with spine surgery as an outpatient regarding L1 vertebral compression fracture. Patient currently able to transfer with assistance and ambulating with assistance. She is looking forward to skilled rehab. Continue PT. Continue Eliquis for atrial fibrillation. Metoprolol was on hold due to soft blood pressure, restarted at lower dose, patient with sinus tachycardia vs aflutter Cardiology consulted 02/24 Recommended starting the patient on amiodarone 400 p.o. twice daily, suspect patient is in a flutter continue Eliquis and Plavix, no need for aspirin Continue home medications for other chronic medical problems. VTE: home eliquis Code: DNR Dispo: SNF, ~4 days Time Spent Managing Pts Care (In Minutes): 35
[2022-02-24] MEDS: ONDANSETRON 4 MG/2 ML VIAL IV PRN (20:48)
[2022-02-24] MEDS: PANTOPRAZOLE 40 MG INJ IVP SCH (20:49)
[2022-02-24] MEDS: ATORVASTATIN 40 MG TAB PO SCH (20:49)
[2022-02-24] MEDS: MIRTAZAPINE 15 MG TAB PO SCH (20:49)
--- NOTE | 2022-02-24 22:34 | CON ---
History Of Present Illness: Patient is a 81-year-old female. We are being consulted for Clostridium difficile antigen positive, toxin negative. The patient does not have any diarrhea at this time. S he was initially admitted to the hospital on February 15 with significant past medical history of hyper tension, reflux disease, congestive heart failure, atrial fibrillation, breast cancer, depression, hy perlipidemia, osteoarthritis with poor oral intake. The patient was on hospice care for heart failur e prior to admission. Had a compression fracture of the spine on January 07, 2022. She was then seen by spine doctor who requested MRI of the lumbar to assess if the patient is a candidate for vertebro plasty and MRI was done today. She was admitted for dehydration and poor oral intake. Past Medical History: As per HPI. Social History: Nonsmoker. Nondrinker. Family History: Noncontributory. Medications: Vancomycin p.o. See MAR for other medications. Allergies: NO KNOWN DRUG ALLERGIES. Review of Systems: A 10-point review was performed. Physical Examination: General: This is a 81-year-old female, lying in bed, not in any acute cardiopulmonary distress. Vital Signs: Temperature 97.2, pulse 121, respirations 18, blood pressure 120/80. HEENT: Unremarkable. Neck: Supple. Lungs: Basal crackles. Heart: S1, S2, regular. Abdomen: Soft, nontender. Bowel sounds present. Extremities: No edema. Laboratory Data: Shows WBC 6.6, hemoglobin 11.7, platelets are 316. Chemistry shows sodium 138, pot assium 4.5, chloride 108, bicarb 17, BUN 18, creatinine 1.66. Albumin level is 2.5. Assessment And Plan: A 81-year-old female with multiple medical problem. Concern regarding Clostrid ium difficile antigen positive and toxin negative. Currently not on any antibiotic. I agree with p. o. vancomycin. Consider nutritional support as patient is moderately protein-calorie malnourished. Consider probiotic. Renal insufficiency, anemia of chronic disease, history of breast cancer. We wi ll follow the patient closely. Consider holding proton pump inhibitors. Thank you Dr. Correia for consult. NF/MODL Voice ID: [id number] Report ID: [id number]
[2022-02-25] MEDS: VANCOMYCIN ORAL SOLN 250 MG/5 ML OSYR PO SCH ×4 (00:47→17:21)
[2022-02-25] MEDS: METOPROLOL TAR 25 MG TAB PO SCH (05:53)
[2022-02-25 05:54] LABS: Hematocrit 27.3 % (36.0-45.0); MCV 97.7 fL (80-100); MPV 8.9 fL (7.6-11.3)
--- NOTE | 2022-02-25 06:04 | P.PN ---
Date of Service: 02/25/22 Subjective: nausea better overnight had appetite for breakfast, ate quite a bit then had severe nausea and threw up increased burping no abd pain ROS: 10 point ROS as noted above, otherwise negative Physical Exam: Gen: uncomfortable appearing, nauseous HEENT: normal conjunctiva, sclera anicteric CV: Tachycardia, trace b/l pedal edema Pulm: non-labored respirations, diminished bilaterally Abd: soft, mildmoderate tenderness in epigastrium, non-distended Neuro: normal speech, normal affect, moves all extremities vitals reviewed Problem List BRAD secondary to dehydration, poor PO intake chronic systolic CHF vertebral compression fracture GERD HTN hypercalcemia secondary to immobilization afib/aflutter, paroxysmal Severe Protein-Calorie Malnutrition BRAD secondary to prerenaldecreased p.o. intake/dehydration/diuretic usage Initially resolved with IV fluids Over the last 24 to 36 hours, IV fluids were discontinued, patient developed more nausea, decreased p.o. intake had some increase in diarrhea, started on vancomycin for cdiff coverage Renal function worsened restarted IVF evening of 02/23; avoid over volume, last echo: 25% EF nephrology consulted renal U/S: mild b/l hydronephorisis CT abd/pelvis: no hydronephrosis noted, but bilateral pelvicaliectasis hypercalcemia secondary to immobilization Appetite was improving, patient was eating more, but still only 20-25% of meals; worsened nausea/diarrhea 02/23 CT abdomen and pelvis on admission demonstrated air-fluid levels in the colon suggesting colitis. worsening diarrhea on 02/23, loose, +2-3 more a day c.diff antigen +, toxin negative; had mild improvements, without antibiotics, then worsened on 02/23 started PO vancomycin; gentle IVF on 02/23 zofran switched to phenergan, patient feels phenergan may have caused her to feel twitch Discontinued Protonix on 02/23, son upset regarding this change, discussed risk in association with C. difficile. Restarted at family request ID consulted 02/24 nausea worsened yesterday; possibly secondary to tachycardia or PO vanc; will discuss with ID Follow-up with spine surgery as an outpatient regarding L1 vertebral compression fracture. Patient currently able to transfer with assistance and ambulating with assistance. She is looking forward to skilled rehab. Continue PT. Continue Eliquis for atrial fibrillation. Metoprolol was on hold due to soft blood pressure, restarted at lower dose, patient with sinus tachycardia vs aflutter Cardiology consulted 02/24 Recommended starting the patient on amiodarone 400 p.o. twice daily, suspect patient is in a flutter.. dc beta abel continue Eliquis and Plavix, no need for aspirin Continue home medications for other chronic medical problems. VTE: home eliquis Code: DNR Dispo: SNF, ~4 days Time Spent Managing Pts Care (In Minutes): 35
[2022-02-25 06:22] LABS: Albumin 2.5 g/dL (3.4-5.0); Bilirubin Total 0.6 mg/dL (0.2-1.0); C-Reactive Protein 6.07 mg/L (<3.00); Magnesium 2.3 mg/dL (1.8-2.4); Phosphorus 3.2 mg/dL (2.5-4.9); Protein, Total 6.2 g/dL (6.4-8.2)
[2022-02-25] MEDS: NA CHLORIDE 0.9% 1,000 ML IV SCH (06:26)
[2022-02-25] MEDS: SERTRALINE HCL 100 MG TAB PO SCH (09:33)
[2022-02-25] MEDS: APIXABAN 2.5 MG TABLET PO SCH ×2 (09:33→21:30)
[2022-02-25] MEDS: MAGNESIUM OXIDE 400 MG TAB PO SCH (09:33)
[2022-02-25] MEDS: CLOPIDOGREL 75 MG TABLET PO SCH (09:33)
[2022-02-25] MEDS: VITAMIN B COMPLEX 1 CAP PO SCH (09:33)
[2022-02-25] MEDS: AMIODARONE HCL 200 MG TAB PO SCH ×2 (09:33→21:31)
[2022-02-25] MEDS: LACTOBACILLUS/ACIDOPHILUS TAB PO SCH ×2 (09:33→21:31)
[2022-02-25] MEDS: PANTOPRAZOLE 40 MG INJ IVP SCH ×2 (09:33→21:32)
[2022-02-25] MEDS: SUCRALFATE 1GM/10ML UCUP FT SCH ×4 (09:55→22:14)
[2022-02-25] MEDS: ONDANSETRON 4 MG/2 ML VIAL IV PRN ×2 (11:13→15:26)
--- NOTE | 2022-02-25 11:57 | P.PN ---
Subjective Date of Service: 02/25/22 Chief Complaint: Dehydration, Poor PO intake Subjective: Other (Remains bedbound) Physical Examination - Vital Signs Temperature: 97.1 F Blood Pressure: 108/74 Pulse: 88 Respirations: 16 Pulse Ox (%): 90 - Physical Exam General: Other (chronically ill appearing) HEENT: Atraumatic, Normocephalic Neck: Supple, JVD not distended Respiratory: Diminished Cardiovascular: No rubs, No murmurs Gastrointestinal: Soft and benign Musculoskeletal: No clubbing Integumentary: No warmth Neurological: Other (Non focal) Urinary: Other (No bladder distention) External genitalia: Deferred Rectal: Deferred Assessment And Plan - Plan 1. Acute kidney injury secondary to prerenal, dehydration, superimposed with diuresis, superimposed with ARB and rhabdomyolysis. SCr improved/plateaued at 1.7. [place] po fluid intake. Cont IV fluid. 2. Hypertension. BP controlled. Cont current med regimen. 3. Rhabdomyolysis, recovered, resolved. 4. Hypercalcemia secondary to Milk-alkali/immobilization. Resolved. Monitor. 5. HypoPO4. Monitor/replete prn. 6. Afib - Eliquis 7. Vertebral compression fx. Per other services. 8. Gastroenteritis, Clostridium difficile colitis. Abx. 9. Acidosis. Bicitra po x 3 doses today. Physician Review: Patient Assessed, Agree with Above Assessment and Plan
[2022-02-25] MEDS ORDERED: METOCLOPRAMIDE 10 MG/2mL INJ IV SCH (14:00)
--- NOTE | 2022-02-25 14:08 | RAD REPORT ---
EXAM DESCRIPTION: CT - Abdomen Pelvis Wo Contrast - 02/25/2022 1:55 pm CLINICAL HISTORY: Abdominal pain. nausea/vomiting, f/u colitis COMPARISON: Abdomen Pelvis Wo Contrast dated 02/20/2022bdomen Pelvis Wo Contrast dated 02/20/2022 ; Lumbar Spine Wo Con dated 02/14/2022 TECHNIQUE: CT imaging of the abdomen and pelvis was performed without contrast. Solid organ, bowel a nd vascular assessment is limited due to lack of IV and oral contrast. All CT scans are performed using dose optimization technique as appropriate and may include automated exposure control or mA/KV adjustment according to patient size. FINDINGS: Significant emphysematous and fibrotic lung bases with trace bilateral pleural effusions. The liver, spleen, pancreas, adrenal glands and kidneys are within normal limits for a limited non-co ntrast examination. No bowel obstruction, free air, intra-abdominal free fluid or abscess. Sigmoid diverticulosis without diverticulitis. Cholecystectomy. Appendectomy. Hysterectomy. Small volume pelvic free fluid. There is high-grade compression fracture of L1 with mild posterior canal narrowing. IMPRESSION: No acute intra-abdominal or pelvic findings. A limited non-contrast examination was performed as detailed.
[2022-02-25] MEDS: NA CIT/CITRIC AC 30 ML ORAL UDC PO SCH ×3 (14:33→21:32)
--- NOTE | 2022-02-25 15:31 | PN ---
Subjective: Patient lying in bed. No new complaints. Objective: Vital signs: Reviewed. Lungs: Clear to auscultation. Heart: S1, S2. Regular. Abdomen: Soft, nontender. Bowel sounds present. Extremities: No edema. Patient currently on lactobacillus and vancomycin p.o. Assessment/plan: Clostridium difficile colitis, anemia of chronic disease, moderate protein-calorie malnourishment, history of breast cancer. Prognosis guarded. We will follow the patient as needed. NF/MODL Voice ID: [id number] Report ID: [id number]
[2022-02-25] MEDS: ATORVASTATIN 40 MG TAB PO SCH (21:30)
[2022-02-25] MEDS: MIRTAZAPINE 15 MG TAB PO SCH (21:30)
[2022-02-26 04:13] LABS: Hematocrit 27.3 % (36.0-45.0); MCV 97.4 fL (80-100); MPV 9.4 fL (7.6-11.3)
[2022-02-26 04:33] LABS: Albumin 2.5 g/dL (3.4-5.0); Bilirubin Total 0.5 mg/dL (0.2-1.0); C-Reactive Protein 8.58 mg/L (<3.00); Magnesium 1.9 mg/dL (1.8-2.4); Phosphorus 3.1 mg/dL (2.5-4.9); Potassium 3.4 mmol/L (3.5-5.1); Protein, Total 6.1 g/dL (6.4-8.2)
[2022-02-26] MEDS ORDERED: POTASSIUM CL SA 10 MEQ TAB PO ONE (05:00)
[2022-02-26] MEDS: NA CHLORIDE 0.9% 1,000 ML IV SCH ×2 (05:18→22:46)
[2022-02-26] MEDS: MAGNESIUM OXIDE 400 MG TAB PO SCH (09:00)
[2022-02-26] MEDS: PANTOPRAZOLE 40 MG INJ IVP SCH ×2 (09:20→21:40)
[2022-02-26] MEDS: LACTOBACILLUS/ACIDOPHILUS TAB PO SCH ×2 (09:20→21:40)
[2022-02-26] MEDS: VITAMIN B COMPLEX 1 CAP PO SCH (09:22)
[2022-02-26] MEDS: SERTRALINE HCL 100 MG TAB PO SCH (09:22)
[2022-02-26] MEDS: APIXABAN 2.5 MG TABLET PO SCH ×2 (09:22→21:39)
[2022-02-26] MEDS: CLOPIDOGREL 75 MG TABLET PO SCH (09:22)
[2022-02-26] MEDS: AMIODARONE HCL 200 MG TAB PO SCH ×2 (09:23→21:39)
[2022-02-26] MEDS: SUCRALFATE 1GM/10ML UCUP FT SCH ×2 (09:30→12:12)
--- NOTE | 2022-02-26 13:24 | P.PN ---
Subjective Date of Service: 02/26/22 Chief Complaint: Dehydration, Poor PO intake Subjective: No new changes Physical Examination - Vital Signs Temperature: 97.8 F Blood Pressure: 120/80 Pulse: 100 Respirations: 18 Pulse Ox (%): 95 - Physical Exam General: Other (Appears as her stated age) HEENT: Atraumatic, Normocephalic Neck: Supple Respiratory: Other (Symmetric chest expansion) Cardiovascular: No rubs, No murmurs Gastrointestinal: Soft and benign, No rebound Musculoskeletal: No clubbing Integumentary: No warmth Neurological: Normal tone Urinary: Other (No bladder distention) External genitalia: Deferred Rectal: Deferred Assessment And Plan - Plan 1. Acute kidney injury secondary to prerenal, dehydration, superimposed with diuresis, superimposed with ARB and rhabdomyolysis. SCr improved/plateaued at 1.7-1.8. [place] po fluid intake. Cont IV fluid. 2. Hypertension. BP controlled. Cont current med regimen. 3. Rhabdomyolysis, recovered, resolved. 4. Hypercalcemia secondary to Milk-alkali/immobilization. Resolved. Monitor. 5. HypoPO4. Monitor/replete prn. 6. Afib - Eliquis 7. Vertebral compression fx. Per other services. 8. Gastroenteritis, Clostridium difficile colitis. Abx. 9. Acidosis. Bicitra po x 3 doses received. Physician Review: Patient Assessed, Agree with Above Assessment and Plan
--- NOTE | 2022-02-26 14:48 | P.PN ---
Date of Service: 02/26/22 Subjective: improved overnight denies nausea this morning hungry 2-3 loose small BMs no abd pain, no acid reflux feels better ROS: 10 point ROS as noted above, otherwise negative Physical Exam: Gen: NAD, +dementia HEENT: normal conjunctiva, sclera anicteric CV: regular rate/rhythm, trace b/l pedal edema Pulm: non-labored respirations, diminished bilaterally Abd: soft, mild tenderness in epigastrium, non-distended Neuro: normal speech, normal affect, moves all extremities vitals reviewed Problem List BRAD secondary to dehydration, poor PO intake chronic systolic CHF vertebral compression fracture GERD HTN hypercalcemia secondary to immobilization afib/aflutter, paroxysmal Severe Protein-Calorie Malnutrition BRAD secondary to prerenal decreased p.o. intake/dehydration/diuretic usage Initially resolved with IV fluids worsened, after PO trial, diarrhea, nauea/vomiting restarted IVF evening of 02/23; avoid over volume, last echo: 25% EF wean IVF, advance diet Appetite was improving, patient was eating more, but still only 20-25% of meals; worsened nausea/diarrhea 02/23 nephrology consulted renal U/S: mild b/l hydronephorisis CT abd/pelvis: no hydronephrosis noted, but bilateral pelvicaliectasis hypercalcemia secondary to immobilization CT abdomen and pelvis on admission demonstrated air-fluid levels in the colon suggesting colitis. worsening diarrhea on 02/23, loose, +2-3 more a day c.diff antigen +, toxin negative; had mild improvements, without antibiotics, then worsened on 02/23 started PO vancomycin; gentle IVF on 02/23 dc'd PO vanc on 02/25, patient developed severe gas pains, burping, nausea/vomiting zofran switched to phenergan, patient feels phenergan may have caused her to feel twitch ID consulted 02/24 Follow-up with spine surgery as an outpatient regarding L1 vertebral compression fracture. Patient currently able to transfer with assistance and ambulating with assistance. She is looking forward to skilled rehab. Continue PT. Continue Eliquis for atrial fibrillation. Metoprolol was on hold due to soft blood pressure, restarted at lower dose, patient with sinus tachycardia vs aflutter Cardiology consulted 02/24 Recommended starting the patient on amiodarone 400 p.o. twice daily, suspect patient is in a flutter.. dc beta abel continue Eliquis and Plavix, no need for aspirin Continue home medications for other chronic medical problems. VTE: home eliquis Code: DNR Dispo: SNF, ~2-3 days Time Spent Managing Pts Care (In Minutes): 35
[2022-02-26] MEDS ORDERED: POTASSIUM 25 MEQ EFFERV TAB PO ONE (21:00)
[2022-02-26] MEDS: MIRTAZAPINE 15 MG TAB PO SCH (21:40)
[2022-02-26] MEDS: ATORVASTATIN 40 MG TAB PO SCH (21:40)
[2022-02-27 04:46] LABS: MPV 9.1 fL (7.6-11.3); RBC Red Blood Cell Count 2.86 M/uL (3.86-4.86)
[2022-02-27 05:16] LABS: Albumin 2.5 g/dL (3.4-5.0); Bilirubin Total 0.5 mg/dL (0.2-1.0); C-Reactive Protein 13.6 mg/L (<3.00); Magnesium 1.7 mg/dL (1.8-2.4); Phosphorus 1.8 mg/dL (2.5-4.9)
--- NOTE | 2022-02-27 05:59 | P.PN ---
Date of Service: 02/27/22 Subjective: diarrhea worse since last night no further nausea no abd pain, otherwise feeling better ROS: 10 point ROS as noted above, otherwise negative Physical Exam: Gen: NAD, +dementia HEENT: normal conjunctiva, sclera anicteric CV: regular rate/rhythm, trace b/l pedal edema Pulm: non-labored respirations, diminished bilaterally Abd: soft, mild tenderness in epigastrium, non-distended Neuro: normal speech, normal affect, moves all extremities vitals reviewed Problem List BRAD secondary to dehydration, poor PO intake chronic systolic CHF vertebral compression fracture GERD HTN hypercalcemia secondary to immobilization afib/aflutter, paroxysmal Severe Protein-Calorie Malnutrition BRAD secondary to prerenal decreased p.o. intake/dehydration/diuretic usage Initially resolved with IV fluids worsened, after PO trial, diarrhea, nauea/vomiting restarted IVF evening of 02/23; avoid over volume, last echo: 25% EF advance diet as tolerated; nausea improving Appetite was improving, patient was eating more, but still only 20-25% of meals; worsened nausea/diarrhea 02/23 nephrology consulted renal U/S: mild b/l hydronephorisis CT abd/pelvis: no hydronephrosis noted, but bilateral pelvicaliectasis hypercalcemia secondary to immobilization CT abd/pelvis on admission demonstrated air-fluid levels in the colon suggesting colitis. worsening diarrhea on 02/23, loose, +2-3 more a day c.diff antigen +, toxin negative; had mild improvements, without antibiotics, then worsened on 02/23 started PO vancomycin & IVF on 02/23; then developed gas, n/v n/v, burping improved after discontinuation of PO vanc on 02/25 Diarrhea worsened (loose, incontinence, small amount) after Bicitra ID consulted 02/24 Follow-up with spine surgery as an outpatient regarding L1 vertebral compression fracture. feels some pressure/pain after standing/ambulating for a while, did well walking 100ft on 02/27 without pain Patient currently able to transfer with assistance and ambulating with assistance. She is looking forward to skilled rehab. Continue PT. Continue Eliquis for atrial fibrillation. Metoprolol was on hold due to soft blood pressure, restarted at lower dose, patient with sinus tachycardia vs aflutter Cardiology consulted 02/24 Recommended starting the patient on amiodarone 400 p.o. twice daily x7 days, then 200mg daily, suspect patient is in a flutter.. dc beta abel improved continue Eliquis and Plavix, no need for aspirin Continue home medications for other chronic medical problems. LFTs increasing unclear etiology, timing raises suspicion for amiodarone vs diarrhea if worsens tomorrow, dc amio VTE: home eliquis Code: DNR Dispo: SNF, ~2-3 days pending improvement of diarrhea, PO intake, monitor LFTs Time Spent Managing Pts Care (In Minutes): 35
[2022-02-27] MEDS: PANTOPRAZOLE 40 MG INJ IVP SCH ×2 (08:07→20:38)
[2022-02-27] MEDS: LACTOBACILLUS/ACIDOPHILUS TAB PO SCH ×2 (08:07→20:39)
[2022-02-27] MEDS: CLOPIDOGREL 75 MG TABLET PO SCH (08:07)
[2022-02-27] MEDS: APIXABAN 2.5 MG TABLET PO SCH ×2 (08:07→20:39)
[2022-02-27] MEDS: AMIODARONE HCL 200 MG TAB PO SCH ×2 (08:08→20:39)
[2022-02-27] MEDS: MAGNESIUM OXIDE 400 MG TAB PO SCH (08:08)
[2022-02-27] MEDS: VITAMIN B COMPLEX 1 CAP PO SCH (08:09)
[2022-02-27] MEDS: POTASS/SODIUM PHOSPHATE 1 PKT POWD.PACK PO SCH ×3 (08:09→11:34)
[2022-02-27] MEDS: NA CIT/CITRIC AC 30 ML ORAL UDC PO SCH ×2 (08:14→11:00)
[2022-02-27] MEDS: SERTRALINE HCL 100 MG TAB PO SCH (08:14)
[2022-02-27] MEDS ORDERED: MAGNESIUM SULFATE 1 gm IVPB 1 GM/100 ML BAG IV ONE (09:00)
--- NOTE | 2022-02-27 09:28 | EKG ---
Test Date: 2022-02-25 Test Time: 14:27:25 Police Stenographer: ROSS MEASUREMENT RESULTS: Intervals: Rate: 111 CA: 178 QRSD: 98 QT: 398 QTc: 541 [place]: P: 65 CA: 178 QRS: 96 T: -88 INTERPRETIVE STATEMENTS: Sinus tachycardia with occasional premature ventricular complexes Lateral infarct, age undetermined ST & T wave abnormality, consider inferior ischemia ST & T wave abnormality, consider anterior ischemia Abnormal ECG Compared to ECG 02/19/2022 22:29:41 Ventricular premature complex(es) now present Myocardial infarct finding now present First degree AV block no longer present ST (T wave) deviation still present Possible ischemia still present Electronically Signed On 02-27-22 09:26:54 CDT by Allan Godfrey
--- NOTE | 2022-02-27 12:41 | P.PN ---
Subjective Date of Service: 02/27/22 Chief Complaint: Dehydration, Poor PO intake Subjective: Other (She reports having loose stools today.) Physical Examination - Vital Signs Temperature: 98.1 F Blood Pressure: 115/74 Pulse: 97 Respirations: 16 Pulse Ox (%): 98 - Physical Exam General: Other (Appears as her stated age) HEENT: Atraumatic, Normocephalic Neck: Supple, JVD not distended Respiratory: Other (Symmetric chest expansion) Cardiovascular: No rubs, No murmurs Gastrointestinal: Soft and benign, No rebound Musculoskeletal: No clubbing Integumentary: No warmth Neurological: Normal speech, Normal tone Urinary: Other (No bladder distention) External genitalia: Deferred Rectal: Deferred Assessment And Plan - Plan 1. Acute kidney injury secondary to prerenal, dehydration, superimposed with diuresis, superimposed with ARB and rhabdomyolysis. SCr improved/plateaued at 1.7-1.8. [place] po fluid intake. Dc IV fluid. Monitor renal panel. 2. Hypertension. BP controlled. Cont current med regimen. 3. Rhabdomyolysis, recovered, resolved. 4. Hypercalcemia secondary to Milk-alkali/immobilization. Resolved. Monitor. 5. HypoPO4. Monitor/replete prn. 6. Afib - Eliquis 7. Vertebral compression fx. Per other services. 8. Gastroenteritis, Clostridium difficile colitis. Received po vanc. Bicitra received 2/2 loose stool. 9. Acidosis. Bicitra po received. Physician Review: Patient Assessed, Agree with Above Assessment and Plan
[2022-02-27] MEDS: ATORVASTATIN 40 MG TAB PO SCH (20:38)
[2022-02-27] MEDS: MIRTAZAPINE 15 MG TAB PO SCH (20:38)
[2022-02-27] MEDS: NA CHLORIDE 0.9% 1,000 ML IV SCH (20:39)
[2022-02-27] MEDS: ACETAMINOPHEN 500 MG TAB PO PRN (21:46)
[2022-02-28] MEDS: MELATONIN 3 MG TABLET PO PRN (01:52)
[2022-02-28 04:26] LABS: Hematocrit 28.6 % (36.0-45.0); MCV 97.4 fL (80-100); MPV 9.4 fL (7.6-11.3); RBC Red Blood Cell Count 2.94 M/uL (3.86-4.86)
[2022-02-28 04:37] LABS: Albumin 2.4 g/dL (3.4-5.0); Bilirubin Direct 0.1 mg/dL (0-0.2); Bilirubin Total 0.5 mg/dL (0.2-1.0); Magnesium 1.8 mg/dL (1.8-2.4); Phosphorus 2.1 mg/dL (2.5-4.9); Potassium 3.7 mmol/L (3.5-5.1)
--- NOTE | 2022-02-28 06:29 | P.PN ---
Date of Service: 02/28/22 Subjective: improving no nausea, no diarrhea hungry no abd pain ROS: 10 point ROS as noted above, otherwise negative Physical Exam: Gen: NAD, +dementia HEENT: normal conjunctiva, sclera anicteric CV: regular rhythm - tachycardic, trace b/l pedal edema Pulm: non-labored respirations, diminished bilaterally Abd: soft, non-tender, non-distended Neuro: normal speech, normal affect, moves all extremities vitals reviewed Problem List BRAD secondary to dehydration, poor PO intake chronic systolic CHF vertebral compression fracture nausea/vomiting diarrhea GERD HTN hypercalcemia secondary to immobilization afib/aflutter, paroxysmal Severe Protein-Calorie Malnutrition BRAD secondary to prerenal decreased p.o. intake/dehydration/diuretic usage initially improved with IVF worsened due to diarrhea, vomiting, and contrast induced nephropathy restarted IVF 02/23, gentle rate, avoid over volume last echo, EF: 25% advance diet as tolerated nephrology following renal U/S: mild b/l hydronephorisis CT abd/pelvis: no hydronephrosis noted, but bilateral pelvicaliectasis hypercalcemia secondary to immobilization CT abd/pelvis on admission demonstrated air-fluid levels in the colon suggesting colitis. worsening diarrhea on 02/23, loose, +2-3 more a day c.diff antigen +, toxin negative; had mild improvements without antibiotics, then worsened on 02/23 started PO vancomycin & IVF on 02/23; then developed gas pains, n/v n/v, burping improved after discontinuation of PO vanc on 02/25 Diarrhea worsened (loose, incontinence, small amount) after Bicitra; resolved after discontinuation of Bictira now nausea/vomiting and diarrhea resolved; off antibiotics ID consulted 02/24 Follow-up with spine surgery as an outpatient regarding L1 vertebral compression fracture. feels some pressure/pain after standing/ambulating for a while, did well walking 100ft on 02/27 without pain Patient currently able to transfer with assistance and ambulating with assistance. She is looking forward to skilled rehab. Continue PT. Continue Eliquis for atrial fibrillation. Metoprolol was on hold due low blood pressure, restarted at lower dose, patient with sinus tachycardia vs aflutter Cardiology consulted 02/24 Recommended starting the patient on amiodarone 400 p.o. twice daily x7 days, then 200mg daily, suspect patient is in a flutter. dc beta abel improved decreased to 200mg BID after discussion with cardiology 02/28, pt with uptrending LFTs; Cardiology feels too early to be secondary to amio continue Eliquis and Plavix, no need for aspirin Continue home medications for other chronic medical problems. LFTs increasing unclear etiology, timing raises suspicion for amiodarone vs diarrhea/vomiting monitor VTE: home eliquis Code: DNR Dispo: SNF, ~2 days pending improvement of heart rate/rhythm, monitor LFTs Time Spent Managing Pts Care (In Minutes): 35
[2022-02-28] MEDS ORDERED: MAGNESIUM SULFATE 1 gm IVPB 1 GM/100 ML BAG IV ONE (07:48)
[2022-02-28] MEDS ORDERED: POTASSIUM CL SA 10 MEQ TAB PO ONE (08:00)
[2022-02-28] MEDS: SERTRALINE HCL 100 MG TAB PO SCH (08:37)
[2022-02-28] MEDS: LACTOBACILLUS/ACIDOPHILUS TAB PO SCH ×2 (08:37→21:38)
[2022-02-28] MEDS: CLOPIDOGREL 75 MG TABLET PO SCH (08:37)
[2022-02-28] MEDS: POTASS/SODIUM PHOSPHATE 1 PKT POWD.PACK PO SCH ×3 (08:37→10:17)
[2022-02-28] MEDS: APIXABAN 2.5 MG TABLET PO SCH ×2 (08:37→21:38)
[2022-02-28] MEDS: VITAMIN B COMPLEX 1 CAP PO SCH (08:38)
[2022-02-28] MEDS: PANTOPRAZOLE 40 MG INJ IVP SCH ×2 (08:38→21:37)
[2022-02-28] MEDS ORDERED: AMIODARONE HCL 200 MG TAB PO SCH (09:00)
--- NOTE | 2022-02-28 12:19 | PN ---
Subjective: The patient lying in bed, not in any distress. No new discomfort over the weekend. The patient's diarrhea has been improving. is also by the bedside. Objective: Vital Signs: Temperature 96.8, pulse 100, respirations 16, blood pressure 104/71. Lungs: Clear to auscultation. Heart: S1, S2. Regular. Abdomen: Soft, nontender. Bowel sounds present. Extremity: No edema. Laboratory Data: Shows WBC 6.8, hemoglobin 9.4, platelets are 294. Chemistry shows sodium 137, pota ssium 3.7, chloride 109, bicarb 19, BUN 17, creatinine 1.8. Albumin level is 2.4. Assessment And Plan: Clostridium difficile colitis improving. The patient is off vancomycin. Anemi a of chronic disease, renal insufficiency, protein-calorie malnourishment. Continue supportive care, nutritional support, and IV hydration. We will follow the patient as needed. NF/MODL Voice ID: [id number] Report ID: [id number]
[2022-02-28] MEDS: NA CHLORIDE 0.9% 1,000 ML IV SCH ×2 (16:00→21:38)
--- NOTE | 2022-02-28 19:25 | PN ---
Date of Progress Note: 02/28/2022 Subjective: Seen by bedside, doing clinically well. Heart rate appears to be controlled. Review of Systems: No chest pain, shortness of breath, orthopnea, cough. No nausea, vomiting, diarrhea. No abdominal p ain. No dysuria, polyuria, or urinary urgency. All other systems reviewed and they were negative. Physical Examination: Vital Signs: Reviewed. Head and Neck: Pupils are equal, reactive to light. Intact eye movements. No JVD. No cervical lym phadenopathy. Neck is supple. Thyroid is not enlarged. Lungs: Clear to auscultation bilaterally. No rhonchi, wheezing, or crackles. No accessory muscle u se. Heart: Irregularly irregular. No extra sounds. Abdomen: Soft, nontender. Bowel sounds positive. No organomegaly. No masses or hernia. No rigidi ty or rebound. Extremities: No clubbing or cyanosis. Intact pulses. Skin: No rash. Neurologic: Alert, awake. No acute focal deficits appreciated. Investigations: Her BUN is 17, creatinine 0.83, hemoglobin is 9.4. Assessment And Recommendations: Atrial fibrillation. It appears to be controlled in the 80s. Blood pressure is on the low side. Continue the amiodarone for now and apixaban. The patient will need l eft atrial appendage closure, which we will plan for that as an outpatient basis. Please increase the amiodarone to twice a day for now, carefully monitor liver fun ction tests. SR/MODL Voice ID: [id number] Report ID: [id number]
[2022-02-28] MEDS: ATORVASTATIN 40 MG TAB PO SCH (21:37)
[2022-02-28] MEDS: AMIODARONE HCL 200 MG TAB PO SCH (21:38)
[2022-02-28] MEDS: MIRTAZAPINE 15 MG TAB PO SCH (21:38)
--- NOTE | 2022-02-28 22:34 | PN ---
Date of Progress Note: 02/28/2022 Subjective: Acute kidney injury, volume depletion, poor p.o. intake. Patient has chronic and acute kidney injury. Acute kidney injury is due to prerenal azotemia and dehydration superimposed with diu retic effect, angiotensin receptor abel, and rhabdomyolysis. Serum creatinine level improved over all and is plateauing at 1.7-1.9. Review of Systems: Denies fever or chills. Objective: Lungs: Clear to auscultation bilaterally. Heart: S1, S2. Abdomen: Soft, benign. Extremities: No edema. Impression And Plan: 1.Acute kidney injury secondary to prerenal azotemia, volume depletion, and nonoliguric acute tubula r necrosis superimposed with diuretic effect, angiotensin receptor abel effect as well as rhabdomy olysis. IV fluids were used to prevent renal hypoperfusion and to resuscitate volume. Patient has h istory of abdominal discomfort and p.o. intake was declining. 2.Hypertension. Blood overall is control. GEO inhibitor is on hold due to acute kidney injury. Chandler alarcon will not be using angiotensin receptor abel because of acute kidney injury. 3.Rhabdomyolysis, recovered and resolved. Monitor CK level and monitor electrolytes. 4.Hypercalcemia secondary to milk alkali and immobilization. Hypercalcemia, resolved. Monitor magn esium, PTH, 25-hydroxy vitamin D level. 5.Hypophosphatemia. Monitor and replete as needed. 6.Vertebral compression fracture per Primary Team. EB/MODL Voice ID: [id number] Report ID: [id number]
[2022-03-01] MEDS: MELATONIN 3 MG TABLET PO PRN (00:02)
[2022-03-01 05:41] VITALS: BMI 17.7
[2022-03-01 06:20] LABS: Albumin 2.4 g/dL (3.4-5.0); Bilirubin Total 0.6 mg/dL (0.2-1.0); Magnesium 1.7 mg/dL (1.8-2.4); Phosphorus 2.9 mg/dL (2.5-4.9); Potassium 3.9 mmol/L (3.5-5.1); Protein, Total 6.2 g/dL (6.4-8.2)
[2022-03-01] MEDS: AMIODARONE HCL 200 MG TAB PO SCH ×2 (08:55→21:11)
[2022-03-01] MEDS: LACTOBACILLUS/ACIDOPHILUS TAB PO SCH ×2 (08:55→21:11)
[2022-03-01] MEDS: APIXABAN 2.5 MG TABLET PO SCH ×2 (08:55→21:11)
[2022-03-01] MEDS: VITAMIN B COMPLEX 1 CAP PO SCH (08:55)
[2022-03-01] MEDS: CLOPIDOGREL 75 MG TABLET PO SCH (08:56)
[2022-03-01] MEDS: SERTRALINE HCL 100 MG TAB PO SCH (08:56)
[2022-03-01] MEDS: PANTOPRAZOLE 40 MG INJ IVP SCH ×2 (08:56→21:10)
[2022-03-01] MEDS ORDERED: MAGNESIUM SULFATE 1 gm IVPB 1 GM/100 ML BAG IV ONE (09:00)
[2022-03-01] MEDS ORDERED: POTASSIUM 25 MEQ EFFERV TAB PO ONE (09:00)
[2022-03-01] MEDS: ACETAMINOPHEN 500 MG TAB PO PRN ×3 (11:54→21:55)
--- NOTE | 2022-03-01 13:53 | P.PN ---
Subjective Date of Service: 03/01/22 Chief Complaint: Dehydration, Poor PO intake Patient reports improvement in diarrhea frequency. No diarrhea since this morning. She is eating about 20% of her meals according to the son. Physical Examination - Vital Signs Temperature: 97.1 F Blood Pressure: 100/69 Pulse: 104 Respirations: 14 Pulse Ox (%): 97 Assessment And Plan - Current Problems (Diagnosis) (1) BRAD (acute kidney injury) Current Visit: No Status: Acute (2) Chronic systolic heart failure Current Visit: Yes Status: Acute (3) Hypotension Current Visit: Yes Status: Acute (4) Vertebral compression fracture Current Visit: Yes Status: Acute Qualifiers: Lumbar vertebra fracture level: L1 (5) Functional quadriplegia Current Visit: Yes Status: Acute - Plan Physical Exam General: Alert, Oriented x3 Respiratory: Clear to auscultation bilaterally, Normal air movement Cardiovascular: No edema, regular heart rhythm Gastrointestinal: Normal bowel sounds, Soft and benign, nontender. Musculoskeletal: No swelling, No erythema Integumentary: No rashes, No breakdown. Neurological: Normal speech, No focal motor deficit. Plan: Serum creatinine is stable. Patient with CKD 3. Renal ultrasound showed mild bilateral hydronephrosis. CT abdomen pelvis showed no hydronephrosis but bilateral pelvicaliectasis. Nephrology is following. Hypercalcemia. No M spike protein to suggest multiple myeloma. PTH-low. Recommended small frequent high-calorie diet. Continue PPI Continue to monitor renal function. Lasix has been on hold since admission. CT abdomen and pelvis demonstrated air-fluid levels in the colon suggesting colitis. Fecal leukocyte negative indicating infection or inflammatory less likely cause of her diarrhea. Elevated LFT of unknown etiology-secondary to malnutrition versus amiodarone induced. Patient is on amiodarone for rapid atrial fibrillation. Currently on 200 mg twice daily. Continue to monitor LFT. Follow-up with spine surgery as an outpatient regarding L1 vertebral compression fracture. Patient now ambulating with a rolling walker Continue PT. Continue Eliquis for atrial fibrillation. Continue amiodarone. Metoprolol discontinued due to soft blood pressure She is compensated for CHF Continue home medications for other chronic medical problems. Physician Review: Patient Assessed, Agree with Above Assessment and Plan
--- NOTE | 2022-03-01 14:04 | P.PN ---
Subjective Date of Service: 03/01/22 Chief Complaint: Dehydration, Poor PO intake Pt with quadriplegia , admitted with poor roal intake and BRAD , in ER Cr 5.9 today No overnight events cr improved to 1.5 and now trending up to 2.0 will increase IVF rate will start on Po odium bicarbonate Physical exam General: Awake, NAD HEENT: Atraumatic, Normocephalic Neck: Supple, no elevated JVD Respiratory: Other CTAB. No rales or wheezes Cardiovascular: No rubs, No murmurs Gastrointestinal: Soft and benign, Non-distended Musculoskeletal: No clubbing Integumentary: No warmth Neurological: Normal tone, Sensation intact Lymphatics: No axilla or inguinal lymphadenopathy A/P # Acute kidney injury secondary to prerenal, dehydration, superimposed with diuresis, superimposed with ARB and rhabdomyolysis. cr in Er 5.9 and cr improved to 1.5 and now up to 2.0 will increase IVF rate renal diet renal dose medications avoid NSAID and contrast #Acidosis will start po sodium bicarbonate #hypokalemia KCl suppl prn. #Hypertension. BP controlled. Cont current med regimen. #Hypercalcemia secondary to immobilization. resolved PTH appropriately suppressed #HypoPO4. Monitor and replace prn #Afib - Eliquis #Vertebral compression fx. F/u with Ortho as an OP Total time spent 45 minutes including documentation, reviewing labs , placing orders and discussing plan of care with medical staff and pt Physical Examination - Vital Signs Temperature: 97.1 F Blood Pressure: 100/69 Pulse: 104 Respirations: 14 Pulse Ox (%): 97 Assessment And Plan Physician Review: Patient Assessed, Agree with Above Assessment and Plan
[2022-03-01] MEDS: NA CHLORIDE 0.9% 1,000 ML IV SCH (14:27)
[2022-03-01] MEDS: SODIUM BICARB 325 MG TAB PO SCH ×2 (14:27→21:10)
--- NOTE | 2022-03-01 17:01 | PN ---
Date of Progress Note: 03/01/2022 Subjective: Seen at bedside, doing clinically well. Does not have any chest pain, shortness of durga th, orthopnea, or cough. Her heart rate is between 90 and 100. Physical Examination: Vital Signs: Reviewed. Head and Neck: Pupils are equal, reactive to light. Intact eye movements. No JVD. No cervical lym phadenopathy. Neck: Supple. Thyroid is not enlarged. Lungs: Clear to auscultation bilaterally. No rhonchi, rales, or crackles. No accessory muscle use. Heart: Irregularly irregular. No extra sounds. Abdomen: Soft, nontender. Bowel sounds positive. No organomegaly. No masses or hernia. No rigidi ty or rebound. Extremities: No clubbing or cyanosis. Intact pulses. Skin: No rash. Neurologic: Alert, awake. No acute focal deficits appreciated. Lymph Nodes: No cervical or axillary lymphadenopathy. Investigations: Labs were reviewed. Assessment And Recommendation: 1.Atrial fibrillation, rate is better. Sotalol was discontinued due to kidney dysfunction. Continu e amiodarone at 200 mg twice a day. If heart rate continues to be a difficult issue to control, then I recommend to load with IV amiodarone. If the patient is going to stay more than 24 hours on IV am iodarone load, will probably be appropriate. 2.Acute kidney failure, and this has improved, and the patient is being followed by Nephrology. /MODL Voice ID: [id number] Report ID: [id number]
[2022-03-01] MEDS: MIRTAZAPINE 15 MG TAB PO SCH (21:10)
[2022-03-01] MEDS: ATORVASTATIN 40 MG TAB PO SCH (21:11)
--- NOTE | 2022-03-02 00:10 | PN ---
Subjective: Patient lying in bed. No new acute events. Denies any chest pain, abdominal pain, cons tipation, or diarrhea. Objective: Vital Signs: Temperature 97, pulse 100, respirations 14, blood pressure 108/70. Lungs: Basal crackles. Heart: S1, S2 regular. Abdomen: Soft, nontender. Bowel sounds present. Extremities: No edema. Laboratory Data: BUN 17, creatinine 2, glucose is 114. Albumin level is 2.4. Assessment And Plan: Clostridium difficile colitis, improving. Patient is off antibiotic. NF/MODL Voice ID: [id number] Report ID: [id number]
[2022-03-02] MEDS: MELATONIN 3 MG TABLET PO PRN ×2 (00:49→22:06)
[2022-03-02] MEDS: NA CHLORIDE 0.9% 1,000 ML IV SCH ×3 (02:45→20:18)
[2022-03-02 03:23] LABS: Absolute Lymphocytes (CBC) 1.2 K/uL (0.7-4.9); Hematocrit 28.5 % (36.0-45.0); Lymphocytes % 21.4 % (15.3-44.8); MCV 97.2 fL (80-100); MPV 9.1 fL (7.6-11.3); RBC Red Blood Cell Count 2.93 M/uL (3.86-4.86)
[2022-03-02 04:01] LABS: Albumin 2.3 g/dL (3.4-5.0); Bilirubin Total 0.5 mg/dL (0.2-1.0); Potassium 4.2 mmol/L (3.5-5.1); Protein, Total 5.7 g/dL (6.4-8.2)
[2022-03-02] MEDS: LACTOBACILLUS/ACIDOPHILUS TAB PO SCH ×2 (09:05→20:24)
[2022-03-02] MEDS: VITAMIN B COMPLEX 1 CAP PO SCH (09:05)
[2022-03-02] MEDS: PANTOPRAZOLE 40 MG INJ IVP SCH ×2 (09:05→20:23)
[2022-03-02] MEDS: AMIODARONE HCL 200 MG TAB PO SCH ×2 (09:06→21:00)
[2022-03-02] MEDS: CLOPIDOGREL 75 MG TABLET PO SCH (09:06)
[2022-03-02] MEDS: SODIUM BICARB 325 MG TAB PO SCH ×3 (09:06→21:00)
[2022-03-02] MEDS: APIXABAN 2.5 MG TABLET PO SCH ×2 (09:06→20:24)
[2022-03-02] MEDS: SERTRALINE HCL 100 MG TAB PO SCH (09:06)
--- NOTE | 2022-03-02 11:40 | PN ---
Date of Progress Note: 03/02/2022 Subjective: Patient was admitted with acute kidney injury secondary to prerenal, dehydration, secondary to GI loss. Diarrhea has been stopped. Patient in the last couple of days, kidney function declined starting on the . Gradually worsening. Patient according to her, eating good. There is no rash. There is no itching. Yesterday, we started IV fluid. Kidney function continued to decline. Physical Examination: Vital Signs: When I saw the patient, blood pressure 119/81, pulse of 104, afebrile. Chest: Clear to auscultation. Heart: S1, S2 regular. Abdomen: Soft, nontender. Extremities: No edema. Neuro: Alert. No focality. Laboratory Data: Sodium 139, potassium 4.2, bicarb 19, BUN 18, creatinine of 2, calcium 8.2. Phos 2.9, magnesium 1.7. Albumin 2.3. Current Medications: The patient is on include Plavix. Amiodarone was started on the , atorvastatin, mirtazapine, Zoloft, sodium bicarbonate 650 b.i.d., normal saline at 75 per hour, Zofran, pantoprazole 40 b.i.d., magnesium, melatonin, B Complex. Antibiotic has been discontinued yesterday as her diarrhea has been stopped. Assessment And Plan: 1. Acute kidney injury, possibly secondary to prerenal given the peripheral eosinophilia. Again, consider acute interstitial nephritis. We will send for urine eosinophil. I am going to repeat ultrasound. I will send for full workup again. We will increase the IV fluid to 100/hour and we will follow up the patient. 2. Hypertension with the presence of acute kidney injury. Keep holding any GEO inhibitor or acute interstitial nephritis. Hold diuresis. 3. Rhabdomyolysis has been resolved. 4. Atrial fibrillation by Primary. Continue amiodarone. 5. Hyponatremia secondary to depletion, not resolved. 6. Hypercalcemia secondary to dehydration, resolved. 7. Hypomagnesemia, status post supplement. We will follow up repeat magnesium. 8. Non-anion gap metabolic acidosis secondary to gastrointestinal loss. I am going to go ahead and increase sodium bicarb to 3 times a day. 9. Gastroenteritis, Clostridium colitis. Off antibiotic. Follow up with ID. Time spent examining the patient [id number], reviewing data, lab and radiology, discussing the case with the patient, discussing the case with steam hammer operator including nursing and ICU, hemodialysis nurse, and hospitalist more than 35 minutes. OTTO Voice ID: [id number] Report ID: [id number] MTDZora
--- NOTE | 2022-03-02 11:42 | RAD REPORT ---
EXAM DESCRIPTION: US - Renal Ultrasound-Complete - 03/02/2022 11:24 am CLINICAL HISTORY: BRAD COMPARISON: Abdomen Pelvis Wo Contrast dated 02/25/2022 FINDINGS: The right kidney measures 10.4 x 3.8 x 4.6 cm. The left kidney measures 9.2 x 4.3 x 4.2 c m. Renal cortical thickness and echogenicity are normal. Renal contours lobulated that is a normal va riant. No hydronephrosis or suspicious renal mass. Partially filled urinary bladder shows no wall thickening or mass. No stone or intraluminal abnormali ty seen. Trace amount of ascites is present adjacent to the liver. IMPRESSION: No hydronephrosis or suspicious renal mass. No other significant findings. Trace amount of ascites seen in the right upper quadrant. Minimal ascites has been previously demonst rated.
--- NOTE | 2022-03-02 13:10 | P.PN ---
Subjective Date of Service: 03/02/22 Chief Complaint: Dehydration, Poor PO intake Patient significant improvement with regards to her diarrhea. No diarrhea today. She is eating about 20% of her meals according to the son. Physical Examination - Vital Signs Temperature: 98.5 F Blood Pressure: 116/78 Pulse: 98 Respirations: 17 Pulse Ox (%): 97 Assessment And Plan - Current Problems (Diagnosis) (1) BRAD (acute kidney injury) Current Visit: No Status: Acute (2) Chronic systolic heart failure Current Visit: Yes Status: Acute (3) Hypotension Current Visit: Yes Status: Acute (4) Vertebral compression fracture Current Visit: Yes Status: Acute Qualifiers: Lumbar vertebra fracture level: L1 (5) Functional quadriplegia Current Visit: Yes Status: Acute - Plan Physical Exam General: Alert, Oriented x3 Respiratory: Clear to auscultation bilaterally, Normal air movement Cardiovascular: No edema, regular heart rhythm Gastrointestinal: Normal bowel sounds, Soft and benign, nontender. Musculoskeletal: No swelling, No erythema Integumentary: No rashes, No breakdown. Neurological: Normal speech, No focal motor deficit. Plan: Serum creatinine slightly increased. I suspect this is secondary to bouts of diarrhea. Renal ultrasound showed mild bilateral hydronephrosis. CT abdomen pelvis showed no hydronephrosis but bilateral pelvicaliectasis. Nephrology is following. Hypercalcemia. No M spike protein to suggest multiple myeloma. PTH-low. Recommended small frequent high-calorie diet. Continue PPI Continue to monitor renal function. Lasix has been on hold since admission. CT abdomen and pelvis demonstrated air-fluid levels in the colon suggesting colitis. Fecal leukocyte negative indicating infection or inflammatory less likely cause of her diarrhea. Elevated LFT of unknown etiology-secondary to malnutrition versus amiodarone induced. Patient is on amiodarone for rapid atrial fibrillation. Currently on 200 mg twice daily. LFT has been trending down. Continue to monitor LFT. Follow-up with spine surgery as an outpatient regarding L1 vertebral compression fracture. Patient now ambulating with a rolling walker Continue PT. Continue IV hydration for BRAD. Continue Eliquis for atrial fibrillation. Continue amiodarone. Metoprolol discontinued due to soft blood pressure She is compensated for CHF. Awaiting insurance approval for skilled rehab. Physician Review: Patient Assessed, Agree with Above Assessment and Plan
--- NOTE | 2022-03-02 14:52 | PN ---
Date of Progress Note: 03/02/2022 Subjective: Seen by bedside. Doing clinically better. Heart rate, however, still running slightly on the higher side. Review of Systems: No chest pain, shortness of breath, orthopnea, cough. All other systems reviewed and they were negat isiah. Physical Examination: Vital Signs: Reviewed. Head and Neck: Pupils are equal, reactive to light. Intact eye movements. No JVD. No cervical lym phadenopathy. Neck is supple. Thyroid is not enlarged. Lungs: Clear to auscultation bilaterally. No rhonchi, wheezing, or crackles. No accessory muscle u se. Heart: Irregularly irregular. No extra sounds. Abdomen: Soft, nontender. Bowel sounds positive. No organomegaly. No masses or hernia. No rigidi ty or rebound. Extremities: No clubbing or cyanosis. Intact pulses. Skin: No rash. Neurologic: Alert, awake. No acute focal deficits appreciated. Lymph Nodes: No cervical or axillary lymphadenopathy. Investigations: Creatinine is 2. Hemoglobin is 9. Assessment And Recommendations: Atrial fibrillation with rapid ventricular response. Heart rate is still kind of borderline. Recommend to add a Toprol-XL 25 mg daily. Continue amiodarone at 200 mg t wice a day and apixaban 2.5 twice a day and I will keep monitoring the patient with you. SR/BJORNL Voice ID: [id number] Report ID: [id number]
[2022-03-02] MEDS: ATORVASTATIN 40 MG TAB PO SCH (20:23)
[2022-03-02] MEDS: MIRTAZAPINE 15 MG TAB PO SCH (20:23)
--- NOTE | 2022-03-02 23:31 | PN ---
Subjective: Patient lying in bed. No new acute event. Chart reviewed. Denies any chest pain, abdo zeus pain, constipation, or diarrhea. Objective: Vital Signs: Temperature 97, pulse 100, respirations 17, blood pressure 108/68. Lungs: Basal crackles. Heart: S1, S2. Regular. Abdomen: Soft, nontender. Bowel sounds present. Extremities: No edema. Laboratory Data: Shows WBC 5.6, hemoglobin 9.3, platelets 173. Sodium 139, potassium 4.2, chloride 112, bicarb 19, BUN 18, creatinine 2.1, glucose 121. Assessment And Plan: 1.Clostridium difficile colitis, stable. 2.Functional quadriplegia. 3.Vertebral compression fracture. 4.Hypertension. 5.Chronic systolic heart failure. 6.Acute kidney injury. 7.Anemia of chronic disease. 8.Moderate protein-calorie malnourishment. Continue supportive care and monitor for signs of infection with WBC and fever trends. NF/MODL Voice ID: [id number] Report ID: [id number]
[2022-03-03] MEDS: ACETAMINOPHEN 500 MG TAB PO PRN ×2 (01:55→21:47)
[2022-03-03] MEDS: NA CHLORIDE 0.9% 1,000 ML IV SCH ×2 (06:18→16:00)
[2022-03-03 06:22] LABS: Albumin 2.7 g/dL (3.4-5.0); Magnesium 1.7 mg/dL (1.8-2.4); Potassium 4.4 mmol/L (3.5-5.1); Uric Acid 6.9 mg/dL (2.6-6.0)
[2022-03-03] MEDS ORDERED: MAGNESIUM SULFATE 1 gm IVPB 1 GM/100 ML BAG IV ONE ×2 (07:45→09:00)
[2022-03-03] MEDS: PANTOPRAZOLE 40 MG INJ IVP SCH ×2 (08:20→20:28)
[2022-03-03] MEDS: LACTOBACILLUS/ACIDOPHILUS TAB PO SCH ×2 (08:21→20:28)
[2022-03-03] MEDS: SERTRALINE HCL 100 MG TAB PO SCH (08:21)
[2022-03-03] MEDS: AMIODARONE HCL 200 MG TAB PO SCH ×2 (08:21→20:28)
[2022-03-03] MEDS: VITAMIN B COMPLEX 1 CAP PO SCH (08:21)
[2022-03-03] MEDS: SODIUM BICARB 325 MG TAB PO SCH ×3 (08:21→20:27)
[2022-03-03] MEDS: CLOPIDOGREL 75 MG TABLET PO SCH (08:21)
[2022-03-03] MEDS: APIXABAN 2.5 MG TABLET PO SCH ×2 (08:21→20:27)
[2022-03-03 13:29] LABS: SARS-CoV-2 Antigen Rapid Res Negative (Negative)
[2022-03-03] MEDS: METOPROLOL XL 25 MG TAB PO SCH (13:31)
[2022-03-03 14:46] LABS: UR PROTEIN 139.5 mg/dL (<11.9); Urine Protein/Creatinine Ratio 0.83 ratio (<0.15)
[2022-03-03 17:23] LABS: Rheumatoid Factor NEG (NEG)
--- NOTE | 2022-03-03 18:16 | P.PN ---
Subjective Date of Service: 03/03/22 Chief Complaint: Dehydration, Poor PO intake Patient son reports she has been having 3-4 loose stools per day Nursing staff report patient has been eating 50 to 70% of her meals. Physical Examination - Vital Signs Temperature: 97.9 F Blood Pressure: 119/71 Pulse: 112 Respirations: 18 Pulse Ox (%): 96 Assessment And Plan - Current Problems (Diagnosis) (1) BRAD (acute kidney injury) Current Visit: No Status: Acute (2) Chronic systolic heart failure Current Visit: Yes Status: Acute (3) Hypotension Current Visit: Yes Status: Acute (4) Vertebral compression fracture Current Visit: Yes Status: Acute Qualifiers: Lumbar vertebra fracture level: L1 (5) Functional quadriplegia Current Visit: Yes Status: Acute (6) C. difficile colitis Current Visit: Yes Status: Acute - Plan Physical Exam General: Alert, Oriented x3 Respiratory: Clear to auscultation bilaterally, Normal air movement Cardiovascular: No edema, regular heart rhythm Gastrointestinal: Normal bowel sounds, Soft and benign, nontender. Musculoskeletal: No swelling, No erythema Integumentary: No rashes, No breakdown. Neurological: Normal speech, No focal motor deficit. Plan: Serum creatinine trended up slightly. I suspect this is secondary to bouts of diarrhea. Renal ultrasound showed mild bilateral hydronephrosis. CT abdomen pelvis showed no hydronephrosis but bilateral pelvicaliectasis. Repeat renal ultrasound is unremarkable. Nephrology is following. Hypercalcemia. No M spike protein to suggest multiple myeloma. PTH-low. Recommended small frequent high-calorie diet. Stool is positive for C. difficile antigen but antibody negative. Discontinue protonix. On IV fluid per nephrology. Recheck renal function in a.m. to make sure serum creatinine stabilized. CT abdomen and pelvis demonstrated air-fluid levels in the colon suggesting colitis. Start oral vancomycin given high suspicion for C. difficile (chronic diarrhea, anorexia, failure to thrive). Concurred by infectious disease. Elevated LFT of unknown etiology-secondary to malnutrition versus amiodarone induced. Patient is on amiodarone for rapid atrial fibrillation. Currently on 200 mg twice daily. LFT has been trending down. Continue to monitor LFT. Follow-up with spine surgery as an outpatient regarding L1 vertebral compression fracture. Patient now ambulating with a rolling walker Continue PT. Continue Eliquis for atrial fibrillation. Continue amiodarone. Metoprolol discontinued due to soft blood pressure She is compensated for CHF. Insurance approved for skilled rehab.
[2022-03-03] MEDS: VANCOMYCIN ORAL SOLN 250 MG/5 ML OSYR PO SCH (20:27)
[2022-03-03] MEDS: MIRTAZAPINE 15 MG TAB PO SCH (20:28)
[2022-03-03] MEDS: ATORVASTATIN 40 MG TAB PO SCH (20:28)
--- NOTE | 2022-03-03 20:58 | PN ---
Date of Progress Note: 03/03/2022 Subjective: Seen by bedside, doing clinically better. No distress. However, heart rate is still ru nning fast. Beta-abel was not started yet. Review of Systems: No chest pain, shortness of breath, orthopnea. No nausea, vomiting, or diarrhea. All other systems reviewed, they are negative. Physical Examination: Vital Signs: Reviewed. Head and Neck: Pupils are equal, reactive to light. No JVD. No cervical lymphadenopathy. Neck is supple. Thyroid is not enlarged. Lungs: Clear to auscultation. No rhonchi, wheeze, or crackles. Heart: Irregularly irregular, tachycardiac. Abdomen: Soft, nontender. Bowel sounds positive. No organomegaly. No masses or hernia. No rigidi ty or rebound. Extremities: No clubbing or cyanosis. Intact pulses. Skin: No rash. Neurologic: Alert, awake. No acute focal deficits appreciated. Lymph Nodes: No cervical or axillary lymphadenopathy. Investigations: BUN is 21, creatinine is 2, and hemoglobin is 9.3. Assessment And Recommendations: Atrial fibrillation with rapid ventricular response. Heart rate is on the high side. Start Toprol-XL 25 mg daily, placed order myself, and continue amiodarone 200 mg t wice a day as well as Eliquis 2.5 mg twice a day for stroke prevention and I will follow the patient with you. SR/MODL Voice ID: [id number] Report ID: [id number]
--- NOTE | 2022-03-04 00:33 | PN ---
Date of Progress Note: 03/03/2022 Chief Complaint: [id number] kidney injury, nonoliguric. Subjective: Renal function has declined over the last few days. Patient is started on IV fluids for volume control. Patient developed primarily acute kidney injury secondary to prerenal azotemia and GI volume loss. Patient is not eating well. She has had poor p.o. intake and IV fluids were started to treat acute kidney injury. Review of Systems: Denies fever or chills. Physical Examination: Lungs: Clear to auscultation bilaterally. Heart: S1, S2. Abdomen: Soft. Extremities: No edema. Impression And Plan: 1.Uatfy-bt-haralqv kidney injury secondary to prerenal azotemia. The patient was encouraged to incr ease p.o. intake. Patient was started on IV fluids for volume resuscitation. Patient is undergoing workup to rule out possible allergic interstitial nephritis and urine eosinophil test was ordered. 2.Hypertension. GEO inhibitor on hold and diuretic is currently on hold. 3.Rhabdomyolysis, resolved. Monitor CK level. 4.Atrial fibrillation. Continue amiodarone. 5.Hyponatremia secondary to hypovolemia state. Monitor sodium level and adjust IV fluids. 6.Hypercalcemia secondary to volume depletion. The patient received adequate fluid intake and hyper calcemia resolved. 7.Hypomagnesemia. Monitor magnesium level and continue treatment according to lab results. HERNAN/DEXTER Voice ID: [id number] Report ID: [id number]
[2022-03-04] MEDS: VANCOMYCIN ORAL SOLN 250 MG/5 ML OSYR PO SCH ×4 (00:55→17:05)
[2022-03-04] MEDS: NA CHLORIDE 0.9% 1,000 ML IV SCH ×4 (00:55→22:18)
[2022-03-04 05:09] LABS: Albumin 2.2 g/dL (3.4-5.0); Magnesium 1.8 mg/dL (1.8-2.4); Phosphorus 4.4 mg/dL (2.5-4.9); Potassium 4.2 mmol/L (3.5-5.1)
[2022-03-04] MEDS: METOPROLOL XL 25 MG TAB PO SCH (05:59)
[2022-03-04] MEDS ORDERED: MAGNESIUM SULFATE 1 gm IVPB 1 GM/100 ML BAG IV ONE (06:25)
[2022-03-04] MEDS: VITAMIN B COMPLEX 1 CAP PO SCH (08:25)
[2022-03-04] MEDS: AMIODARONE HCL 200 MG TAB PO SCH ×2 (08:25→20:14)
[2022-03-04] MEDS: APIXABAN 2.5 MG TABLET PO SCH ×2 (08:25→20:14)
[2022-03-04] MEDS: CLOPIDOGREL 75 MG TABLET PO SCH (08:25)
[2022-03-04] MEDS: PANTOPRAZOLE 40 MG INJ IVP SCH ×2 (08:25→20:14)
[2022-03-04] MEDS: SERTRALINE HCL 100 MG TAB PO SCH (08:25)
[2022-03-04] MEDS: LACTOBACILLUS/ACIDOPHILUS TAB PO SCH ×2 (08:25→20:13)
[2022-03-04] MEDS: SODIUM BICARB 325 MG TAB PO SCH ×3 (08:25→20:13)
[2022-03-04] MEDS ORDERED: NA CHLORIDE 0.9% 500 ML IV ONE (09:29)
--- NOTE | 2022-03-04 14:23 | PN ---
Subjective: Patient is doing better. No diarrhea. Had soft bowel movement earlier today according to the nursing staff. Patient denies any chest pain, abdominal pain, constipation, nausea, vomiting, or back pain. Objective: Vital Signs: Temperature 96.9, pulse 71, respirations 18, blood pressure 105/68. General: Son-in-law is also sitting by the bedside. Lungs: Basal crackles. Heart: S1, S2. Regular. Abdomen: Soft, nontender. Bowel sounds present. Extremities: No edema. Laboratory Data: Shows WBC 5.6, hemoglobin 9.3, platelets are 273. Chemistry shows sodium 141, pota ssium 4.2, chloride 114, bicarb 16, BUN 24, creatinine 2.33. Albumin level is 2.2. Medications: Patient is currently on vancomycin oral and Lactinex. Assessment And Plan: 1.Clostridium difficile colitis. According to son, patient has been on omeprazole or pantoprazole f or several months, which was prescribed at primary care office in [place], [place]. 2.Functional quadriplegia. 3.Vertebral compression fracture. 4.Hypertension. 5.Chronic systolic heart failure. 6.Acute kidney injury. 7.Anemia of chronic disease. 8.Moderate protein-calorie malnourishment. Continue current treatment. No other recommendation at this time. We will follow the patient as needed. Continue IV hydration and monitor signs for infection with WBC an d fever trends. NF/MODL Voice ID: [id number] Report ID: [id number]
--- NOTE | 2022-03-04 16:01 | P.PN ---
Subjective Date of Service: 03/04/22 Chief Complaint: Dehydration, Poor PO intake Subjective: No new changes Physical Examination - Vital Signs Temperature: 97.2 F Blood Pressure: 134/78 Pulse: 85 Respirations: 18 Pulse Ox (%): 97 Assessment And Plan - Plan 1. Acute kidney injury secondary to prerenal, dehydration, superimposed with diuresis, superimposed with ARB and rhabdomyolysis. SCr improved/plateaued at 1.7-1.8 then worsened again to 2.3 today. Repeat urine chem non-prerenal. Reports ongoing loose stools. Cont NS gtt. [place] po fluid intake. Monitor renal panel. 2. Hypertension. BP controlled. Cont current med regimen. 3. Rhabdomyolysis, recovered, resolved. 4. Hypercalcemia secondary to Milk-alkali/immobilization. Resolved. Monitor. 5. HypoPO4. Monitor/replete prn. 6. Afib - Eliquis 7. Vertebral compression fx. Per other services. 8. Gastroenteritis, Clostridium difficile colitis. Received po vanc. 9. Acidosis. 1L IV bicarb today. Physician Review: Patient Assessed, Agree with Above Assessment and Plan
--- NOTE | 2022-03-04 16:07 | P.PN ---
Subjective Date of Service: 03/04/22 Chief Complaint: Dehydration, Poor PO intake Patient states she feels much better and ready to go for rehab. Her stool is formed today. Renal function still trending up slowly. Physical Examination - Vital Signs Temperature: 97.2 F Blood Pressure: 134/78 Pulse: 85 Respirations: 18 Pulse Ox (%): 97 Assessment And Plan - Current Problems (Diagnosis) (1) BRAD (acute kidney injury) Current Visit: No Status: Acute (2) Chronic systolic heart failure Current Visit: Yes Status: Acute (3) Hypotension Current Visit: Yes Status: Acute (4) Vertebral compression fracture Current Visit: Yes Status: Acute Qualifiers: Lumbar vertebra fracture level: L1 (5) Functional quadriplegia Current Visit: Yes Status: Acute (6) C. difficile colitis Current Visit: Yes Status: Acute - Plan Physical Exam General: Alert, Oriented x3 Respiratory: Clear to auscultation bilaterally, Normal air movement Cardiovascular: No edema, regular heart rhythm Gastrointestinal: Normal bowel sounds, Soft and benign, nontender. Musculoskeletal: No swelling, No erythema Integumentary: No rashes, No breakdown. Neurological: Normal speech, No focal motor deficit. Plan: Serum creatinine continues to trend up slowly. Noted some eosinophilia. Nephrology is suspecting interstitial nephritis. Renal ultrasound showed mild bilateral hydronephrosis. CT abdomen pelvis showed no hydronephrosis but bilateral pelvicaliectasis. Repeat renal ultrasound is unremarkable. Continue IV fluid. Patient given a bolus of normal saline today. PPI discontinued yesterday. Start oral prednisone Check renal function in the a.m. Hypercalcemia. No M spike protein to suggest multiple myeloma. PTH-low. Recommended small frequent high-calorie diet. Stool is positive for C. difficile antigen but antibody negative. Protonix discontinued. CT abdomen and pelvis demonstrated air-fluid levels in the colon suggesting colitis. Continue oral vancomycin given high suspicion for C. difficile (chronic diarrhea, anorexia, failure to thrive). Concurred by infectious disease. Elevated LFT of unknown etiology-secondary to malnutrition versus amiodarone induced. Patient is on amiodarone for rapid atrial fibrillation. Currently on 200 mg twice daily. LFT has been trending down. Continue to monitor LFT. Follow-up with spine surgery as an outpatient regarding L1 vertebral compression fracture. Patient now ambulating with a rolling walker Continue PT. Continue Eliquis for atrial fibrillation. Continue amiodarone. Metoprolol discontinued due to soft blood pressure She is compensated for CHF. Insurance approved for skilled rehab. Anticipating discharge to SNF once renal function plateaued started trending down. Physician Review: Patient Assessed, Agree with Above Assessment and Plan
[2022-03-04] MEDS ORDERED: WATER FOR INJ,STERILE 1,000 ML with NA BICARB 8.4% 150 MEQ IV SCH ×2 (17:00)
[2022-03-04] MEDS: predniSONE 20 MG TAB PO SCH (17:05)
[2022-03-04 20:12] VITALS: O2SAT 95
[2022-03-04] MEDS: MIRTAZAPINE 15 MG TAB PO SCH (20:13)
[2022-03-04] MEDS: ATORVASTATIN 40 MG TAB PO SCH (20:14)
--- NOTE | 2022-03-04 20:38 | PN ---
Date of Progress Note: 03/04/2022 Subjective: Seen at bedside. Cannot get any history from her as she is resting, asleep. Physical Examination: Vital Signs: Temperature is 97.2, pulse 85, breathing 18, blood pressure 135/78, saturating 97% on r oom air. General: A pleasant elderly female, in no distress. Head And Neck: Pupils are equal and reactive to light. Intact eye movements. No JVD. No cervical lymphadenopathy. Neck: Supple. Thyroid is not enlarged. Lungs: Clear to auscultation bilaterally. No rhonchi, wheezing, or crackles. No accessory muscle u se. Heart: Irregular. No extra sounds. Abdomen: Soft, nontender. Bowel sounds positive. No organomegaly. No masses or hernia. No rigidi ty or rebound. Extremities: No clubbing or cyanosis. Intact pulses. Skin: No rashes. Neurologic: Alert, awake. No acute focal deficits appreciated. Investigations: Labs reviewed. Assessment And Recommendations: Atrial fibrillation, now rate is controlled. Continue amiodarone, m etoprolol, and Eliquis. At this point, the patient is stable from the atrial fibrillation perspectiv e and Cardiology will sign off on the case. SR/MODL Voice ID: [id number] Report ID: [id number]
[2022-03-04] MEDS: MELATONIN 3 MG TABLET PO PRN (21:38)
[2022-03-04] MEDS: ACETAMINOPHEN 500 MG TAB PO PRN (21:56)
[2022-03-05] MEDS: VANCOMYCIN ORAL SOLN 250 MG/5 ML OSYR PO SCH ×3 (00:20→11:41)
[2022-03-05] MEDS: METOPROLOL XL 25 MG TAB PO SCH (05:47)
[2022-03-05] MEDS: NA CHLORIDE 0.9% 1,000 ML IV SCH ×2 (05:48→08:18)
[2022-03-05 07:54] LABS: Albumin 2.2 g/dL (3.4-5.0); Magnesium 1.8 mg/dL (1.8-2.4); Phosphorus 3.9 mg/dL (2.5-4.9)
[2022-03-05] MEDS: predniSONE 20 MG TAB PO SCH (08:34)
[2022-03-05] MEDS: LACTOBACILLUS/ACIDOPHILUS TAB PO SCH (08:34)
[2022-03-05] MEDS: SODIUM BICARB 325 MG TAB PO SCH ×2 (08:34→14:00)
[2022-03-05] MEDS: PANTOPRAZOLE 40 MG INJ IVP SCH (08:34)
[2022-03-05] MEDS: VITAMIN B COMPLEX 1 CAP PO SCH (08:34)
[2022-03-05] MEDS: CLOPIDOGREL 75 MG TABLET PO SCH (08:34)
[2022-03-05] MEDS: APIXABAN 2.5 MG TABLET PO SCH (08:34)
[2022-03-05] MEDS: AMIODARONE HCL 200 MG TAB PO SCH (08:34)
[2022-03-05] MEDS: SERTRALINE HCL 100 MG TAB PO SCH (08:35)
--- NOTE | 2022-03-05 09:08 | P.DS ---
Admission Date: 02/15/22 Discharge Date: 03/05/22 Disposition: TRANSFER TO SNF - REHAB Discharge Condition: FAIR Reason for Admission: Dehydration, Poor PO intake - Problems (1) BRAD (acute kidney injury) Current Visit: No Status: Acute (2) Chronic systolic heart failure Current Visit: Yes Status: Acute (3) Hypotension Current Visit: Yes Status: Acute (4) Vertebral compression fracture Current Visit: Yes Status: Acute Qualifiers: Lumbar vertebra fracture level: L1 (5) Functional quadriplegia Current Visit: Yes Status: Acute (6) C. difficile colitis Current Visit: Yes Status: Acute (7) Acute interstitial nephritis Current Visit: Yes Status: Acute Brief History of Present Illness: Patient is a 81-year-old female with a past medical history significant for hypertension, GERD, CHF, atrial fibrillation, breast cancer, depression, hyperlipidemia, osteoarthritis who presented with complaint of poor p.o. intake and dehydration. Patient was on hospice for heart failure prior to admission. Patient's son reported that patient had a compression fracture on January 07, 2022. Patient was seen in the ER and discharged home. Patient followed up with her PCP who referred her to a spine doctor. Patient followed up with the spine doctor who requested an MRI lumbar to assess if patient is a candidate for v ertebroplasty. Patient's son decided to bring patient to the ER after the MRI procedure out of concern for dehydration since patient was having poor p.o. intake and nausea for several days. Patient reported associated signs and symptoms of lethargy, weakness and nausea. Blood work showed BRAD with creatinine up to 5. Patient was admitted for further management. Hospital Course: Patient admitted to the medical floor and hydrated with IV fluid. BRAD significantly improved with treatment but serum creatinine trended up again. Patient was seen in consultation by nephrology who assisted with management. Blood work showed eosinophilia with high suspicion for acute interstitial nephritis. Patient has been on omeprazole at home, replaced with IV Protonix during the hospital stay. This was discontinued due to AIN. Patient has metabolic acidosis which is being managed with oral sodium bicarb replacement. She will need her BMP and nephrology follow-up after discharge. Renal ultrasound showed mild bilateral hydronephrosis. CT abdomen pelvis showed no hydronephrosis but bilateral pelvicaliectasis. Repeat renal ultrasound was unremarkable and no hydronephrosis. She had hypercalcemia which responded to IV hydration. Serum electrophoresis did not show M spike protein to suggest multiple myeloma. PTH-level was low. Patient had anorexia which improved during the hospital stay. Her oral intake has significantly improved. She had bouts of diarrhea with high suspicion for C. difficile colitis. Initiate CT abdomen and pelvis demonstrated air-fluid levels in the colon suggesting colitis Stool is positive for C. difficile antigen but antibody negative. Protonix was discontinued and patient started on oral vancomycin given high suspicion for C. difficile (chronic diarrhea, anorexia, failure to thrive). She was seen in consultation by infectious disease who agreed with C. difficile colitis treatment. Her diarrhea has improved. Patient was in rapid atrial fibrillation. She was seen in consultation by cardiology and had metoprolol replaced with amiodarone for A. fib control. Her liver enzymes were initially elevated with amiodarone 400 mg twice daily. Liver enzymes improved after reducing the amiodarone dose to 200 mg twice daily. LFT has been stable. She has been on Eliquis for atrial fibrillation. Patient underwent PT sessions. Her functional status improves. She was initially bedridden but now able to ambulate with a walker. She has vertebral compression fracture and needs to follow-up with spine surgery as an outpatient regarding L1 vertebral compression fracture. She has a history of CHF but was compensated throughout the hospital stay. Overall patient has clinically improved and tolerating physical therapy. She has been approved for skilled rehab placement. She is clinically stable for discharge. Vital Signs/Physical Exam: Temp Pulse Resp BP Pulse Ox 96.9 F 83 19 122/83 98 03/05/22 08:00 03/05/22 08:00 03/05/22 08:00 03/05/22 08:00 03/05/22 08:00 General: Alert, In no apparent distress, Oriented x3 HEENT: Mucous membr. moist/pink Neck: JVD not distended Respiratory: Clear to auscultation bilaterally, Normal air movement Cardiovascular: Regular rate/rhythm, Normal S1 S2, Other (Trace bilateral pedal edema) Gastrointestinal: Normal bowel sounds, Soft and benign, Non-distended, No tenderness Musculoskeletal: No swelling Integumentary: No rashes Neurological: Normal strength at 5/5 x4 extr Laboratory Data at Discharge: WBC 5.60 K/uL (4.3-10.9) 03/02/22 02:43 Hgb 9.3 g/dL (12.0-15.0) L 03/02/22 02:43 Hct 28.5 % (36.0-45.0) L 03/02/22 02:43 Plt Count 273 K/uL (152-406) 03/02/22 02:43 Sodium 142 mmol/L (136-145) 03/05/22 05:00 Potassium 4.0 mmol/L (3.5-5.1) 03/05/22 05:00 BUN 25 mg/dL (7-18) H 03/05/22 05:00 Creatinine 2.21 mg/dL (0.55-1.3) H 03/05/22 05:00 Glucose 130 mg/dL (74-106) H 03/05/22 05:00 Uric Acid 6.9 mg/dL (2.6-6.0) H 03/03/22 05:30 Phosphorus 3.9 mg/dL (2.5-4.9) 03/05/22 05:00 Magnesium 1.8 mg/dL (1.8-2.4) 03/05/22 05:00 Total Bilirubin 0.5 mg/dL (0.2-1.0) 03/02/22 02:43 AST 89 U/L (15-37) H 03/02/22 02:43 ALT 127 U/L (12-78) H 03/02/22 02:43 Alkaline Phosphatase 34 U/L (45-117) L 03/02/22 02:43 Home Medications: Hyoscyamine Sulfate [Anaspaz] 0.125 mg PO DAILY PRN 10/15/21 Magnesium Oxide [Mag 0X*] 1 tab PO BID 10/15/21 Sertraline [Zoloft*] 1 tab PO DAILY 10/15/21 Vit D3 50 Mcg (2,000 Unit Tab) 4,000 unit PO DAILY 10/15/21 Vitamin B Complex [B Complex] 1 tab PO DAILY 10/15/21 Atorvastatin Calcium [Lipitor] 40 mg PO BEDTIME tab 10/18/21 Apixaban [Eliquis *] 2.5 mg PO BID 30 Days #60 tablet 10/19/21 Clopidogrel Bisulfate [Plavix*] 75 mg PO DAILY 30 Days #30 tablet 10/19/21 Levothyroxine [Synthroid*] 75 mcg PO DAILY 02/16/22 Ondansetron [Ondansetron Odt] 8 mg PO Q8H PRN 02/16/22 Amiodarone HCl [Cordarone*] 200 mg PO BID tab 03/05/22 Melatonin [Melatonin*] 3 mg PO BEDTIME PRN PRN 03/05/22 Metoprolol Succinate [Toprol Xl*] 25 mg PO [id number] tab 03/05/22 Mirtazapine [Remeron*] 7.5 mg PO BEDTIME tab 03/05/22 Na Bicarb Tab [Sodium Bicarb 325 MG Tab*] 650 mg PO TID tab 03/05/22 Vancomycin Oral Soln [Vancocin HCl*] 5 ml PO Q6HR 14 Days #280 ml 03/05/22 predniSONE [Prednisone*] 40 mg PO DAILY #4 tab 03/05/22 Physician Discharge Instructions: Please repeat BMP in [address] Arias with result. Followup: NONE,NONE [Primary Care Provider] - 1-2 Weeks Devendra Arias MD [ACTIVE - CAN ADMIT] - 1-2 Weeks Gilberto Barillas MD [ACTIVE - CAN ADMIT] - (within 2 weeks.) Time spent managing pt's care (in minutes): 40
[2022-03-05 12:50] VITALS: BP 111/72; TEMP 97.3
[2022-03-05 18:51] LABS: Hepatitis C Virus RNA (PCR)log <1.18 log IU/mL
--- NOTE | 2022-03-05 19:20 | PN ---
Date of Progress Note: 03/05/2022 Chief Complaint: Acute kidney injury on chronic kidney disease. Urine output has been stable. Enma ent has nonoliguric urine output. The patient denies complaints today. Denies nausea or vomiting. Physical Examination: Lungs: Clear to auscultation bilaterally. Heart: S1, S2. Abdomen: Soft. Extremities: No edema. Impression And Plan: 1.Acute kidney injury secondary to prerenal and volume depletion, superimposed with diuretic effect and angiotensin receptor abel effect as well as underlying rhabdomyolysis. CK level has stabilize d, rhabdomyolysis resolved. Serum creatinine plateauing at 1.7 to 1.8 over last few days. Creatinin e level has worsened to 2.3. Patient was started on IV fluids and creatinine level is plateauing at 2.2. 2.Hypertension, blood pressure controlled. 3.Rhabdomyolysis, resolved. 4.Hypercalcemia secondary to milk alkali and immobilization. Hypercalcemia resolved. Continue adeq uate hydration. 5.Hypophosphatemia, supplementation by mouth as needed. 6.Acidosis. Patient received IV bicarbonate. Continue to monitor. EB/MODL Voice ID: [id number] Report ID: [id number]
[2022-03-06 11:38] LABS: HBsAG Nonreactive (Nonreactive)
== END 2022-03-05 14:59 | DRG 682 ==
LOC: ER 12:26 → ERHOLD 16:37 → 2ND 02-15 09:52 → OBSVTOIN 02-15 15:38
PROVIDERS: ADMIT Hospitalist; ATTEND Internal Medicine
DX: N17.0 Acute kidney failure with tubular necrosis (principal); E43 Unspecified severe protein-calorie malnutrition; R53.2 Functional quadriplegia; A04.72 Enterocolitis due to Clostridium difficile, not specified as recurrent; Z68.1 Body mass index [BMI] 19.9 or less, adult; I50.22 Chronic systolic (congestive) heart failure; M62.82 Rhabdomyolysis; E87.1 Hypo-osmolality and hyponatremia; I13.0 Hypertensive heart and chronic kidney disease with heart failure and stage 1 through stage 4 chronic kidney disease, or unspecified chronic kidney disease; I48.92 Unspecified atrial flutter; E87.20 Acidosis, unspecified; N18.32 Chronic kidney disease, stage 3b; D63.1 Anemia in chronic kidney disease; I95.9 Hypotension, unspecified; E86.0 Dehydration; E83.52 Hypercalcemia; E78.5 Hyperlipidemia, unspecified; E83.39 Other disorders of phosphorus metabolism; M19.90 Unspecified osteoarthritis, unspecified site; D63.8 Anemia in other chronic diseases classified elsewhere; K21.9 Gastro-esophageal reflux disease without esophagitis; I48.0 Paroxysmal atrial fibrillation; I25.10 Atherosclerotic heart disease of native coronary artery without angina pectoris; F32.A Depression, unspecified; N10 Acute pyelonephritis; E87.6 Hypokalemia; K62.82 Dysplasia of anus; S32.010D Wedge compression fracture of first lumbar vertebra, subsequent encounter for fracture with routine healing; R00.0 Tachycardia, unspecified; Z66 Do not resuscitate; Z85.3 Personal history of malignant neoplasm of breast; Z95.5 Presence of coronary angioplasty implant and graft; Z90.12 Acquired absence of left breast and nipple; Z79.01 Long term (current) use of anticoagulants; Z79.02 Long term (current) use of antithrombotics/antiplatelets; Z79.52 Long term (current) use of systemic steroids; Z74.01 Bed confinement status; Z90.710 Acquired absence of both cervix and uterus; Z79.890 Hormone replacement therapy; Z79.899 Other long term (current) drug therapy; Z20.822 Contact with and (suspected) exposure to COVID-19
CPT/HCPCS: 36415; 71045; 71046; 72148; 74176; 76770; 80048; 80053; 80069; 80076; 81001; 82550; 82570; 82652; 82947; 83520; 83735; 83880; 83970; 84100; 84132; 84145; 84156; 84165; 84300; 84443; 84550; 85025; 85027; 86021; 86038; 86140; 86160; 86225; 86317; 86335; 86430; 86704; 86706; 87324; 87340; 87493; 87522; 87811; 88108; 89055; 93005; 96360; 96361; 97110; 97116; 97161; 97530; 99285; C9113; G0378; J2405; J2550; J2765; J3475; J7030; J7040; J7050; J7512; J7799; P9047

== ENCOUNTER 2022-04-01 02:12 | Emergency (ER) | payer OTHER ==
--- OUTSIDE RECORDS SUMMARY | 2022-04-01 02:17 | XMS REPORT | Continuity of Care Document ---
:1940 Author Organization 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 - [facility] with [facility] long-term current use of insulin [id number] Persistent Problem Co mmon atrial Spirit fibrillati - [facility] on [facility] [id number] Dysthymia Problem Comm on Spirit - [facility] Gastroesop Gastroesop Problem C ommon hageal hageal Spirit reflux reflux - [facility] disease disease [id number] Stage 4 Problem Commo n chronic [facility] kidney - [facility] disease [facility] [id number] BRAD (acute Problem C ommon [id number] kidney Spirit injury) [facility] Closed Closed Problem Common fracture fracture Spirit of of [facility] multiple multiple St ribs of ribs of [facility] left side left side Medi andre with with Center delayed delayed healing, healing, subsequent subsequent encounter encounter 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 coronary Medical artery of [place] heart without angina pectoris [id number] Chronic Problem Commo n systolic Spirit (congestiv - [facility] e) heart [facility] [id number] Hypertensi Problem Comm on ve heart [facility] disease - [facility] with heart [facility] [id number] ESTEBAN Problem Common (generaliz Spirit ed anxiety - [facility] disorder) [facility] [id number] Acquired Problem Comm on hypothyroi Spirit dism [facility] [id number] Hypercalce Problem Com mon leander [facility] [id number] Memory Problem Common changes [facility] Allergies, Adverse Reactions, Alerts This patient has no known allergies or adverse reactions. Social History Social Habit Start Date Stop Date Quantity Comments Source History of Tobacco Common Spirit - Use [facility] Sex Assigned At [birth year] [facility] 00:00:00 00:00:00 [facility] Smoking Status Start Date Stop Date Source Never Smoker [facility] Medications Ordered Filled Start Stop Current Ordering Indication Dosage Frequency Signature Comments Components Source Medication Medication Date Date Medication? Clinician (SIG) Name Name Levothyroxi Levothyroxi No QD Levothyrox ne Sodium ne Sodium 9-16 ine Sodium 75 MCG 75 MCG 00:00: 75 MCG 00 Levothyroxi Levothyroxi No QD Levothyrox ne Sodium ne Sodium 9-16 ine Sodium 75 MCG 75 MCG 00:00: 75 MCG 00 Levothyroxi Levothyroxi No QD Levothyrox ne Sodium ne Sodium 9-16 ine Sodium 75 MCG 75 MCG 00:00: 75 MCG 00 Acetaminoph Acetaminoph 2021- No 1{table QID Acetaminop en-Codeine en-Codeine 01-12 t_as_ne hen-Codein #4 300-60 #4 300-60 00:00: 00:00 eded} e #4 MG MG 00 :00 300-60 MG Vitamin D3 Vitamin D3 No 1{capsu BID Vitamin D3 50 MCG 50 MCG le} 50 MCG (1999) (1999) (1999) Vitamin B Vitamin B No Vitamin B Complex - Complex - Complex - Furosemide Furosemide No 1{table BID Furosemide 20 MG 20 MG t} 20 MG Sertraline Sertraline No 1{table QD Sertraline HCl 100 MG HCl 100 MG t} HCl 100 MG Hyoscyamine Hyoscyamine No 1{table 6xD Hyoscyamin Sulfate Sulfate t_as_ne e Sulfate 0.125 MG 0.125 MG eded} 0.125 MG Metoprolol Metoprolol No 1{table BID Metoprolol Tartrate 50 Tartrate 50 t_with_ Tartrate MG MG food} 50 MG Magnesium Magnesium No Magnesium Oxide Oxide Oxide ALPRAZolam ALPRAZolam No 1{table ALPRAZolam 0.25 MG 0.25 MG t} 0.25 MG Clopidogrel Clopidogrel No 1{table QD Clopidogre Bisulfate Bisulfate t} l 75 MG 75 MG Bisulfate 75 MG Loperamide Loperamide No 1{capsu QID Loperamide HCl 2 MG HCl 2 MG le_as_n HCl 2 MG eeded} Eliquis 2.5 Eliquis 2.5 No BID Eliquis MG MG 2.5 MG Celecoxib Celecoxib No 1{capsu BID Celecoxib 200 MG 200 MG le_with 200 MG _food} Omeprazole Omeprazole No Omeprazole 20 MG 20 MG 20 MG Irbesartan Irbesartan No 1{table QD Irbesartan 150 MG 150 MG t} 150 MG Atorvastati Atorvastati No 1{table QD Atorvastat n Calcium n Calcium t} in Calcium 40 MG 40 MG 40 MG Vitamin D3 Vitamin D3 No 1{capsu BID Vitamin D3 50 MCG 50 MCG le} 50 MCG (1999) (1999) (1999) Vitamin B Vitamin B No Vitamin B Complex - Complex - Complex - Furosemide Furosemide No 1{table BID Furosemide 20 MG 20 MG t} 20 MG Sertraline Sertraline No 1{table QD Sertraline HCl 100 MG HCl 100 MG t} HCl 100 MG Hyoscyamine Hyoscyamine No 1{table 6xD Hyoscyamin Sulfate Sulfate t_as_ne e Sulfate 0.125 MG 0.125 MG eded} 0.125 MG Metoprolol Metoprolol No 1{table BID Metoprolol Tartrate 50 Tartrate 50 t_with_ Tartrate MG MG food} 50 MG Magnesium Magnesium No Magnesium Oxide Oxide Oxide ALPRAZolam ALPRAZolam No 1{table ALPRAZolam 0.25 MG 0.25 MG t} 0.25 MG Clopidogrel Clopidogrel No 1{table QD Clopidogre Bisulfate Bisulfate t} l 75 MG 75 MG Bisulfate 75 MG Loperamide Loperamide No 1{capsu QID Loperamide HCl 2 MG HCl 2 MG le_as_n HCl 2 MG eeded} Eliquis 2.5 Eliquis 2.5 No BID Eliquis MG MG 2.5 MG Celecoxib Celecoxib No 1{capsu BID Celecoxib 200 MG 200 MG le_with 200 MG _food} Omeprazole Omeprazole No Omeprazole 20 MG 20 MG 20 MG Irbesartan Irbesartan No 1{table QD Irbesartan 150 MG 150 MG t} 150 MG Atorvastati Atorvastati No 1{table QD Atorvastat n Calcium n Calcium t} in Calcium 40 MG 40 MG 40 MG Vitamin D3 Vitamin D3 No 1{capsu BID Vitamin D3 50 MCG 50 MCG le} 50 MCG (1999) (1999) (1999) Vitamin B Vitamin B No Vitamin B Complex - Complex - Complex - Furosemide Furosemide No 1{table BID Furosemide 20 MG 20 MG t} 20 MG Sertraline Sertraline No 1{table QD Sertraline HCl 100 MG HCl 100 MG t} HCl 100 MG Hyoscyamine Hyoscyamine No 1{table 6xD Hyoscyamin Sulfate Sulfate t_as_ne e Sulfate 0.125 MG 0.125 MG eded} 0.125 MG Metoprolol Metoprolol No 1{table BID Metoprolol Tartrate 50 Tartrate 50 t_with_ Tartrate MG MG food} 50 MG Magnesium Magnesium No Magnesium Oxide Oxide Oxide ALPRAZolam ALPRAZolam No 1{table ALPRAZolam 0.25 MG 0.25 MG t} 0.25 MG Clopidogrel Clopidogrel No 1{table QD Clopidogre Bisulfate Bisulfate t} l 75 MG 75 MG Bisulfate 75 MG Loperamide Loperamide No 1{capsu QID Loperamide HCl 2 MG HCl 2 MG le_as_n HCl 2 MG eeded} Eliquis 2.5 Eliquis 2.5 No BID Eliquis MG MG 2.5 MG Celecoxib Celecoxib No 1{capsu BID Celecoxib 200 MG 200 MG le_with 200 MG _food} Omeprazole Omeprazole No Omeprazole 20 MG 20 MG 20 MG Irbesartan Irbesartan No 1{table QD Irbesartan 150 MG 150 MG t} 150 MG Atorvastati Atorvastati No 1{table QD Atorvastat n Calcium n Calcium t} in Calcium 40 MG 40 MG 40 MG Vitamin D3 Vitamin D3 No 1{capsu BID Vitamin D3 50 MCG 50 MCG le} 50 MCG (1999) (1999) (1999) Vitamin B Vitamin B No Vitamin B Complex - Complex - Complex - Furosemide Furosemide No 1{table BID Furosemide 20 MG 20 MG t} 20 MG Sertraline Sertraline No 1{table QD Sertraline HCl 100 MG HCl 100 MG t} HCl 100 MG Hyoscyamine Hyoscyamine No 1{table 6xD Hyoscyamin Sulfate Sulfate t_as_ne e Sulfate 0.125 MG 0.125 MG eded} 0.125 MG Metoprolol Metoprolol No 1{table BID Metoprolol Tartrate 50 Tartrate 50 t_with_ Tartrate MG MG food} 50 MG Magnesium Magnesium No Magnesium Oxide Oxide Oxide ALPRAZolam ALPRAZolam No 1{table ALPRAZolam 0.25 MG 0.25 MG t} 0.25 MG Clopidogrel Clopidogrel No 1{table QD Clopidogre Bisulfate Bisulfate t} l 75 MG 75 MG Bisulfate 75 MG Loperamide Loperamide No 1{capsu QID Loperamide HCl 2 MG HCl 2 MG le_as_n HCl 2 MG eeded} Eliquis 2.5 Eliquis 2.5 No BID Eliquis MG MG 2.5 MG Vitamin D3 Vitamin D3 No 1{capsu BID Vitamin D3 50 MCG 50 MCG le} 50 MCG (1999) (1999) (1999) Levothyroxi Levothyroxi No QD Levothyrox ne Sodium ne Sodium ine Sodium 50 MCG 50 MCG 50 MCG ALPRAZolam ALPRAZolam No 1{table ALPRAZolam 0.25 MG 0.25 MG t} 0.25 MG Loperamide Loperamide No 1{capsu QID Loperamide HCl 2 MG HCl 2 MG le_as_n HCl 2 MG eeded} Dicyclomine Dicyclomine No 2{capsu TID Dicyclomin HCl 10 MG HCl 10 MG les} e HCl 10 MG Hyoscyamine Hyoscyamine No 1{table 6xD Hyoscyamin Sulfate Sulfate t_as_ne e Sulfate 0.125 MG 0.125 MG eded} 0.125 MG Magnesium Magnesium No Magnesium Oxide Oxide Oxide Furosemide Furosemide No 1{table BID Furosemide 20 MG 20 MG t} 20 MG Eliquis 2.5 Eliquis 2.5 No BID Eliquis MG MG 2.5 MG Metoprolol Metoprolol No 1{table BID Metoprolol Tartrate 50 Tartrate 50 t_with_ Tartrate MG MG food} 50 MG Irbesartan Irbesartan No 1{table QD Irbesartan 150 MG 150 MG t} 150 MG Clopidogrel Clopidogrel No 1{table QD Clopidogre Bisulfate Bisulfate t} l 75 MG 75 MG Bisulfate 75 MG Atorvastati Atorvastati No 1{table QD Atorvastat n Calcium n Calcium t} in Calcium 40 MG 40 MG 40 MG Entresto Entresto No BID Entresto 24/26mg 24/26mg 24/26mg 24/26mg 24/26mg 24/26mg Omeprazole Omeprazole No Omeprazole 20 MG 20 MG 20 MG Celecoxib Celecoxib No 1{capsu BID Celecoxib 200 MG 200 MG le_with 200 MG _food} Sertraline Sertraline No 1{table QD Sertraline HCl 100 MG HCl 100 MG t} HCl 100 MG Vitamin B Vitamin B No Vitamin B Complex - Complex - Complex - Dicyclomine Dicyclomine No 2{capsu TID Dicyclomin HCl 10 MG HCl 10 MG les} e HCl 10 MG Vitamin D3 Vitamin D3 No 1{capsu BID Vitamin D3 50 MCG 50 MCG le} 50 MCG (1999) (1999) (1999) Magnesium Magnesium No Magnesium Oxide Oxide Oxide Loperamide Loperamide No 1{capsu QID Loperamide HCl 2 MG HCl 2 MG le_as_n HCl 2 MG eeded} ALPRAZolam ALPRAZolam No 1{table ALPRAZolam 0.25 MG 0.25 MG t} 0.25 MG Hyoscyamine Hyoscyamine No 1{table 6xD Hyoscyamin Sulfate Sulfate t_as_ne e Sulfate 0.125 MG 0.125 MG eded} 0.125 MG Furosemide Furosemide No 1{table BID Furosemide 20 MG 20 MG t} 20 MG Eliquis 2.5 Eliquis 2.5 No BID Eliquis MG MG 2.5 MG Metoprolol Metoprolol No 1{table BID Metoprolol Tartrate 50 Tartrate 50 t_with_ Tartrate MG MG food} 50 MG Irbesartan Irbesartan No 1{table QD Irbesartan 150 MG 150 MG t} 150 MG Clopidogrel Clopidogrel No 1{table QD Clopidogre Bisulfate Bisulfate t} l 75 MG 75 MG Bisulfate 75 MG Atorvastati Atorvastati No 1{table QD Atorvastat n Calcium n Calcium t} in Calcium 40 MG 40 MG 40 MG Vitamin B Vitamin B No Vitamin B Complex - Complex - Complex - Omeprazole Omeprazole No Omeprazole 20 MG 20 MG 20 MG Entresto Entresto No BID Entresto 24/26mg 24/26mg 24/26mg 24/26mg 24/26mg 24/26mg Celecoxib Celecoxib No 1{capsu BID Celecoxib 200 MG 200 MG le_with 200 MG _food} Sertraline Sertraline No 1{table QD Sertraline HCl 100 MG HCl 100 MG t} HCl 100 MG Levothyroxi Levothyroxi No QD Levothyrox ne Sodium ne Sodium ine Sodium 50 MCG 50 MCG 50 MCG Dicyclomine Dicyclomine No 2{capsu TID Dicyclomin HCl 10 MG HCl 10 MG les} e HCl 10 MG Loperamide Loperamide No 1{capsu QID Loperamide HCl 2 MG HCl 2 MG le_as_n HCl 2 MG eeded} Celecoxib Celecoxib No 1{capsu BID Celecoxib 200 MG 200 MG le_with 200 MG _food} Metoprolol Metoprolol No 1{table BID Metoprolol Tartrate 50 Tartrate 50 t_with_ Tartrate MG MG food} 50 MG Sertraline Sertraline No 1{table QD Sertraline HCl 100 MG HCl 100 MG t} HCl 100 MG Magnesium Magnesium No Magnesium Oxide Oxide Oxide Entresto Entresto No BID Entresto 24/26mg 24/26mg 24/26mg 24/26mg 24/26mg 24/26mg Furosemide Furosemide No 1{table BID Furosemide 20 MG 20 MG t} 20 MG Levothyroxi Levothyroxi No QD Levothyrox ne Sodium ne Sodium ine Sodium 50 MCG 50 MCG 50 MCG Hyoscyamine Hyoscyamine No 1{table 6xD Hyoscyamin Sulfate Sulfate t_as_ne e Sulfate 0.125 MG 0.125 MG eded} 0.125 MG ALPRAZolam ALPRAZolam No 1{table ALPRAZolam 0.25 MG 0.25 MG t} 0.25 MG Clopidogrel Clopidogrel No 1{table QD Clopidogre Bisulfate Bisulfate t} l 75 MG 75 MG Bisulfate 75 MG Atorvastati Atorvastati No 1{table QD Atorvastat n Calcium n Calcium t} in Calcium 40 MG 40 MG 40 MG Vitamin B Vitamin B No Vitamin B Complex - Complex - Complex - Irbesartan Irbesartan No 1{table QD Irbesartan 150 MG 150 MG t} 150 MG Omeprazole Omeprazole No Omeprazole 20 MG 20 MG 20 MG Eliquis 2.5 Eliquis 2.5 No BID Eliquis MG MG 2.5 MG Vitamin D3 Vitamin D3 No 1{capsu BID Vitamin D3 50 MCG 50 MCG le} 50 MCG (1999) (1999) (1999) Dicyclomine Dicyclomine No 2{capsu TID Dicyclomin HCl 10 MG HCl 10 MG les} e HCl 10 MG Loperamide Loperamide No 1{capsu QID Loperamide HCl 2 MG HCl 2 MG le_as_n HCl 2 MG eeded} Celecoxib Celecoxib No 1{capsu BID Celecoxib 200 MG 200 MG le_with 200 MG _food} Metoprolol Metoprolol No 1{table BID Metoprolol Tartrate 50 Tartrate 50 t_with_ Tartrate MG MG food} 50 MG Sertraline Sertraline No 1{table QD Sertraline HCl 100 MG HCl 100 MG t} HCl 100 MG Magnesium Magnesium No Magnesium Oxide Oxide Oxide Entresto Entresto No BID Entresto 24/26mg 24/26mg 24/26mg 24/26mg 24/26mg 24/26mg Furosemide Furosemide No 1{table BID Furosemide 20 MG 20 MG t} 20 MG Levothyroxi Levothyroxi No QD Levothyrox ne Sodium ne Sodium ine Sodium 50 MCG 50 MCG 50 MCG Hyoscyamine Hyoscyamine No 1{table 6xD Hyoscyamin Sulfate Sulfate t_as_ne e Sulfate 0.125 MG 0.125 MG eded} 0.125 MG ALPRAZolam ALPRAZolam No 1{table ALPRAZolam 0.25 MG 0.25 MG t} 0.25 MG Clopidogrel Clopidogrel No 1{table QD Clopidogre Bisulfate Bisulfate t} l 75 MG 75 MG Bisulfate 75 MG Atorvastati Atorvastati No 1{table QD Atorvastat n Calcium n Calcium t} in Calcium 40 MG 40 MG 40 MG Vitamin B Vitamin B No Vitamin B Complex - Complex - Complex - Irbesartan Irbesartan No 1{table QD Irbesartan 150 MG 150 MG t} 150 MG Omeprazole Omeprazole No Omeprazole 20 MG 20 MG 20 MG Eliquis 2.5 Eliquis 2.5 No BID Eliquis MG MG 2.5 MG Vitamin D3 Vitamin D3 No 1{capsu BID Vitamin D3 50 MCG 50 MCG le} 50 MCG (1999) (1999) (1999) Dicyclomine Dicyclomine No 2{capsu TID Dicyclomin HCl 10 MG HCl 10 MG les} e HCl 10 MG Loperamide Loperamide No 1{capsu QID Loperamide HCl 2 MG HCl 2 MG le_as_n HCl 2 MG eeded} Celecoxib Celecoxib No 1{capsu BID Celecoxib 200 MG 200 MG le_with 200 MG _food} Metoprolol Metoprolol No 1{table BID Metoprolol Tartrate 50 Tartrate 50 t_with_ Tartrate MG MG food} 50 MG Sertraline Sertraline No 1{table QD Sertraline HCl 100 MG HCl 100 MG t} HCl 100 MG Magnesium Magnesium No Magnesium Oxide Oxide Oxide Entresto Entresto No BID Entresto 24/26mg 24/26mg 24/26mg 24/26mg 24/26mg 24/26mg Furosemide Furosemide No 1{table BID Furosemide 20 MG 20 MG t} 20 MG Levothyroxi Levothyroxi No QD Levothyrox ne Sodium ne Sodium ine Sodium 50 MCG 50 MCG 50 MCG Hyoscyamine Hyoscyamine No 1{table 6xD Hyoscyamin Sulfate Sulfate t_as_ne e Sulfate 0.125 MG 0.125 MG eded} 0.125 MG ALPRAZolam ALPRAZolam No 1{table ALPRAZolam 0.25 MG 0.25 MG t} 0.25 MG Clopidogrel Clopidogrel No 1{table QD Clopidogre Bisulfate Bisulfate t} l 75 MG 75 MG Bisulfate 75 MG Atorvastati Atorvastati No 1{table QD Atorvastat n Calcium n Calcium t} in Calcium 40 MG 40 MG 40 MG Vitamin B Vitamin B No Vitamin B Complex - Complex - Complex - Irbesartan Irbesartan No 1{table QD Irbesartan 150 MG 150 MG t} 150 MG Omeprazole Omeprazole No Omeprazole 20 MG 20 MG 20 MG Eliquis 2.5 Eliquis 2.5 No BID Eliquis MG MG 2.5 MG Vitamin D3 Vitamin D3 No 1{capsu BID Vitamin D3 50 MCG 50 MCG le} 50 MCG (1999) (1999) (1999) ALPRAZolam ALPRAZolam No 1{table ALPRAZolam 0.25 MG 0.25 MG t} 0.25 MG Magnesium Magnesium No Magnesium Oxide Oxide Oxide Vitamin B Vitamin B No Vitamin B Complex - Complex - Complex - Hyoscyamine Hyoscyamine No 1{table 6xD Hyoscyamin Sulfate Sulfate t_as_ne e Sulfate 0.125 MG 0.125 MG eded} 0.125 MG Furosemide Furosemide No 1{table BID Furosemide 20 MG 20 MG t} 20 MG Atorvastati Atorvastati No 1{table QD Atorvastat n Calcium n Calcium t} in Calcium 40 MG 40 MG 40 MG Eliquis 2.5 Eliquis 2.5 No BID Eliquis MG MG 2.5 MG Irbesartan Irbesartan No 1{table QD Irbesartan 150 MG 150 MG t} 150 MG Vitamin D3 Vitamin D3 No 1{capsu BID Vitamin D3 50 MCG 50 MCG le} 50 MCG (1999) (1999) (1999) Dicyclomine Dicyclomine No 2{capsu TID Dicyclomin HCl 10 MG HCl 10 MG les} e HCl 10 MG Omeprazole Omeprazole No Omeprazole 20 MG 20 MG 20 MG Loperamide Loperamide No 1{capsu QID Loperamide HCl 2 MG HCl 2 MG le_as_n HCl 2 MG eeded} Entresto Entresto No BID Entresto 24/26mg 24/26mg 24/26mg 24/26mg 24/26mg 24/26mg Celecoxib Celecoxib No 1{capsu BID Celecoxib 200 MG 200 MG le_with 200 MG _food} Sertraline Sertraline No 1{table QD Sertraline HCl 100 MG HCl 100 MG t} HCl 100 MG Metoprolol Metoprolol No 1{table BID Metoprolol Tartrate 50 Tartrate 50 t_with_ Tartrate MG MG food} 50 MG Clopidogrel Clopidogrel No 1{table QD Clopidogre Bisulfate Bisulfate t} l 75 MG 75 MG Bisulfate 75 MG Amiodarone Amiodarone No 1{table QD Amiodarone HCl 200 MG HCl 200 MG t} HCl 200 MG ALPRAZolam ALPRAZolam No 1{table ALPRAZolam 0.25 MG 0.25 MG t} 0.25 MG Celecoxib Celecoxib No 1{capsu BID Celecoxib 200 MG 200 MG le_with 200 MG _food} Sertraline Sertraline No 1{table QD Sertraline HCl 100 MG HCl 100 MG t} HCl 100 MG Melatonin 3 Melatonin 3 No 1{table QD Melatonin MG MG t_at_be 3 MG dtime_a s_neede d} Ondansetron Ondansetron No QD Ondansetro 8 MG 8 MG n 8 MG Omeprazole Omeprazole No Omeprazole 20 MG 20 MG 20 MG Mirtazapine Mirtazapine No 2{table QD Mirtazapin 7.5 MG 7.5 MG ts_at_b e 7.5 MG edtime} Clopidogrel Clopidogrel No 1{table QD Clopidogre Bisulfate Bisulfate t} l 75 MG 75 MG Bisulfate 75 MG Magnesium Magnesium No 2{table QD Magnesium Oxide 400 Oxide 400 ts} Oxide 400 MG MG MG Vitamin D3 Vitamin D3 No 1{capsu BID Vitamin D3 50 MCG 50 MCG le} 50 MCG (1999 UT) (1999 UT) (1999) Eliquis 2.5 Eliquis 2.5 No BID Eliquis MG MG 2.5 MG Entresto Entresto No BID Entresto 24/26mg 24/26mg 24/26mg 24/26mg 24/26mg 24/26mg Vitamin B Vitamin B No Vitamin B Complex - Complex - Complex - Hyoscyamine Hyoscyamine No 1{table 6xD Hyoscyamin Sulfate Sulfate t_as_ne e Sulfate 0.125 MG 0.125 MG eded} 0.125 MG Atorvastati Atorvastati No 1{table QD Atorvastat n Calcium n Calcium t} in Calcium 40 MG 40 MG 40 MG Metoprolol Metoprolol No 1{table BID Metoprolol Tartrate 50 Tartrate 50 t_with_ Tartrate MG MG food} 50 MG Loperamide Loperamide No 1{capsu QID Loperamide HCl 2 MG HCl 2 MG le_as_n HCl 2 MG eeded} Irbesartan Irbesartan No 1{table QD Irbesartan 150 MG 150 MG t} 150 MG Metoprolol Metoprolol No 1{capsu QD Metoprolol Succinate Succinate le} Succinate 25 MG 25 MG 25 MG Dicyclomine Dicyclomine No 2{capsu TID Dicyclomin HCl 10 MG HCl 10 MG les} e HCl 10 MG Furosemide Furosemide No 1{table BID Furosemide 20 MG 20 MG t} 20 MG Amiodarone Amiodarone No 1{table QD Amiodarone HCl 200 MG HCl 200 MG t} HCl 200 MG ALPRAZolam ALPRAZolam No 1{table ALPRAZolam 0.25 MG 0.25 MG t} 0.25 MG Celecoxib Celecoxib No 1{capsu BID Celecoxib 200 MG 200 MG le_with 200 MG _food} Sertraline Sertraline No 1{table QD Sertraline HCl 100 MG HCl 100 MG t} HCl 100 MG Melatonin 3 Melatonin 3 No 1{table QD Melatonin MG MG t_at_be 3 MG dtime_a s_neede d} Ondansetron Ondansetron No QD Ondansetro 8 MG 8 MG n 8 MG Omeprazole Omeprazole No Omeprazole 20 MG 20 MG 20 MG Mirtazapine Mirtazapine No 2{table QD Mirtazapin 7.5 MG 7.5 MG ts_at_b e 7.5 MG edtime} Clopidogrel Clopidogrel No 1{table QD Clopidogre Bisulfate Bisulfate t} l 75 MG 75 MG Bisulfate 75 MG Magnesium Magnesium No 2{table QD Magnesium Oxide 400 Oxide 400 ts} Oxide 400 MG MG MG Vitamin D3 Vitamin D3 No 1{capsu BID Vitamin D3 50 MCG 50 MCG le} 50 MCG (1999) (1999) (1999) Eliquis 2.5 Eliquis 2.5 No BID Eliquis MG MG 2.5 MG Entresto Entresto No BID Entresto 24/26mg 24/26mg 24/26mg 24/26mg 24/26mg 24/26mg Vitamin B Vitamin B No Vitamin B Complex - Complex - Complex - Hyoscyamine Hyoscyamine No 1{table 6xD Hyoscyamin Sulfate Sulfate t_as_ne e Sulfate 0.125 MG 0.125 MG eded} 0.125 MG Metoprolol Metoprolol No 1{table BID Metoprolol Tartrate 50 Tartrate 50 t_with_ Tartrate MG MG food} 50 MG Atorvastati Atorvastati No 1{table QD Atorvastat n Calcium n Calcium t} in Calcium 40 MG 40 MG 40 MG Metoprolol Metoprolol No 1{table BID Metoprolol Tartrate 50 Tartrate 50 t_with_ Tartrate MG MG food} 50 MG Loperamide Loperamide No 1{capsu QID Loperamide HCl 2 MG HCl 2 MG le_as_n HCl 2 MG eeded} Irbesartan Irbesartan No 1{table QD Irbesartan 150 MG 150 MG t} 150 MG Metoprolol Metoprolol No 1{capsu QD Metoprolol Succinate Succinate le} Succinate 25 MG 25 MG 25 MG Dicyclomine Dicyclomine No 2{capsu TID Dicyclomin HCl 10 MG HCl 10 MG les} e HCl 10 MG Furosemide Furosemide No 1{table BID Furosemide 20 MG 20 MG t} 20 MG Vitamin D3 Vitamin D3 No 1{capsu BID Vitamin D3 50 MCG 50 MCG le} 50 MCG (1999) (1999) (1999) ALPRAZolam ALPRAZolam No 1{table ALPRAZolam 0.25 MG 0.25 MG t} 0.25 MG Loperamide Loperamide No 1{capsu QID Loperamide HCl 2 MG HCl 2 MG le_as_n HCl 2 MG eeded} Hyoscyamine Hyoscyamine No 1{table 6xD Hyoscyamin Sulfate Sulfate t_as_ne e Sulfate 0.125 MG 0.125 MG eded} 0.125 MG Irbesartan Irbesartan No 1{table QD Irbesartan 150 MG 150 MG t} 150 MG Furosemide Furosemide No 1{table BID Furosemide 20 MG 20 MG t} 20 MG Clopidogrel Clopidogrel No 1{table QD Clopidogre Bisulfate Bisulfate t} l 75 MG 75 MG Bisulfate 75 MG Vitamin B Vitamin B No Vitamin B Complex - Complex - Complex - Celecoxib Celecoxib No 1{capsu BID Celecoxib 200 MG 200 MG le_with 200 MG _food} Omeprazole Omeprazole No Omeprazole 20 MG 20 MG 20 MG Magnesium Magnesium No Magnesium Oxide Oxide Oxide Sertraline Sertraline No 1{table QD Sertraline HCl 100 MG HCl 100 MG t} HCl 100 MG Atorvastati Atorvastati No 1{table QD Atorvastat n Calcium n Calcium t} in Calcium 40 MG 40 MG 40 MG Eliquis 2.5 Eliquis 2.5 No BID Eliquis MG MG 2.5 MG Metoprolol Metoprolol No 1{table BID Metoprolol Tartrate 50 Tartrate 50 t_with_ Tartrate MG MG food} 50 MG Vitamin D3 Vitamin D3 No 1{capsu BID Vitamin D3 50 MCG 50 MCG le} 50 MCG (1999) (1999) (1999) ALPRAZolam ALPRAZolam No 1{table ALPRAZolam 0.25 MG 0.25 MG t} 0.25 MG Loperamide Loperamide No 1{capsu QID Loperamide HCl 2 MG HCl 2 MG le_as_n HCl 2 MG eeded} Hyoscyamine Hyoscyamine No 1{table 6xD Hyoscyamin Sulfate Sulfate t_as_ne e Sulfate 0.125 MG 0.125 MG eded} 0.125 MG Irbesartan Irbesartan No 1{table QD Irbesartan 150 MG 150 MG t} 150 MG Furosemide Furosemide No 1{table BID Furosemide 20 MG 20 MG t} 20 MG Clopidogrel Clopidogrel No 1{table QD Clopidogre Bisulfate Bisulfate t} l 75 MG 75 MG Bisulfate 75 MG Vitamin B Vitamin B No Vitamin B Complex - Complex - Complex - Celecoxib Celecoxib No 1{capsu BID Celecoxib 200 MG 200 MG le_with 200 MG _food} Omeprazole Omeprazole No Omeprazole 20 MG 20 MG 20 MG Magnesium Magnesium No Magnesium Oxide Oxide Oxide Sertraline Sertraline No 1{table QD Sertraline HCl 100 MG HCl 100 MG t} HCl 100 MG Atorvastati Atorvastati No 1{table QD Atorvastat n Calcium n Calcium t} in Calcium 40 MG 40 MG 40 MG Eliquis 2.5 Eliquis 2.5 No BID Eliquis MG MG 2.5 MG Celecoxib Celecoxib No 1{capsu BID Celecoxib 200 MG 200 MG le_with 200 MG _food} Omeprazole Omeprazole No Omeprazole 20 MG 20 MG 20 MG Irbesartan Irbesartan No 1{table QD Irbesartan 150 MG 150 MG t} 150 MG Atorvastati Atorvastati No 1{table QD Atorvastat n Calcium n Calcium t} in Calcium 40 MG 40 MG 40 MG Vital Signs Vital Name Observation Time Observation Value Comments Source height 2022-03-08 13:20:00 64.5 [in_i] [facility] weight 2022-03-08 13:20:00 115 [lb_av] [facility] temperature 2022-03-08 13:20:00 97.2 [degF] [facility] bmi 2022-03-08 13:20:00 19.43 kg/m2 [facility] oximetry 2022-03-08 13:20:00 98 % [facility] respiratory rate 2022-03-08 13:20:00 16 /min [facility] on [facility] blood pressure 2022-03-08 13:20:00 127 mm[Hg] [facility] - systolic [facility] blood pressure 2022-03-08 13:20:00 70 mm[Hg] Common [facility] - diastolic [facility] height 2022-01-12 15:00:00 64.5 [in_i] [facility] weight 2022-01-12 15:00:00 115 [lb_av] [facility] temperature 2022-01-12 15:00:00 97.5 [degF] Common [facility] bmi 2022-01-12 15:00:00 19.43 kg/m2 Common [facility] oximetry 2022-01-12 15:00:00 89 % Common [facility] respiratory rate 2022-01-12 15:00:00 16 /min Comm on [facility] blood pressure 2022-01-12 15:00:00 122 mm[Hg] Common [facility] - systolic [facility] blood pressure 2022-01-12 15:00:00 62 mm[Hg] [facility] height 2021-12-24 13:40:00 64.5 [in_i] Common [facility] weight 2021-12-24 13:40:00 115 [lb_av] [facility] temperature 2021-12-24 13:40:00 97.5 [degF] [facility] bmi 2021-12-24 13:40:00 19.43 kg/m2 [facility] oximetry 2021-12-24 13:40:00 92 % Common [facility] respiratory rate 2021-12-24 13:40:00 16 /min Comm on [facility] blood pressure 2021-12-24 13:40:00 124 mm[Hg] Common [facility] - systolic [facility] blood pressure 2021-12-24 13:40:00 68 mm[Hg] [facility] height 2021-12-24 14:00:00 64.5 [in_i] Common [facility] weight 2021-12-24 14:00:00 115 [lb_av] [facility] temperature 2021-12-24 14:00:00 97.5 [degF] Common [facility] bmi 2021-12-24 14:00:00 19.43 kg/m2 Common [facility] oximetry 2021-12-24 14:00:00 92 % Common [facility] respiratory rate 2021-12-24 14:00:00 16 /min Comm on [facility] blood pressure 2021-12-24 14:00:00 124 mm[Hg] Common [facility] - systolic [facility] blood pressure 2021-12-24 14:00:00 68 mm[Hg] Common [facility] - diastolic [facility] height 2021-11-09 13:20:00 67 [in_i] Common [facility] weight 2021-11-09 13:20:00 134.6 [lb_av] [facility] temperature 2021-11-09 13:20:00 98.2 [degF] Common [facility] bmi 2021-11-09 13:20:00 21.08 kg/m2 [facility] oximetry 2021-11-09 13:20:00 100 % [facility] respiratory rate 2021-11-09 13:20:00 16 /min Comm on [facility] blood pressure 2021-11-09 13:20:00 124 mm[Hg] [facility] systolic [facility] blood pressure 2021-11-09 13:20:00 66 mm[Hg] Common [facility] diastolic [facility] Procedures This patient has no known procedures. Encounters Start End Encounter Admission Attending Care Care Encounter Source Date/Time Date/Time Type Type Clinicians Facility Department ID 2022-04-11 Inpatient LU Agudelo OUTD [id number] [facility] 15:30:00 Gilberto 11 [facility] 2022-03-28 Outpatient Debra, STTYRELLLC [facility] [id number] Common 15:51:02 [facility] 2022-01-24 Outpatient Richardson, STTYRELLLC STLC [id number] Common 14:16:03 [facility] 2022-01-12 Outpatient Richardson, STLMLC STLC [id number] Common 15:58:02 [facility] 2022-01-12 Inpatient ALKA Barillas, HCACL OUTD [id number] [facility] 09:15:00 Gilberto 14 [facility] 2022-01-10 Outpatient Richardson, STLMLC STLMLC [id number] Common 10:43:01 [facility] 2021-12-22 Outpatient Richardson, STLMLC STLMLC [id number] Common 14:43:01 [facility] 2021-11-09 Outpatient Richardson, STLMLC STLMLC [id number] Common 13:02:02 [facility] 2021-11-08 Outpatient Richardson, STLMLC STLMLC [id number] Common 14:34:03 [facility] 2022-03-14 2022-03-14 (TEL) STLMLC STLMLC [id number] [facility] 00:00:00 00:00:00 [facility] 2022-03-08 2022-03-08 OFFICE STLMLC STLMLC [id number] [facility] 00:00:00 00:00:00 VISIT [facility] PT - CHI LEVEL 4 [facility] 2022-01-28 2022-01-28 OFFICE STLMLC STLMLC [id number] Co mmon 00:00:00 00:00:00 VISIT [facility] PT - CHI LEVEL 4 [facility] 2022-01-27 2022-01-27 (TEL) STLMLC STLMLC [id number] [facility] 00:00:00 00:00:00 [facility] 2022-01-26 2022-01-26 (TEL) STLMLC STLMLC [id number] Co mmon 00:00:00 00:00:00 [facility] 2022-01-26 2022-01-26 OFFICE STLMLC STLMLC [id number] [facility] mmon 00:00:00 00:00:00 VISIT EST Spir it PT LEVEL 3 - [facility] 2022-01-13 2022-01-13 (TEL) STLMLC STLMLC [id number] Co mmon 00:00:00 00:00:00 [facility] 2022-01-12 2022-01-12 OFFICE STLMLC STLMLC [id number] Co mmon 00:00:00 00:00:00 VISIT [facility] PT - CHI LEVEL 5 [facility] 2022-01-10 2022-01-10 (TEL) STLMLC STLMLC [id number] Co mmon 00:00:00 00:00:00 [facility] 2021-12-24 2021-12-24 OFFICE STLMLC STLMLC [id number] Co mmon 00:00:00 00:00:00 VISIT [facility] PT - CHI LEVEL 5 [facility] 2021-12-24 2021-12-24 (MCR WELL) STLMLC STLMLC [id number] Common 00:00:00 00:00:00 Medicare Sp[facility] 2021-12-21 2021-12-21 (TEL) STLMLC STLMLC [id number] Co mmon 00:00:00 00:00:00 [facility] 2021-11-09 2021-11-09 (TEL) STLMLC STLMLC [id number] Co mmon 00:00:00 00:00:00 [facility] 2021-11-09 2021-11-09 OFFICE STLMLC STLMLC [id number] Co mmon 00:00:00 00:00:00 VISIT NEW Spir it PT LEVEL 5 [facility] Results This patient has no known results.
[2022-04-01] MEDS ORDERED: PANTOPRAZOLE 40 MG INJ ONE (02:27)
[2022-04-01] MEDS ORDERED: NA CHLORIDE 0.9% 250 ML ONE (02:27)
[2022-04-01 03:29] LABS: Absolute Lymphocytes (CBC) 1.3 K/uL (0.7-4.9); Hematocrit 27.7 % (36.0-45.0); Lymphocytes % 32.4 % (15.3-44.8); MPV 7.5 fL (7.6-11.3)
[2022-04-01 03:39] LABS: SARS-CoV-2 Antigen Rapid Res Negative (Negative)
[2022-04-01 03:46] LABS: Protime INR 1.5
[2022-04-01 03:54] LABS: Albumin 2.4 g/dL (3.4-5.0); Bilirubin Direct 0.2 mg/dL (0-0.2); Bilirubin Total 0.4 mg/dL (0.2-1.0); Potassium 4.9 mmol/L (3.5-5.1); Protein, Total 6.2 g/dL (6.4-8.2); Troponin High Sensitivity 41.2 pg/mL (<58.9)
[2022-04-01 05:37] LABS: Absolute Lymphocytes (CBC) 1.2 K/uL (0.7-4.9); Hematocrit 23.5 % (36.0-45.0); Lymphocytes % 27.6 % (15.3-44.8); MCV 98.1 fL (80-100); MPV 7.5 fL (7.6-11.3); RBC Red Blood Cell Count 2.39 M/uL (3.86-4.86)
--- NOTE | 2022-04-01 05:39 | ER ---
Nurse's Notes [facility] Name: Judy Acevedo Age: 81 yrs Sex: Female : 1940 Arrival Date: 04/01/2022 Time: 02:14 Bed 6 Private MD: Diagnosis: GI Bleed/ Gastrointestinal hemorrhage, unspecified-upper;Anemia, unspecified Presentation: 04/01 02:14 Chief complaint: EMS states: pt went to the bathroom she noticed blood in her stool and aa9 she has been vomiting blood as well, her last bp ws 87/56, she has a 20 G R Wrist, she is on eliquis and plavix, she did fall, she denies head trauma, c/o pain on the L ribs. Coronavirus screen: Vaccine status: Patient reports receiving the 2nd dose of the covid vaccine. Ebola Screen: No symptoms or risks identified at this time. Initial Sepsis Screen: Does the patient meet any 2 criteria? Systolic BP < 90 mmHg. Does the patient have a suspected source of infection? No. Patient's initial sepsis screen is negative. Risk Assessment: Do you want to hurt yourself or someone else? Patient reports no desire to harm self or others. Onset of symptoms was April 01, 2022. 02:14 Method Of Arrival: EMS: [facility] aa9 02:14 Acuity: HENRIETTA 2 tw5 Triage Assessment: 02:19 General: Appears comfortable, slender, Behavior is calm, cooperative, appropriate for aa9 age. General: son states, She has been having coffee ground vomit and dark brown stools, she feel on the way to the bathroom. Pain: Complains of pain in Left Ribs Pain currently is 6 out of 10 on a pain scale. Quality of pain is described as sharp. EENT: No signs and/or symptoms were reported regarding the EENT system. Neuro: Level of Consciousness is awake, alert, obeys commands, Oriented to person, place, time, situation. Cardiovascular:. Respiratory: Airway is patent Respiratory effort is even, unlabored. GI: Reports bloody stool, vomiting. : No signs and/or symptoms were reported regarding the genitourinary system. Derm: Skin with poor turgor Skin is dry, Skin is pale, Skin temperature is cool. 02:23 GI: Bowel sounds present X 4 quads. hyperactive in abdomen diffusely. aa9 Historical: - Allergies: 02:18 No Known Allergies; aa9 - Home Meds: 02:27 Eliquis 2.5 mg oral tab [Active]; aa9 02:28 Zoloft Oral [Active]; T3 [Active]; Alprazolam Oral [Active]; Magnesium Oxide Oral tw5 [Active]; Synthroid Oral [Active]; clopidogrel oral [Active]; Metoprolol Tartrate Oral [Active]; Lasix Oral [Active]; Zofran Oral [Active]; 11:00 Simvastatin Oral [Active]; Prilosec Oral [Active]; mb9 - PMHx: 02:18 Hypertensive disorder; breast cancer; bowel obstruction; afib; Hypothyroidism; aa9 02:24 acute kidney failure; Congestive heart failure; aa9 11:00 syncope; mb9 - PSHx: 02:18 Left Mastectomy; hysterectomy; aa9 - Immunization history:: Client reports receiving the 2nd dose of the Covid vaccine. - Social history:: Smoking status: Patient denies any tobacco usage or history of. Screenin:22 Abuse screen: Denies threats or abuse. Denies injuries from another. Nutritional aa9 screening: No deficits noted. Tuberculosis screening: No symptoms or risk factors identified. Fall Risk Fall in past 12 months (25 points). Assessment: 03:07 General: Appears slender, Behavior is calm, cooperative, appropriate for age. Pain: aa9 Denies pain. Neuro: Level of Consciousness is awake, alert, obeys commands. Derm: Skin is intact, Skin is pale. 04:09 Reassessment: Patient appears in no apparent distress at this time. Respiratory: Airway aa9 is patent Respiratory effort is even, unlabored. : Urine is clear. Derm: Skin is intact, with poor turgor Skin is pale. 06:30 Reassessment: pt signed blood transfusion consent forms, understands need for aa9 procedure, denies concerns. 07:00 Reassessment: Report received from MANUEL Lopes. mb9 07:15 General: Appears comfortable, slender, Behavior is calm, cooperative, appropriate for mb9 age. Pain: Complains of pain in LUQ. Neuro: Level of Consciousness is awake, alert, obeys commands, Oriented to person, place, time, situation, Appropriate for age. Cardiovascular: Heart tones S1 S2 present Rhythm is regular. Respiratory: Airway is patent Respiratory effort is even, unlabored, Respiratory pattern is regular, symmetrical, Breath sounds are clear bilaterally. GI: Abdomen is flat, Bowel sounds present X 4 quads. Abd is soft and non tender X 4 quads. Parent/caregiver reports the patient having coffee ground stool and vomit last night. GI: Reports coffee ground vomit and stool last night. : No signs and/or symptoms were reported regarding the genitourinary system. EENT: No signs and/or symptoms were reported regarding the EENT system. Derm: Skin is intact, with poor turgor Skin is pale, Skin temperature is cool. Musculoskeletal: Range of motion: intact in all extremities. 08:30 Reassessment: No changes from previously documented assessment. mb9 09:01 Reassessment: Report given to transfer nurse Essence Henderson RN. mb9 10:59 Reassessment: Report given to [facility]. mb9 Vital Signs: 02:14 Weight 48.99 kg (R); Height 5 ft. 4 in. (162.56 cm) (R); aa9 02:23 BP 102 / 61; Pulse 78; Resp 18 S; Temp 97.8(O); Pulse Ox 98% on R/A; aa9 02:45 BP 95 / 57; Pulse 79; Resp 18 S; Pulse Ox 100% on R/A; tw5 03:07 BP 100 / 56; Pulse 81; Resp 10; Pulse Ox 98% on R/A; aa9 03:45 BP 113 / 55; Pulse 82; Resp 18 S; Pulse Ox 98% on R/A; aa9 07:02 BP 124 / 73; Pulse 92; Resp 18 S; Pulse Ox 100% on R/A; aa9 07:41 BP 111 / 66; Pulse 86; Resp 18; Temp 97.8; Pulse Ox 100% on R/A; mb9 07:46 BP 117 / 56; Pulse 88; Resp 14; Temp 98.4; Pulse Ox 100% on R/A; mb9 07:51 BP 108 / 74; Pulse 89; Resp 14; Temp 98.2; Pulse Ox 100% on R/A; mb9 07:56 BP 101 / 72; Pulse 89; Resp 14; Temp 97.8; Pulse Ox 100% on R/A; mb9 10:11 BP 114 / 81; Pulse 81; Resp 19; Temp 97.8; Pulse Ox 100% ; mb9 10:16 BP 98 / 76; Pulse 76; Resp 12; Temp 98.2; Pulse Ox 100% ; mb9 10:21 BP 124 / 69; Pulse 83; Resp 20; Temp 98.2; Pulse Ox 100% ; mb9 10:26 BP 124 / 74; Pulse 81; Resp 16; Temp 98.2; Pulse Ox 100% ; mb9 02:14 Body Mass Index 18.54 (48.99 kg, 162.56 cm) aa9 07:41 RBCs transfusing at 50ml/hr. No adverse reaction noted. Increased RBCs to 75mL/hr mb9 07:46 RBCs transfusing at 75mL/hr. No adverse reaction noted. Increased RBCs to 125mL/hr mb9 07:51 RBCs transfusing at 125ml/hr. No adverse reaction noted. Increased RBCs to 150 ml/hr mb9 07:56 RBCs transfusing at 150 ml/hr. No adverse reaction noted mb9 10:11 Baseline VS before plasma administration mb9 10:16 Plasma administered at 50 ml/hr. No adverse reactions noted. Increased to 75 ml/hr mb9 10:21 Plasma administered at 75 ml/hr. No adverse reactions noted. Increased to 125 ml/hr mb9 10:26 Plasma administered at 125 ml/hr. No adverse reactions noted. Increased to 150 ml/hr mb9 ED Course: 02:14 Patient arrived in ED. aa9 02:16 Nino Barrett MD is Attending Physician. kdr 02:18 Triage completed. aa9 02:19 Arm band placed on. aa9 02:22 Maintain EMS IV. Dressing intact. Site clean \T\ dry. Gauge \T\ site: 20 G L Wrist. aa 9 02:23 Marianne Hilton is Primary Nurse. tw5 02:23 Patient has correct armband on for positive identification. Bed in low position. Side aa9 rails up X2. Adult w/ patient. Client placed on continuous cardiac and pulse oximetry monitoring. NIBP monitoring applied. 02:38 COVID swab sent to lab. aa9 03:01 XRAY Chest (1 view) In Process Unspecified. EDMS 03:03 Basic Metabolic Panel Sent. tw5 03:03 CBC with Diff Sent. tw5 03:03 LFT's Sent. tw5 03:03 SARS RAPID Sent. tw5 03:03 Type And Screen Sent. tw5 03:03 Troponin HS Sent. tw5 03:03 PT-INR Sent. tw5 03:06 Initial lab(s) drawn, by me, sent to lab. Inserted saline lock: 24 gauge in right aa9 antecubital area, using aseptic technique. Blood collected. Missed attempt(s): 22 gauge in right antecubital area. Bleeding controlled, band aid applied, catheter tip intact. 04:09 Assisted to bedside commode. aa9 04:47 Accessed peripheral vein via ultrasound, utilizing dynamic ultrasound technique bb Powerglide midline 20g 8cm to right upper arm using hospital protocol with good blood return and flushes easily pt tolerated well. CT notified. 05:01 CT Abd/Pelvis - IV Contrast Only In Process Unspecified. EDMS 05:03 initiated a transfer with Nuvia Tomlinson from [facility]. mw2 05:19 Served as a vortex operator during rectal exam. tw5 05:22 CBC with Diff Sent. tw5 05:34 Attending Physician role handed off by Nino [facility] 05:34 Herbert Garnica MD is Attending Physician. carmencita 05:[address] Garnica with Dr. Ortiz from [facility]. mw2 05:59 Lactate w/ 2H reflex if indic. Sent. aa9 05:59 Blood Culture Sent. aa9 06:28 connected the dress shoe inspector telephone exchange operator for [facility] with Dr. Garnica for patient transfer mw2 consultation. 06:36 Blood Culture Sent. tw5 06:56 administrative approval given by Nuvia Tomlinson Rn/ patient has been accepted to [facility] 7 south 3 bed 10/ Dr. Chloe Muniz has accepted the patient in transfer/ report to be called to [phone]. 07:24 Primary Nurse role handed off by Marianne Hilton 07:24 Francisca Erickson, MANUEL is Primary Nurse. mb9 11:01 Patient transferred, IV remains in place. mb9 Administered Medications: 02:35 Drug: ProTONIX (pantoprazole) 80 mg Route: IVP; Site: right hand; aa9 05:48 Follow up: Response: No adverse reaction aa9 03:06 Drug: ProTONIX (pantoprazole) 8 mg/hr Route: IV; Rate: 25 ml/hr; Site: right hand; aa9 05:59 Drug: Vitamin K1 (phytonadione) 10 mg Route: Sub-Q; Site: right lower abdomen; tw5 06:35 Follow up: Response: No adverse reaction aa9 05:59 Drug: Zosyn (piperacillin-tazobactam) 3.375 grams Route: IVPB; Infused Over: 60 mins; tw5 Site: right hand; Medication: 02:25 VIS not applicable for this client. aa9 Outcome: 05:38 ER care complete, transfer ordered by . carmencita 11:00 Transferred by ground EMS to [facility], Transfer form completed. 9 11:00 Condition: stable 11:00 Discharge instructions given to patient, Instructed on the need for transfer, Demonstrated understanding of instructions, follow-up care. 11:01 Patient left the ED. mb9 Signatures: Dispatcher [employer] EDMS Herbert Garnica MD MD cha Rittger, Kevin, MD MD kdr Ballard, Brenda, RN RN Sara Kothari mw2 Bren Boyle Tiffany tw5 Elen Evans RN RN aa9 Francisca Erickson RN RN mb9 Corrections: (The following items were deleted from the chart) 02:25 02:18 PMHx: chf; aa9 9 02:41 02:14 Acuity: HENRIETTA 3 aa9 tw 05:52 05:48 ABO/RH typing drawn and sent. aa9 EDWV
--- NOTE | 2022-04-01 05:39 | EDPHYS ---
Physician Documentation [facility] Name: Judy Acevedo Age: 81 yrs Sex: Female : 1940 Arrival Date: 04/01/2022 Time: 02:14 Bed 6 Private MD: TUAN Physician Herbert Garnica HPI: 04/01 04:09 This 81 yrs old Female presents to ER via EMS with unknown complaint. kdr 04:09 This 81 yrs old Female presents to ER via EMS with complaints of Weakness and GI kdr bleeding upper and lower. 04:09 Patient got up this evening go to the bathroom and noted that she had some blood in the kdr stool. She then became nauseated and started vomiting. Material that came up appeared to be coffee-ground like emesis. EMS was called and they assessed her and found her blood pressure to be 87/56. She is taking Eliquis and Plavix.. Onset: The symptoms/episode began/occurred suddenly, just prior to arrival. Severity of symptoms: At their worst the symptoms were severe incapacitating in the emergency department the symptoms are unchanged. The patient has not experienced similar symptoms in the past. The patient has not recently seen a physician. Historical: - Allergies: 02:18 No Known Allergies; aa9 - Home Meds: 02:27 Eliquis 2.5 mg oral tab [Active]; aa9 02:28 Zoloft Oral [Active]; T3 [Active]; Alprazolam Oral [Active]; Magnesium Oxide Oral tw5 [Active]; Synthroid Oral [Active]; clopidogrel oral [Active]; Metoprolol Tartrate Oral [Active]; Lasix Oral [Active]; Zofran Oral [Active]; 11:00 Simvastatin Oral [Active]; Prilosec Oral [Active]; mb9 - PMHx: 02:18 Hypertensive disorder; breast cancer; bowel obstruction; afib; Hypothyroidism; aa9 02:24 acute kidney failure; Congestive heart failure; aa9 11:00 syncope; mb9 - PSHx: 02:18 Left Mastectomy; hysterectomy; aa9 - Immunization history:: Client reports receiving the 2nd dose of the Covid vaccine. - Social history:: Smoking status: Patient denies any tobacco usage or history of. ROS: 04:09 Constitutional: Negative for fever, chills, and weight loss, she has had generalized kdr weakness Eyes: Negative for injury, pain, redness, and discharge, ENT: Negative for injury, pain, and discharge, Neck: Negative for injury, pain, and swelling, Cardiovascular: Negative for chest pain, palpitations, and edema, Respiratory: Negative for shortness of breath, cough, wheezing, and pleuritic chest pain, Back: Negative for injury and pain, : Negative for injury, bleeding, discharge, and swelling, MS/Extremity: Negative for injury and deformity, Skin: Negative for injury, rash, and discoloration, Neuro: Negative for headache, weakness, numbness, tingling, and seizure activity. Psych: Negative for depression, anxiety, suicide ideation, homicidal ideation, and hallucinations, Allergy/Immunology: Negative for hives, rash, and allergies, Endocrine: Negative for neck swelling, polydipsia, polyuria, polyphagia, and marked weight changes, Hematologic/Lymphatic: Negative for swollen nodes, abnormal bleeding, and unusual bruising. 04:09 Abdomen/GI: Positive for nausea, vomiting, diarrhea, hematemesis, black/tarry stool, rectal bleeding, Negative for dysphagia, rectal pain. Exam: 02:42 ECG was reviewed by the Attending Physician. kdr 04:09 Constitutional: This is a well developed, well nourished patient who is awake, alert, kdr and in no acute distress. Head/Face: Normocephalic, atraumatic. Eyes: Pupils equal round and reactive to light, extra-ocular motions intact. Lids and lashes normal. Conjunctiva and sclera are non-icteric and not injected. Cornea within normal limits. Periorbital areas with no swelling, redness, or edema. Neck: Trachea midline, no thyromegaly or masses palpated, and no cervical lymphadenopathy. Supple, full range of motion without nuchal rigidity, or vertebral point tenderness. No Meningismus. Chest/axilla: Normal chest wall appearance and motion. Nontender with no deformity. No lesions are appreciated. Cardiovascular: Regular rate and rhythm with a normal S1 and S2. No gallops, murmurs, or rubs. Normal PMI, no JVD. No pulse deficits. Respiratory: Lungs have equal breath sounds bilaterally, clear to auscultation and percussion. No rales, rhonchi or wheezes noted. No increased work of breathing, no retractions or nasal flaring. Back: No spinal tenderness. No costovertebral tenderness. Full range of motion. MS/ Extremity: Pulses equal, no cyanosis. Neurovascular intact. Full, normal range of motion. Neuro: Awake and alert, GCS 15, oriented to person, place, time, and situation. Cranial nerves II-XII grossly intact. Motor strength 5/5 in all extremities. Sensory grossly intact. Cerebellar exam normal. Normal gait. Psych: Awake, alert, with orientation to person, place and time. Behavior, mood, and affect are within normal limits. 04:09 Skin: Appearance: Color: pale. 05:12 Abdomen/GI: Rectal exam: Stool: guaiac positive, green. kdr Vital Signs: 02:14 Weight 48.99 kg (R); Height 5 ft. 4 in. (162.56 cm) (R); aa9 02:23 BP 102 / 61; Pulse 78; Resp 18 S; Temp 97.8(O); Pulse Ox 98% on R/A; aa9 02:45 BP 95 / 57; Pulse 79; Resp 18 S; Pulse Ox 100% on R/A; tw5 03:07 BP 100 / 56; Pulse 81; Resp 10; Pulse Ox 98% on R/A; aa9 03:45 BP 113 / 55; Pulse 82; Resp 18 S; Pulse Ox 98% on R/A; aa9 07:02 BP 124 / 73; Pulse 92; Resp 18 S; Pulse Ox 100% on R/A; aa9 07:41 BP 111 / 66; Pulse 86; Resp 18; Temp 97.8; Pulse Ox 100% on R/A; mb9 07:46 BP 117 / 56; Pulse 88; Resp 14; Temp 98.4; Pulse Ox 100% on R/A; mb9 07:51 BP 108 / 74; Pulse 89; Resp 14; Temp 98.2; Pulse Ox 100% on R/A; mb9 07:56 BP 101 / 72; Pulse 89; Resp 14; Temp 97.8; Pulse Ox 100% on R/A; mb9 10:11 BP 114 / 81; Pulse 81; Resp 19; Temp 97.8; Pulse Ox 100% ; mb9 10:16 BP 98 / 76; Pulse 76; Resp 12; Temp 98.2; Pulse Ox 100% ; mb9 10:21 BP 124 / 69; Pulse 83; Resp 20; Temp 98.2; Pulse Ox 100% ; mb9 10:26 BP 124 / 74; Pulse 81; Resp 16; Temp 98.2; Pulse Ox 100% ; mb9 02:14 Body Mass Index 18.54 (48.99 kg, 162.56 cm) aa9 07:41 RBCs transfusing at 50ml/hr. No adverse reaction noted. Increased RBCs to 75mL/hr mb9 07:46 RBCs transfusing at 75mL/hr. No adverse reaction noted. Increased RBCs to 125mL/hr mb9 07:51 RBCs transfusing at 125ml/hr. No adverse reaction noted. Increased RBCs to 150 ml/hr mb9 07:56 RBCs transfusing at 150 ml/hr. No adverse reaction noted mb9 10:11 Baseline VS before plasma administration mb9 10:16 Plasma administered at 50 ml/hr. No adverse reactions noted. Increased to 75 ml/hr mb9 10:21 Plasma administered at 75 ml/hr. No adverse reactions noted. Increased to 125 ml/hr mb9 10:26 Plasma administered at 125 ml/hr. No adverse reactions noted. Increased to 150 ml/hr mb9 MDM: 04:09 Data reviewed: vital signs, nurses notes, lab test result(s), radiologic studies. kdr Counseling: I had a detailed discussion with the patient and/or guardian regarding: the historical points, exam findings, and any diagnostic results supporting the discharge/admit diagnosis, lab results, radiology results, the need to transfer to another facility. 05:35 Patient medically screened. cramencita 04/01 02:19 Order name: Basic Metabolic Panel; Complete Time: 05:35 kdr 04/01 02:19 Order name: CBC with Diff; Complete Time: 03:44 kdr 04/01 02:19 Order name: LFT's; Complete Time: 05:35 kdr 04/01 02:19 Order name: PT-INR; Complete Time: 05:35 kdr 04/01 02:19 Order name: Troponin HS; Complete Time: 05:35 kdr 04/01 02:19 Order name: Type And Screen [facility] 04/01 02:21 Order name: SARS RAPID; Complete Time: 03:44 la1 04/01 04:59 Order name: CBC with Diff; Complete Time: 05:38 kdr 04/01 05:40 Order name: Lactate w/ 2H reflex if indic.; Complete Time: 06:42 [facility] 04/01 05:43 Order name: Blood Culture [facility] 04/01 02:19 Order name: XRAY Chest (1 view) [facility] 04/01 02:19 Order name: EKG; Complete Time: 02:20 [facility] 04/01 02:19 Order name: Cardiac monitoring; Complete Time: 02:41 [facility] 04/01 02:19 Order name: EKG - Nurse/Tech; Complete Time: 02:41 [facility] 04/01 02:19 Order name: IV Saline Lock; Complete Time: 03:06 [facility] 04/01 02:40 Order name: CT Abd/Pelvis - IV Contrast Only [facility] 04/01 05:53 Order name: Fresh Frozen Plasma [facility] 04/01 05:53 Order name: Packed RBC Leukored [facility] 04/01 06:22 Order name: ABO/RH no charge; Complete Time: 06:28 [facility] 04/01 02:19 Order name: Labs collected and sent; Complete Time: 03:03 [facility] 04/01 02:19 Order name: O2 Per Protocol; Complete Time: 02:41 [facility] 04/01 02:19 Order name: O2 Sat Monitoring; Complete Time: 02:41 [facility] 04/01 05:40 Order name: IV Saline Lock - Large Bore; Complete Time: 05:42 [facility] 04/01 06:31 Order name: NPO; Complete Time: 07:19 [facility] EC:42 Rate is 78 beats/min. Rhythm is regular, Normal Sinus Rhythm with No ectopy. QRS [place] kdr is Normal. [place] interval is normal. QRS interval is normal. Clinical impression: NSR w/ Non-specific ST/T Changes. Administered Medications: 02:35 Drug: ProTONIX (pantoprazole) 80 mg Route: IVP; Site: right hand; aa9 05:48 Follow up: Response: No adverse reaction aa9 03:06 Drug: ProTONIX (pantoprazole) 8 mg/hr Route: IV; Rate: 25 ml/hr; Site: right hand; aa9 05:59 Drug: Vitamin K1 (phytonadione) 10 mg Route: Sub-Q; Site: right lower abdomen; tw5 06:35 Follow up: Response: No adverse reaction aa9 05:59 Drug: Zosyn (piperacillin-tazobactam) 3.375 grams Route: IVPB; Infused Over: 60 mins; tw5 Site: right hand; Disposition Summary: 04/01/22 05:38 Transfer Ordered Transfer Location: [facility] Reason: Higher level of care carmencita Condition: Fair carmencita Problem: new carmencita Symptoms: have improved carmencita Accepting Physician: Dr. Kanu Hutson [facility] certified master locksmith(04/01/22 11:01) tami Diagnosis - GI Bleed/ Gastrointestinal hemorrhage, unspecified - upper carmencita - Anemia, unspecified carmencita Forms: - Medication Reconciliation Form carmencita - SBAR form carmencita Critical care time excluding procedures: 08:49 Critical care time: Bedside Care: 25 minutes, Consultation: 10 minutes. Total time: 35 carmencita minutes Signatures: Dispatcher [employer] EDMS Herbert Garnica MD MD cha Rittger, Kevin, MD MD kdr Botello, Elizabeth eb Wood, Tiffany tw5 Elen Evans RN RN aa9 Francisca Erickson RN RN mb9 Corrections: (The following items were deleted from the chart) 02:25 02:18 PMHx: chf; aa9 aa9 05:52 05:41 BLOOD CULTURE*+BA.LAB.BRZ ordered. EDMS EDMS 05:52 05:43 ABO/RH typing ordered. EDMS EDMS 07:09 05:38 to [facility] carmencita 11:01 07:09 [facility] certified master locksmith shayna mb9
[2022-04-01] MEDS ORDERED: VITAMIN K (ADULT) 10 MG/ML ONE (05:49)
[2022-04-01] MEDS ORDERED: NA CHLORIDE 0.9% 100 ML IV ONE (05:49)
[2022-04-01] MEDS ORDERED: PIPERACIL/TAZO 3.375 GM VIAL IV ONE (05:49)
[2022-04-01] MEDS ORDERED: NA CHLORIDE 0.9% 500 ML ONE ×2 (06:38→06:51)
[2022-04-01] MEDS ORDERED: NA CHLORIDE 0.9% 1,000 ML ONE (06:51)
[2022-04-01] MEDS ORDERED: ACETAMINOPHEN 325 MG TABLET ONE (07:29)
[2022-04-01] MEDS ORDERED: DIPHENHYDRAMINE 50 MG/ML VIAL ONE (07:30)
[2022-04-01 11:10] VITALS: O2SAT 100
[2022-04-01 11:18] VITALS: TEMP 98.2
[2022-04-01 11:20] VITALS: BP 124/74
--- NOTE | 2022-04-01 12:34 | RAD REPORT ---
EXAM DESCRIPTION: RAD - Chest Single View - 04/01/2022 2:59 am CLINICAL HISTORY: The patient is 81 years old and is Female; bloody emesis TECHNIQUE: Single view of the chest. COMPARISON: No relevant prior studies available. FINDINGS: Lungs: Bibasilar infiltrates and/or subsegmental atelectasis. Pleural space: Small pleural effusions. No pneumothorax. Heart: The cardiac silhouette is enlarged versus artifact of AP technique. Mediastinum: Unremarkable. Bones/joints: No acute fracture visualized. Soft tissues: Bilateral axillary surgical clips. Possible left mastectomy. Upper abdomen: No free air in the visualized upper abdomen. IMPRESSION: 1. Bibasilar infiltrates and/or subsegmental atelectasis. 2. Small pleural effusions. Electronically signed by: Yancy Ortiz MD 04/01/2022 4:19 AM TRUCK CAR AND BUS CLEANER Due to temporary technical issues with the PACS/Fluency reporting system, reports are being signed by the in house radiologists without review as a courtesy to insure prompt reporting. The interpreting radiologist is fully responsible for the content of the report
--- NOTE | 2022-04-01 18:35 | RAD REPORT ---
EXAM DESCRIPTION: CT - Abdomen Pelvis W Contrast - 04/01/2022 6:45 am TECHNIQUE: Computerized axial tomography of the abdomen and pelvis was performed after the administr ation of IV iodinated nonionic contrast. This exam was performed according to our department optimiza tion program which includes automated exposure control, adjustment of the mA and/or KV according to p atient size and/or use of iterative reconstruction technique. CLINICAL HISTORY: GI bleed COMPARISON: 02/25/2022 . FINDINGS: Visualized lower thorax: Bilateral lung base parenchymal scarring is present. There are mo derate size layering bilateral pleural effusions, which have increased in size compared to the prior study. Trace pericardial fluid. Liver: Normal size and attenuation. Spleen: Normal size and attenuation. Gallbladder and biliary system: Gallbladder is present. Pancreas: Normal. Adrenals: Normal. Kidneys: No hydroureteronephrosis bilaterally. No ureteral calculi are identified. There is a punctat e phlebolith abutting the right mid ureter. GI tract: No bowel obstruction or acute inflammatory changes are identified. There are right colonic anastomotic sutures present. There are couple of hyperdense punctate foci in the right colon seen on the arterial and portal venous phases. It is uncertain as to whether these are traces of residual ora l contrast from prior study ingested material. Otherwise no convincing areas of hemorrhage are iden tified. Lymph nodes and mesentery: Normal. Vasculature: Normal caliber aorta. Bladder: Normal. Reproductive organs: Uterus is present. Peritoneum: No free fluid or free air. Musculoskeletal structures: Stable comminuted L1 vertebral body fracture. Other: None. IMPRESSION: There are a couple of dots of punctate hyperdensity in the right colon which are nonspec ific and could be related to residual trace contrast from prior study or ingested material. Otherwise no obvious intraluminal bowel hemorrhage is identified. If there are persistent symptoms, consider t agged red blood cell scan. Bilateral pleural effusions Electronically signed by: Katiana Ruff MD 04/01/2022 6:15 AM SENIOR CONTRACT SPECIALIST Due to temporary technical issues with the PACS/Fluency reporting system, reports are being signed by the in house radiologists without review as a courtesy to insure prompt reporting. The interpreting radiologist is fully responsible for the content of the report.
--- NOTE | 2022-04-02 19:15 | EKG ---
Test Date: 2022-04-01 Test Time: 02:36:20 Assistant Center Director: JESSICA MEASUREMENT RESULTS: Intervals: Rate: 78 MS: 196 QRSD: 90 QT: 446 QTc: 508 [place]: P: 48 MS: 196 QRS: 74 T: 241 INTERPRETIVE STATEMENTS: Normal sinus rhythm ST & T wave abnormality, consider inferolateral ischemia Prolonged QT Abnormal ECG Compared to ECG 02/25/2022 14:27:25 Prolonged QT interval now present Sinus tachycardia no longer present Ventricular premature complex(es) no longer present Myocardial infarct finding no longer present ST (T wave) deviation still present Possible ischemia still present Electronically Signed On 04-02-22 19:10:41 DESIGN TECHNOLOGY TEACHER by Allan Godfrey
== END 2022-04-01 11:01 | disposition short-term general hospital (02) ==
LOC: ER 02:12
PROC: 30233L1 Transfusion of Nonautologous Fresh Plasma into Peripheral Vein, Percutaneous Approach (ICD-10-PCS; principal; 2022-04-01)
PROC: 30233N1 Transfusion of Nonautologous Red Blood Cells into Peripheral Vein, Percutaneous Approach (ICD-10-PCS; 2022-04-01)
DX: D64.9 Anemia, unspecified (principal); I10 Essential (primary) hypertension; N17.9 Acute kidney failure, unspecified; I50.9 Heart failure, unspecified; I48.91 Unspecified atrial fibrillation; Z79.01 Long term (current) use of anticoagulants; Z20.822 Contact with and (suspected) exposure to COVID-19
CPT/HCPCS: 93005; 87040; 85025 ×2; 80048; 36415; 86900; 86850; 85610; 86901; 80076; 83605; 84484; 74177; 71045; 96375; 96372; 96374; 99285; 87811; 36430; Q9967; J3430; J1200; J2543; C9113; P9016; P9059; J7050; J7040 ×2; J7030

== ENCOUNTER 2022-12-14 15:39 | Observation (INO) | payer OTHER ==
--- OUTSIDE RECORDS SUMMARY | 2022-12-14 15:47 | XMS REPORT | Continuity of Care Document ---
:1940 Author Organization [facility] t Address [address] [place] [address] [place] [id number] Care Team Providers Name Role Phone Isabella Richardson Attending Clinician Unavailable ORLANDO DOAN Attending Clinician Unavailable Gilberto Barillas Attending Clinician Unavailable BEBETO LESTER Attending Clinician Unavailable Fermin Muniz MD Attending Clinician Unavailable Bebeto Lester MD Attending Clinician [phone] Gadiel Shah MD Attending Clinician Unavailable Romulo Huerta MD Attending Clinician Franklyn Chahal MD Attending Clinician Jaret Wilcox MD Attending Clinician GADIEL SHAH Attending Clinician Unavailable Phillip Mcleod MD Attending Clinician [phone] Isabella Richardson Admitting Clinician Unavailable ORLANDO DOAN Admitting Clinician Unavailable Physician, No Primary or Family Admitting Clinician Unavaila Wilda Garciaem Admitting Clinician Unavailable GADIEL SHAH Admitting Clinician Unavailable Payers Payer Name Policy Type Policy Number Effective Date Expiration Date Eduin BRISCOE MEDICARE [id number] 2022 00:00:00 [facility] [place] FFS 5 [id number] 2022 00:00:00 Problems Condition Condition Condition Status Onset Resolution Last Treating Co mments Source Name Details Category Date Date Treatment Clinician Date GI bleed GI bleed Disease Active 2021-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 [facility] [id number] Type 2 Problem Common diabetes Spirit mellitus - [facility] with [facility] long-term current use of insulin [id number] Persistent Problem Co mmon atrial Spirit fibrillati - [facility] on [facility] [id number] Dysthymia Problem Comm on Spirit - CHI [facility] Gastroesop Gastroesop Problem C ommon hageal hageal Spirit reflux reflux - CHI disease disease [facility] esophagiti esophagiti Me dical s s [facility] [id number] Stage 4 Problem Commo n chronic Spirit kidney - [facility] disease [facility] [id number] BRAD (acute Problem C ommon [id number] kidney Spirit injury) - [facility] Closed Closed Problem Common fracture fracture Spirit of of - [facility]I multiple multiple St ribs of ribs of [facility] left side left side Medi andre with with Center delayed delayed healing, healing, subsequent subsequent encounter encounter 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 coronary Medical artery of [facility] heart without angina pectoris [id number] Chronic Problem Commo n systolic Spirit (congestiv - CHI e) heart [facility] [id number] Hypertensi Problem Comm on ve heart Spirit disease - [facility] with heart [facility] [id number] ESTEBAN Problem Common (generaliz Spirit ed anxiety - CHI disorder) [facility] [id number] CMC Problem Common arthritis [facility] [id number] Arthritis Problem Co mmon [id number] of Spirit carpometac - [facility]I arpal [facility] ([facility]) [facility] joint of Medical right Center thumb [id number] Sciatica Problem Commo n of right Spirit side [facility] [id number] Arthritis Problem Commo n [facility] [id number] Arthritis Problem Co mmon [id number] of Spirit carpometac - [facility] joint of Medical left thumb Center [id number] Acquired Problem Comm on hypothyroi [facility] dism [facility] [id number] Hypercalce Problem Com mon leander [facility] [id number] Memory Problem Common changes [facility] Allergies, Adverse Reactions, Alerts Allergy Allergy Status Severity Reaction(s) Onset Inactive Treating Comm ents Source Name Type Date Date Clinician No Known DA Active U 2021-05 [facility] All[facility]ie 06-11 Clear s 00:00: [facility] NO KNOWN Allergy Active [facility] Social History Social Habit Start Date Stop Date Quantity Comments Source History of Tobacco Common Spirit - Use [facility] Tobacco use and 2022-04-02 2022-04-02 Never used [facility] exposure 00:00:00 00:00:00 [facility] Sex Ass[birth year] At [birth year] [facility] 00:00:00 00:00:00 [facility] Smoking Status Start Date Stop Date Source Never smoker [facility] Medications Ordered Filled Start Stop Current Ordering Indication Dosage Frequency Signature Comments Components Source Medication Medication Date Date Medication? Clinician (SIG) Name Name Lidocaine Lidocaine No 10mg Com 06-06 Spirit 00:00: - [facility] Kenalog Kenalog No 40mg Common (Triamcinol (Triamcinol 06-06 S pirit one) one) 00:00: - [facility] atorvastati 2021-05 Yes 40mg QD Take [address] n (LIPITOR) 1-27 by mouth Luke s 40 MG 13:30: nightly. Medical tablet 05 Center magnesium 2021-05 Yes 800mg Q.5D Take [address] oxide 1-27 mg by [facility] (MAG-OX) 13:30: mouth 2 Medica l 400 mg 05 (two) Center (241.3 mg times magnesium) daily. tablet sertraline 2021-05 Yes 50mg QD Take [address] (ZOLOFT) 50 -27 by mouth Luke s MG tablet 13:30: daily. Medica l 05 Center acetaminoph 2021-05 Yes 1{tbl} Take [address] en-codeine 1-27 tablet by Luke s (TYLENOL 13:30: mouth Medical #3) 300-30 05 every 6 Center mg per (six) tablet hours as needed for Pain. ALPRAZolam 2021-05 Yes .25mg Take 0.[address] (XANAX) 1-27 mg by [facility] 0.25 MG 13:30: mouth Medical tablet 05 daily as Center needed for Sleep or Anxiety. hyoscyamine 2021-05 Yes .125mg Take 0.[address] (ANASPAZ,LE 1-27 mg by [facility] VSIN) 0.125 13:30: mouth Medic al mg tablet 05 every 6 Center (six) hours as needed for Cramping. clopidogreL 2021-05 Yes 75mg QD Take [address] (PLAVIX) 75 -27 by mouth Luke s mg tablet 13:30: daily. Medica l 05 [facility] metoprolol 2021-05 Yes 25mg QD Take [address] succinate 1-27 by mouth [facility]ukes (TOPROL-XL) 13:30: daily. Medi andre 25 MG 24 hr 05 Center tablet furosemide 2021-05 Yes 20mg Take [address] (LASIX) 20 1-27 by mouth [facility]ukes MG tablet 13:30: daily as Medi andre 05 needed. Center ondansetron 2021-05 Yes Take by [facility] (ZOFRAN) 8 -27 mouth [facility]ukes MG tablet 13:30: every 8 Medic al 05 (eight) Center hours as needed for Nausea. melatonin 3 2021-05 Yes 3mg Take [address] mg tablet -27 by mouth [facility]ukes 13:30: every Medical 05 night as Center needed for Sleep. mirtazapine 2021-05 Yes 7.5mg QD Take 7.[address] (REMERON) 1-27 mg by [facility] 7.5 MG 13:30: mouth Medical tablet 05 nightly. Center atorvastati 2021-05 Yes 40mg QD Take [address] n (LIPITOR) 1-27 by mouth Luke s 40 MG 13:30: nightly. Medical tablet 05 Center magnesium 2021-05 Yes 800mg Q.5D Take [address] oxide 1-27 mg by [facility] (MAG-OX) 13:30: mouth 2 Medica l 400 mg 05 (two) Center (241.3 mg times magnesium) daily. tablet sertraline 2021-05 Yes 50mg QD Take [address] (ZOLOFT) 50 1-27 by mouth Luke s MG tablet 13:30: daily. Medica l 05 [facility] acetaminoph 2021-05 Yes 1{tbl} Take [address] en-codeine 1-27 tablet by Pepe s (TYLENOL 13:30: mouth Medical #3) 300-30 05 every 6 Center mg per (six) tablet hours as needed for Pain. ALPRAZolam 2021-05 Yes .25mg Take 0.[address] (XANAX) 1-27 mg by [place] 0.25 MG 13:30: mouth Medical tablet 05 daily as Center needed for Sleep or Anxiety. hyoscyamine 2021-05 Yes .125mg Take 0.[address] (ANASPAZ,LE 1-27 mg by [place] VSIN) 0.125 13:30: mouth Medic al mg tablet 05 every 6 Center (six) hours as needed for Cramping. clopidogreL 2021-05 Yes 75mg QD Take [address] (PLAVIX) 75 1-27 by mouth Luke s mg tablet 13:30: daily. Medica l 05 [facility] metoprolol 2021-05 Yes 25mg QD Take [address] succinate 1-27 by mouth [facility]ukes (TOPROL-XL) 13:30: daily. Medi andre 25 MG 24 hr 05 Center tablet furosemide 2021-05 Yes 20mg Take [address] (LASIX) 20 -27 by mouth [facility]ukes MG tablet 13:30: daily as Medi andre 05 needed. Center ondansetron 2021-05 Yes Take by [facility] (ZOFRAN) 8 1-27 mouth [facility]ukes MG tablet 13:30: every 8 Medic al 05 (eight) Center hours as needed for Nausea. melatonin 3 2021-05 Yes 3mg Take [address] mg tablet -27 by mouth [facility]ukes 13:30: every Medical 05 night as Center needed for Sleep. mirtazapine 2021-05 Yes 7.5mg QD Take 7.[address] (REMERON) 1-27 mg by [facility] 7.5 MG 13:30: mouth Medical tablet 05 nightly. [facility] atorvastati 2021-05 Yes 40mg QD Take [address] n (LIPITOR) -27 by mouth Luke s 40 MG 13:30: nightly. Medical tablet 05 [facility] magnesium 2021-05 Yes 800mg Q.5D Take [address] oxide 1-27 mg by [facility] (MAG-OX) 13:30: mouth 2 Medica l 400 mg 05 (two) Center (241.3 mg times magnesium) daily. tablet sertraline 2021-05 Yes 50mg QD Take [address] (ZOLOFT) 50 -27 by mouth Luke s MG tablet 13:30: daily. Medica l [address] [place] [address] acetaminoph 2021-05 Yes 1{tbl} Take [address] en-codeine -27 tablet by Pepe s (TYLENOL 13:30: mouth Medical #3) 300-30 05 every 6 Center mg per (six) tablet hours as needed for Pain. ALPRAZolam 2021-05 Yes .25mg Take 0.[address] (XANAX) 1-27 mg by [facility] 0.25 MG 13:30: mouth Medical tablet 05 daily as Center needed for Sleep or Anxiety. hyoscyamine 2021-05 Yes .125mg Take 0.[address] (ANASPAZ,LE 1-27 mg by [facility] VSIN) 0.125 13:30: mouth Medic al mg tablet 05 every 6 Center (six) hours as needed for Cramping. clopidogreL 2021-05 Yes 75mg QD Take [address] (PLAVIX) 75 -27 by mouth Luke s mg tablet 13:30: daily. Medica l 05 [facility] metoprolol 2021-05 Yes 25mg QD Take [address] succinate - by mouth [facility]ukes (TOPROL-XL) 13:30: daily. Medi andre 25 MG 24 hr 05 Center tablet furosemide 2021-05 Yes 20mg Take [address] (LASIX) 20 - by mouth Lukes MG tablet 13:30: daily as Medi andre 05 needed. Center ondansetron 2021-05 Yes Take by [facility] (ZOFRAN) 8 06-10 mouth [facility]ukes MG tablet 13:30: every 8 Medic al 05 (eight) Center hours as needed for Nausea. melatonin 3 2021-05 Yes 3mg Take [address] mg tablet 06-10 by mouth [facility]ukes 13:30: every Medical 05 night as Center needed for Sleep. mirtazapine 2021-05 Yes 7.5mg QD Take 7.[address] (REMERON) 1-27 mg by [facility] 7.5 MG 13:30: mouth Medical tablet 05 nightly. Center levothyroxi 2021-05- No hypothyroid 75ug Take [address] ne - 11-26 ism mcg by [facility]ukes (SYNTHROID, 13:30: 00:00 mouth Medi andre LEVOTHROID) 05 :00 Every Center 75 MCG morning on tablet an empty stomach. Missing or 2021-05- No 2.5mg Q.5D Take 2.[address] Non-Formula - 11-26 mg by [facility] ry 13:30: 00:00 mouth 2 Medical Medication 05 :00 (two) Center times daily Eliquis (Apixaban) . levothyroxi 2021-05- No hypothyroid 75ug Take [address] ne - 11-26 ism mcg by [facility]ukes (SYNTHROID, 13:30: 00:00 mouth Medi andre LEVOTHROID) 05 :00 Every Center 75 MCG morning on tablet an empty stomach. Missing or 2021-05- No 2.5mg Q.5D Take 2.[address] Non-Formula -27 11-26 mg by [facility]ukes ry 13:30: 00:00 mouth 2 Medical Medication 05 :00 (two) Center times daily Eliquis (Apixaban) . levothyroxi 2021-05- No hypothyroid 75ug Take [address] ne -27 11-26 ism mcg by [facility]ukes (SYNTHROID, 13:30: 00:00 mouth Medi andre LEVOTHROID) 05 :00 Every Center 75 MCG morning on tablet an empty stomach. Missing or 2021-05 No 2.5mg Q.5D Take 2.[address] Non-Formula -27 11-26 mg by [facility] ry 13:30: 00:00 mouth 2 Medical Medication 05 :00 (two) Center times daily Eliquis (Apixaban) . levothyroxi 2021-05 Yes hypothyroid 100ug Take [address] ne 1-26 ism tablet [facility]ukes (SYNTHROID, 00:00: (100 mcg Me dical LEVOTHROID) 00 total) by [address] 100 MCG mouth tablet Every morning on an empty stomach. pantoprazol 2021-05 Yes 40mg QD Take [address] e 1-26 tablet (40 [facility]ukes (PROTONIX) 00:00: mg total) Me dical 40 MG 00 by mouth Center tablet daily. levothyroxi 2021-05 Yes hypothyroid 100ug Take [address] ne 1-26 ism tablet [facility]ukes (SYNTHROID, 00:00: (100 mcg Me dical LEVOTHROID) 00 total) by [address] 100 MCG mouth tablet Every morning on an empty stomach. pantoprazol 2021-05 Yes 40mg QD Take [address] e 1-26 tablet (40 [facility]ukes (PROTONIX) 00:00: mg total) Me dical 40 MG 00 by mouth Center tablet daily. levothyroxi 2021-05 Yes hypothyroid 100ug Take [address] ne 1-26 ism tablet [facility]ukes (SYNTHROID, 00:00: (100 mcg Me dical LEVOTHROID) 00 total) by [address] 100 MCG mouth tablet Every morning on an empty stomach. pantoprazol 2021-05 Yes 40mg QD Take [address] e 1-26 tablet (40 [facility] (PROTONIX) 00:00: mg total) Me dical 40 MG 00 by mouth Center tablet daily. Levothyroxi Levothyroxi No QD Levothyrox ne Sodium [...] 50 MCG (1999 UT) (1999 UT) (1999) Dicyclomine Dicyclomine No 2{capsu TID Dicyclomin [...] MCG 50 MCG le} 50 MCG (1999) (1999 UT) (1999) ALPRAZolam ALPRAZolam No 1{table ALPRAZolam 0.25 [...] MCG 50 MCG le} 50 MCG (1999) (1999 UT) (1999) Eliquis 2.5 Eliquis 2.5 [...] 0.25 MG 0.25 MG t} 0.25 MG Metoprolol Metoprolol No 1{table BID Metoprolol Tartrate 50 Tartrate 50 t_with_ Tartrate MG MG food} 50 MG Amiodarone Amiodarone No 1{table QD Amiodarone HCl 200 MG HCl 200 MG t} HCl 200 MG Omeprazole Omeprazole No Omeprazole 20 MG 20 MG 20 MG Loperamide Loperamide No 1{capsu QID Loperamide HCl 2 MG HCl 2 MG le_as_n HCl 2 MG eeded} Pantoprazol Pantoprazol No 1{table QD Pantoprazo e Sodium 40 e Sodium 40 t} le Sodium MG MG 40 MG Metoprolol Metoprolol No 1{capsu QD Metoprolol Succinate Succinate le} Succinate 25 MG 25 MG 25 MG Atorvastati Atorvastati No 1{table QD Atorvastat n Calcium n Calcium t} in Calcium 40 MG 40 MG 40 MG Eliquis 2.5 Eliquis 2.5 No BID Eliquis MG MG 2.5 MG Mirtazapine Mirtazapine No 1{table QD Mirtazapin 7.5 MG 7.5 MG t_at_be e 7.5 MG dtime} Ondansetron Ondansetron No QD Ondansetro 8 MG 8 MG n 8 MG Dicyclomine Dicyclomine No 2{capsu TID Dicyclomin HCl 10 MG HCl 10 MG les} e HCl 10 MG Irbesartan Irbesartan No 1{table QD Irbesartan 150 MG 150 MG t} 150 MG Loperamide Loperamide No 1{capsu QID Loperamide HCl 2 MG HCl 2 MG le_as_n HCl 2 MG eeded} Sertraline Sertraline No 1{table QD Sertraline HCl 100 MG HCl 100 MG t} HCl 100 MG Hyoscyamine Hyoscyamine No 1{table 6xD Hyoscyamin Sulfate Sulfate t_as_ne e Sulfate 0.125 MG 0.125 MG eded} 0.125 MG Vitamin D3 Vitamin D3 No 1{capsu BID Vitamin D3 50 MCG 50 MCG le} 50 MCG (1999) (1999 UT) (1999) Magnesium Magnesium No 2{table QD Magnesium Oxide 400 Oxide 400 ts} Oxide 400 MG MG MG Entresto Entresto No BID Entresto 24/26mg 24/26mg 24/26mg 24/26mg 24/26mg 24/26mg Melatonin 3 Melatonin 3 No 1{table QD Melatonin MG MG t_at_be 3 MG dtime_a s_neede d} Tylenol Tylenol No Tylenol (#4) with (#4) with (#4) with codeine codeine codeine 60/300 60/300 60/300 ALPRAZolam ALPRAZolam No 1{table ALPRAZolam 0.25 MG 0.25 MG t} 0.25 MG Hyoscyamine Hyoscyamine No 1{table 6xD Hyoscyamin Sulfate Sulfate t_as_ne e Sulfate 0.125 MG 0.125 MG eded} 0.125 MG Clopidogrel Clopidogrel No 1{table QD Clopidogre Bisulfate Bisulfate t} l 75 MG 75 MG Bisulfate 75 MG Vitamin B Vitamin B No Vitamin B Complex - Complex - Complex - Furosemide Furosemide No BID Furosemide 20 MG 20 MG 20 MG Irbesartan Irbesartan No 1{table QD Irbesartan 150 MG 150 MG t} 150 MG Celecoxib Celecoxib No 1{capsu BID Celecoxib 200 MG 200 MG le_with 200 MG _food} Levothyroxi Levothyroxi No QD Levothyrox ne Sodium ne Sodium ine Sodium 100 MCG 100 MCG 100 MCG Furosemide Furosemide No 1{table BID Furosemide 20 MG 20 MG t} 20 MG Clopidogrel Clopidogrel No 1{table QD Clopidogre Bisulfate Bisulfate t} l 75 MG 75 MG Bisulfate 75 MG Vitamin B Vitamin B No Vitamin B Complex - Complex - Complex - Metoprolol Metoprolol No 1{table BID Metoprolol Tartrate 50 Tartrate 50 t_with_ Tartrate MG MG food} 50 MG Amiodarone Amiodarone No 1{table QD Amiodarone HCl 200 MG HCl 200 MG t} HCl 200 MG Omeprazole Omeprazole No Omeprazole 20 MG 20 MG 20 MG Pantoprazol Pantoprazol No 1{table QD Pantoprazo e Sodium 40 e Sodium 40 t} le Sodium MG MG 40 MG Metoprolol Metoprolol No 1{capsu QD Metoprolol Succinate Succinate le} Succinate 25 MG 25 MG 25 MG Atorvastati Atorvastati No 1{table QD Atorvastat n Calcium n Calcium t} in Calcium 40 MG 40 MG 40 MG Eliquis 2.5 Eliquis 2.5 No BID Eliquis MG MG 2.5 MG Celecoxib Celecoxib No 1{capsu BID Celecoxib 200 MG 200 MG le_with 200 MG _food} Mirtazapine Mirtazapine No 1{table QD Mirtazapin 7.5 MG 7.5 MG t_at_be e 7.5 MG dtime} Ondansetron Ondansetron No QD Ondansetro 8 MG 8 MG n 8 MG Dicyclomine Dicyclomine No 2{capsu TID Dicyclomin HCl 10 MG HCl 10 MG les} e HCl 10 MG Irbesartan Irbesartan No 1{table QD Irbesartan 150 MG 150 MG t} 150 MG Loperamide Loperamide No 1{capsu QID Loperamide HCl 2 MG HCl 2 MG le_as_n HCl 2 MG eeded} Sertraline Sertraline No 1{table QD Sertraline HCl 100 MG HCl 100 MG t} HCl 100 MG Vitamin D3 Vitamin D3 No 1{capsu BID Vitamin D3 50 MCG 50 MCG le} 50 MCG (1999 UT) (1999 UT) (1999) Magnesium Magnesium No 2{table QD Magnesium Oxide 400 Oxide 400 ts} Oxide 400 MG MG MG Entresto Entresto No BID Entresto 24/26mg 24/26mg 24/26mg 24/26mg 24/26mg 24/26mg Melatonin 3 Melatonin 3 No 1{table QD Melatonin MG MG t_at_be 3 MG dtime_a s_neede d} Omeprazole Omeprazole No Omeprazole 20 MG 20 MG 20 MG Tylenol Tylenol No Tylenol (#4) with (#4) with (#4) with codeine codeine codeine 60/300 60/300 60/300 ALPRAZolam ALPRAZolam No 1{table ALPRAZolam 0.25 MG 0.25 MG t} 0.25 MG Hyoscyamine Hyoscyamine No 1{table 6xD Hyoscyamin Sulfate Sulfate t_as_ne e Sulfate 0.125 MG 0.125 MG eded} 0.125 MG Clopidogrel Clopidogrel No 1{table QD Clopidogre Bisulfate Bisulfate t} l 75 MG 75 MG Bisulfate 75 MG Vitamin B Vitamin B No Vitamin B Complex - Complex - Complex - Furosemide Furosemide No BID Furosemide 20 MG 20 MG 20 MG Celecoxib Celecoxib No 1{capsu BID Celecoxib 200 MG 200 MG le_with 200 MG _food} Levothyroxi Levothyroxi No QD Levothyrox ne Sodium ne Sodium ine Sodium 100 MCG 100 MCG 100 MCG Magnesium Magnesium No Magnesium Oxide Oxide Oxide [...] 75 MG 75 MG Bisulfate 75 MG Plavix Plavix No Plavix Magnesium Magnesium No 2{table QD Magnesium Oxide 400 Oxide 400 ts} Oxide 400 MG MG MG Amiodarone Amiodarone No 1{table QD Amiodarone HCl 200 MG HCl 200 MG t} HCl 200 MG Hyoscyamine Hyoscyamine No 1{table 6xD Hyoscyamin Sulfate Sulfate t_as_ne e Sulfate 0.125 MG 0.125 MG eded} 0.125 MG Vitamin D3 Vitamin D3 No 1{capsu BID Vitamin D3 50 MCG 50 MCG le} 50 MCG (1999 UT) (1999 UT) (1999) Sertraline Sertraline No 1{table QD Sertraline HCl 100 MG HCl 100 MG t} HCl 100 MG Ondansetron Ondansetron No QD Ondansetro 8 MG 8 MG n 8 MG Eliquis 2.5 Eliquis 2.5 No BID Eliquis MG MG 2.5 MG Eliquis 2.5 Eliquis 2.5 No BID Eliquis MG MG 2.5 MG Entresto Entresto No 1{table BID Entresto 49-51 MG 49-51 MG t} 49-51 MG Irbesartan Irbesartan No 1{table QD Irbesartan 150 MG 150 MG t} 150 MG Metoprolol Metoprolol No 1{capsu QD Metoprolol Succinate Succinate le} Succinate 25 MG 25 MG 25 MG Mirtazapine Mirtazapine No 1{table QD Mirtazapin 7.5 MG 7.5 MG t_at_be e 7.5 MG dtime} Furosemide Furosemide No BID Furosemide 20 MG 20 MG 20 MG Loperamide Loperamide No 1{capsu QID Loperamide HCl 2 MG HCl 2 MG le_as_n HCl 2 MG eeded} Entresto Entresto No BID Entresto 24/26mg 24/26mg 24/26mg 24/26mg 24/26mg 24/26mg Dicyclomine Dicyclomine No 2{capsu TID Dicyclomin HCl 10 MG HCl 10 MG les} e HCl 10 MG ALPRAZolam ALPRAZolam No 1{table ALPRAZolam 0.25 MG 0.25 MG t} 0.25 MG Melatonin 3 Melatonin 3 No 1{table QD Melatonin MG MG t_at_be 3 MG dtime_a s_neede d} Omeprazole Omeprazole No Omeprazole 20 MG 20 MG 20 MG Pantoprazol Pantoprazol No 1{table QD Pantoprazo e Sodium 40 e Sodium 40 t} le Sodium MG MG 40 MG Atorvastati Atorvastati No 1{table QD Atorvastat n Calcium n Calcium t} in Calcium 40 MG 40 MG 40 MG Vitamin B Vitamin B No Vitamin B Complex - Complex - Complex - Celecoxib Celecoxib No 1{capsu BID Celecoxib 200 MG 200 MG le_with 200 MG _food} Levothyroxi Levothyroxi No QD Levothyrox ne Sodium ne Sodium ine Sodium 100 MCG 100 MCG 100 MCG Tylenol Tylenol No Tylenol (#4) with (#4) with (#4) with codeine codeine codeine 60/300 60/300 60/300 Metoprolol Metoprolol No 1{table BID Metoprolol Tartrate 50 Tartrate 50 t_with_ Tartrate MG MG food} 50 MG Vitamin D3 Vitamin D3 No 1{capsu BID Vitamin D3 50 MCG 50 MCG le} 50 MCG (1999 UT) (1999 UT) (1999) ALPRAZolam ALPRAZolam No 1{table ALPRAZolam 0.25 [...] Name Observation Time Observation Value Comments Source HEIGHT 2022-06-09 13:45:00 162.6 cm WEIGHT 2022-06-09 13:45:00 46.72 kg height 2022-06-06 09:30:00 64.5 [in_i] [facility] weight 2022-06-06 09:30:00 105 [lb_av] [facility] temperature 2022-06-06 09:30:00 97.2 [degF] [facility] bmi 2022-06-06 09:30:00 17.74 kg/m2 Common S pirit - [facility] blood pressure 2022-06-06 09:30:00 112 mm[Hg] Common [facility] - systolic [facility] blood pressure 2022-06-06 09:30:00 62 mm[Hg] Common [facility] - diastolic [facility] height 2022-04-25 09:00:00 64.5 [in_i] [facility] weight 2022-04-25 09:00:00 94.8 [lb_av] [facility] temperature 2022-04-25 09:00:00 97.7 [degF] [facility] bmi 2022-04-25 09:00:00 16.02 kg/m2 [facility] oximetry 2022-04-25 09:00:00 99 % [facility] respiratory rate 2022-04-25 09:00:00 15 /min Comm on Spirit - [facility] blood pressure 2022-04-25 09:00:00 120 mm[Hg] Common [facility] - systolic [facility] blood pressure 2022-04-25 09:00:00 68 mm[Hg] Common [facility] - diastolic [facility] HEIGHT 2022-04-07 18:25:00 164.6 cm WEIGHT 2022-04-03 05:00:00 53.3 kg WEIGHT 2022-04-01 17:00:00 48.7 kg HEIGHT 2022-04-07 18:25:00 164.6 cm WEIGHT 2022-04-03 05:00:00 53.3 kg WEIGHT 2022-04-01 17:00:00 48.7 kg blood pressure 2022-03-30 11:40:00 60 mm[Hg] Common Spirit - diastolic [facility] height 2022-03-30 11:40:00 64.5 [in_i] Common [facility] weight 2022-03-30 11:40:00 109 [lb_av] [facility] temperature 2022-03-30 11:40:00 98.2 [degF] Common S pirit - [facility] bmi 2022-03-30 11:40:00 18.42 kg/m2 Common S pirit - [facility] oximetry 2022-03-30 11:40:00 95 % [facility] respiratory rate 2022-03-30 11:40:00 16 /min Comm on [facility] blood pressure 2022-03-30 11:40:00 118 mm[Hg] Common [facility] - systolic [facility] height 2022-03-08 13:20:00 64.5 [in_i] [facility] weight 2022-03-08 13:20:00 115 [lb_av] [facility] temperature 2022-03-08 13:20:00 97.2 [degF] [facility] bmi 2022-03-08 13:20:00 19.43 kg/m2 Common S pirit [facility] oximetry 2022-03-08 13:20:00 98 % Common S [facility] respiratory rate 2022-03-08 13:20:00 16 /min Comm on [facility] blood pressure 2022-03-08 13:20:00 127 mm[Hg] Common [facility] - systolic [facility] blood pressure 2022-03-08 13:20:00 70 mm[Hg] Common [facility] - diastolic [facility] height 2022-01-12 15:00:00 64.5 [in_i] Common S pirit [facility] weight 2022-01-12 15:00:00 115 [lb_av] [facility] temperature 2022-01-12 15:00:00 97.5 [degF] Common [facility] bmi 2022-01-12 15:00:00 19.43 kg/m2 Common [facility] pirit - [facility] oximetry 2022-01-12 15:00:00 89 % Common [facility] respiratory rate 2022-01-12 15:00:00 16 /min Comm on [facility] blood pressure 2022-01-12 15:00:00 122 mm[Hg] Common [facility] - systolic [facility] blood pressure 2022-01-12 15:00:00 62 mm[Hg] Common [facility] - diastolic [facility] height 2021-12-24 13:40:00 64.5 [in_i] Common [facility] weight 2021-12-24 13:40:00 115 [lb_av] Common [facility] temperature 2021-12-24 13:40:00 97.5 [degF] Common [facility] bmi 2021-12-24 13:40:00 19.43 kg/m2 [facility] oximetry 2021-12-24 13:40:00 92 % Common [facility] respiratory rate 2021-12-24 13:40:00 16 /min Comm on [facility] blood pressure 2021-12-24 13:40:00 124 mm[Hg] Common [facility] - systolic [facility] blood pressure 2021-12-24 13:40:00 68 mm[Hg] Common [facility] diastolic [facility] height 2021-12-24 14:00:00 64.5 [in_i] Common [facility] weight 2021-12-24 14:00:00 115 [lb_av] Common [facility] temperature 2021-12-24 14:00:00 97.5 [degF] Common [facility] bmi 2021-12-24 14:00:00 19.43 kg/m2 Common [facility] oximetry 2021-12-24 14:00:00 92 % [facility] respiratory rate 2021-12-24 14:00:00 16 /min Comm on [facility] blood pressure 2021-12-24 14:00:00 124 mm[Hg] Common [facility] - systolic [facility] blood pressure 2021-12-24 14:00:00 68 mm[Hg] Common [facility] - diastolic [facility] height 2021-11-09 13:20:00 67 [in_i] [facility] weight 2021-11-09 13:20:00 134.6 [lb_av] [facility] temperature 2021-11-09 13:20:00 98.2 [degF] [facility] bmi 2021-11-09 13:20:00 21.08 kg/m2 [facility] oximetry 2021-11-09 13:20:00 100 % [facility] respiratory rate 2021-11-09 13:20:00 16 /min Comm on [facility] blood pressure 2021-11-09 13:20:00 124 mm[Hg] [facility] - systolic [facility] blood pressure 2021-11-09 13:20:00 66 mm[Hg] [facility] - diastolic [facility] Heart rate 2022-04-09 12:00:00 78 /min [facility] Systolic blood 2022-04-09 08:00:00 133 mm[Hg] [facility] Diastolic blood 2022-04-09 08:00:00 61 mm[Hg] [facility] Body temperature 2022-04-09 08:00:00 36.5 Ronel [facility] Respiratory rate 2022-04-09 08:00:00 15 /min [facility] Oxygen saturation in 2022-04-09 08:00:00 97 /min [facility] Arterial blood by Medical Ce nter Pulse oximetry Body height 2022-04-07 18:25:00 164.6 cm [facility] Body weight 2022-04-03 05:00:00 53.3 kg [facility] BMI 2022-04-03 05:00:00 19.67 kg/m2 [facility] Procedures Procedure Date / Time Performing Source Performed Clinician COLONOSCOPY 2022-06-[address] [facility] 11:00:00 [facility] COLONOSCOPY, WITH BIOPSY 2022-06-[address] [facility] 11:00:00 [facility] [id number] 2022-04-20 RASSA [facility] 00:00:00 [facility] CBC W/PLT COUNT & AUTO 2022-04-09 [facility] DIFFERENTIAL 09:25:00 [facility] BASIC METABOLIC PANEL 2022-04-09 [facility] 09:25:00 [facility] CBC W/PLT COUNT & AUTO 2022-04-09 [facility] DIFFERENTIAL 09:25:00 [facility] CALCIUM, IONIZED 2022-04-09 Ciccarello, Yvonne [facility] 07:37:00 [facility] MAGNESIUM 2022-04-09 Ciccarello, Yvonne [facility] 04:22:00 [facility] PHOSPHORUS 2022-04-09 Ciccarello, Yvonne [facility] 04:22:00 [facility] CBC (HEMOGRAM ONLY) 2022-04-08 Ciccarello, Yvonne [facility] 17:59:00 [facility] BASIC METABOLIC PANEL 2022-04-[address] [facility] 04:11:00 [facility] CBC (HEMOGRAM ONLY) 2022-04-08 Ciccarello, Yvonne [facility] 04:11:00 [facility] MAGNESIUM 2022-04-08 Ciccarello, Yvonne [facility] 04:11:00 [facility] PHOSPHORUS 2022-04-08 Ciccarello, Yvonne [facility] 04:11:00 [facility] CALCIUM, IONIZED 2022-04-08 Ciccarello, Yvonne [facility] 04:11:00 [facility] TSH/FREE T4 IF INDICATED 2022-04-[address] [facility] 04:11:00 [facility] IRON, TIBC, % SAT. (WITHOUT 2022-04-[address] [facility] FERRITIN) 04:11:00 [facility] FERRITIN 2022-04-[address] [facility] 04:11:00 [facility] CBC (HEMOGRAM ONLY) 2022-04-[address] [facility] 16:59:00 [facility] LACTIC ACID, VENOUS 2022-04-[address] [facility] 14:28:00 [facility] BASIC METABOLIC PANEL 2022-04-07 Mj Dimitri Yusuf [facility] 03:52:00 [facility] CBC (HEMOGRAM ONLY) 2022-04-07 Mj Dimitri Meiic [facility] 03:52:00 [facility] B-TYPE NATRIURETIC FACTOR (BNP) 2022-04-07 Dimitri Barker Paramjit [facility] 03:52:00 [facility] HEMOGLOBIN AND HEMATOCRIT 2022-04-[address] [facility] 00:28:00 [facility] HEMOGLOBIN AND HEMATOCRIT 2022-04-[address] [facility] 17:33:00 [facility] POCT-GLUCOSE METER 2022-04-06 Al-Himyary, Ali [facility] 16:12:00 [facility] HEMOGLOBIN AND HEMATOCRIT 2022-04-[address] [facility] 13:25:00 [facility] POCT-GLUCOSE METER 2022-04-06 Al-Himyary, Ali [facility] 11:04:00 [facility] POCT-GLUCOSE METER 2022-04-06 Al-Himyary, Ali [facility] 08:15:00 [facility] PROTHROMBIN TIME/INR 2022-04-06 Dimitri Barker [facility]it [facility] 04:31:00 [facility] APTT 2022-04-06 Alexander Barkerith Paramjit [facility] 04:31:00 [facility] FIBRINOGEN 2022-04-06 Mj Dimitri Paramjit [facility] 04:31:00 [facility] BASIC METABOLIC PANEL 2022-04-06 Mj Dimitri Meiic [facility] 04:31:00 [facility] CBC (HEMOGRAM ONLY) 2022-04-[address] [facility] 04:31:00 [facility] HEMOGLOBIN AND HEMATOCRIT 2022-04-[address] [facility] 23:53:00 [facility] HEMOGLOBIN AND HEMATOCRIT 2022-04-[address] [facility] 17:34:00 [facility] NM GI BLEED STUDY 2022-04-[address] [facility] 10:42:00 [facility] COMPREHENSIVE METABOLIC PANEL 2022-04-05 Mj Dimitri Meiic [facility] 08:39:00 [facility] CBC W/PLT COUNT & AUTO 2022-04-05 M[address]usuf [facility] DIFFERENTIAL 08:39:00 [facility] CBC W/PLT COUNT & AUTO 2022-04-05 Mj Dimitri Yusuf [facility] DIFFERENTIAL 08:39:00 [facility] PREPARE RBC 2022-04-[address] [facility] 07:08:00 [facility] PROTHROMBIN TIME/INR 2022-04-05 [address] [facility] 04:30:00 [facility] APTT 2022-04-05 Mj Dimit[address]usuf [facility] 04:30:00 [facility] FIBRINOGEN 2022-04-05 Mj [address]usuf [facility] 04:30:00 [facility] HEMOGLOBIN AND HEMATOCRIT 2022-04-[address] [facility] 04:30:00 [facility] PREPARE RBC 2022-04-[address] [facility] 23:54:00 [facility] PREPARE CRYOPRECIPITATE 2022-04-04 Pablo Gadiel [facility] 23:54:00 [facility] HEMOGLOBIN AND HEMATOCRIT 2022-04-[address] [facility] 23:16:00 [facility] HEMOGLOBIN AND HEMATOCRIT 2022-04-04 Lernor, Myles [facility] 17:58:00 [facility] TYPE AND SCREEN, AUTOMATED 2022-04-04 Mj Dimitri [facility]iic [facility] 15:03:00 [facility] LACTIC ACID, VENOUS 2022-04-04 Mj [address] [facility] 13:53:00 [facility] HEMOGLOBIN AND HEMATOCRIT 2022-04-04 Lernor, Myles [facility] 13:53:00 [facility] CBC (HEMOGRAM ONLY) 2022-04-[address] [facility] [facility] 04:43:00 [facility] BASIC METABOLIC PANEL 2022-04-[address] [facility] [facility] 04:43:00 [facility] MAGNESIUM 2022-04-[address] [facility] 04:43:00 [facility] PHOSPHORUS 2022-04-04 Ciccarello, Yvonne [facility] 04:43:00 [facility] CALCIUM, IONIZED 2022-04-04 [facility] Y[facility]ne [facility] 04:43:00 [facility] PROTHROMBIN TIME/INR 2022-04-[address] [facility] 04:43:00 [facility] APTT 2022-04-[address] [facility] 04:43:00 [facility] FIBRINOGEN 2022-04-[address] [facility] 04:43:00 [facility] HEMOGLOBIN AND HEMATOCRIT 2022-04-[address] [facility] 00:34:00 [facility] PREPARE RBC 2022-04-[address] [facility] 23:54:00 [facility] HEMOGLOBIN AND HEMATOCRIT 2022-04-[address] [facility] 17:34:00 [facility] HEMOGLOBIN AND HEMATOCRIT 2022-04-[address] [facility] 16:25:00 [facility] 2D ECHO W/ DOPPLER (CW/PW/COLOR) 2022-04-[address] [facility] 16:07:40 [facility] REPORT OF PROCEDURE - ENDOSCOPY 2022-04-[address] [facility] URL 15:21:25 [facility] REPORT OF PROCEDURE - ENDOSCOPY 2022-04-[address] [facility] URL 15:19:31 [facility] FIBRINOGEN 2022-04-[address] [facility] 10:29:00 [facility] HEMOGLOBIN AND HEMATOCRIT 2022-04-[address] [facility] 10:29:00 [facility] PROTHROMBIN TIME/INR 2022-04-[address] [facility] 10:29:00 [facility] APTT 2022-04-[address] [facility] 10:29:00 [facility] POCT-GLUCOSE METER 2022-04-[address] [facility] 06:57:00 [facility] CTA ABDOMEN & PELVIS 2022-04-[address] [facility] 05:43:00 [facility] CBC (HEMOGRAM ONLY) 2022-04-[address] [facility] [facility] 04:25:00 [facility] BASIC METABOLIC PANEL 2022-04-03 Ciccarello, Yvonne [facility] 04:25:00 [facility] MAGNESIUM 2022-04-03 Ciccarello, Yvonne [facility] 04:25:00 [facility] PHOSPHORUS 2022-04-03 Ciccarello, Yvonne [facility] 04:25:00 [facility] CALCIUM, IONIZED 2022-04-03 Ciccarello, Yvonne [facility] 04:25:00 [facility] TRANSFUSE LEUKO-REDUCED RED BLOOD 2022-04-[address] [facility] CELLS 04:05:00 [facility] TRANSFUSE LEUKO-REDUCED RED BLOOD 2022-04-[address] [facility] CELLS 03:15:00 [facility] TRANSFUSE CRYOPRECIPITATE 2022-04-[address] [facility] 01:50:00 [facility] TRANSFUSE CRYOPRECIPITATE 2022-04-[address] [facility] 00:41:00 [facility] PREPARE RBC 2022-04-[address] [facility] 23:55:00 [facility] HEMOGLOBIN AND HEMATOCRIT 2022-04-[address] [facility] 22:16:00 [facility] TRANSFUSE LEUKO-REDUCED RED BLOOD 2022-04-[address] [facility] CELLS 22:13:00 [facility] BASIC METABOLIC PANEL 2022-04-02 Ciccarello, Yvonne [facility] 16:26:00 [facility] MAGNESIUM 2022-04-02 Ciccarello, Yvonne [facility] 16:26:00 [facility] PHOSPHORUS 2022-04-[address] [facility] 16:26:00 [facility] CALCIUM, IONIZED 2022-04-[address] [facility] 16:26:00 [facility] HEMOGLOBIN AND HEMATOCRIT 2022-04-[address] [facility] 16:26:00 [facility] HEMOGLOBIN AND HEMATOCRIT 2022-04-[address] [facility] 13:57:00 [facility] B-TYPE NATRIURETIC FACTOR (BNP) 2022-04-[address] [facility] 13:57:00 [facility] HIGH SENSITIVITY TROPONIN I 2022-04-02 [facility] 13:57:00 [facility] PROCALCITONIN 2022-04-[address] [facility] 13:57:00 [facility] ECG 12-LEAD 2022-04-[address] [facility] 13:47:15 [facility] ECG 12-LEAD 2022-04-02 Unknown, Hl7 [facility] 13:47:15 [facility] ECG 12-LEAD 2022-04-02 Unknown, Hl7 [facility] 13:46:45 [facility] ECG 12-LEAD 2022-04-02 Unknown, Hl7 [facility] 13:46:45 [facility] REPORT OF PROCEDURE - ENDOSCOPY 2022-04-[address] [facility] URL 11:00:31 [facility] ESOPHAGOGASTRODUODENOSCOPY 2022-04-02 [facility]al [facility] 09:30:00 [facility] CBC (HEMOGRAM ONLY) 2022-04-[address] [facility] 04:40:00 [facility] BASIC METABOLIC PANEL 2022-04-[address] [facility] 04:40:00 [facility] MAGNESIUM 2022-04-[address] [facility] 04:40:00 [facility] PHOSPHORUS 2022-04-[address] [facility] 04:40:00 [facility] CALCIUM, IONIZED 2022-04-[address] [facility] 04:40:00 [facility] CTA ABDOMEN & PELVIS 2022-04-[address] [facility] 03:58:00 [facility] HEMOGLOBIN AND HEMATOCRIT 2022-04-[address] [facility] 01:44:00 [facility] ECG 12-LEAD 2022-04-[address] [facility] 00:15:50 [facility] ECG 12-LEAD 2022-04-02 Unknown, Hl7 [facility] 00:15:50 [facility] XR CHEST 1 VIEW PORTABLE / BEDSIDE 2022-04-[address] [facility] 23:47:00 [facility] TRANSFUSE LEUKO-REDUCED RED BLOOD 2022-04-01 Bao Howard [address]mas [facility] CELL[facility] 21:25:00 [facility] SARS-COV2/RT-PCR ([facility]) 2022-04-01 Travis Howard patrick [facility] 19:45:00 [facility] PT/APTT 2022-04-[address] [facility] 19:44:00 [facility] XR CHEST 1 VIEW PORTABLE / BEDSIDE 2022-04-01 Travis Howard patrick [facility] 18:45:00 [facility] TRANSFUSE LEUKO-REDUCED RED BLOOD 2022-04-01 Lee Bao marin [facility] CELLS 18:12:00 [facility] US GUIDE, VASCULAR ACCESS 2022-04-[address] [facility] 18:00:00 [facility] CO INSERT 2022-04-[address] [facility] CATH,ART,PERCUT,SHORTTERM 18:00:00 [facility] ECG 12-LEAD 2022-04-[address] [facility] 16:14:14 [facility] HEMOGLOBIN AND HEMATOCRIT 2022-04-[address] [facility] 16:05:00 [facility] ABORH, MANUAL 2022-04-[address] [facility] 14:26:00 [facility] XR CHEST 1 VIEW PORTABLE / BEDSIDE 2022-04-[address] [facility] 13:54:00 [facility] XR SHOULDER COMPLETE 2 VIEWS MIN 2022-04-[address] [facility] RIGHT 13:54:00 [facility] PROTHROMBIN TIME/INR 2022-04-[address] [facility] 13:15:00 [facility] APTT 2022-04-[address] [facility] 13:15:00 [facility] FIBRINOGEN 2022-04-[address] [facility] 13:15:00 [facility] BASIC METABOLIC PANEL 2022-04-[address] [facility] 13:13:00 [facility] HEPATIC FUNCTION PANEL 2022-04-[address] [facility] 13:13:00 [facility] LACTIC ACID, VENOUS 2022-04-[address] [facility] 13:13:00 [facility] PROCALCITONIN 2022-04-[address] [facility] 13:13:00 [facility] HIGH SENSITIVITY TROPONIN I 2022-04-[address] [facility] 13:13:00 [facility] BLOOD GAS, VENOUS 2022-04-[address] [facility] 13:13:00 [facility] B-TYPE NATRIURETIC FACTOR (BNP) 2022-04-01 Kinjal Howard jacquelin [facility] 13:13:00 [facility] TYPE AND SCREEN, AUTOMATED 2022-04-[address] [facility] 13:13:00 [facility] Plan of Care Planned Activity Planned Date Details Comments Source Future Scheduled 2023-04-[address] [facility] Test 00:00:00 [facility] (12+) [code = Tobacco Cessation Counseling and Screening (12+)] Future Scheduled 2023-04-[address] [facility] 00:00:00 [facility] (12+) [code = Tobacco Cessation Counseling and Screening (12+)] Future Scheduled 2023-04-[address] [facility] Test 00:00:00 [facility] (12+) [code = Tobacco Cessation Counseling and Screening (12+)] Future Scheduled 2022-03-15 Medicare IPPE (WELCOME [facility] 00:00:00 TO MEDICARE) [code = Medical Center Medicare IPPE (WELCOME TO MEDICARE)] Future Scheduled 2022-03-15 Medicare IPPE (WELCOME [facility] 00:00:00 TO MEDICARE) [code = Medical Center Medicare IPPE (WELCOME TO MEDICARE)] Future Scheduled 2022-03-15 Medicare IPPE (WELCOME [facility] 00:00:00 TO MEDICARE) [code = Medical Center Medicare IPPE (WELCOME TO MEDICARE)] Future Scheduled 2022-01-13 INFLUENZA VACCINE (#1) [facility] 00:00:00 [code = INFLUENZA Medical Ce nter VACCINE (#1)] Future Scheduled 2022-01-13 INFLUENZA VACCINE (#1) [facility] 00:00:00 [code = INFLUENZA Medical Ce nter VACCINE (#1)] Future Scheduled 2022-01-13 INFLUENZA VACCINE (#1) [facility] 00:00:00 [code = INFLUENZA Medical Ce nter VACCINE (#1)] Future Scheduled 2021-05-[address] [facility] 00:00:00 (12+) [code = Medical Center DEPRESSION SCREENING (12+)] Future Scheduled 2021-05-15 FALLS RISK SCREENING [facility] 00:00:00 [code = FALLS RISK Medical C enter SCREENING] Future Scheduled 2021-05-[address] [facility] 00:00:00 (12+) [code = Medical Center DEPRESSION SCREENING (12+)] Future Scheduled 2021-05-15 F[address]S RISK SCREENING [facility] 00:00:00 [code = FALLS RISK Medical C enter SCREENING] Future Scheduled 2021-05-[address] [facility] 00:00:00 (12+) [code = Medical Center DEPRESSION SCREENING (12+)] Future Scheduled 2021-05-15 F[address]S RISK SCREENING [facility] 00:00:00 [code = FALLS RISK Medical C enter SCREENING] Future Scheduled 2007 PNEUMOCOCCAL 65+ YRS [facility] Test 00:00:00 (1 - PCV) [code = Medical Ce nter PNEUMOCOCCAL 65+ YRS (1 - PCV)] Future Scheduled 2007 PNEUMOCOCCAL 65+ YRS [facility] Test 00:00:00 (1 - PCV) [code = Medical Ce nter PNEUMOCOCCAL 65+ YRS (1 - PCV)] Future Scheduled 2007 PNEUMOCOCCAL 65+ YRS [facility] Test 00:00:00 (1 - PCV) [code = Medical Ce nter PNEUMOCOCCAL 65+ YRS (1 - PCV)] Future Scheduled 1992 SHINGLES VACCINES ([address] [facility] 00:00:00 of 2) [code = SHINGLES Medic al Center VACCINES (1 of 2)] Future Scheduled 1992 SHINGLES VACCINES ([address] [facility] 00:00:00 of 2) [code = SHINGLES Medic al Center VACCINES (1 of 2)] Future Scheduled 1992 SHINGLES VACCINES ([address] [facility] 00:00:00 of 2) [code = SHINGLES Medic al Center VACCINES (1 of 2)] Future Scheduled 1961 DTAP/TDAP/TD VACCINES [facility] 00:00:00 (1 - Tdap) [code = Medical C enter DTAP/TDAP/TD VACCINES (1 - Tdap)] Future Scheduled 1961 DTAP/TDAP/TD VACCINES [facility] 00:00:00 (1 - Tdap) [code = Medical C enter DTAP/TDAP/TD VACCINES (1 - Tdap)] Future Scheduled 1961 DTAP/TDAP/TD VACCINES [facility] 00:00:00 (1 - Tdap) [code = Medical C enter DTAP/TDAP/TD VACCINES (1 - Tdap)] Future Scheduled 1960 HEPATITIS C SCREENING [facility] 00:00:00 [code = HEPATITIS C Medical Center SCREENING] Future Scheduled 1960 HEPATITIS C SCRE[facility]ING [facility] 00:00:00 [code = HEPATITIS C Medical Center SCREENING] Future Scheduled 1960 HEPATITIS C SCREENING [facility] 00:00:00 [code = HEPATITIS C Medical Center SCREENING] Future Scheduled 1942 COVID-19 VACCINE (#1) [facility] 00:00:00 [code = COVID-[address] VACCINE (#1)] Future Scheduled 1942 COVID-19 VACCINE (#1) [facility] 00:00:00 [code = COVID-[address] VACCINE (#1)] Future Scheduled 1942 COVID-19 VACCINE (#1) [facility] 00:00:00 [code = COVID-[address] VACCINE (#1)] Future Scheduled 1942 DXA SCAN [code = DXA [facility] Test 00:00:00 SCAN] [facility] Future Scheduled 1942 DXA SCAN [code = DXA [facility] 00:00:00 SCAN] [facility] Future Scheduled 1942 DXA SCAN [code = DXA [facility] Test 00:00:00 SCAN] [facility] Encounters Start End Encounter Admission Attending Care Care Encounter Source Date/Time Date/Time Type Type Clinicians Facility Department ID 2022-06-28 Outpatient Richardson, STLMLC STLMLC [id number] Common 10:32:01 Isabella [address]34 [facility] 2022-06-06 Outpatient Richardson, STLMLC STLMLC [id number] Common 11:56:02 Isabella [address]87 [facility] 2022-06-03 Outpatient Richardson, STLMLC STLMLC [id number] Common 09:18:02 Isabella [address]105 [facility] 2022-05-30 Outpatient Richardson, STLMLC STLMLC [id number] Common 07:54:00 Isabella 73438 [facility] 2022-05-19 Outpatient Richardson, STLMLC STLMLC [id number] Common 06:49:00 Isabella 86184 [facility] 2022-04-20 Outpatient ALKA DOAN, [facility] Surgery [id number] SLE 13:49:23 [place] 2022-03-28 Outpatient Richardson, STLMLC STLMLC [id number] Common 15:51:02 Isabella 70573 [facility] 2022-01-24 Outpatient Richardson, STLMLC STLMLC [id number] Common 14:16:03 Isabella [facility] 2022-01-12 Outpatient Richardson, STLMLC STLMLC [id number] Common 15:58:02 Isabella [facility] 2022-01-12 Inpatient LU AgudeloCL OUTD [id number] [facility] 09:15:00 Gilberto 14 [facility] 2022-01-10 Outpatient Richardson, STLMLC STLMLC [id number] Common 10:43:01 Isabella [facility] 2021-12-22 Outpatient Richardson, STLMLC STLMLC [id number] Common 14:43:01 Isabella [facility] 2021-11-09 Outpatient Richardson, STLMLC STLMLC [id number] Common 13:02:02 Isabella [facility] 2021-11-08 Outpatient Richardson, STLMLC STLMLC [id number] Common 14:34:03 Isabella [facility] 2022-06-09 2022-06-09 Outpatient EL SLEH SLEH [id number] SLEH 00:00:00 00:00:00 2022-06-06 2022-06-06 OFFICE STLMLC STLMLC [id number] Co mmon 00:00:00 00:00:00 VISIT NEW Spir it PT LEVEL 3 - [facility] 2022-04-25 2022-04-25 OFFICE STLMLC STLMLC [id number] Co mmon 00:00:00 00:00:00 VISIT Spirit ESTAB PT - CHI LEVEL 4 [facility] 2022-04-20 2022-04-20 Inpatient ALKA Barillas, LUCL INTE.02 [id number] [facility] 13:46:00 18:10:00 Gilberto 11 [facility] 2022-04-11 2022-04-11 Outpatient LU AgudeloCL 3DAY [id number] [facility] 08:00:00 09:00:00 Gilberto 14 [facility] 2022-04-01 2022-04-09 Inpatient ER LINDA LESTER General Med [id number] SLE 12:19:00 13:30:00 BEBETO 2022-04-01 2022-04-09 Hospital ER Fermin Muniz [facility] [id number] [facility] 12:19:00 13:30:00 Encounter Bebeto Lester Gadiel Badillo [facility] 2022-04-03 2022-04-03 Anesthesia Deanna, [facility] [id number] 14:45:00 15:44:[address] [facility] 2022-04-03 2022-04-03 Surgery Tirso, [facility] [id number] 12:37:00 13:25:00 [facility] 2022-04-02 2022-04-02 Surgery Tirso, [facility] [id number] 09:30:00 10:50:00 [facility] 2022-04-02 2022-04-02 Anesthesia Lang, [facility] [id number] 09:25:00 10:17:00 Event [facility] 2022-04-02 2022-04-[address] [facility] [id number] 00:00:00 00:00:[address] [facility] 2022-04-01 2022-04-01 Outpatient OMAIRA SHAH [id number] Omaira 00:00:00 00:00:00 GADIEL Powerol angel 2022-04-01 2022-04-[address] [facility] [id number] 00:00[facility]00 00:00:00 ion [facility] 2022-03-30 2022-03-30 OFFICE [facility] [id number] Co mmon 00:00:00 00:00:00 VISIT Cristobal CHAMORRO PT - CHI LEVEL 4 [facility] 2022-03-14 2022-03-14 (TEL) STLMLC STLMLC [id number] Co mmon 00:00:00 00:00:00 [facility] 2022-03-08 2022-03-08 OFFICE STLMLC STLMLC [id number] Co mmon 00:00:00 00:00:00 VISIT Spirit ESTAB PT - CHI LEVEL 4 [facility] 2022-01-28 2022-01-28 OFFICE STLMLC STLMLC [id number] Co mmon 00:00:00 00:00:00 VISIT Spirit ESTAB PT - CHI LEVEL 4 [facility] 2022-01-27 2022-01-27 (TEL) STLMLC STLMLC [id number] Co mmon 00:00:00 00:00:00 [facility] 2022-01-26 2022-01-26 (TEL) STLMLC STLMLC [id number] Co mmon 00:00:00 00:00:00 [facility] 2022-01-26 2022-01-26 OFFICE STLMLC STLMLC [id number] Co mmon 00:00:00 00:00:00 VISIT EST Spir it PT LEVEL 3 - [facility] 2022-01-13 2022-01-13 (TEL) STLMLC STLMLC [id number] Co mmon 00:00:00 00:00:00 [facility] 2022-01-12 2022-01-12 OFFICE STLMLC STLMLC [id number] Co mmon 00:00:00 00:00:00 VISIT Spirit ESTAB PT - CHI LEVEL 5 [facility] 2022-01-10 2022-01-10 (TEL) STLMLC STLMLC [id number] Co mmon 00:00:00 00:00:00 [facility] 2021-12-24 2021-12-24 OFFICE STLMLC STLMLC [id number] Co mmon 00:00:00 00:00:00 VISIT Spirit ESTAB PT - CHI LEVEL 5 [facility] 2021-12-24 2021-12-24 (MCR WELL) STLMLC STLMLC [id number] Common 00:00:00 00:00:00 Medicare Spiri t [facility] 2021-12-21 2021-12-21 (TEL) [employer] [id number] Co mmon 00:00:00 00:00:00 [facility] 2021-11-09 2021-11-09 (TEL) STLMLC STLMLC [id number] Co mmon 00:00:00 00:00:00 [facility] 2021-11-09 2021-11-09 OFFICE [facility] [id number] Co mmon 00:00:00 00:00:00 VISIT NEW Spir it PT LEVEL 5 - [facility] Results Test Description Test Time Test Comments Results Result Comments Source GLUCOSE BEDSIDE 2022-04-20 13:13:00 Test Item Value Reference Range Interpretation Comme nts GLUCOSE BEDSIDE (test code = 79 MG/DL 70-110 N Performed by certified cream separator operator at [facility]) [facility] COVID 19 Asymptomatic IH [id number] 12:40:00 Test Item Value Reference Range Interpretation Comments COVID 19 Asymptomatic Negative Negative A nega tive result is IH AG (test code = presumpti ve and should COVNONPUIAG) be confirmedwit h an FDA authorized mole cular assay, if neces óscar forpatient ap gement.A positive result does not rule out co-inf ections withother patho gens.This test detects nick th viable (live) and non-viable,SARS -CoV, and SARS-CoV-2. Michele t performance dep ends on theamount of vi lisa (antigen) in th e sample.This michele t has not been FDA cleare d or approved; the t est hasbeen authori zed by FDA under an Em ergency Use Authorizati on(EUA) for use by labo ratories certified under the CLIA thatmeet the requirements to perform moderate, high or waivedcomplexit y tests. 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 Prophylax is of venous thrombos is 2.0 - 3.0 (orthoped ic surgery), Proph ylaxis of venous throm bosis (other than hig h-risk surgery), Treat ment of Deep Vein Thrombosis/Pulm onary Embolism, Preve ntion of systemic emb olism - Tissue heart va lves, Acute Myocardia l Infarction (to prevent systemic emboli sm), Valvular heart disease, Atrial Fibrillation, Bileaflet mecha nical valve in aortic position.2. Mec hanical prosthetic valv es (high risk), 2. 5 - 3.5 Presence of Lup us Anticoagulant o r Antiphospholipi d Antibodies, Pre vention of systemic emb olism - Acute Myocardia l Infarction (to prevent recurrent infar ct). BASIC METABOLIC [id number] 12:21:00 Test Item Value Reference Range Interpretation Comments SODIUM (test code = 136 mEq/L 134-147 N NA) POTASSIUM (test code 4.2 mEq/L 3.4-5.0 N = K) CHLORIDE (test code 105 mEq/L 100-108 N = CL) CARBON DIOXIDE (test 26 mEq/l 21-33 N code = CO2) ANION GAP (test code 9 0-20 N = GAP) GLUCOSE (test code = 89 mg/dL 70-110 N GLU) BLOOD UREA NITROGEN 22 mg/dL 7-18 H (test code = BUN) GLOMERULAR 38.3 70-80 L The Glomerular FILTRATION RATE Filtration R ate is a (test code = GFR) calculated parameterbased on serum Creatinine, pat ient age and sex. GFR va luesless than 60 mL/min/ 1.73 square meters a re indicative ofCh ronic Kidney Disease. Values less than 15 mL/min/1.73squa re meters indicate Kidney failure. The calculation forGFR is based on the CKD-EPI (2020) calculat ion. This formulais race indifferent and is the recommended for brian for GFRby the Natio nal Kidney Foundati on for Adults.The GFR will not calculate if th e sex is unknown or if thepatient's ag e is <18 years. CREATININE (test 1.4 mg/dL 0.6-1.3 H code = CREAT) CALCIUM (test code = 9.0 mg/dL 8.0-10.5 N CA) CBC W/AUTO [id number] 12:10:00 Test Item Value Reference Range Interpretation Comments WHITE BLOOD CELL (test code = 5.3 x10 3/uL 4.5-11.0 N WBC) RED BLOOD CELL (test code = 2.94 x10 6/uL 3.54-5.02 L RBC) HEMOGLOBIN (test code = HGB) 8.9 g/dL 11.0-15.0 L HEMATOCRIT (test code = HCT) 27.6 % 33.0-45.0 L MEAN CELL VOLUME (test code = 93.9 fL 81.0-99.0 N MCV) MEAN CELL HGB (test code = MCH) 30.3 pg 27.0-33.0 N MEAN CELL HGB CONCETRATION 32.2 g/dL 33.0-37.0 L (test code = MCHC) RED CELL DISTRIBUTION WIDTH CV 17.0 % 11.5-14.5 H (test code = RDW) RED CELL DISTRIBUTION WIDTH SD 56.9 fL 37.0-54.0 H (test code = RDW-SD) PLATELET COUNT (test code = 379 x10 3/uL 150-400 N PLT) MEAN PLATELET VOLUME (test code 9.6 fL 7.0-9.0 H = MPV) NEUTROPHIL % (test code = NT%) 50.7 % 56.0-77.0 L IMMATURE GRANULOCYTE % (test 0.4 % 0.0-2.0 N code = IG%) LYMPHOCYTE % (test code = LY%) 24.4 % 14.0-32.0 N MONOCYTE % (test code = MO%) 13.2 % 4.8-9.0 H EOSINOPHIL % (test code = EO%) 10.2 % 0.3-3.7 H BASOPHIL % (test code = BA%) 1.1 % 0.0-2.0 N NUCLEATED RBC % (test code = 0.0 % 0-0 N NRBC%) NEUTROPHIL # (test code = NT#) 2.68 x10 3/uL 2.0-7.6 N IMMATURE GRANULOCYTE # (test 0.02 x10 3/uL 0.00-0.03 N code = IG#) LYMPHOCYTE # (test code = LY#) 1.29 x10 3/uL 1.0-3.8 N MONOCYTE # (test code = MO#) 0.70 x10 3/uL 0.1-0.8 N EOSINOPHIL # (test code = EO#) 0.54 x10 3/uL 0.0-0.2 H BASOPHIL # (test code = BA#) 0.06 x10 3/uL 0.0-0.2 N NUCLEATED RBC # (test code = 0.00 x10 3/uL 0.0-0.1 N NRBC#) MANUAL DIFF REQUIRED (test code NO = MDIFF) - XR CHEST 1 [id number] 00:00:00 [facility] 1940 Sex: F FAX:Gilberto Souza MD [phone] [place]: St: ADM FAX: Fabián Hopson [phone] Name: ROY,JUDY [facility] : 1940 Age/S: 81/F [address] [place] [address] Unit #: [id number] [place]: [place] [address] Phys: Fabián Hopson [facility] Acct: [id number] Dis Date: Status: ADM IN PHONE #: [phone] Exam Date: 04/20/2022 1351 FAX #: [phone] Reason: WATCHMAN EXAMS: CPT CODE: [id number] XR CHEST 1 V 22438 PROCEDURE INFORMATION: Exam: XR Chest Exam date and time: 04/20/2022 1:51 PM Age: 81 years oldClinical indication: Device placement; Other: S/P watchman TECHNIQUE: Imaging protocol: Radiologic exam of the chest. Views: 1 view. COMPARISON: DX XR CHEST 2 V 04/11/2022 2:32 PM FINDINGS: Tubes, catheters and devices: Surgical clips in the bilateral axillae and overlying the left lower chest. Lungs: Bibasilar coarse opacification, likely chronic scarring. No focal consolidation. Pleural spaces: Unremarkable. No pleural effusion. No pneumothorax. Heart/Mediastinum: Interval placement of watchman de vice. No cardiomegaly. Vasculature: Atherosclerotic calcifications of the aorta. Bones/joints: Unremarkable. IMPRESSION: No focal consolidation. at 1551 Reported and signed by: David Granado M.D. CC: Gilberto Barillas MD; Fabián Barraza Technologist: GISSEL Paul) Trnkev Date/Time/By: 04/20/2022 (1551) : By: [email or web address] Orig Print D/T: S: 04/20/2022 (1551) PAGE 1 Signed ReportBASIC METABOLIC [id number] 10:02:46 Test Item Value Reference Range Interpretation Comments SODIUM (BEAKER) 138 meq/L 136-145 (test code = 381) POTASSIUM 3.3 meq/L 3.5-5.1 L (BEAKER) (test code = 379) CHLORIDE (BEAKER) 106 meq/L 98-107 (test code = 382) CO2 (BEAKER) 24 meq/L 22-29 (test code = 355) BLOOD UREA 10 mg/dL 7-21 NITROGEN (BEAKER) (test code = 354) CREATININE 1.39 mg/dL 0.57-1.25 H (BEAKER) (test code = 358) GLUCOSE RANDOM 83 mg/dL 70-105 (BEAKER) (test code = 652) CALCIUM (BEAKER) 8.9 mg/dL 8.4-10.2 (test code = 697) EGFR (BEAKER) 39 Interpretatio n of eGFR (test code = mL/min/1.73 values Stage De scription 1092) sq m Result G1 Edwige l or high >=90 G2 Mildly decreased 60-89 G3a Mildl y to moderately 45-5 9 G3b Moderately to s everely 30-44 G4 Severl y decreased 15-29 G5 Kidney failure <15Reported eGF R is based on the CKD-EPI 2020 equation that d oes not use a race coefficientEsti mated GFR is not as accur ate as Creatinine Estrelal valentin in predicting glom erular filtration rate . Estimated GFR is not appl icable for dialysis patien ts Parking Lot Chauffeur ID - PIAYA LCBC W/PLT COUNT & AUTO [id number] 09:34:25 Test Item Value Reference Range Interpretation Comments WHITE BLOOD CELL COUNT (BEAKER) 4.7 K/ L 3.5-10.5 (test code = 775) RED BLOOD CELL COUNT (BEAKER) 2.88 M/ L 3.93-5.22 L (test code = 761) HEMOGLOBIN (BEAKER) (test code = 8.8 GM/DL 11.2-15.7 L 410) HEMATOCRIT (BEAKER) (test code = 26.7 % 34.1-44.9 L 411) MEAN CORPUSCULAR VOLUME (BEAKER) 93 fL 79-95 (test code = 753) MEAN CORPUSCULAR HEMOGLOBIN 30.6 pg 25.6-32.2 (BEAKER) (test code = 751) MEAN CORPUSCULAR HEMOGLOBIN CONC 33.0 GM/DL 32.2-35.5 (BEAKER) (test code = 752) RED CELL DISTRIBUTION WIDTH 18.0 % 11.7-14.4 H (BEAKER) (test code = 412) PLATELET COUNT (BEAKER) (test 351 K/CU MM 150-450 code = 756) MEAN PLATELET VOLUME (BEAKER) 9.4 fL 9.4-12.3 (test code = 754) NUCLEATED RED BLOOD CELLS 0 /100 WBC 0-0 (BEAKER) (test code = 413) NEUTROPHILS RELATIVE PERCENT 52 % (BEAKER) (test code = 429) LYMPHOCYTES RELATIVE PERCENT 23 % (BEAKER) (test code = 430) MONOCYTES RELATIVE PERCENT 14 % (BEAKER) (test code = 431) EOSINOPHILS RELATIVE PERCENT 7 % (BEAKER) (test code = 432) BASOPHILS RELATIVE PERCENT 2 % (BEAKER) (test code = 437) NEUTROPHILS ABSOLUTE COUNT 2.46 K/ L 1.56-6.13 (BEAKER) (test code = 670) LYMPHOCYTES ABSOLUTE COUNT 1.10 K/ L 1.18-3.74 L (BEAKER) (test code = 414) MONOCYTES ABSOLUTE COUNT (BEAKER) 0.68 K/ L 0.24-0.36 H (test code = 415) EOSINOPHILS ABSOLUTE COUNT 0.33 K/ L 0.04-0.36 (BEAKER) (test code = 416) BASOPHILS ABSOLUTE COUNT (BEAKER) 0.09 K/ L 0.01-0.08 H (test code = 417) IMMATURE GRANULOCYTES-RELATIVE 1.10 % 0.00-1.00 H PERCENT (BEAKER) (test code = 2801) CALCIUM, [id number] 07:46:21 Test Item Value Reference Range Interpretation Comments CALCIUM IONIZED (BEAKER) (test 1.13 mmol/L 1.12-1.27 code = 698) PH, BLOOD (BEAKER) (test code = 7.39 1810) [id number] 06:09:36 Test Item Value Reference Range Interpretation Comments PHOSPHORUS (BEAKER) (test code = 4.2 mg/dL 2.3-4.7 604) Parking Lot Chauffeur ID - PIMICAH [id number] 06:09:35 Test Item Value Reference Range Interpretation Comments MAGNESIUM (BEAKER) (test code = 1.3 mg/dL 1.6-2.6 L 627) Parking Lot Chauffeur ID - PIAYA LCBC (HEMOGRAM ONLY)2022-04-08 18:11:05 Test Item Value Reference Range Interpretation Comments WHITE BLOOD CELL COUNT (BEAKER) 6.0 K/ L 3.5-10.5 (test code = 775) RED BLOOD CELL COUNT (BEAKER) 2.68 M/ L 3.93-5.22 L (test code = 761) HEMOGLOBIN (BEAKER) (test code = 8.2 GM/DL 11.2-15.7 L 410) HEMATOCRIT (BEAKER) (test code = 25.0 % 34.1-44.9 L 411) MEAN CORPUSCULAR VOLUME (BEAKER) 93 fL 79-95 (test code = 753) MEAN CORPUSCULAR HEMOGLOBIN 30.6 pg 25.6-32.2 (BEAKER) (test code = 751) MEAN CORPUSCULAR HEMOGLOBIN CONC 32.8 GM/DL 32.2-35.5 (BEAKER) (test code = 752) RED CELL DISTRIBUTION WIDTH 17.7 % 11.7-14.4 H (BEAKER) (test code = 412) PLATELET COUNT (BEAKER) (test 297 K/CU MM 150-450 code = 756) MEAN PLATELET VOLUME (BEAKER) 9.4 fL 9.4-12.3 (test code = 754) NUCLEATED RED BLOOD CELLS 0 /100 WBC 0-0 (BEAKER) (test code = 413) CALCIUM, [id number] 06:29:13 Test Item Value Reference Range Interpretation Comments CALCIUM IONIZED (BEAKER) (test 1.19 mmol/L 1.12-1.27 code = 698) PH, BLOOD (BEAKER) (test code = 7.36 1810) [id number] 05:20:46 Test Item Value Reference Range Interpretation Comments MAGNESIUM (BEAKER) (test code = 1.4 mg/dL 1.6-2.6 L 627) Parking Lot Chauffeur ID - RANDAL [id number] 05:20:46 Test Item Value Reference Range Interpretation Comments PHOSPHORUS (BEAKER) (test code = 3.8 mg/dL 2.3-4.7 604) Parking Lot Chauffeur ID - RANDAL LBASIC METABOLIC [id number] 05:20:45 Test Item Value Reference Range Interpretation Comments SODIUM (BEAKER) 135 meq/L 136-145 L (test code = 381) POTASSIUM 3.6 meq/L 3.5-5.1 (BEAKER) (test code = 379) CHLORIDE (BEAKER) 104 meq/L 98-107 (test code = 382) CO2 (BEAKER) 20 meq/L 22-29 L (test code = 355) BLOOD UREA 8 mg/dL 7-21 NITROGEN (BEAKER) (test code = 354) CREATININE 1.39 mg/dL 0.57-1.25 H (BEAKER) (test code = 358) GLUCOSE RANDOM 105 mg/dL 70-105 (BEAKER) (test code = 652) CALCIUM (BEAKER) 9.1 mg/dL 8.4-10.2 (test code = 697) EGFR (BEAKER) 39 Interpretatio n of eGFR (test code = mL/min/1.73 values Stage De scription 1092) sq m Result G1 Norm al or high >=90 G2 Mildly decreased 60-89 G3a Mildl y to moderately 45-5 9 G3b Moderately to s everely 30-44 G4 Severl y decreased 15-29 G5 Kidne y failure <15Reported eGF R is based on the CKD-EPI 2020 equation that d oes not use a race coefficientEsti mated GFR is not as accur ate as Creatinine Estrella valentin in predicting glom erular filtration rate . Estimated GFR is not appl icable for dialysis patien ts Parking Lot Chauffeur ID - RANDAL LTSH/FREE T4 IF [id number] 05:18:25 Test Item Value Reference Range Interpretation Comments THYROID STIMULATING HORMONE 3.625 uIU/mL 0.350-4.940 (BEAKER) (test code = 772) Parking Lot Chauffeur ID - RANDAL [id number] 05:18:24 Test Item Value Reference Range Interpretation Comments FERRITIN (BEAKER) (test code = 543.86 ng/mL 5.00-275.00 H 361) Parking Lot Chauffeur ID - MARCOMICAH BISHNU, TIBC, % SAT. (WITHOUT FERRITIN)2022-04-08 05:08:16 Test Item Value Reference Range Interpretation Comments IRON (BEAKER) (test code = 547) 36.0 ug/dL 40.0-160.0 L TOTAL IRON BINDING CAPACITY 188 ug/dL 250-450 L (BEAKER) (test code = 769) IRON % SATURATION (2) (BEAKER) 19 % 20-55 L (test code = 2590) Parking Lot Chauffeur ID - MARCOMICAH LCBC (HEMOGRAM ONLY)2022-04-08 04:33:11 Test Item Value Reference Range Interpretation Comments WHITE BLOOD CELL COUNT (BEAKER) 7.1 K/ L 3.5-10.5 (test code = 775) RED BLOOD CELL COUNT (BEAKER) 2.96 M/ L 3.93-5.22 L (test code = 761) HEMOGLOBIN (BEAKER) (test code = 8.8 GM/DL 11.2-15.7 L 410) HEMATOCRIT (BEAKER) (test code = 26.9 % 34.1-44.9 L 411) MEAN CORPUSCULAR VOLUME (BEAKER) 91 fL 79-95 (test code = 753) MEAN CORPUSCULAR HEMOGLOBIN 29.7 pg 25.6-32.2 (BEAKER) (test code = 751) MEAN CORPUSCULAR HEMOGLOBIN CONC 32.7 GM/DL 32.2-35.5 (BEAKER) (test code = 752) RED CELL DISTRIBUTION WIDTH 17.3 % 11.7-14.4 H (BEAKER) (test code = 412) PLATELET COUNT (BEAKER) (test 284 K/CU MM 150-450 code = 756) MEAN PLATELET VOLUME (BEAKER) 9.8 fL 9.4-12.3 (test code = 754) NUCLEATED RED BLOOD CELLS 0 /100 WBC 0-0 (BEAKER) (test code = 413) CBC (HEMOGRAM ONLY)2022-04-07 17:14:52 Test Item Value Reference Range Interpretation Comments WHITE BLOOD CELL COUNT (BEAKER) 6.1 K/ L 3.5-10.5 (test code = 775) RED BLOOD CELL COUNT (BEAKER) 2.65 M/ L 3.93-5.22 L (test code = 761) HEMOGLOBIN (BEAKER) (test code = 8.1 GM/DL 11.2-15.7 L 410) HEMATOCRIT (BEAKER) (test code = 24.6 % 34.1-44.9 L 411) MEAN CORPUSCULAR VOLUME (BEAKER) 93 fL 79-95 (test code = 753) MEAN CORPUSCULAR HEMOGLOBIN 30.6 pg 25.6-32.2 (BEAKER) (test code = 751) MEAN CORPUSCULAR HEMOGLOBIN CONC 32.9 GM/DL 32.2-35.5 (BEAKER) (test code = 752) RED CELL DISTRIBUTION WIDTH 17.2 % 11.7-14.4 H (BEAKER) (test code = 412) PLATELET COUNT (BEAKER) (test 236 K/CU MM 150-450 code = 756) MEAN PLATELET VOLUME (BEAKER) 9.6 fL 9.4-12.3 (test code = 754) NUCLEATED RED BLOOD CELLS 0 /100 WBC 0-0 (BEAKER) (test code = 413) LACTIC ACID, [id number] 15:10:53 Test Item Value Reference Range Interpretation Comments LACTATE BLOOD VENOUS 1.75 mmol/L 0.50-2.20 Specime n slightly (2) (BEAKER) (test hemolyzed code = 2872) Parking Lot Chauffeur ID - ADMINB-TYPE NATRIURETIC FACTOR (BNP)2022-04-07 04:48:08 Test Item Value Reference Range Interpretation Comments B-TYPE NATRIURETIC PEPTIDE 2055 pg/mL 0-100 H (BEAKER) (test code = 700) Parking Lot Chauffeur ID - MAYE MBASIC METABOLIC [id number] 04:41:21 Test Item Value Reference Range Interpretation Comments SODIUM (BEAKER) 138 meq/L 136-145 (test code = 381) POTASSIUM 4.0 meq/L 3.5-5.1 Specimen slight ly (BEAKER) (test hemolyzed code = 379) CHLORIDE (BEAKER) 106 meq/L 98-107 (test code = 382) CO2 (BEAKER) 25 meq/L 22-29 (test code = 355) BLOOD UREA 10 mg/dL 7-21 NITROGEN (BEAKER) (test code = 354) CREATININE 1.26 mg/dL 0.57-1.25 H Specimen slight ly (BEAKER) (test hemolyzed code = 358) GLUCOSE RANDOM 83 mg/dL 70-105 (BEAKER) (test code = 652) CALCIUM (BEAKER) 9.2 mg/dL 8.4-10.2 (test code = 697) EGFR (BEAKER) 43 Interpretatio n of eGFR (test code = mL/min/1.73 values Stage De scription 1092) sq m Result G1 Edwige l or high >=90 G2 Mildly decreased 60-89 G3a Mildl y to moderately 45-5 9 G3b Moderately to s everely 30-44 G4 Severl y decreased 15-29 G5 Kidney failure <15Reported eGF R is based on the CKD-EPI 2020 equation that d oes not use a race coefficientEsti mated GFR is not as accur ate as Creatinine Estrella hanson in predicting glom erular filtration rate . Estimated GFR is not appl icable for dialysis patien ts Parking Lot Chauffeur ID - MAYE MCBC (HEMOGRAM ONLY)2022-04-07 04:11:53 Test Item Value Reference Range Interpretation Comments WHITE BLOOD CELL COUNT (BEAKER) 6.6 K/ L 3.5-10.5 (test code = 775) RED BLOOD CELL COUNT (BEAKER) 2.71 M/ L 3.93-5.22 L (test code = 761) HEMOGLOBIN (BEAKER) (test code = 8.2 GM/DL 11.2-15.7 L 410) HEMATOCRIT (BEAKER) (test code = 24.8 % 34.1-44.9 L 411) MEAN CORPUSCULAR VOLUME (BEAKER) 92 fL 79-95 (test code = 753) MEAN CORPUSCULAR HEMOGLOBIN 30.3 pg 25.6-32.2 (BEAKER) (test code = 751) MEAN CORPUSCULAR HEMOGLOBIN CONC 33.1 GM/DL 32.2-35.5 (BEAKER) (test code = 752) RED CELL DISTRIBUTION WIDTH 17.2 % 11.7-14.4 H (BEAKER) (test code = 412) PLATELET COUNT (BEAKER) (test 238 K/CU MM 150-450 code = 756) MEAN PLATELET VOLUME (BEAKER) 9.7 fL 9.4-12.3 (test code = 754) NUCLEATED RED BLOOD CELLS 0 /100 WBC 0-0 (BEAKER) (test code = 413) HEMOGLOBIN AND [id number] 00:35:51 Test Item Value Reference Range Interpretation Comments HEMOGLOBIN (BEAKER) (test code = 8.0 GM/DL 11.2-15.7 L 410) HEMATOCRIT (BEAKER) (test code = 23.9 % 34.1-44.9 L 411) Parking Lot Chauffeur ID - [id number] AND [id number] 18:49:40 Test Item Value Reference Range Interpretation Comments HEMOGLOBIN (BEAKER) (test code = 8.5 GM/DL 11.2-15.7 L 410) HEMATOCRIT (BEAKER) (test code = 25.7 % 34.1-44.9 L 411) Parking Lot Chauffeur ID - [id number]-Glucose [id number] 16:34:25 Test Item Value Reference Range Interpretation Comments POC-Glucose Meter (test 91 mg/dL 70-110 : TE STED AT [facility] code = 1538) [address] [facility], [address] 30: Parking Lot Chauffeur/Techni mary ID = [id number] for Genia Lordin a Lab Interpretation (test Normal code = 76144-5) [facility] [id number] 16:34:25 Test Item Value Reference Range Interpretation Comments POC-Glucose Meter (test 91 mg/dL 70-110 : TE STED AT [facility] code = 1538) [address] [facility], 770 30: Parking Lot Chauffeur/Techni mary ID = [id number] for [employer] a Lab Interpretation (test Normal code = 56153-7) [facility] [id number] 16:34:25 Test Item Value Reference Range Interpretation Comments POC-Glucose Meter (test 91 mg/dL 70-110 : TE STED AT [facility] code = 1538) [address] [facility], 770 30: Parking Lot Chauffeur/Techni mary ID = [id number] for [employer] a Lab Interpretation (test Normal code = 79731-2) [facility] [id number] 16:34:25 Test Item Value Reference Range Interpretation Comments POC-GLUCOSE METER 91 mg/dL 70-110 : TESTED A T [facility] [address] (BEAKER) (test code = [facility], 1538) [id number]: Parking Lot Chauffeur/Techni mary ID = [id number] for Jami arpit, Agnieszka HEMOGLOBIN AND [id number] 13:34:27 Test Item Value Reference Range Interpretation Comments HEMOGLOBIN (BEAKER) (test code = 7.6 GM/DL 11.2-15.7 L 410) HEMATOCRIT (BEAKER) (test code = 23.0 % 34.1-44.9 L 411) Parking Lot Chauffeur ID - [id number] [id number] 11:16:21 Test Item Value Reference Range Interpretation Comments POC-GLUCOSE METER 92 mg/dL 70-110 : TESTED A T [facility] [address] (BEAKER) (test code = [facility], 1538) [id number]: Parking Lot Chauffeur/Techni mary ID = [id number] for Jami arpit, Agnieszka POCT-GLUCOSE [id number] 08:27:27 Test Item Value Reference Range Interpretation Comments POC-GLUCOSE METER 106 mg/dL 70-110 : TESTED A T [facility] 6720 (BEAKER) (test code = NAM[place], 1538) [address]: Parking Lot Chauffeur/Techni mary ID = [id number] for BRENTON AREVALO BASIC METABOLIC [id number] 05:32:53 Test Item Value Reference Range Interpretation Comments SODIUM (BEAKER) 134 meq/L 136-145 L (test code = 381) POTASSIUM 4.2 meq/L 3.5-5.1 Specimen modera tely (BEAKER) (test hemolyzed code = 379) CHLORIDE (BEAKER) 104 meq/L 98-107 (test code = 382) CO2 (BEAKER) 20 meq/L 22-29 L (test code = 355) BLOOD UREA 14 mg/dL 7-21 NITROGEN (BEAKER) (test code = 354) CREATININE 1.40 mg/dL 0.57-1.25 H Specimen modera tely (BEAKER) (test hemolyzed code = 358) GLUCOSE RANDOM 95 mg/dL 70-105 (BEAKER) (test code = 652) CALCIUM (BEAKER) 8.8 mg/dL 8.4-10.2 (test code = 697) EGFR (BEAKER) 38 Interpretatio n of eGFR (test code = mL/min/1.73 values Stage De scription 1092) sq m Result G1 Edwige l or high >=90 G2 Mildly decreased 60-89 G3a Mildl y to moderately 45- 59 G3b Moderately to s everely 30-44 G4 Severl y decreased 15-29 G5 Kidney failure <15Reported eGF R is based on the CKD-EPI 2021 equation that d oes not use a race coefficientEsti mated GFR is not as accur ate as Creatinine Estrella hanson in predicting glom erular filtration rate . Estimated GFR is not appl icable for dialysis patien ts Parking Lot Chauffeur ID - [id number] 05:09:23 Test Item Value Reference Range Interpretation Comments PARTIAL THROMBOPLASTIN TIME 30.4 seconds 22.5-36.0 (BEAKER) (test code = 760) [id number] 05:09:06 Test Item Value Reference Range Interpretation Comments FIBRINOGEN LEVEL (BEAKER) (test 307 mg/dl 225-434 code = 658) PROTHROMBIN TIME/[id number] 05:08:39 Test Item Value Reference Range Interpretation Comments PROTIME (BEAKER) 14.4 seconds 11.9-14.2 H (test code = 759) INR (BEAKER) (test 1.19 See_Comment [Automat ed message] code = 370) The system PrismaStar generated this result transmitted ref erence range: <=5.90. The reference range was not used to int erpret this result as normal/abnormal . RECOMMENDED COUMADIN/WARFARIN INR THERAPY RANGESSTANDARD DOSE: 2.0 - 3.0 Includes: PROPHYLAXIS for venous thrombosis, systemic embolization; TREATMENT for venous thrombosis and/or pulmonary embolus.HIGH RISK: Target INR is 2.5-3.5 for patients with mechanical heart valves.CBC (HEMOGRAM ONLY)2022-04-06 04:53:34 Test Item Value Reference Range Interpretation Comments WHITE BLOOD CELL COUNT (BEAKER) 6.9 K/ L 3.5-10.5 (test code = 775) RED BLOOD CELL COUNT (BEAKER) 2.83 M/ L 3.93-5.22 L (test code = 761) HEMOGLOBIN (BEAKER) (test code = 8.5 GM/DL 11.2-15.7 L 410) HEMATOCRIT (BEAKER) (test code = 25.7 % 34.1-44.9 L 411) MEAN CORPUSCULAR VOLUME (BEAKER) 91 fL 79-95 (test code = 753) MEAN CORPUSCULAR HEMOGLOBIN 30.0 pg 25.6-32.2 (BEAKER) (test code = 751) MEAN CORPUSCULAR HEMOGLOBIN CONC 33.1 GM/DL 32.2-35.5 (BEAKER) (test code = 752) RED CELL DISTRIBUTION WIDTH 17.0 % 11.7-14.4 H (BEAKER) (test code = 412) PLATELET COUNT (BEAKER) (test 239 K/CU MM 150-450 code = 756) MEAN PLATELET VOLUME (BEAKER) 9.7 fL 9.4-12.3 (test code = 754) NUCLEATED RED BLOOD CELLS 0 /100 WBC 0-0 (BEAKER) (test code = 413) HEMOGLOBIN AND [id number] 00:29:56 Test Item Value Reference Range Interpretation Comments HEMOGLOBIN (BEAKER) (test code = 9.1 GM/DL 11.2-15.7 L 410) HEMATOCRIT (BEAKER) (test code = 26.7 % 34.1-44.9 L 411) Parking Lot Chauffeur ID - 6000HEMOGLOBIN AND [id number] 17:45:13 Test Item Value Reference Range Interpretation Comments HEMOGLOBIN (BEAKER) (test code = 9.6 GM/DL 11.2-15.7 L 410) HEMATOCRIT (BEAKER) (test code = 27.9 % 34.1-44.9 L 411) Parking Lot Chauffeur ID - 6000HEMORRHAGE IMAGING, [id number] 11:07:00Reason for Exam:- >GI bleedMARTIN [facility] : 1940 Sex: FFINAL REPORT PROCEDURE: HEMORRHAGE STUDY with RBCs CPT CODE: 66158 INDICATION: Gastrointestinal Bleeding PROTOCOL: 21.6 mCi of Tc-99m was injected intravenously as labeled autologous redblood cells. Flow images of the abdomen were obtained, followed by serial images for approximately 60 minutes. Additional images were obtained 4 and 18 hours after tracer injection. FINDINGS: Early images show physiological tracer distribution in the blood pool. Late images, however, show mild tracer accumulation in the region of the hepatic flexure of the colon. IMPRESSION: Minor interval hemorrhagemost likely arising in the region of the hepatic flexure or less likely the ascending colon. Signed: Ras Dumont MDReport Verified Date/Time: 04/05/2022 11:07:49 COMPREHENSIVE METABOLIC [id number] 09:29:07 Test Item Value Reference Range Interpretation Comments TOTAL PROTEIN 4.5 gm/dL 6.0-8.3 L (BEAKER) (test code = 770) ALBUMIN (BEAKER) 2.4 g/dL 3.5-5.0 L (test code = 1145) ALKALINE 20 U/L 40-150 L PHOSPHATASE (BEAKER) (test code = 346) BILIRUBIN TOTAL 0.5 mg/dL 0.2-1.2 (BEAKER) (test code = 377) SODIUM (BEAKER) 134 meq/L 136-145 L (test code = 381) POTASSIUM (BEAKER) 3.8 meq/L 3.5-5.1 (test code = 379) CHLORIDE (BEAKER) 104 meq/L 98-107 (test code = 382) CO2 (BEAKER) (test 28 meq/L 22-29 code = 355) BLOOD UREA 18 mg/dL 7-21 NITROGEN (BEAKER) (test code = 354) CREATININE 1.35 mg/dL 0.57-1.25 H (BEAKER) (test code = 358) GLUCOSE RANDOM 91 mg/dL 70-105 (BEAKER) (test code = 652) CALCIUM (BEAKER) 8.5 mg/dL 8.4-10.2 (test code = 697) AST (SGOT) 33 U/L 5-34 (BEAKER) (test code = 353) ALT (SGPT) 13 U/L 6-55 (BEAKER) (test code = 347) EGFR (BEAKER) 40 Interpretatio n of eGFR (test code = 1092) mL/min/1.[address] age Description sq m Result G1 Edwige l or high >=90 G2 Mildly decreased 60-89 G3a Mildl y to moderately 45-5 9 G3b Moderately to s everely 30-44 G4 Severl y decreased 15-29 G5 Kidney failure <15Reported eGF R is based on the CKD-EPI 2021 equation that d oes not use a race coefficientEsti mated GFR is not as accur ate as Creatinine Estrella hanson in predicting glom erular filtration rate . Estimated GFR is not appl icable for dialysis patien ts Parking Lot Chauffeur ID - PIAYA LCBC W/PLT COUNT & AUTO [id number] 08:48:46 Test Item Value Reference Range Interpretation Comments WHITE BLOOD CELL COUNT (BEAKER) 5.9 K/ L 3.5-10.5 (test code = 775) RED BLOOD CELL COUNT (BEAKER) 2.71 M/ L 3.93-5.22 L (test code = 761) HEMOGLOBIN (BEAKER) (test code = 8.1 GM/DL 11.2-15.7 L 410) HEMATOCRIT (BEAKER) (test code = 24.0 % 34.1-44.9 L 411) MEAN CORPUSCULAR VOLUME (BEAKER) 89 fL 79-95 (test code = 753) MEAN CORPUSCULAR HEMOGLOBIN 29.9 pg 25.6-32.2 (BEAKER) (test code = 751) MEAN CORPUSCULAR HEMOGLOBIN CONC 33.8 GM/DL 32.2-35.5 (BEAKER) (test code = 752) RED CELL DISTRIBUTION WIDTH 16.7 % 11.7-14.4 H (BEAKER) (test code = 412) PLATELET COUNT (BEAKER) (test 209 K/CU MM 150-450 code = 756) MEAN PLATELET VOLUME (BEAKER) 9.5 fL 9.4-12.3 (test code = 754) NUCLEATED RED BLOOD CELLS 0 /100 WBC 0-0 (BEAKER) (test code = 413) NEUTROPHILS RELATIVE PERCENT 51 % (BEAKER) (test code = 429) LYMPHOCYTES RELATIVE PERCENT 23 % (BEAKER) (test code = 430) MONOCYTES RELATIVE PERCENT 12 % (BEAKER) (test code = 431) EOSINOPHILS RELATIVE PERCENT 13 % (BEAKER) (test code = 432) BASOPHILS RELATIVE PERCENT 2 % (BEAKER) (test code = 437) NEUTROPHILS ABSOLUTE COUNT 2.97 K/ L 1.56-6.13 (BEAKER) (test code = 670) LYMPHOCYTES ABSOLUTE COUNT 1.34 K/ L 1.18-3.74 (BEAKER) (test code = 414) MONOCYTES ABSOLUTE COUNT (BEAKER) 0.69 K/ L 0.24-0.36 H (test code = 415) EOSINOPHILS ABSOLUTE COUNT 0.75 K/ L 0.04-0.36 H (BEAKER) (test code = 416) BASOPHILS ABSOLUTE COUNT (BEAKER) 0.09 K/ L 0.01-0.08 H (test code = 417) IMMATURE GRANULOCYTES-RELATIVE 0.80 % 0.00-1.00 PERCENT (BEAKER) (test code = 2801) Prepare [id number] 07:08:00 Test Item Value Reference Range Interpretation Comments CROSSMATCH (test code = COMPATIBLE 2264) Unit ABO (test code = A Pos 6538631) UNIT NUMBER (test code = [id number] 934-0) Status (test code = 8898584) WORK IN PROGRESS Blood Bank Product (test RED BLOOD CELLS code = 2263) PRODUCT CODE (test code = [id number] 933-2) [facility] [id number] 07:08:00 Test Item Value Reference Range Interpretation Comments CROSSMATCH (test code = COMPATIBLE 2264) Unit ABO (test code = A Pos 5407485) UNIT NUMBER (test code = [id number] 934-0) Status (test code = 2018135) WORK IN PROGRESS Blood Bank Product (test RED BLOOD CELLS code = 2263) PRODUCT CODE (test code = [id number] 933-2) [facility] [id number] 07:08:00 Test Item Value Reference Range Interpretation Comments CROSSMATCH (test code = COMPATIBLE 4) Unit ABO (test code = A Pos 1949609) UNIT NUMBER (test code = [id number] 934-0) Status (test code = 6997935) WORK IN PROGRESS Blood Bank Product (test RED BLOOD CELLS code = 2263) PRODUCT CODE (test code = A8857U69 933-2) [facility]2022-[facility]-22 04:53:51 Test Item Value Reference Range Interpretation Comments PARTIAL THROMBOPLASTIN TIME 30.6 seconds 22.5-36.0 (BEAKER) (test code = 760) [id number] 04:53:50 Test Item Value Reference Range Interpretation Comments FIBRINOGEN LEVEL (BEAKER) (test 288 mg/dl 225-434 code = 658) PROTHROMBIN TIME/[id number] 04:53:12 Test Item Value Reference Range Interpretation Comments PROTIME (BEAKER) 14.7 seconds 11.9-14.2 H (test code = 759) INR (BEAKER) (test 1.17 See_Comment [Automat ed message] code = 370) The system PrismaStar generated this result transmitted ref erence range: <=5.90. The reference range was not used to int erpret this result as normal/abnormal . RECOMMENDED COUMADIN/WARFARIN INR THERAPY RANGESSTANDARD DOSE: 2.0 - 3.0 Includes: PROPHYLAXIS for venous thrombosis, systemic embolization; TREATMENT for venous thrombosis and/or pulmonary embolus.HIGH RISK: Target INR is 2.5-3.5 for patients with mechanical heart valves.HEMOGLOBIN AND [id number] 04:46:50 Test Item Value Reference Range Interpretation Comments HEMOGLOBIN (BEAKER) (test code = 8.6 GM/DL 11.2-15.7 L 410) HEMATOCRIT (BEAKER) (test code = 24.9 % 34.1-44.9 L 411) Parking Lot Chauffeur ID - 6000Prepare [id number] 23:54:00 Test Item Value Reference Range Interpretation Comments Unit ABO (test code = A Pos 9773862) UNIT NUMBER (test code = [id number] 934-0) Status (test code = 8808926) TX_TIMEINCHART Blood Bank Product (test code CRYOPRECIPITATE = 2263) PRODUCT CODE (test code = G2749J55 933-2) [facility] [id number] 23:54:00 Test Item Value Reference Range Interpretation Comments Unit ABO (test code = A Pos 3490831) UNIT NUMBER (test code = [id number] 934-0) Status (test code = 3032997) TX_TIMEINCHART Blood Bank Product (test code CRYOPRECIPITATE = 2263) PRODUCT CODE (test code = T5195F73 933-2) [facility] [id number] 23:54:00 Test Item Value Reference Range Interpretation Comments Unit ABO (test code = A Pos 8579713) UNIT NUMBER (test code = [id number] 934-0) Status (test code = 6614216) TX_TIMEINCHART Blood Bank Product (test code CRYOPRECIPITATE = 2263) PRODUCT CODE (test code = I3523G07 933-2) [facility] [id number] 23:28:53 Test Item Value Reference Range Interpretation Comments HEMOGLOBIN (BEAKER) (test code = 8.2 GM/DL 11.2-15.7 L 410) HEMATOCRIT (BEAKER) (test code = 23.5 % 34.1-44.9 L 411) Parking Lot Chauffeur ID - 6000HEMOGLOBIN AND [id number] 18:29:48 Test Item Value Reference Range Interpretation Comments HEMOGLOBIN (BEAKER) (test code = 8.6 GM/DL 11.2-15.7 L 410) HEMATOCRIT (BEAKER) (test code = 25.2 % 34.1-44.9 L 411) Parking Lot Chauffeur ID - 6000LACTIC ACID, [id number] 14:25:52 Test Item Value Reference Range Interpretation Comments LACTATE BLOOD VENOUS (2) (BEAKER) 0.81 mmol/L 0.50-2.20 (test code = 2872) Parking Lot Chauffeur ID - EUGENIE GHEMOGLOBIN AND [id number] 14:06:47 Test Item Value Reference Range Interpretation Comments HEMOGLOBIN (BEAKER) (test code = 8.7 GM/DL 11.2-15.7 L 410) HEMATOCRIT (BEAKER) (test code = 25.2 % 34.1-44.9 L 411) Parking Lot Chauffeur ID - [id number] 05:44:22 Test Item Value Reference Range Interpretation Comments PHOSPHORUS (BEAKER) (test code = 4.3 mg/dL 2.3-4.7 604) Parking Lot Chauffeur ID - EUGENIE GBASIC METABOLIC [id number] 05:44:21 Test Item Value Reference Range Interpretation Comments SODIUM (BEAKER) 134 meq/L 136-145 L (test code = 381) POTASSIUM 4.2 meq/L 3.5-5.1 (BEAKER) (test code = 379) CHLORIDE (BEAKER) 104 meq/L 98-107 (test code = 382) CO2 (BEAKER) 24 meq/L 22-29 (test code = 355) BLOOD UREA 19 mg/dL 7-21 NITROGEN (BEAKER) (test code = 354) CREATININE 1.38 mg/dL 0.57-1.25 H (BEAKER) (test code = 358) GLUCOSE RANDOM 112 mg/dL 70-105 H (BEAKER) (test code = 652) CALCIUM (BEAKER) 8.6 mg/dL 8.4-10.2 (test code = 697) EGFR (BEAKER) 39 Interpretatio n of eGFR (test code = mL/min/1.73 values Stage De scription 1092) sq m Result G1 Edwige l or high >=90 G2 Mildly decreased 60-89 G3a Mildl y to moderately 45-5 9 G3b Moderately to s everely 30-44 G4 Severl y decreased 15-29 G5 Kidney failure <15Reported eGF R is based on the CKD-EPI 2020 equation that d oes not use a race coefficientEsti mated GFR is not as accur ate as Creatinine Estrella valentin in predicting glom erular filtration rate . Estimated GFR is not appl icable for dialysis patien ts Parking Lot Chauffeur ID - EUGENIE [id number] 05:44:21 Test Item Value Reference Range Interpretation Comments MAGNESIUM (BEAKER) (test code = 1.8 mg/dL 1.6-2.6 627) Parking Lot Chauffeur ID - EUGENIE [id number] 05:20:49 Test Item Value Reference Range Interpretation Comments PARTIAL THROMBOPLASTIN TIME 30.4 seconds 22.5-36.0 (BEAKER) (test code = 760) [id number] 05:20:30 Test Item Value Reference Range Interpretation Comments FIBRINOGEN LEVEL (BEAKER) (test 324 mg/dl 225-434 code = 658) PROTHROMBIN TIME/[id number] 05:20:10 Test Item Value Reference Range Interpretation Comments PROTIME (BEAKER) 13.8 seconds 11.9-14.2 (test code = 759) INR (BEAKER) (test 1.08 See_Comment [Automat ed message] code = 370) The system [employer]ismaStar generated this result transmitted ref erence range: <=5.90. The reference range was not used to int erpret this result as normal/abnormal . RECOMMENDED COUMADIN/WARFARIN INR THERAPY RANGESSTANDARD DOSE: 2.0 - 3.0 Includes: PROPHYLAXIS for venous thrombosis, systemic embolization; TREATMENT for venous thrombosis and/or pulmonary embolus.HIGH RISK: Target INR is 2.5-3.5 for patients with mechanical heart valves.CBC (HEMOGRAM ONLY)2022-04-04 05:13:45 Test Item Value Reference Range Interpretation Comments WHITE BLOOD CELL COUNT (BEAKER) 5.6 K/ L 3.5-10.5 (test code = 775) RED BLOOD CELL COUNT (BEAKER) 3.32 M/ L 3.93-5.22 L (test code = 761) HEMOGLOBIN (BEAKER) (test code = 9.8 GM/DL 11.2-15.7 L 410) HEMATOCRIT (BEAKER) (test code = 27.9 % 34.1-44.9 L 411) MEAN CORPUSCULAR VOLUME (BEAKER) 84 fL 79-95 (test code = 753) MEAN CORPUSCULAR HEMOGLOBIN 29.5 pg 25.6-32.2 (BEAKER) (test code = 751) MEAN CORPUSCULAR HEMOGLOBIN CONC 35.1 GM/DL 32.2-35.5 (BEAKER) (test code = 752) RED CELL DISTRIBUTION WIDTH 16.9 % 11.7-14.4 H (BEAKER) (test code = 412) PLATELET COUNT (BEAKER) (test 210 K/CU MM 150-450 code = 756) MEAN PLATELET VOLUME (BEAKER) 9.9 fL 9.4-12.3 (test code = 754) NUCLEATED RED BLOOD CELLS 0 /100 WBC 0-0 (BEAKER) (test code = 413) CALCIUM, [id number] 04:57:20 Test Item Value Reference Range Interpretation Comments CALCIUM IONIZED (BEAKER) (test 1.14 mmol/L 1.12-1.27 code = 698) PH, BLOOD (BEAKER) (test code = 7.43 1810) HEMOGLOBIN AND [id number] 00:42:50 Test Item Value Reference Range Interpretation Comments HEMOGLOBIN (BEAKER) (test code = 10.4 GM/DL 11.2-15.7 L 410) HEMATOCRIT (BEAKER) (test code = 29.7 % 34.1-44.9 L 411) Parking Lot Chauffeur ID - 6000HEMOGLOBIN AND [id number] 20:04:37 Test Item Value Reference Range Interpretation Comments HEMOGLOBIN (BEAKER) (test code = 12.2 GM/DL 11.2-15.7 410) HEMATOCRIT (BEAKER) (test code = 34.6 % 34.1-44.9 411) HEMOGLOBIN AND [id number] 18:37:17 Test Item Value Reference Range Interpretation Comments HEMOGLOBIN (BEAKER) (test code = 10.0 GM/DL 11.2-15.7 L 410) HEMATOCRIT (BEAKER) (test code = 28.4 % 34.1-44.9 L 411) 2D Echo W/Doppler(CW/PW/Color)2022-04-03 17:51:02Ejection FractionSLE ECHO [facility]2D Echo W/Doppler(CW/PW/Color)2022-04-03 17:51:02Ejection FractionSLE ECHO [facility] W/Doppler(CW/PW/Color) 2022-04-03 17:51:02Ejection [facility]LE [facility]CHO [facility] 10:50:35 Test Item Value Reference Range Interpretation Comments PARTIAL THROMBOPLASTIN TIME 31.8 seconds 22.5-36.0 (BEAKER) (test code = 760) [id number] 10:50:32 Test Item Value Reference Range Interpretation Comments FIBRINOGEN LEVEL (BEAKER) (test 317 mg/dl 225-434 code = 658) PROTHROMBIN TIME/[id number] 10:49:54 Test Item Value Reference Range Interpretation Comments PROTIME (BEAKER) 14.2 seconds 11.9-14.2 (test code = 759) INR (BEAKER) (test 1.12 See_Comment [Automat ed message] code = 370) The system [employer]Star generated this result transmitted ref erence range: <=5.90. The reference range was not used to int erpret this result as normal/abnormal . RECOMMENDED COUMADIN/WARFARIN INR THERAPY RANGESSTANDARD DOSE: 2.0 - 3.0 Includes: PROPHYLAXIS for venous thrombosis, systemic embolization; TREATMENT for venous thrombosis and/or pulmonary embolus.HIGH RISK: Target INR is 2.5-3.5 for patients with mechanical heart valves.HEMOGLOBIN AND [id number] 10:42:10 Test Item Value Reference Range Interpretation Comments HEMOGLOBIN (BEAKER) (test code = 9.2 GM/DL 11.2-15.7 L 410) HEMATOCRIT (BEAKER) (test code = 26.1 % 34.1-44.9 L 411) Parking Lot Chauffeur ID - 6000CALCIUM, [id number] 08:47:20 Test Item Value Reference Range Interpretation Comments CALCIUM IONIZED (BEAKER) (test 1.08 mmol/L 1.12-1.27 L code = 698) PH, BLOOD (BEAKER) (test code = 7.38 1810) POCT-GLUCOSE [id number] 07:08:12 Test Item Value Reference Range Interpretation Comments POC-GLUCOSE METER 107 mg/dL 70-110 : TESTED A T [facility] 6720 (BEAKER) (test code = NAM[place], 1538) [address]: Parking Lot Chauffeur/Techni mary ID = [id number] for Ch au, Sarkis CT, CTA [id number] 06:16:00Unlisted Reason for Exam - Click Yes and Enter Reason Below->No [facility] : 1940 Sex: FFINAL REPORT CT, CTA ABDOMEN \T\ PELVIS WITHOUT OR WITH CONTRAST with three-dimensionalreconstructions CLINICAL STATEMENT: GI bleed. Dose modulation, iterative reconstruction, and/or weight-based adjustment of the mA/kV was utilized to reduce the radiation dose to as low as reasonably achievable. FINDINGS: Abdominal aorta is mildly disease without significant stenosis or dissection. No aneurysm. Celiac axis, superior mesenteric artery widely patent. Inferior mesenteric artery is patent. Bilateral renal arteries are mildly diseased and patent. Bilateral common iliac and external iliac arteries are preserved. Oral contrast is seen in bowel loops from prior administration. There is no evidence for extravasation of contrast although evaluation is limited by the presence of oral contrast. No dilated loops of bowel. Liver, spleen, pancreas, gallbladder, adrenal glands and kidneys are within normal limits. No hydronephrosis or biliary dilatation. Bladder is unremarkable. No abdominal or p elvic lymphadenopathy. Mild layering bilateral pleural effusions. IMPRESSION: No evidence for activeGI bleeding on this study although it is mildly limited by the presence of oral contrast in bowel loops. Signed: Norma Weber MDReport Verified Date/Time: 04/03/2022 06:16:35 BASIC METABOLIC [id number] 05:41:09 Test Item Value Reference Range Interpretation Comments SODIUM (BEAKER) 136 meq/L 136-145 (test code = 381) POTASSIUM 4.5 meq/L 3.5-5.1 (BEAKER) (test code = 379) CHLORIDE (BEAKER) 108 meq/L 98-107 H (test code = 382) CO2 (BEAKER) 23 meq/L 22-29 (test code = 355) BLOOD UREA 25 mg/dL 7-21 H NITROGEN (BEAKER) (test code = 354) CREATININE 1.25 mg/dL 0.57-1.25 (BEAKER) (test code = 358) GLUCOSE RANDOM 117 mg/dL 70-105 H (BEAKER) (test code = 652) CALCIUM (BEAKER) 7.9 mg/dL 8.4-10.2 L (test code = 697) EGFR (BEAKER) 44 Interpretatio n of eGFR (test code = mL/min/1.73 values Stage De scription 1092) sq m Result G1 Edwige l or high >=90 G2 Mildly decreased 60-89 G3a Mildl y to moderately 45-5 9 G3b Moderately to s everely 30-44 G4 Sever ly decreased 15-29 G5 Kidney failure <15Repo rted eGFR is based on the CKD-EPI 2020 equation t hat does not use a race coefficientEsti mated GFR is not as accur ate as Creatinine Estrella hanson in predicting glom erular filtration rate . Estimated GFR is not appl icable for dialysis patien ts Parking Lot Chauffeur ID - EUGENIE [id number] 05:39:18 Test Item Value Reference Range Interpretation Comments PHOSPHORUS (BEAKER) (test code = 3.7 mg/dL 2.3-4.7 604) Parking Lot Chauffeur ID - EUGENIE [id number] 05:39:17 Test Item Value Reference Range Interpretation Comments MAGNESIUM (BEAKER) (test code = 2.2 mg/dL 1.6-2.6 627) Parking Lot Chauffeur ID - EUGENIE GCBC (HEMOGRAM ONLY)2022-04-03 05:26:44 Test Item Value Reference Range Interpretation Comments WHITE BLOOD CELL COUNT (BEAKER) 13.7 K/ L 3.5-10.5 H (test code = 775) RED BLOOD CELL COUNT (BEAKER) 2.52 M/ L 3.93-5.22 L (test code = 761) HEMOGLOBIN (BEAKER) (test code = 7.6 GM/DL 11.2-15.7 L 410) HEMATOCRIT (BEAKER) (test code = 21.6 % 34.1-44.9 L 411) MEAN CORPUSCULAR VOLUME (BEAKER) 86 fL 79-95 (test code = 753) MEAN CORPUSCULAR HEMOGLOBIN 30.2 pg 25.6-32.2 (BEAKER) (test code = 751) MEAN CORPUSCULAR HEMOGLOBIN CONC 35.2 GM/DL 32.2-35.5 (BEAKER) (test code = 752) RED CELL DISTRIBUTION WIDTH 16.7 % 11.7-14.4 H (BEAKER) (test code = 412) PLATELET COUNT (BEAKER) (test 165 K/CU MM 150-450 code = 756) MEAN PLATELET VOLUME (BEAKER) 10.0 fL 9.4-12.3 (test code = 754) NUCLEATED RED BLOOD CELLS 0 /100 WBC 0-0 (BEAKER) (test code = 413) HEMOGLOBIN AND [id number] 22:36:53 Test Item Value Reference Range Interpretation Comments HEMOGLOBIN (BEAKER) (test code = 6.0 GM/DL 11.2-15.7 LL 410) HEMATOCRIT (BEAKER) (test code = 17.8 % 34.1-44.9 L 411) Parking Lot Chauffeur ID - [id number] 16:58:44 Test Item Value Reference Range Interpretation Comments MAGNESIUM (BEAKER) (test code = 2.9 mg/dL 1.6-2.6 H 627) Parking Lot Chauffeur ID - EUGENIE [id number] 16:58:44 Test Item Value Reference Range Interpretation Comments PHOSPHORUS (BEAKER) (test code = 3.6 mg/dL 2.3-4.7 604) Parking Lot Chauffeur ID - EUGENIE GBASIC METABOLIC [id number] 16:58:43 Test Item Value Reference Range Interpretation Comments SODIUM (BEAKER) 134 meq/L 136-145 L (test code = 381) POTASSIUM 4.6 meq/L 3.5-5.1 (BEAKER) (test code = 379) CHLORIDE (BEAKER) 106 meq/L 98-107 (test code = 382) CO2 (BEAKER) 22 meq/L 22-29 (test code = 355) BLOOD UREA 21 mg/dL 7-21 NITROGEN (BEAKER) (test code = 354) CREATININE 1.12 mg/dL 0.57-1.25 (BEAKER) (test code = 358) GLUCOSE RANDOM 131 mg/dL 70-105 H (BEAKER) (test code = 652) CALCIUM (BEAKER) 8.6 mg/dL 8.4-10.2 (test code = 697) EGFR (BEAKER) 50 Interpretatio n of eGFR (test code = mL/min/1.73 values Stage De scription 1092) sq m Result G1 Norm al or high >=90 G2 Mildly decreased 60-89 G3a Mildl y to moderately 45-5 9 G3b Moderately to s everely 30-44 G4 Severl y decreased 15-29 G5 Kidney failure <15Reported eGF R is based on the CKD-EPI 2020 equation that d oes not use a race coefficientEsti mated GFR is not as accur ate as Creatinine Estrella valentin in predicting glom erular filtration rate . Estimated GFR is not appl icable for dialysis patien ts Parking Lot Chauffeur ID - EUGENIE GCALCIUM, [id number] 16:42:18 Test Item Value Reference Range Interpretation Comments CALCIUM IONIZED (BEAKER) (test 1.18 mmol/L 1.12-1.27 code = 698) PH, BLOOD (BEAKER) (test code = 7.46 1810) HEMOGLOBIN AND [id number] 16:40:39 Test Item Value Reference Range Interpretation Comments HEMOGLOBIN (BEAKER) (test code = 8.8 GM/DL 11.2-15.7 L 410) HEMATOCRIT (BEAKER) (test code = 25.4 % 34.1-44.9 L 411) Parking Lot Chauffeur ID - [id number] 15:38:07 Test Item Value Reference Range Interpretation Comments PROCALCITONIN (BEAKER) (test code 0.24 ng/mL <0.05 H = 3036) SEPSIS RISK (ng/mL)Low: 0.05-0.50Intermediate: 0.51-2.00High: >=2.01B-TYPE NATRIURETIC FACTOR (BNP)2022-04-02 14:36:03 Test Item Value Reference Range Interpretation Comments B-TYPE NATRIURETIC PEPTIDE 3436 pg/mL 0-100 H (BEAKER) (test code = 700) Parking Lot Chauffeur ID - EUGENIE GHIGH SENSITIVITY TROPONIN [id number] 14:35:41 Test Item Value Reference Range Interpretation Comments HIGH SENSITIVITY 27 pg/ml See_Comment H [Automated message] TROPONIN I (test code = The system which [id number]) generated this result transmitted ref erence range: <=17. Th e reference range was not used to int erpret this result as normal/abnormal . Parking Lot Chauffeur ID - EUGENIE GThe HIGHWALL DRILL OPERATOR STAT High Sensitivity Troponin-I results should be used in conjunction with other diagnostic information such as ECG, clinical observations and information, and patient symptoms to aid in the diagnosis of MS.HEMOGLOBIN AND [id number] 14:08:39 Test Item Value Reference Range Interpretation Comments HEMOGLOBIN (BEAKER) (test code = 9.1 GM/DL 11.2-15.7 L 410) HEMATOCRIT (BEAKER) (test code = 26.6 % 34.1-44.9 L 411) Parking Lot Chauffeur ID - StefanCALCIUM, [id number] 06:09:14 Test Item Value Reference Range Interpretation Comments CALCIUM IONIZED (BEAKER) (test 1.12 mmol/L 1.12-1.27 code = 698) PH, BLOOD (BEAKER) (test code = 7.44 1810) [id number] 05:45:17 Test Item Value Reference Range Interpretation Comments PHOSPHORUS (BEAKER) 3.2 mg/dL 2.3-4.7 Specimen slightly (test code = 604) hemolyzed Parking Lot Chauffeur ID - EUGENIE GBASIC METABOLIC [id number] 05:45:17 Test Item Value Reference Range Interpretation Comments SODIUM (BEAKER) 135 meq/L 136-145 L (test code = 381) POTASSIUM 4.4 meq/L 3.5-5.1 Specimen slight ly (BEAKER) (test hemolyzed code = 379) CHLORIDE (BEAKER) 107 meq/L 98-107 (test code = 382) CO2 (BEAKER) 22 meq/L 22-29 (test code = 355) BLOOD UREA 24 mg/dL 7-21 H NITROGEN (BEAKER) (test code = 354) CREATININE 1.06 mg/dL 0.57-1.25 Specimen slight ly (BEAKER) (test hemolyzed code = 358) GLUCOSE RANDOM 87 mg/dL 70-105 (BEAKER) (test code = 652) CALCIUM (BEAKER) 8.2 mg/dL 8.4-10.2 L (test code = 697) EGFR (BEAKER) 53 Interpretatio n of eGFR (test code = mL/min/1.73 values Stage De scription 1092) sq m Result G1 Edwige l or high >=90 G2 Mildly decreased 60-89 G3a Mildl y to moderately 45-5 9 G3b Moderately to s everely 30-44 G4 Severl y decreased 15-29 G5 Kidney failure <15Reported eGF R is based on the CKD-EPI 2020 equation that d oes not use a race coefficientEsti mated GFR is not as accur ate as Creatinine Estrella valentin in predicting glom erular filtration rate . Estimated GFR is not appl icable for dialysis patien ts Parking Lot Chauffeur ID - EUGENIE [id number] 05:45:16 Test Item Value Reference Range Interpretation Comments MAGNESIUM (BEAKER) 1.4 mg/dL 1.6-2.6 L Specimen slightly (test code = 627) hemolyzed Parking Lot Chauffeur ID - EUGENIE GCBC (HEMOGRAM ONLY)2022-04-02 05:11:51 Test Item Value Reference Range Interpretation Comments WHITE BLOOD CELL COUNT (BEAKER) 5.7 K/ L 3.5-10.5 (test code = 775) RED BLOOD CELL COUNT (BEAKER) 2.82 M/ L 3.93-5.22 L (test code = 761) HEMOGLOBIN (BEAKER) (test code = 8.7 GM/DL 11.2-15.7 L 410) HEMATOCRIT (BEAKER) (test code = 25.3 % 34.1-44.9 L 411) MEAN CORPUSCULAR VOLUME (BEAKER) 90 fL 79-95 (test code = 753) MEAN CORPUSCULAR HEMOGLOBIN 30.9 pg 25.6-32.2 (BEAKER) (test code = 751) MEAN CORPUSCULAR HEMOGLOBIN CONC 34.4 GM/DL 32.2-35.5 (BEAKER) (test code = 752) RED CELL DISTRIBUTION WIDTH 15.8 % 11.7-14.4 H (BEAKER) (test code = 412) PLATELET COUNT (BEAKER) (test 264 K/CU MM 150-450 code = 756) MEAN PLATELET VOLUME (BEAKER) 9.8 fL 9.4-12.3 (test code = 754) NUCLEATED RED BLOOD CELLS 0 /100 WBC 0-0 (BEAKER) (test code = 413) CT, CTA [id number] 04:19:00Unlisted Reason for Exam - Click Yes and Enter Reason Below->No [facility] 1940 Sex: FFINAL REPORT CT, CTA ABDOMEN \T\ PELVIS WITHOUT OR WITH CONTRAST with three-dimensionalreconstructions CLINICAL STATEMENT: GI bleed. Dose modulation, iterative reconstruction, and/or weight-based adjustment of the mA/kV was utilized to reduce the radiation dose to as low as reasonably achievable. FINDINGS: Mild layering bilateral pleural effusions with bibasilar compressive atelectatic changes. Abdominal aorta demonstrates moderate atherosclerotic changes without significant aneurysm or dissection. Bilateral common and external iliac arteries mildly diseased. Internal iliac arteries are mildly diseased. Bilateral common femoral artery are moderately disease without significant stenosis. There is no evidence for active contrast extravasation in the GI tract to suggest active bleeding. Postoperative changes in the right lower quadrant. Mild sigmoid diverticulosis without CT evidence for acute diverticulitis. IMPRESSION: No evidence for active GI bleeding. Mild layering bilateral pleural effusions. Signed: Norma Weber [facility] Verified Date/Time: 04/02/2022 04:19:35 HEMOGLOBIN AND [id number] 02:00:54 Test Item Value Reference Range Interpretation Comments HEMOGLOBIN (BEAKER) (test code = 8.9 GM/DL 11.2-15.7 L 410) HEMATOCRIT (BEAKER) (test code = 26.9 % 34.1-44.9 L 411) Parking Lot Chauffeur ID - [id number], CHEST, 1 VIEW, NON [id number] 00:06:00Reason for exam:->SOBShould this be performed at the bedside?->Yes [facility] 1940 Sex: FFINAL REPORT CLINICAL INDICATION: SOB Comparison: Same date at 1839 hours The cardiomediastinal contours are stable. Central pulmonary vascular prominence and bilateral parenchymal and pleural opacities are similar to previous. There is no pneumothorax. A right IJ CVC remains in place. IMPRESSION: No significant interval change. Signed: Angelina Williamson Verified Date/Time: 04/02/2022 00:06:32 SARS-CoV2/RT-PCR (Asymptomatic ONLY)2022-04-01 20:34:13 Test Item Value Reference Interpretation Comments Range SARS-COV2/RT-PCR Negative Negative The SARS-Co V-2 (test code = target nucleic 01436-1) acids are not detected in thi s specimen. Negat isiah results do not preclude SARS-C oV-2 infection and should not be u sed as the sole bas is for patient management decisions. Nega tive results must be combined with clinical observations, patient history , and epidemiolog ical information. A false negative result may occu r if a specimen is improperly collected, transported or handled. This S ARS CoV-2 test is a rapid, real-royce e RT-PCR test intended for th e qualitative detection of nucleic acid fr om SARS-CoV-2 in a nasopharyngeal swab specimen colle barbara from individual s suspected of COVID-19 by the ir healthcare provider. ROLY (test code = This test has been ROLY) authorized by FDA under an EUA for use by authorized laboratories. This test is only authorized for the duration of the declaration that circumstances exist justifying the authorization of emergency use of in vitro diagnostic tests for detection and/or diagnosis of COVID-19 under Section 564(b)(1) of the Federal Food, Drug and Cosmetic Act, 21 U.S.C. 360bbb-3(b)(1), unless the authorization is terminated or revoked sooner. Fact Sheet for Healthcare Providers: https://www.[employer]/Documents/Xp ert%20Xpress%20SAR S%20CoV-2/Fact%20S heets/302-3802%20S ARS-COV-2%20HEALTH CARE%20PROVIDERS%2 0FACT%20SHEET.pdf Fact Sheet for Healthcare Patients: https://www.[employer]/Documents/Xp ert%20Xpress%20SAR S%20CoV-2/Fact%20S heets/302-3801%20S ARS-COV-2%20PATIEN T%20FACT%20SHEET.p df Lab Interpretation Normal (test code = 53538-5) [facility]22-04-01 20:34:13 Test Item Value Reference Interpretation Comments Range SARS-COV2/RT-PCR Negative Negative The SARS-Co V-2 (test code = target nucleic 78369-9) acids are not detected in thi s specimen. Negat isiah results do not preclude SARS-C oV-2 infection and should not be u sed as the sole bas is for patient management decisions. Nega tive results must be combined with clinical observations, patient history , and epidemiolog ical information. A false negative result may occu r if a specimen is improperly collected, transported or handled. This S ARS CoV-2 test is a rapid, real-royce e RT-PCR test intended for th e qualitative detection of nucleic acid fr om SARS-CoV-2 in a nasopharyngeal swab specimen collec barbara from individual s suspected of COVID-19 by the ir healthcare provider. ROLY (test code = This test has been ROLY) authorized by FDA under an EUA for use by authorized laboratories. This test is only authorized for the duration of the declaration that circumstances exist justifying the authorization of emergency use of in vitro diagnostic tests for detection and/or diagnosis of COVID-19 under Section 564(b)(1) of the Federal Food, Drug and Cosmetic Act, 21 U.S.C. 360bbb-3(b)(1), unless the authorization is terminated or revoked sooner. Fact Sheet for Healthcare Providers: https://www.[employer]/Documents/Xp ert%20Xpress%20SAR S%20CoV-2/Fact%20S heets/302-3802%20S ARS-COV-2%20HEALTH CARE%20PROVIDERS%2 0FACT%20SHEET.pdf Fact Sheet for Healthcare Patients: https://www.[employer]/Documents/Xp ert%20Xpress%20SAR S%20CoV-2/Fact%20S heets/302-3801%20S ARS-COV-2%20PATIEN T%20FACT%20SHEET.p df Lab Interpretation Normal (test code = 62101-3) [facility]2022-04-01 20:34:13 Test Item Value Reference Interpretation Comments Range SARS-COV2/RT-PCR Negative Negative The SARS-Co V-2 (test code = target nucleic 16209-7) acids are not detected in thi s specimen. Negat isiah results do not preclude SARS-C oV-2 infection and should not be u sed as the sole bas is for patient management decisions. Nega tive results must be combined with clinical observations, patient history , and epidemiolog ical information. A false negative result may occu r if a specimen is improperly collected, transported or handled. This S ARS CoV-2 test is a rapid, real-royce e RT-PCR test intended for th e qualitative detection of nucleic acid fr om SARS-CoV-2 in a nasopharyngeal swab specimen collec barbara from individual s suspected of COVID-19 by the ir healthcare provider. ROLY (test code = This test has been ROLY) authorized by FDA under an EUA for use by authorized laboratories. This test is only authorized for the duration of the declaration that circumstances exist justifying the authorization of emergency use of in vitro diagnostic tests for detection and/or diagnosis of COVID-19 under Section 564(b)(1) of the Federal Food, Drug and Cosmetic Act, 21 U.S.C. 360bbb-3(b)(1), unless the authorization is terminated or revoked sooner. Fact Sheet for Healthcare Providers: https://www.[employer]/Documents/Xp ert%20Xpress%20SAR S%20CoV-2/Fact%20S heets/302-3802%20S ARS-COV-2%20HEALTH CARE%20PROVIDERS%2 0FACT%20SHEET.pdf Fact Sheet for Healthcare Patients: https://www.[employer]/Documents/Xp ert%20Xpress%20SAR S%20CoV-2/Fact%20S heets/302-3801%20S ARS-COV-2%20PATIEN T%20FACT%20SHEET.p df Lab Interpretation Normal (test code = 09960-2) [facility])2022-04-01 20:34:13 Test Item Value Reference Range Interpretation Comments SARS-COV2/RT-PCR Negative Negative The SARS-Co V-2 target (test code = nucleic acids a re not 2021942) detected in thi s specimen. Negative result s do not preclude SARS-C oV-2 infection and s hould not be used as the teofilo e basis for patient managem ent decisions. Nega tive results must be combine d with clinical observ ations, patient history , and epidemiological information. A false negativ e result may occur if a spec imen is improperly abel ected, transported or handled. This SARS CoV-2 test is a rapid, real-time RT-PC R test intended for th e qualitative detection of nu cleic acid from SARS-CoV-2 in a nasopharyngeal swab specimen collected from individuals suspected of CO VID-19 by their healthcar e provider. This test has been authorized by FDA under an EUA for use by authorized laboratories. This test is only authorized for the duration of the declaration that circumstances exist justifying the authorization of emergency use of in vitro diagnostic tests for detection and/or diagnosis of COVID-19 under Section 564(b)(1) of the Federal Food, Drug and Cosmetic Act, 21 U.S.C. 360bbb-3(b)(1), unless the authorization is terminated or revoked sooner. Fact Sheet for Healthcare Providers: https://www.[employer] m/Documents/Xpert%20Xpress%20SARS%20CoV-2/Fact%20Sheets/3023802%93WVQL-ZKE-5%20 HEALTHCARE%20PROVIDERS%20FACT%20SHEET.pdf Fact Sheet for Healthcare Patients: https://www.[employer]/Documents/Xpert%20Xp ress%20SARS%20CoV-2/Fact%20Sheets/3023801%65SHMV-FVZ-8%20PATIENT%20FACT%20SHEET .pdfPT/[id number] 20:07:07 Test Item Value Reference Range Interpretation Comments PROTIME (RIN) (test 15.4 seconds 11.9-14.2 H code = 759) INR (AMBROSIOAKER) (test 1.30 See_Comment [Automat ed code = 370) message] The sy stem which generated this result transmitted reference range : <=5.90. The reference range was not used to interpret this result as normal/abnormal . PARTIAL THROMBOPLASTIN 35.8 seconds 22.5-36.0 TIME (BEAKER) (test code = 760) RECOMMENDED COUMADIN/WARFARIN INR THERAPY RANGESSTANDARD DOSE: 2.0 - 3.0 Includes: PROPHYLAXIS for venous thrombosis, systemic embolization; TREATMENT for venous thrombosis and/or pulmonary embolus.HIGH RISK: Target INR is 2.5-3.5 for patients with mechanical heart valves.RAD, CHEST, 1 VIEW, NON [id number] 19:23:00Reason for exam:->CVC placementShould this be performed at the bedside?->YesCH[facility] : 1940 Sex: FFINAL REPORT TECHNIQUE: Frontal view of the chest. INDICATION: CVC placement. COMPARISON: 04/01/2022 at 1:44 PM. FINDINGS: LINES/TUBES: Placement of right IJ central venous catheter tip projected over the distal SVC.. HEART AND MEDIASTINUM: Cardiomediastinal contour is stable. LUNGS: Increasing interstitial edema. Persistent left basilar opacity. PLEURA: Small bilateral pleural effusions. No pneumothorax. SOFT TISSUES AND BONES: Unremarkable. IMPRESSION: 1. Placement of right IJ centralvenous catheter with tip projected over the distal SVC. No pneumothorax. 2. Increase in interstitialedema. Persistent left basilar opacity and small bilateral pleural effusions. Signed: Elliott Vera [facility] Verified Date/Time: 04/01/2022 19:23:58 GLOBIN AND [id number] 16:15:11 Test Item Value Reference Range Interpretation Comments HEMOGLOBIN (BEAKER) (test code = 7.2 GM/DL 11.2-15.7 L 410) HEMATOCRIT (BEAKER) (test code = 21.6 % 34.1-44.9 L 411) Parking Lot Chauffeur ID - [id number] FUNCTION [id number] 14:50:34 Test Item Value Reference Range Interpretation Comments TOTAL PROTEIN (BEAKER) (test code = 5.6 gm/dL 6.0-8.3 L 770) ALBUMIN (BEAKER) (test code = 1145) 2.8 g/dL 3.5-5.0 L BILIRUBIN TOTAL (BEAKER) (test code 1.3 mg/dL 0.2-1.2 H = 377) BILIRUBIN DIRECT (BEAKER) (test 0.5 mg/dL 0.1-0.5 code = 706) ALKALINE PHOSPHATASE (BEAKER) (test 25 U/L 40-150 L code = 346) AST (SGOT) (BEAKER) (test code = 28 U/L 5-34 353) ALT (SGPT) (BEAKER) (test code = 13 U/L 6-55 347) Parking Lot Chauffeur ID - [facility] METABOLIC [id number] 14:50:33 Test Item Value Reference Range Interpretation Comments SODIUM (BEAKER) 138 meq/L 136-145 (test code = 381) POTASSIUM 4.9 meq/L 3.5-5.1 (BEAKER) (test code = 379) CHLORIDE (BEAKER) 105 meq/L 98-107 (test code = 382) CO2 (BEAKER) 27 meq/L 22-29 (test code = 355) BLOOD UREA 28 mg/dL 7-21 H NITROGEN (BEAKER) (test code = 354) CREATININE 1.18 mg/dL 0.57-1.25 (BEAKER) (test code = 358) GLUCOSE RANDOM 80 mg/dL 70-105 (BEAKER) (test code = 652) CALCIUM (BEAKER) 9.1 mg/dL 8.4-10.2 (test code = 697) EGFR (BEAKER) 47 Interpretatio n of eGFR (test code = mL/min/1.73 values Stage De scription 1092) sq m Result G1 Edwige l or high >=90 G2 Mildly decreased 60-89 G3a Mildl y to moderately 45-5 9 G3b Moderately to s everely 30-44 G4 Severl y decreased 15-29 G5 Kidney failure <15Reported eGF R is based on the CKD-EPI 2020 equation that d oes not use a race coefficientEsti mated GFR is not as accur ate as Creatinine Estrella valentin in predicting glom erular filtration rate . Estimated GFR is not appl icable for dialysis patien ts Parking Lot Chauffeur ID - MITCHRAD, SHOULDER, COMPLETE (MIN 2 VIEWS), [id number] 14:37:00Reason for exam:->sp fall/ sorenessShould this be performed at the bedside?->Yes[facility] : 1940 Sex: FFINAL REPORT Right shoulder History provided: Fall, shoulder pain No fracture or dislocation. Signed: Charlie Davis [facility] Verified Date/Time: 04/01/2022 14:37:07 [facility] Reading [facility] - [address] RAD, CHEST, 1 VIEW, NON [id number] 14:31:00Reason for exam:->r/o rib fx sp fallShould this be performed at the bedside?->Yes [facility] : 1940 Sex: FFINAL REPORT RAD, CHEST, 1 VIEW, NON DEPT INDICATION: r/o rib fx sp fall COMPARISON: 02/18/2008 FINDINGS: Portable frontal view of the chest. IMPRESSION: Support Lines: Overlying leads/monitors. Lungs and pleura: Bilateral interstitial opacities concerning for superimposed pneumonitis and/or edema. Trace bilateral effusions. No significant pneumothorax. Heart and mediastinum: Normal contours. Additional findings: None. Signed: Ethel Masters MDRrickey Verified Date/Time: 04/01/2022 14:31:02 Reading Location: [address] Reading Room [id number] 14:06:26 Test Item Value Reference Range Interpretation Comments PROCALCITONIN (BEAKER) (test code 0.17 ng/mL <0.05 H = 3036) SEPSIS RISK (ng/mL)Low: 0.05-0.50Intermediate: 0.51-2.00High: >=2.01HIGH SENSITIVITY TROPONIN [id number] 13:50:38 Test Item Value Reference Range Interpretation Comments HIGH SENSITIVITY 29 pg/ml See_Comment H [Automated message] TROPONIN I (test code = The system which [id number]) generated this result transmitted ref erence range: <=17. Th e reference range was not used to int erpret this result as normal/abnormal . Parking Lot Chauffeur ID - MITCHThe HIGHWALL DRILL OPERATOR STAT High Sensitivity Troponin-I results should be used in conjunction with other diagnostic information such as ECG, clinical observations and information, and patientsymptoms to aid in the diagnosis of MS. B-TYPE NATRIURETIC FACTOR (BNP)2022-04-01 13:50:16 Test Item Value Reference Range Interpretation Comments B-TYPE NATRIURETIC PEPTIDE 3173 pg/mL 0-100 H (I AM ATAKER) (test code = 700) Parking Lot Chauffeur ID - [id number] 13:40:58 Test Item Value Reference Range Interpretation Comments PARTIAL THROMBOPLASTIN TIME 34.8 seconds 22.5-36.0 (I AM ATAKER) (test code = 760) [id number] 13:40:36 Test Item Value Reference Range Interpretation Comments FIBRINOGEN LEVEL (I AM ATAKER) (test 370 mg/dl 225-434 code = 658) LACTIC ACID, [id number] 13:40:15 Test Item Value Reference Range Interpretation Comments LACTATE BLOOD VENOUS (2) (BEAKER) 0.71 mmol/L 0.50-2.20 (test code = 2872) Parking Lot Chauffeur ID - MITCHPROTHROMBIN TIME/[id number] 13:40:14 Test Item Value Reference Range Interpretation Comments PROTIME (BEAKER) 16.9 seconds 11.9-14.2 H (test code = 759) INR (BEAKER) (test 1.46 See_Comment [Automat ed message] code = 370) The system [employer] generated this result transmitted ref erence range: <=5.90. The reference range was not used to int erpret this result as normal/abnormal . RECOMMENDED COUMADIN/WARFARIN INR THERAPY RANGESSTANDARD DOSE: 2.0 - 3.0 Includes: PROPHYLAXIS for venous thrombosis, systemic embolization; TREATMENT for venous thrombosis and/or pulmonary embolus.HIGH RISK: Target INR is 2.5-3.5 for patients with mechanical heart valves.BLOOD GAS, [id number] 13:23:42 Test Item Value Reference Range Interpretation Comments PH VENOUS (BEAKER) (test code = 7.41 7.32-7.42 701) PCO2 VENOUS (BEAKER) (test code = 45 mm Hg 41-51 755) PO2 VENOUS (BEAKER) (test code = 31 mm Hg 25-40 702) O2 SATURATION VENOUS (BEAKER) 59.9 % 40.0-70.0 (test code = 703) HCO3 VENOUS (BEAKER) (test code = 28 mmol/L 21-29 705) BASE EXCESS VENOUS (BEAKER) (test 2.7 mmol/L -2.0-3.0 code = 704) PATIENT TEMPERATURE (BEAKER) (test 37.0 code = 1818) FIO2 (BEAKER) (test code = 1819) 21.0 Notes Date/Time Note Provider Source 2022-04-20 21:37:00-00:00 [id number] [address] PATIENT NAME: JUDY ROY ADMIT DATE: 04/20/22 ACCOUNT NO: [id number] ROOM NO: [facility] AGE: 81 REPORT TYPE: eECHOCARDIOGRAM REPORT SEX: F ADMITTING PHYSICIAN:Gilberto Barillas MD ATTENDING PHYSICIAN:Gilberto Barillas MD *[address] [address] Limited Transthoracic Echocardiogram Patient: Judy Roy Study Date: 04/20/2022 BP: 102 / 60 Location: [facility] URN: [id number] : 1940 Age: 81 Height: 64 in / 162.6 cm Gender: F Weight: 92. 8 lb / 42.2 kg BMI/BSA: 16 kg/m 2 / 1.41 m 2 *Ordering Physician: * Fabián Hopson *Interpreting Physician: * Airam Nascimento MD *Electrical Design Technician: * Michelle Rubio Indications: Rule out pericardial effusion. Study data: Transthoracic echocardiogram, limite d study. Procedure: Transthoracic echocardiography was performed. Im age quality was adequate. Limited 2D and limited spectral Dopple r. Location: [facility]. Patient status: Outpatient. Patient room number: [place] 19. Study status: Routine. Rhythm: Normal sinus rhythm. Findings Left ventricle: The cavity size is normal. Wall thickness is increased. Systolic function is reduced. The estimated ejec tion fraction is 40-44%. Severe diffuse hypokinesis. Right ventricle: Estimated TAPSE measured 1.6 cm . The cavity size is normal. Systolic function is low normal. Left atrium: The atrium is normal in size. PATIENT NAME: JUDY ROY [id number] Right atrium: The atrium is normal in size. Atrial septum: There is a veeo-vl-curnr atrial l evel shunt due to WATCHMAN procedure. Aorta: Aortic root: The aortic root is normal in size. Aortic valve: The valve is structurally normal. The valve is trileaflet. There is no evidence of stenosis. Th ere is no regurgitation. Mitral valve: The annulus is mildly calcified. T here is no evidence of stenosis. There is no regurgitation. Tricuspid valve: The valve is structurally edwige l. There is no regurgitation. Pulmonic valve: The valve is structurally normal . There is no regurgitation. Pericardium: There is no pericardial effusion. Pulmonary arteries: The main pulmonary artery is normal-sized. Systemic veins: Inferior vena cava: The vessel is normal in size . Measurements Left ventricle Value Ref GERARDO, LAX 3.7 cm 3.8 - 5.2 ESD, LAX 3.3 cm 2.2 - 3.5 ESD/bsa, LAX 2.3 cm/m 2 1.3 - 2.1 FS, LAX 12 % 27 - 45 ESD/bsa major ax, 4.9 cm/m 2 --------- A4C GERARDO/bsa minor ax, 4.9 cm/m 2 --------- A4C GERARDO major ax, A2C 7.3 cm --------- ESD major ax, A2C 7.1 cm --------- GERARDO/bsa major ax, 5.2 cm/m 2 --------- A2C ESD/bsa major ax, 5.0 cm/m 2 --------- A2C PW, ED 0.9 cm 0.6 - 0.9 IVS/PW, ED 1.41 --------- EF 27 % 54 - 74 E', lat laury, TDI 5.3 cm/sec >=10.0 E/e', lat laury, TDI 13 --------- E', med laury, TDI 4.2 cm/sec >=7.0 E/e', med laury, TDI 16 --------- E', avg, TDI 4.8 cm/sec --------- E/e', avg, TDI 14 <=14 LVOT Value Ref Diam, S 1.80 cm --------- Area 2.5 cm 2 --------- Ventricular septum Value Ref IVS, ED 1.2 cm 0.6 - 0.9 PATIENT NAME: JUDY ROY 411 Right ventricle Value Ref GERARDO, LAX 2.5 cm --------- TAPSE, MM 1.6 cm 1.7 - 3.1 Left atrium Value Ref AP dim, ES 2.81 cm 2.70 - 3.80 Vol/bsa, ES, 1-p A4C 15 ml/m 2 11 - 40 Vol, ES, 2-p 29 ml --------- Vol/bsa, ES, 2-p 20 ml/m 2 16 - 34 Vol/bsa, ES, A/L 17 ml/m 2 16 - 34 Right atrium Value Ref Area, ES 10 cm 2 10 - 18 SI dim, ES, A4C 3.9 cm 3.4 - 5.3 SI dim/bsa, ES, A4C 2.8 cm/m 2 1.9 - 3.1 Vol, ES, A/L 23 ml --------- Vol, ES, 1-p A4C 22 ml --------- Vol/bsa, ES, 1-p A4C 15 ml/m 2 9 - 33 Mitral valve Value Ref Peak E 0.05 m/sec --------- Peak A 0.76 m/sec --------- Mean v, D 0.55 m/sec --------- VTI leaflet coapt 25.7 cm --------- Decel time 236 ms --------- PHT 71 ms --------- Mean grad, D 1.3 mm Hg --------- Peak grad, D 2.1 mm Hg --------- Peak E/A ratio 0.88 --------- MVA, PHT 3.1 cm 2 --------- Conclusions Summary: 1. Left ventricle: The cavity size is normal. Wa ll thickness is increased. Systolic function is reduced. The es timated ejection fraction is 40-44%. Severe diffuse hypokinesis. 2. Right ventricle: Estimated TAPSE measured 1.6 cm. 3. Atrial septum: There is a euwj-ju-umgyb atria l level shunt due to WATCHMAN procedure. 4. Mitral valve: The annulus is mildly calcified . Prepared and electronically signed by Airam Nascimento MD 04/20/2022 21:37 PATIENT NAME: JUDY ROY 411 at 2137 PATIENT NAME: TOM ROYA 411 2022-04-20 13:49:00-00:00 [facility] ([facility]) Discharge Summary REPORT#:[id number] REPORT STATUS: Signed DATE:04/20/22 TIME: 1349 PATIENT: ROY,JUDY UNIT #: [id number] [place] [id number] : 42 AGE: 81 SEX: F ATTEND: Wilda Barillas MD ADM AUTHOR: Fabián Hopson * ALL edits or amendments must be made on the [employer]/computer document * PCP PCP Discharge to: home General Information Discharge date: 04/20/22 Discharge diagnosis: AFIB Hospital course: Patient with paroxysmal atrial fibrillation, XAVIER DSVASC score of 6, and intolerance to long-term anticoagulation due to GI bleeding. Patient is s/p successful implantation of a 20mm Watchman device in the left atrial appendage. Patient tolerated the procedure without post-op complications. No thrombus was identified in the pre-/intra-op NELSON. Postoperatively, chest x-ray is negative for any acute process. Post-op echo to be read by basket machine operator. Patient ambulated without an y difficulty, and heart rate and blood pressure are stable. Right groin suture removed by this DIRECTOR GLO[employer]IC PUBLISHER SALES. No infect ion, bleeding, or hematoma. Dermabond applied and intact. Patient was provided with post-Watchman discharg e instructions. Patient is to follow up with PCP and basket machine operator in 1 to 2 we eks post discharge. Patient is to follow up with basket machine operator for th e 45-day NELSON, and for anticoagulation recommendation. Patient is to continue Eliquis for 6 weeks, then transition to aspirin and Plavix. Duration of aspirin is lifelong. Duration of Plavix is 6 months post 45-day NELSON. Post-Watchman discharge instructions given to th e patient who verbalized understanding, and patient w as instructed to report any complaints of chest pain , shortness of breath, lightheadedness, or dizzi ness to the basket machine operator. Dispo: It is medically necessary that patients u ndergoing percutaneous left atrial appendage occlusion are admitted as an in patient. This patient had a recovery that was earlier than expected and can be discharged today. Med Rec PCP PCP: PCP: Gilberto Barillas MD Med Rec Discharge meds: Continue taking these medications: SERTRALINE (ZOLOFT) 50 MG TAB 50 MILLIGRAM ORAL DAILY. METOPROLOL SUCC XL (TOPROL XL) 25 MG TAB.SR.24H 25 MILLIGRAM ORAL DAILY. MAGNESIUM HYDROXIDE (MILK OF MAGNESIA) 400 MG/5 ML ORAL.SUSP 400 MILLIGRAM ORAL TWICE DAILY. LACTOBACILLUS ACIDOPHILUS (PROBIOTIC ACIDOPHILUS ) 1 CAP CAP 1 CAPSULE ORAL DAILY. LEVOTHYROXINE (SYNTHROID) 100 MCG TAB 100 MICROGRAM ORAL DAILY. CLOPIDOGREL (PLAVIX) 75 MG TAB 75 MILLIGRAM ORAL DAILY. ATORVASTATIN (LIPITOR) 40 MG TAB 40 MILLIGRAM ORAL DAILY. MIRTAZAPINE (REMERON) 15 MG TAB 7.5 MILLIGRAM ORAL BEDTIME. PANTOPRAZOLE DR (PROTONIX) 40 MG TAB.DR 40 MILLIGRAM ORAL DAILY. FUROSEMIDE (LASIX) 20 MG TAB 20 MILLIGRAM ORAL DAILY. as needed for SWELLING ACETAMINOPHEN/CODEINE (TYLENOL WITH CODEINE #4 3 00/60 MG) 300 MG-60 MG TAB 1 TABLET ORAL EVERY 8 HR NEEDED. as needed f or PAIN ALPRAZolam (XANAX) 0.25 MG TAB 0.125 MILLIGRAM ORAL AT BEDTIME NEEDED. as n eeded for ANXIETY ONDANSETRON (ZOFRAN) 8 MG TAB 8 MILLIGRAM ORAL EVERY 8 HR NEEDED. as neede d for NAUSEA/VOMITING Objective VS/I O Last Documented: Result Date Time O2 Delivery Simple mask 04/20 1308 O2 Flow Rate 10 04/20 1308 Pulse Ox 98 04/20 1139 B/P 132/71 04/20 1139 Temp 36.6 04/20 113 Pulse 75 04/20 113 Resp 18 04/20 113 PATIENT WEIGHT: Weight (lb): 93 Weight (oz): 3.14 Weight (kg): 42.273 General appearance: alert, awake, oriented Cardiovascular: regular rate rhythm Respiratory: clear to auscultation, no distress GI: soft, non-tender Extremities: moves all Neuro/EXTRUDING MACHINE OPERATOR: alert, oriented X 3 Skin: dry Wound/incision: Location: Right groin suture removed by this DIRECT[employer]. No infect ion, bleeding, or hematoma. Dermabond applied and intact. Results Findings/Data: Laboratory Tests: 04/20 04/20 04/20 1301 1233 1131 Chemistry Sodium (134 - 147 mEq/L) 136 Potassium (3.4 - 5.0 mEq/L) 4.2 Chloride (100 - 108 mEq/L) 105 Carbon Dioxide (21 - 33 mEq/l) 26 Anion Gap (0 - 20) 9 BUN (7 - 18 mg/dL) 22 H Creatinine (0.6 - 1.3 mg/dL) 1.4 H Glomerular Filtr Rate (70 - 80) 38.3 L Glucose (70 - 110 mg/dL) 89 POC Glucose (70 - 110 MG/DL) 79 Calcium (8.0 - 10.5 mg/dL) 9.0 Coagulation INR (0.8 - 1.2) 1.0 PT Patient/Control Mix (9.3 - 12.9 SECONDS) 11. 5 Activated Coag Time (74 - 137 SEC) 281 H Hematology WBC (4.5 - 11.0 x10 3/uL) 5.3 RBC (3.54 - 5.02 x10 6/uL) 2.94 L Hgb (11.0 - 15.0 g/dL) 8.9 L Hct (33.0 - 45.0 %) 27.6 L MCV (81.0 - 99.0 fL) 93.9 MCH (27.0 - 33.0 pg) 30.3 MCHC (33.0 - 37.0 g/dL) 32.2 L RDW (11.5 - 14.5 %) 17.0 H Plt Count (150 - 400 x10 3/uL) 379 MPV (7.0 - 9.0 fL) 9.6 H Neut % (Auto) (56.0 - 77.0 %) 50.7 L Lymph % (Auto) (14.0 - 32.0 %) 24.4 Sharkey % (Auto) (4.8 - 9.0 %) 13.2 H Eos % (Auto) (0.3 - 3.7 %) 10.2 H Baso % (Auto) (0.0 - 2.0 %) 1.1 Neut # (Auto) (2.0 - 7.6 x10 3/uL) 2.68 Lymph # (Auto) (1.0 - 3.8 x10 3/uL) 1.29 Sharkey # (Auto) (0.1 - 0.8 x10 3/uL) 0.70 Eos # (Auto) (0.0 - 0.2 x10 3/uL) 0.54 H Baso # (Auto) (0.0 - 0.2 x10 3/uL) 0.06 Abs Immat Gran (auto) (0.00 - 0.03 x10 3/uL) 0 .02 Add Manual Diff NO Immature Gran % (0.0 - 2.0 %) 0.4 Nucleated RBC % (0 - 0 %) 0.0 Nucleated RBCs # (Man) (0.0 - 0.1 x10 3/uL) 0.0 0 Serology SARS-CoV-2 Ag (Rapid) (Negative) Negative Treatments Procedures Treatments Procedures: Patient is s/p successful implantation of a 20mm Watchman device in the left atrial appendage. Lab: Chemistry last 24 hrs: 04/20 1131 Chemistry Sodium (134 - 147 mEq/L) 136 Potassium (3.4 - 5.0 mEq/L) 4.2 Chloride (100 - 108 mEq/L) 105 BUN (7 - 18 mg/dL) 22 H Creatinine (0.6 - 1.3 mg/dL) 1.4 H Glucose (70 - 110 mg/dL) 89 Hematology last 24 hrs: 04/20 1131 Hematology WBC (4.5 - 11.0 x10 3/uL) 5.3 Hgb (11.0 - 15.0 g/dL) 8.9 L Hct (33.0 - 45.0 %) 27.6 L Plt Count (150 - 400 x10 3/uL) 379 Neut % (Auto) (56.0 - 77.0 %) 50.7 L Coagulation last 24 hrs: 04/20 1131 Coagulation INR (0.8 - 1.2) 1.0 Discharge Instructions PCP PCP: PCP: Gilberto Barillas MD )( Discharge to: Home/Self Care Discharge Instructions Additional Discharge Routines: Attending Follow- Up )( Diet: Cardiac )( Activity: As Tolerated Follow-up Appointments Attending Physician: Attending Physician: Gilberto Barillas MD Attending physician follow up timeframe: In 1-2 weeks Electronically Signed by Fabián Hopson 04/20/22 at 1623 Electronically Signed by Airam Nascimento MD on at 8223 [facility] #:[id number] END OF REPORT 2022-04-20 13:03:00-00:00 [id number] [place] [address] PATIENT NAME: JUDY ROY ADMIT DATE: 04/20/22 ACCOUNT NO: [id number] ROOM NO: G.SHMS AGE: 81 REPORT TYPE: eELECTROCARDIOGRAM REPORT SEX: F ADMITTING PHYSICIAN:Gilberto Barillsa MD ATTENDING PHYSICIAN:Gilberto Barillas MD Order: [id number] Test Reason : S/P WATCHMAN Test Date/Time Stamp: MonApr 20 2022 13:03:49 Blood Pressure : / mmHG Vent. Rate : 077 BPM Atrial Rate : 077 BPM P-R Int : 204 ms QRS Dur : 102 ms QT Int : 414 ms P-R-T Axes : 067 044 194 degree s QTc Int : 468 ms Sinus rhythm with occasional premature ventricul ar complexes Voltage criteria for left ventricular hypertroph y Nonspecific ST and T wave abnormality Abnormal ECG PRE_OP Confirmed by RAFFAELE JORDAN MD ([id number]) on 04/20/20 1:55:05 PM Referred By: Gilberto Barillas Confirmed by:RAFFAELE MEJIA MD at 1355 PATIENT NAME: JUDY ROY 411 2022-04-20 12:59:00-00:00 [id number] [place] [address] PATIENT NAME: JUDY ROY ADMIT DATE: 04/20/22 ACCOUNT NO: [id number] ROOM NO: [facility] AGE: 82 REPORT TYPE: CARDIAC CATHETERIZATION REPORT SEX : F ADMITTING PHYSICIAN:Gilberto Barillas MD ATTENDING PHYSICIAN:Gilberto Barillas MD PROCEDURE DATE: 04/20/2022 PROCEDURE PERFORMED: Left atrial appendage closu re using 20 mm Watchman FLX closure device. INDICATION: Atrial fibrillation with high CHADS- VASc score and inability to tolerate anticoagulant. ACCESS: Right femoral vein, 16-Bengali closed wit h a sfyprd-ny-wlwza suture. COMPLICATIONS: None. ESTIMATED BLOOD LOSS: Less than 50 mL. DESCRIPTION OF PROCEDURE: After risks, benefits and alternatives were explained, the patient agreed to proceed and sig alisia informed consent. The patient was brought to the cardiac catheterizati on laboratory, prepped and draped in the usual sterile fashion and anesthesia was applied and a NELSON probe was inserted by anesthesia team. I revie wed the NELSON prior to the procedure and the appendage was suitable for closure and no th rombus. Then, I used a micropuncture kit and ultrasound guidance and ac cessed right femoral vein and then put an 8-Bengali [place] sheath. A partial dose of heparin was given and then I exchanged for a 16-Fr ench Cook sheath and took a SL1 sheath into the SVC with the Chino needle inside, I descend ed into the interatrial septum. In the mid position, transseptal puncture was performed . LA pressure was measured at 14 mmHg. Ascent brought to acquire into the left atrium and exchanged the SL1 sheath for the Watchman double curve she ath and then I sent a pigtail through, navigated into the appendage and telescoped the Watchman sheath over it into the appendage and the appendage angiogram was perfor med. Full dose of heparin at this point was already given to assure ACT level above 250. Then, I decided a 20 mm device will be suitable for closure. The device was de-aired and prepped in the usual sterile fashion. I then removed the pi gtail after good bleed back with a positive flush throug h the Watchman delivery system. The delivery system was advanced into the Watchman sheath and locked in place and then the device was deployed under fluoroscopy guidance and a NELSON, and then PASS criteria were evaluated and all met. Then, the device was rele ased in good position. The Watchman sheath was removed and the Cook sheath was removed. A ttyqcl-hv-oztpp suture was used for closure with good hemostasis . The patient was sent to recovery in stable condition. CONCLUSION: Successful left atrial appendage fish sure using 20 mm Watchman FLX closure device. PATIENT NAME: JUDY ROY 411 Dictated By: Gilberto Barillas MD Date Dictated: 04/20/2022 12:59:17 Date Transcribed: 04/20/2022 18:02:31 /[facility] Receipt ID: [id number] Authenticated by Gilberto Barillas MD On 08/17/2022 02:26:37 PM Electronically Signed by Gilberto Barillas MD on at 0226 PATIENT NAME: JUDY ROY 411
[2022-12-14] MEDS ORDERED: NA CHLORIDE 0.9% 250 ML ONE (16:14)
[2022-12-14 16:43] LABS: Absolute Lymphocytes (CBC) 1.5 K/uL (0.7-4.9); Hematocrit 34.5 % (36.0-45.0); Lymphocytes % 19.9 % (15.3-44.8); MPV 7.7 fL (7.6-11.3); RBC Red Blood Cell Count 3.68 M/uL (3.86-4.86)
[2022-12-14 16:44] LABS: Protime INR 0.99
--- NOTE | 2022-12-14 16:47 | RAD REPORT ---
EXAM DESCRIPTION: RAD - Chest Single View - 12/14/2022 4:41 pm CLINICAL HISTORY: hypotension Chest pain. COMPARISON: Chest Single View dated 04/01/2022; Chest Single View dated 02/23/2022; Chest Pa And Lat (2 Views) dated 02/14/2022; Chest Single View dated 10/15/2021 FINDINGS: Portable technique limits examination quality. Mild chronic changes are seen throughout the lungs. No focal infiltrate suspected. Mild atelectasis l ikely present in both lung bases. The heart is normal in size. No displaced fractures. IMPRESSION: Chronic lung opacities are noted without acute finding seen.
[2022-12-14 17:04] LABS: Albumin 3.4 g/dL (3.4-5.0); Bilirubin Direct 0.1 mg/dL (0-0.2); Bilirubin Indirect, Calculated 0.2 mg/dL (0.2-0.8); Bilirubin Total 0.3 mg/dL (0.2-1.0); Potassium 4.3 mEq/L (3.5-5.1); Protein, Total 7.3 g/dL (6.4-8.2); Troponin High Sensitivity 8.8 pg/mL (<58.9)
[2022-12-14 17:08] LABS: SARS-CoV-2 Antigen Rapid Res Negative (Negative)
--- NOTE | 2022-12-14 17:22 | EDPHYS ---
Physician Documentation [facility] Name: Judy Acevedo Age: 82 yrs Sex: Female : 1940 Arrival Date: 12/14/2022 Time: 15:39 Bed 6 Private MD: Isabella Richardson ED Physician Herbert Garnica HPI: 12/14 16:45 This 82 yrs old Female presents to ER via Wheelchair with complaints of Low Blood sb4 Pressure. 16:45 82-year-old female with past medical history of hypertension, CHF, chronic back pain sb4 sent to ED from lead technician with concerns of hypotension. She was at a routine follow up visit when they checked her blood pressure and noted it to be 60s/40s multiple times and sent her here for further evaluation. states that her blood pressure typically runs 90s/60s. Patient states she feels tired but does not feel weak, dizzy, short of breath. She denies chest pain. states that they were instructed to see cardiology and inquire about decreasing her dose of Entresto 3 months ago, but they never did that. Historical: - Allergies: 15:46 No Known Allergies; me1 - PMHx: 15:46 bowel obstruction; Hypertensive disorder; Congestive heart failure; breast cancer; me1 AFIB; Acute Kidney Failure; Hypothyroidism; syncope; - PSHx: 15:46 hysterectomy; Left Mastectomy; me1 - Immunization history:: Client reports receiving the 2nd dose of the Covid vaccine. - Social history:: Smoking status: Patient denies any tobacco usage or history of. ROS: 16:45 Constitutional: Negative for fever, chills, and weight loss, Eyes: Negative for injury, sb4 pain, redness, and discharge, ENT: Negative for injury, pain, and discharge, Cardiovascular: Negative for chest pain, palpitations, and edema, Respiratory: Negative for shortness of breath, cough, wheezing, and pleuritic chest pain, Abdomen/GI: Negative for abdominal pain, nausea, vomiting, diarrhea, and constipation, Back: Negative for injury and pain, MS/Extremity: Negative for injury and deformity, Skin: Negative for injury, rash, and discoloration, Neuro: Negative for headache, weakness, numbness, tingling, and seizure. 16:45 All other systems are negative. Exam: 16:45 Constitutional: This is a well developed, well nourished patient who is awake, alert, sb4 and in no acute distress. Head/Face: Normocephalic, atraumatic. Eyes: Extra-ocular motions intact. Periorbital areas with no swelling, redness, or edema. ENT: Mucous membranes moist. Cardiovascular: Regular rate and rhythm with a normal S1 and S2. Respiratory: Lungs have equal breath sounds bilaterally, clear to auscultation and percussion. No rales, rhonchi or wheezes noted. No increased work of breathing, no retractions or nasal flaring. Abdomen/GI: Soft, non-tender, no distension. Skin: Warm, dry with normal turgor. Normal color with no rashes, no lesions, and no evidence of cellulitis. MS/ Extremity: Pulses equal, no cyanosis. Neurovascular intact. Full, normal range of motion. Neuro: Awake and alert, GCS 15, oriented to person, place, time, and situation. Cranial nerves II-XII grossly intact. Motor strength 5/5 in all extremities. Sensory grossly intact. Cerebellar exam normal. Normal gait. 16:45 ECG was reviewed by the Attending Physician. Vital Signs: 15:47 BP 85 / 49; Pulse 85; Resp 16; Temp 99.5; Pulse Ox 95% on R/A; Weight 53.07 kg; Height me1 5 ft. 4 in. ; Pain 5/10; 16:51 BP 120 / 70; Pulse 78; Resp 21; Pulse Ox 99% ; bp 19:03 BP 102 / 65; Pulse 85; Resp 12; Pulse Ox 100% ; bp 20:04 BP 146 / 79; Pulse 74; Resp 19; Pulse Ox 96% on R/A; kd3 15:47 Body Mass Index 20.08 (53.07 kg, 162.56 cm) me1 15:47 Pain Scale: Adult me1 MDM: 15:42 Patient medically screened. sb4 16:45 Differential diagnosis: Dehydration, adverse effect of medication, sepsis, orthostatic sb4 hypotension, GI bleed. 17:20 Data reviewed: vital signs, nurses notes, lab test result(s), radiologic studies, I sb4 have discussed the patient's presentation/case with the attending Emergency Department Physician; and as a result, I will admit patient. Consideration of Admission/Observation Patient was admitted/placed on observation. Management of patient was discussed with the following: Hospitalist: VALDEMAR Bunn. Jelly Filter Tender: Nephrology- Dr. Arias. Historians other than the Patient: Spouse/Significant Other: . External Records Reviewed: Inpatient record: prior the [facility]. Care significantly affected by the following chronic conditions: Hypertension, Congestive Heart Failure. Counseling: I had a detailed discussion with the patient and/or guardian regarding: the historical points, exam findings, and any diagnostic results supporting the discharge/admit diagnosis, lab results, radiology results, the need for further work-up and treatment in the hospital. Response to treatment: the patient's symptoms have mildly improved after treatment. 12/14 16:00 Order name: Basic Metabolic Panel; Complete Time: 17:05 sb4 12/14 16:00 Order name: CBC with Diff; Complete Time: 16:49 sb4 12/14 16:00 Order name: LFT's; Complete Time: 17:05 sb4 12/14 16:00 Order name: Magnesium; Complete Time: 17:05 sb4 12/14 16:00 Order name: NT PRO-BNP; Complete Time: 17:05 sb4 12/14 16:00 Order name: PT-INR; Complete Time: 17:00 sb4 12/14 16:00 Order name: Troponin HS; Complete Time: 17:05 sb4 12/14 16:43 Order name: SARS RAPID; Complete Time: 17:19 sb4 12/14 16:00 Order name: XRAY Chest (1 view); Complete Time: 16:49 sb4 12/14 16:00 Order name: EKG; Complete Time: 16:00 sb4 12/14 16:00 Order name: Cardiac monitoring; Complete Time: 16:29 sb4 12/14 16:00 Order name: EKG - Nurse/Tech; Complete Time: 16:29 sb4 12/14 16:00 Order name: IV Saline Lock; Complete Time: 16:29 sb4 12/14 16:00 Order name: Labs collected and sent; Complete Time: 16:29 sb4 12/14 16:00 Order name: O2 Per Protocol; Complete Time: 16:29 sb4 12/14 16:00 Order name: O2 Sat Monitoring; Complete Time: 16:29 sb4 EC:45 Rate is 75 beats/min. Rhythm is regular, Normal Sinus Rhythm with Occasional PVCs, 1st sb4 degree heart block. MO interval is prolonged at 222 msec. QRS interval is normal at 92 msec. QT interval is normal at [address] changes noted. Clinical impression: NSR w/ Non-specific ST/T Changes. Interpreted by me. Administered Medications: 16:15 Drug: NS 0.9% IV 250 ml Route: IV; Rate: bolus; Site: right antecubital; db 20:05 Follow up: IV Status: Completed infusion; IV Intake: 250ml kd3 Disposition Summary: 12/14/22 17:21 Hospitalization Ordered Hospitalization Status: Observation sb4 Provider: Vamsi Yo sb4 Location: Telemetry/MedSurg (observation) sb4 Condition: Fair sb4 Problem: new sb4 Symptoms: have improved sb4 Bed/Room Type: Standard sb4 Room Assignment: 216(12/14/22 19:47) cg Diagnosis - Hypotension due to drugs sb4 - Acute on Chronic Kidney Failure sb4 Forms: - Medication Reconciliation Form sb4 - SBAR form sb4 Signatures: Dispatcher [employer] EDGlory Perez RN RN Aminta Goncalves RN RN Marika Cortez PA-C PAAsher sb4 Ashley Gallardo RN RN me1 Eve Reyes RN kd3 Corrections: (The following items were deleted from the chart) 19:47 17:21 sb4 cg
--- NOTE | 2022-12-14 17:22 | ER ---
Nurse's Notes [facility] Name: Judy Acevedo Age: 82 yrs Sex: Female : 1940 Arrival Date: 12/14/2022 Time: 15:39 Bed 6 Private MD: Isabella Richardson Diagnosis: Hypotension due to drugs;Acute on Chronic Kidney Failure Presentation: 12/14 15:47 Chief complaint: Patient states: BP low at Dr. Parada office today. Feels weak. No me1 N/V/D. Coronavirus screen: Vaccine status: Patient reports receiving the 2nd dose of the covid vaccine. Client denies travel out of the [place] in the last 14 days. At this time, the client does not indicate any symptoms associated with coronavirus-19. Ebola Screen: Patient denies travel to an Ebola-affected area in the 21 days before illness onset. Initial Sepsis Screen: Does the patient meet any 2 criteria? No. Patient's initial sepsis screen is negative. Does the patient have a suspected source of infection? No. Patient's initial sepsis screen is negative. Risk Assessment: Do you want to hurt yourself or someone else? Patient reports no desire to harm self or others. Onset of symptoms was December 14, 2022. 15:47 Method Of Arrival: Wheelchair [facility] 15:47 Acuity: HENRIET[place] 2 me1 Triage Assessment: 15:47 General: Appears uncomfortable, ill, Behavior is calm, cooperative, appropriate for ll1 age. Pain: Complains of pain in back Quality of pain is described as aching. Neuro: Reports weakness. Musculoskeletal: Reports pain in back. Historical: - Allergies: 15:46 No Known Allergies; me1 - PMHx: 15:46 bowel obstruction; Hypertensive disorder; Congestive heart failure; breast cancer; me1 AFIB; Acute Kidney Failure; Hypothyroidism; syncope; - PSHx: 15:46 hysterectomy; Left Mastectomy; me1 - Immunization history:: Client reports receiving the 2nd dose of the Covid vaccine. - Social history:: Smoking status: Patient denies any tobacco usage or history of. Screenin:51 [facility] ED Fall Risk Assessment (Adult) History of falling in the last 3 months, bp including since admission No falls in past 3 months (0 pts). Abuse screen: Denies threats or abuse. Denies injuries from another. Nutritional screening: No deficits noted. Tuberculosis screening: No symptoms or risk factors identified. Assessment: 16:29 Reassessment: Patient appears in no apparent distress at this time. Patient and/or db family updated on plan of care and expected duration. Pain level reassessed. Patient is alert, oriented x 3, equal unlabored respirations, skin warm/dry/pink. SENT BY PCP for hypotension. General: Appears in no apparent distress. comfortable, Behavior is calm, cooperative. 16:51 Reassessment: No changes from previously documented assessment. Patient is alert, bp oriented x 3, equal unlabored respirations, skin warm/dry/pink. Vital Signs: 15:47 BP 85 / 49; Pulse 85; Resp 16; Temp 99.5; Pulse Ox 95% on R/A; Weight 53.07 kg; Height me1 5 ft. 4 in. ; Pain 5/10; 16:51 BP 120 / 70; Pulse 78; Resp 21; Pulse Ox 99% ; bp 19:03 BP 102 / 65; Pulse 85; Resp 12; Pulse Ox 100% ; bp 20:04 BP 146 / 79; Pulse 74; Resp 19; Pulse Ox 96% on R/A; kd3 15:47 Body Mass Index 20.08 (53.07 kg, 162.56 cm) me1 15:47 Pain Scale: Adult me1 ED Course: 15:41 Patient arrived in ED. rg4 15:41 Isabella Richardson MD is Private Physician. rg4 15:42 [facility]err[facility] sb4 15:42 Herbert Garnica MD is Attending Physician. sb4 15:50 Triage completed. me1 15:50 Arm band placed on Patient placed in an exam room, on a stretcher. me1 15:58 Mendoza Fermin, RN is Primary Nurse. bp 16:43 XRAY Chest (1 view) In Process Unspecified. EDMS 16:51 Patient has correct armband on for positive identification. Bed in low position. Call bp light in reach. Side rails up X2. 17:21 Vamsi Yo MD is Hospitalizing Provider. sb4 20:03 Provided Education on: . kd3 20:03 No provider procedures requiring assistance completed. Patient admitted, IV remains in kd3 place. 20:06 Primary Nurse role handed off by Mendoza Fermin, MANUEL kd3 20:06 PHCP role handed off by Marika Cerrato PA-C kd3 20:16 Eve Reyes, RN is Primary Nurse. kd3 Administered Medications: 16:15 Drug: NS 0.9% IV 250 ml Route: IV; Rate: bolus; Site: right antecubital; db 20:05 Follow up: IV Status: Completed infusion; IV Intake: 250ml kd3 Medication: 20:03 VIS not applicable for this client. kd3 Intake: 20:05 IV: 250ml; Total: 250ml. kd3 Outcome: 17:21 Decision to Hospitalize by Provider. sb4 20:03 Admitted to Med/surg kd3 20:03 Condition: stable 20:03 Discharge instructions given to patient, Instructed on the need for admit, Demonstrated understanding of instructions. 20:05 Patient left the ED. kd3 20:17 Patient left the ED. kd3 Signatures: Dispatcher [employer] EDMS Stacey Knight rg4 Mendoza Fermin, RN RN Guille Melendez, RN RN ll1 Eve Reyes, RN RN kd3 Aminta Goncalves, Marika Resendiz RN, PA-C PA-C sb4 Ashley Gallardo, RN RN me1
[2022-12-14] MEDS ORDERED: TRAMADOL HCL 50 MG TAB PO PRN (18:11)
[2022-12-14] MEDS ORDERED: ONDANSETRON 4 MG/2 ML VIAL IV PRN (18:19)
--- NOTE | 2022-12-14 18:22 | P.HP ---
Certification for Inpatient Patient admitted to: Observation With expected LOS: <2 Midnights Patient will require the following post-hospital care: None Practitioner: I am a practitioner with admitting privileges, knowledge of patient current condition, hospital course, and medical plan of care. Services: Services provided to patient in accordance with Admission requirements found in Title 42 Section 412.3 of the Code of Federal Regulations Patient History Date of Service: 12/14/22 Reason for admission: Hypertension History of Present Illness: Patient is an 82-year-old female with a past medical history significant for CHF, CKD, hypothyroidism, chronic back pain who presents with complaint of hypotension. Patient reported that he had a follow-up appointment with his clinic charge nurse and her blood pressure was noted to be in the 60s/40s when checked multiple times at the clinic charge nurse clinic. Patient's spouse reported that patient blood pressure is normally in the 90s\ 60s. Patient reported associated signs and symptoms of fatigue. Patient denies any other signs and symptoms. Symptoms are aggravated or relieved by nothing. Patient's renal functions were also noted to be depreciated compared to her baseline values. Patient was instructed by her clinic charge nurse to come to the ER for further evaluation. Of note, patient was supposed to follow-up with her acquisition advisor for possible reduction in dosages of her cardiac meds. Patient decided to present to the hospital as directed by her clinic charge nurse. Of note, patient's spouse also indicated that patient has poor p.o. hydration routine. Allergies No Known Allergies Allergy (Verified 10/15/21 22:25) Home Medications: Sertraline [Zoloft*] 1 tab PO DAILY 10/15/21 Amiodarone HCl [Cordarone*] 200 mg PO BID tab 03/05/22 Apixaban [Eliquis *] 2.5 mg PO BID 30 Days #60 tablet 03/06/22 Clopidogrel Bisulfate [Plavix*] 75 mg PO DAILY 30 Days #30 tablet 03/06/22 Hyoscyamine Sulfate [Anaspaz] 0.125 mg PO DAILY PRN #30 tab 03/06/22 Levothyroxine [Synthroid*] 75 mcg PO DAILY #30 tab 03/06/22 Magnesium Oxide [Mag 0X*] 1 tab PO BID #60 tab 03/06/22 Metoprolol Succinate [Toprol Xl] 25 mg PO DAILY #30 tab 03/06/22 Mirtazapine [Remeron] 7.5 mg PO BEDTIME #15 tab 03/06/22 Sodium Bicarbonate 650 mg PO TID #90 tab 03/06/22 Vancomycin HCl [Vancocin HCl] 250 mg PO QID #56 03/06/22 Vit D3 50 Mcg (2,000 Unit Tab) 4,000 unit PO DAILY #60 tab 03/06/22 Vitamin B Complex [B Complex] 1 tab PO DAILY #30 tab 03/06/22 predniSONE [Deltasone] 40 mg PO DAILY #6 tab 03/06/22 - Past Medical/Surgical History Diabetic: No -: Hypertension -: Breast Cancer -: Hypertension -: CHF -: GERD -: Hysterectomy -: Mastectomy - Family History Father -: Heart disease Brother -: Heart disease Sister -: Heart disease - Social History Smoking Status: Never smoker Alcohol use: Yes CD- Drugs: No Caffeine use: Yes Place of Residence: Home Review of Systems General: Other (fatigue ) Eyes: Unremarkable ENT: Unremarkable Respiratory: Unremarkable Cardiovascular: Other (Hypotension) Gastrointestinal: Unremarkable Genitourinary: Unremarkable Musculoskeletal: Unremarkable Integumentary: Unremarkable Neurological: Unremarkable Lymphatics: Unremarkable Physical Examination - Physical Exam General: Alert, In no apparent distress, Oriented x3, Cooperative HEENT: Atraumatic, PERRLA, Mucous membr. moist/pink, EOMI, Sclerae nonicteric Neck: Supple, 2+ carotid pulse no bruit, No LAD, Without JVD or thyroid abnormality Respiratory: Clear to auscultation bilaterally, Normal air movement Cardiovascular: No edema, Regular rate/rhythm, Normal S1 S2 Capillary refill: <2 Seconds Gastrointestinal: Normal bowel sounds, Non-distended, No tenderness Musculoskeletal: No clubbing, No swelling, No tenderness Integumentary: No rashes, No breakdown, No significant lesion Neurological: Normal speech, Normal tone, Normal affect Lymphatics: No axilla or inguinal lymphadenopathy - Studies Laboratory Data (last 24 hrs) 12/14/22 12/14/22 12/14/22 16:15 16:15 16:15 WBC 7.50 Hgb 11.6 L Hct 34.5 L Plt Count 325 PT 10.9 INR 0.99 Sodium 132 L Potassium 4.3 BUN 43 H Creatinine 2.61 H Glucose 116 H Magnesium 2.0 Total Bilirubin 0.3 AST 27 ALT 21 Alkaline Phosphatase 32 L Assessment and Plan - Plan -- Hypotension. Likely medication related. Patients blood pressure responded to IV bolus hydration in the ER. Patient was recommended to follow-up with her acquisition advisor for possible dose reduction of her cardiac medications. Patient reported that she has an appointment with her acquisition advisor in February 2023. Cardiology consulted. We will await further recommendations.. -- BRAD. Unclear etiology. Nephrology consulted. We will await further recommendation from clinic charge nurse. --Chronic systolic CHF. No clinical signs of CHF decompensation noted. Continue home medication. Daily weight and strict I/O. Wrapper Sizer on board. We will await further recommendations. --Chronic back pain. We will manage pain with current pain medication regimen. --Anemia of chronic disease. H&H stable. We will continue to monitor hemoglobin and transfuse if less than 7.0. -- Paroxysmal A-fib. Family reported that patient had a Watchman procedure. Patient was taken off anticoagulation due to GI bleed requiring transfusion. Continue amiodarone and metoprolol when appropriate. --Hypothyroidism. Continue Synthroid. --GERD. Continue Protonix. --History of breast cancer. Status post mastectomy. Status unknown. Continue supportive care. --DVT prophylaxis with heparin subQ Discharge Plan: Home Plan to discharge in: 48 Hours - Advance Directives Does patient have a Living Will: Yes Does patient have a Durable POA for Healthcare: No - Code Status/Comfort Care Code Status Assessed: Yes Physician Review: Patient Assessed, Agree with Above Assessment and Plan Critical Care: No
[2022-12-14 21:52] LABS: Magnesium 1.9 mg/dL (1.6-2.4); Phosphorus 3.5 mg/dL (2.5-4.9); Thyroid Stimulating Hormone 0.353 uIU/mL (0.358-3.740)
[2022-12-14] MEDS: HEPARIN 5000 UNIT/ML 1 ML VIAL SQ SCH (21:58)
[2022-12-14] MEDS: ACETAMINOPHEN 325 MG TABLET PO PRN (22:00)
[2022-12-14 22:50] LABS: Urine Bacteria None Seen /HPF (<20); Urine Bilirubin NEGATIVE (Negative); Urine Blood Negative (Negative); Urine Clarity Clear (Clear); Urine Color Light-Yellow (Yellow); Urine Crystals Unidentified Few /HPF (None Seen); Urine Glucose NEGATIVE (Negative); Urine Protein NEGATIVE (Negative); Urine RBC <5 /HPF (None Seen); Urine Urobilinogen Normal (Normal)
[2022-12-14] MEDS: MIRTAZAPINE 15 MG TAB PO SCH (23:23)
[2022-12-14] MEDS: MELATONIN 5 MG TABLET PO PRN (23:24)
[2022-12-15 00:03] VITALS: O2SAT 97
[2022-12-15 03:28] LABS: Absolute Lymphocytes (CBC) 1.7 K/uL (0.7-4.9); Hematocrit 32.3 % (36.0-45.0); Lymphocytes % 25.3 % (15.3-44.8); MCV 93.9 fL (80-100); MPV 8.1 fL (7.6-11.3); RBC Red Blood Cell Count 3.44 M/uL (3.86-4.86)
[2022-12-15] MEDS: ACETAMINOPHEN 325 MG TABLET PO PRN ×2 (03:51→18:49)
[2022-12-15 03:55] LABS: Potassium 4.3 mEq/L (3.5-5.1)
[2022-12-15] MEDS: PANTOPRAZOLE 40MG TABLET PO SCH (05:45)
[2022-12-15] MEDS: ASPIRIN 81 MG CHEWABLE TABLET PO SCH (08:50)
[2022-12-15] MEDS: HEPARIN 5000 UNIT/ML 1 ML VIAL SQ SCH ×2 (08:50→19:45)
[2022-12-15] MEDS: NA CHLORIDE 0.9% 500 ML IV SCH (16:00)
--- NOTE | 2022-12-15 17:20 | PN ---
Date of Progress Note: 12/15/2022 Reason For Consultation: Elevated BUN and creatinine. History Of Present Illness: This is an 82-year-old female, well known to me from the office with sig nificant past medical history of CAD complicated with congestive heart failure, diastolic dysfunction with ejection fraction of 60%, status post PTCA back in 2021, GERD, breast cancer, AFib, the patient came to the office yesterday with followup, found to have elevation in BUN and creatinine, creatinin e up to 2.5 with GFR of 18. The patient had low blood pressure down to the 60. For that reason, the patient was sent to the ER. The patient upon arrival to the ER given fluid, blood pressure picked u p to the 90, currently on 100. Kidney function stabilized. The patient feeling better, not dizzy an ymore. Past Medical History: Includes; 1.Hypertension. 2.Hyperlipidemia. 3.CAD, status post PTCA complicated with congestive heart failure, diastolic dysfunction. 4.Chronic kidney disease, stage 3 with slow progression secondary to cardiorenal syndrome and hypert ension nephrosclerosis. 5.Hyperlipidemia. 6.GERD. Past Surgical History: Includes mastectomy, hysterectomy. Family History: Positive for CAD and hypertension. Social History: Denied smoking, active alcohol, denied drugs abuse. Review of Systems: Head and Neck: The patient has fatigue. Respiratory: No shortness of breath. Cardiovascular: Has low blood pressure. GI: No nausea. No vomiting. : No polyuria. No dysuria. No hematuria. Occupational Therapy Program Director: No vaginal discharge. Respiratory: No shortness of breath. Cardiovascular: No leg swelling. Endocrine: No polydipsia. Skin: No rash. Neuro: Generalized weakness. Musculoskeletal: Generalized fatigue. Physical Examination: General: When I saw the patient; the patient lying in bed on room air. Vital Signs: Blood pressure 118/69, pulse of 87, afebrile. Chest: Clear to auscultation. Heart: S1, S2. Regular. Abdomen: Soft, nontender. Extremities: No edema. Neurologic: Alert. No focality. No tremor. Laboratory Data: WBC 6.8, H and H 10.7/32.3. Sodium 134, potassium 4.3, bicarb 26, BUN 42, creatini ne 2.5, GFR of 19, calcium 9.9. BNP 703. TSH 0.3. Current Medications: The patient on include Tylenol, aspirin, heparin, mirtazapine, IV fluid at 50 p er hour, tramadol. Assessment And Plan: 1.Acute kidney injury secondary to poor perfusion ATN, superimposed with Entresto and low blood pres sure, on the recovery phase, looked to me still on the dry side. I am going to start the patient aga in on normal saline 50 per hour for only 500 and we will monitor. If kidney function tomorrow contin ues to improve, I am going to go ahead and discontinue IV fluid and the patient is going to be okay f rom the renal standpoint for discharge planning. I am going to go ahead and repeat renal ultrasound and basic workup and we will follow up the patient. 2.Hypertension with the presence of low blood pressure. Keep holding Entresto. 3.Congestive heart failure. Currently, the patient is on the dry side. Hold diuresis, hold Entrest o. 4.Diabetes as by primary. 5.Hyponatremia secondary to depletional. We will start the patient on IV fluid. Hold Entresto. Time spent examining the patient [id number], reviewing data, lab and radiology, placing orders, dis cussing the case with the patient, discussing the case with the body service team member including hospitalist and nursing staff more than 75 minutes . OTTO Voice ID: [id number] Report ID: [id number]
--- NOTE | 2022-12-15 17:40 | P.PN ---
Subjective Date of Service: 12/15/22 Chief Complaint: Hypertension No acute events overnight. She denies any symptoms. Her blood pressure is improving with IV fluids. She denies any headaches, dizziness, chest pain, shortness of breath, or palpitations. Review of Systems 10-point ROS is otherwise unremarkable Physical Examination - Vital Signs Temperature: 97.9 F Blood Pressure: 147/74 Pulse: 98 Respirations: 16 Pulse Ox (%): 98 - Physical Exam General: Alert, In no apparent distress, Oriented x3 HEENT: Atraumatic, Mucous membr. moist/pink, Sclerae nonicteric Neck: Supple Respiratory: Clear to auscultation bilaterally, Normal air movement Cardiovascular: No edema, Regular rate/rhythm, Normal S1 S2, No gallops, No rubs, No murmurs Gastrointestinal: Normal bowel sounds, Soft and benign, Non-distended, No tenderness, No rebound, No guarding Musculoskeletal: No clubbing Integumentary: No rashes Neurological: Normal speech, Normal affect Assessment And Plan - Plan # KDIGO Stage II Acute Kidney Injury - suspect due to Medication-Induced Hypotension - Nephrology consulted - recommendations appreciated - Creatinine = 2.61 -> 2.51 (creatinine was 1.25 on 04/01/2022) - Urinalysis = relatively unremarkable - Monitor creatinine and urine output - If worsening, obtain renal ultrasound - Renally dose medications - Hold home anti-hypertensives # Hypothyroidism - TSH 0.353, Free T4 1.33 - Reduce home levothyroxine dose from 75 mcg to 50 mcg # Gastroesophageal Reflux Disease - Continue home pantoprazole # Chronic Atrial Fibrillation s/p Watchman # Chronic Compensated Systolic Congestive Heart Failure - Reconcile home medications once verified Vamsi Yo M.D.
[2022-12-15 18:17] LABS: UR PROTEIN 11.2 mg/dL (<11.9); Urine Protein/Creatinine Ratio 0.59 ratio (<0.15)
[2022-12-15] MEDS: MIRTAZAPINE 15 MG TAB PO SCH (19:45)
--- NOTE | 2022-12-15 19:55 | RAD REPORT ---
EXAM DESCRIPTION: US - Renal Ultrasound-Complete - 12/15/2022 7:24 pm CLINICAL HISTORY: connie Flank pain COMPARISON: Renal Ultrasound-Complete dated 03/02/2022 FINDINGS: Both kidneys are normal in size, shape and echotexture. The right kidney measures 9.5 x 3.8 x 2.9 cm. Mild right hydronephrosis. The left kidney measures 9.2 x 3.9 x 3.1 cm. No hydronephrosis, focal mass or perinephric fluid. The urinary bladder is incompletely distended without gross abnormality seen. IMPRESSION: Mild right hydronephrosis.
[2022-12-15] MEDS ORDERED: ATORVASTATIN 40 MG TAB PO SCH (21:00)
[2022-12-15] MEDS: MELATONIN 5 MG TABLET PO PRN (22:08)
[2022-12-16] MEDS: NA CHLORIDE 0.9% 500 ML IV SCH (01:59)
[2022-12-16 04:13] LABS: Absolute Lymphocytes (CBC) 1.5 K/uL (0.7-4.9); Hematocrit 33.4 % (36.0-45.0); Lymphocytes % 21.4 % (15.3-44.8); MCV 93.8 fL (80-100); MPV 7.5 fL (7.6-11.3); RBC Red Blood Cell Count 3.56 M/uL (3.86-4.86)
[2022-12-16 04:39] LABS: Potassium 4.1 mEq/L (3.5-5.1); Thyroid Stimulating Hormone 0.38 uIU/mL (0.358-3.740)
[2022-12-16] MEDS: PANTOPRAZOLE 40MG TABLET PO SCH (06:18)
[2022-12-16 08:29] VITALS: BP 137/78; TEMP 98.1
[2022-12-16] MEDS ORDERED: CLOPIDOGREL 75 MG TABLET PO SCH (09:00)
--- NOTE | 2022-12-16 09:00 | P.DS ---
Admission Date: 12/14/22 Discharge Date: 12/16/22 Disposition: ROUTINE DISCHARGE Discharge Condition: GOOD Reason for Admission: Hypotension Consultations: 1. Nephrology 2. Cardiology Hospital Course: DIAGNOSES: # KDIGO Stage I Acute Kidney Injury on Chronic Kidney Disease Stage IV - suspect due to Medication-Induced Hypotension # Hypothyroidism # Chronic Atrial Fibrillation s/p Watchman # Gastroesophageal Reflux Disease # Likely Anemia of Chronic Kidney Disease HOSPITAL COURSE: Ms. Judy Acevedo is a pleasant 82 year old female with a past medical history significant for chronic kidney disease stage IV, chronic atrial fibrillation s/p Watchman, hypothyroidism, and gastroesophageal reflux disease who was admitted to the [facility] on 12/14/2022 for an acute kidney injury. She was admitted to the Medicine service. Upon further evaluation, her blood pressure was 85/49. Although asymptomatic, she was found to have an acute kidney injury with a creatinine of 2.61. Nephrology was consulted and she was evaluated by Dr. Arias. Her home anti-hypertensives were held and she was treated with IV fluids. Over the course of her hospitalization, her creatinine improved to 1.98. After discussion with Dr. rAias, who was able to review her outside records, he stated that her baseline creatinine is ~1.8. He has cleared her for discharge with outpatient follow-up. He recommended holding her metoprolol and sacubutril-valsartan at discharge. Incidentally, she was found to have a TSH of 0.353, which is likely due to thyroid oversupplemention. Her levothyroxine dose was reduced from 75 mcg to 50 mcg. On 12/16/2022, she was seen on morning rounds and deemed medically stable for discharge. She was discharged with instructions to schedule follow-up appointments with her PCP (Dr. Richardson), with Nephrology (Dr. Arias), and with Cardiology (Dr. Barillas). She was provided a prescription for levothyroxine. She was given the opportunity to ask questions and reported no further questions. Furthermore, all questions were answered to the best of my ability. A copy of this discharge summary will be sent to the above providers to facilitate continuity of care. Today, I personally spent 20 minutes on her case, of which greater than 50% of the time was spent in patient education, counseling, and coordination of care as described above. - Physical Exam General: Alert, In no apparent distress, Oriented x3 HEENT: Atraumatic, Mucous membr. moist/pink, Sclerae nonicteric Respiratory: Clear to auscultation bilaterally, Normal air movement Cardiovascular: No edema, Regular rate/rhythm, No murmurs Gastrointestinal: Normal bowel sounds, Soft, Non-distended, No tenderness Musculoskeletal: No clubbing Integumentary: No rashes Neurological: Normal speech, Normal affect Vital Signs/Physical Exam: Temp Pulse Resp BP Pulse Ox 98.1 F 92 H 16 137/78 98 12/16/22 08:00 12/16/22 08:00 12/16/22 08:00 12/16/22 08:00 12/16/22 08:00 Laboratory Data at Discharge: WBC 6.80 thou/uL (4.3-10.9) 12/16/22 03:59 Hgb 11.2 g/dL (12.0-15.0) L 12/16/22 03:59 Hct 33.4 % (36.0-45.0) L 12/16/22 03:59 Plt Count 310 thou/uL (152-406) 12/16/22 03:59 PT 10.9 SECONDS (9.5-12.5) 12/14/22 16:15 INR 0.99 12/14/22 16:15 Sodium 135 mEq/L (136-145) L 12/16/22 03:59 Potassium 4.1 mEq/L (3.5-5.1) 12/16/22 03:59 BUN 36 mg/dL (7-18) H 12/16/22 03:59 Creatinine 1.98 mg/dL (0.55-1.02) H 12/16/22 03:59 Glucose 121 mg/dL (74-106) H 12/16/22 03:59 Uric Acid 7.0 mg/dL (2.6-6.0) H 12/16/22 03:59 Phosphorus 3.5 mg/dL (2.5-4.9) 12/14/22 21:13 Magnesium 1.9 mg/dL (1.6-2.4) 12/14/22 21:13 Total Bilirubin 0.3 mg/dL (0.2-1.0) 12/14/22 16:15 AST 27 U/L (15-37) 12/14/22 16:15 ALT 21 U/L (13-56) 12/14/22 16:15 Alkaline Phosphatase 32 U/L (45-117) L 12/14/22 16:15 Triglycerides 163 mg/dL (<150) H 12/15/22 02:04 Cholesterol 118 mg/dL (<200) 12/15/22 02:04 HDL Cholesterol 33 mg/dL (40-60) L 12/15/22 02:04 Cholesterol/HDL Ratio 3.58 12/15/22 02:04 Home Medications: Clopidogrel Bisulfate [Plavix*] 75 mg PO DAILY 30 Days #30 tablet 03/06/22 Atorvastatin Calcium 40 mg PO BEDTIME 12/14/22 Calcium Carbonate [Tums Regular*] 1,000 mg PO DAILY PRN 12/14/22 Codeine/APAP [Tylenol #3*] 1 tab PO DAILY PRN 12/14/22 Melatonin 10 mg PO BEDTIME 12/14/22 Mirtazapine [Remeron*] 15 mg PO BEDTIME 12/14/22 Mv-Mn/Folic AC/Calcium/Vit K1 [Women's 50 Plus Multivit Tab] 1 each PO DAILY 12/14/22 Omeprazole 20 mg PO DAILY 12/14/22 Sodium Zirconium Cyclosilicate [Lokelma] 10 gm PO NOON 12/14/22 Vitamin B Complex [B Complex] 1 each PO DAILY 12/14/22 Levothyroxine Sodium 50 mcg PO DAILY #30 tab 12/16/22 New Medications: Levothyroxine Sodium 50 mcg PO DAILY #30 tab Physician Discharge Instructions: 1. Please call and schedule a follow-up appointment with your PCP (Dr. Richardson) in 3-5 days 2. Please call and schedule a follow-up appointment with Nephrology (Dr. Arias) in 3-5 days 3. Please call and schedule a follow-up appointment with Cardiology (Dr. Barillas) in 3-5 days -Please stop taking your metoprolol and sacubitril/valsartan (Entresto) until you see Dr. Arias -Your thyroid levels were slightly elevated. Your levothyroxine dose was decreased to 50 mcg. Please stop taking your current dose. Diet: Renal Activity: Ad kendra Followup: Isabella Richardson MD [Primary Care Provider] - Devendra Arias MD [ACTIVE - CAN ADMIT] - Gilberto Barillas MD [ACTIVE - CAN ADMIT] - Time spent managing pt's care (in minutes): 20
[2022-12-16] MEDS: ASPIRIN 81 MG CHEWABLE TABLET PO SCH (09:18)
[2022-12-16] MEDS: HEPARIN 5000 UNIT/ML 1 ML VIAL SQ SCH (09:18)
--- NOTE | 2022-12-16 10:30 | P.PN ---
Subjective Date of Service: 12/16/22 Chief Complaint: Hypotension Physical Examination - Vital Signs Temperature: 98.1 F Blood Pressure: 137/78 Pulse: 92 Respirations: 16 Pulse Ox (%): 98 Assessment And Plan - Plan 1. Acute kidney injury secondary to poor perfusion ATN, superimposed with Entresto and low blood pressure, on the recovery phase, looked to me still on the dry side. I am going to start the patient again on normal saline 50 per hour for only 500 and we will monitor. If kidney function tomorrow continues to improve, I am going to go ahead and discontinue IV fluid and the patient is going to be okay from the renal standpoint for discharge planning. I am going to go ahead and repeat renal ultrasound and basic workup and we will follow up the patient. 2. Hypertension with the presence of low blood pressure. Keep holding Entresto. 3. Congestive heart failure. Currently, the patient is on the dry side. Hold diuresis, hold Entresto. 4. Diabetes as by primary. 5. Hyponatremia secondary to depletional. We will start the patient on IV fluid. Hold Entresto. Physician Review: Patient Assessed, Agree with Above Assessment and Plan
--- NOTE | 2022-12-17 18:42 | CON ---
Date of Consultation: 12/15/2022 Reason For Consultation: Hypotension. History Of Present Illness: An 82-year-old female, history of hypothyroidism, chronic kidney disease , and CHF, presented to the emergency room with low blood pressure in the mid 60s. She usually runs a low blood pressure in the mid 90s, but for some reason, her blood pressure went down, and she think s that she might have overheated herself being out in the heat and she was likely dehydrated. I eval uated her by bedside. She has no complaints. Past Medical History: CHF, hypertension, atrial fibrillation, breast cancer. Medications: Refer reconciliation sheet for detailed list. Allergies: NO KNOWN DRUG ALLERGIES. Family History: No premature coronary artery disease or cancer. Social History: Does not smoke or drink. Does not use any drugs. Review of Systems: All systems reviewed and they were negative except as mentioned in the HPI. Physical Examination: Vital Signs: Reviewed. Head and Neck: Pupils are equal, reactive to light. Intact eye movements. No JVD. No cervical lym phadenopathy. Neck is supple. Thyroid is not enlarged. Lungs: Clear to auscultation bilaterally. No rhonchi, rales, or crackles. No accessory muscle use. Heart: Regular rate and rhythm. No extra sounds. Abdomen: Soft, nontender. Bowel sounds positive. No organomegaly. No masses or hernia. No rigidi ty or rebound. Extremities: No edema, clubbing, cyanosis. Intact pulses. Skin: No rash. Neurologic: Alert, awake, oriented x3. No acute focal deficits appreciated. Lymph Nodes: No cervical or axillary lymphadenopathy. Investigations: Her BUN is 43, creatinine 2.61. Troponins are negative. Assessment/recommendation: 1.Hypotension, likely due to dehydration. Recommend gentle IV fluid and reassess. No active cardia c issue is present at this time. 2.Acute renal failure, likely dehydration. IV fluid management is recommended and monitor kidney fu nction. Cardiology will sign off. Thank you for the consult. /BJORNL Voice ID: [id number] Report ID: [id number]
--- NOTE | 2022-12-19 13:20 | EKG ---
Test Date: 2022-12-14 Test Time: 16:25:50 Senior Accountant Cpa: JAMIR MEASUREMENT RESULTS: Intervals: Rate: 75 MS: 222 QRSD: 92 QT: 396 QTc: 442 Byers: P: 22 MS: 222 QRS: 18 T: 54 INTERPRETIVE STATEMENTS: Sinus rhythm with 1st degree AV block with occasional premature ventricular complexes Septal infarct, age undetermined Abnormal ECG Compared to ECG 04/01/2022 02:36:20 Ventricular premature complex(es) now present First degree AV block now present Myocardial infarct finding now present ST (T wave) deviation no longer present Possible ischemia no longer present Prolonged QT interval no longer present Electronically Signed On 12-19-22 13:13:00 CDT by Gilberto Barillas
== END 2022-12-16 10:42 | disposition home or self-care (01) ==
LOC: ER 15:39 → ERHOLD 18:10 → 2ND 19:53
PROVIDERS: ADMIT Internal Medicine; ATTEND Internal Medicine
DX: N17.9 Acute kidney failure, unspecified (principal); N18.4 Chronic kidney disease, stage 4 (severe); I10 Essential (primary) hypertension; I50.22 Chronic systolic (congestive) heart failure; I25.10 Atherosclerotic heart disease of native coronary artery without angina pectoris; M54.9 Dorsalgia, unspecified; D63.1 Anemia in chronic kidney disease; I48.0 Paroxysmal atrial fibrillation; E03.9 Hypothyroidism, unspecified; K21.9 Gastro-esophageal reflux disease without esophagitis; E78.5 Hyperlipidemia, unspecified; E11.9 Type 2 diabetes mellitus without complications; E87.1 Hypo-osmolality and hyponatremia; Z85.3 Personal history of malignant neoplasm of breast; Z20.822 Contact with and (suspected) exposure to COVID-19
CPT/HCPCS: 96365; 93005; 85025 ×3; 81001; 80048 ×3; 36415 ×2; 83735 ×2; 82550; 84100; 85610; 80061; 80076; 84550; 84443 ×2; 82570; 84484; 84439; 83970; 83880 ×2; 84156; 71045; 76770; 99285; 96366; 87811; J1644 ×4; J7050; J7030

== ENCOUNTER 2023-07-27 23:49 | Inpatient (IN) | payer MEDICAID ==
[2023-07-28] MEDS ORDERED: NA CHLORIDE 0.9% 500 ML ONE (01:33)
[2023-07-28] MEDS ORDERED: ONDANSETRON 4 MG/2 ML VIAL ONE (01:33)
[2023-07-28] MEDS ORDERED: MORPHINE 2 MG/ML SYR ONE (01:33)
[2023-07-28 02:16] LABS: Specific Gravity 1.022 (1.005-1.030); Sqamous Epithelial <5 /HPF (None Seen); Urine Bacteria <20 /HPF (<20); Urine Bilirubin NEGATIVE (Negative); Urine Blood Trace (Negative); Urine Clarity Extremely Turbid (Clear); Urine Color Yellow (Yellow); Urine Culture Reflex Order REFLEXED; Urine Glucose NEGATIVE (Negative); Urine Ketones NEGATIVE (Negative); Urine Microscopic Reflex YN ORDER UMIC; Urine Mucus Slight /HPF (None Seen); Urine Nitrite NEGATIVE (Negative); Urine Protein 1+ (Negative); Urine Urobilinogen Normal (Normal); Urine WBC >50 /HPF (<5); Urine WBC Clump Occasional /HPF (None Seen); Urine pH 5.5 (5.0-7.0)
[2023-07-28 02:28] LABS: SARS-CoV-2 Antigen CONTROL BLUE LINE VIS/BG OK; SARS-CoV-2 Antigen Rapid Res Negative (Negative)
[2023-07-28 02:35] LABS: Absolute Eosinophils 0.1 K/uL (0-0.5); Absolute Lymphocytes (CBC) 0.7 K/uL (0.7-4.9); Absolute Monocytes 0.4 K/uL (0.1-1.3); Absolute Neutrophil 5.4 K/uL (1.8-8.0); Basophils % 0.5 % (0-1.3); Eosinophils % 1.3 % (0-4.4); Hematocrit 33.4 % (36.0-45.0); Hemoglobin 11.3 g/dL (12.0-15.0); Lymphocytes % 10.1 % (15.3-44.8); MCH 31.6 pg (27.0-35.0); MCHC 33.8 g/dL (32.0-36.0); MCV 93.5 fL (80-100); MPV 7.5 fL (7.6-11.3); Monocytes % 6.8 % (3.3-12.3); Neutrophils % 81.3 % (41.7-73.7); Nucleated Red Blood Cells % 0.2 % (0-0); Platelets 325 thou/uL (152-406); RBC Red Blood Cell Count 3.57 M/uL (3.86-4.86); Red Cell Distribution Width 18.6 % (12.1-15.2)
[2023-07-28 03:19] LABS: PT Prothrombin Time 14.2 SECONDS (9.5-12.5); Protime INR 1.3
[2023-07-28 03:37] LABS: Albumin 3.3 g/dL (3.4-5.0); Albumin/Globulin Ratio 0.9 (1.1-1.8); Anion Gap 15.1 mEq/L (5.0-15.0); Bilirubin Total 0.6 mg/dL (0.2-1.0); C-Reactive Protein 41.5 mg/L (<3.00); Globulin 3.6 g/dL (2.3-3.5); Protein, Total 6.9 g/dL (6.4-8.2)
[2023-07-28 03:43] LABS: Potassium 6.1 mEq/L (3.5-5.1)
[2023-07-28 03:44] LABS: Troponin High Sensitivity 202.9 pg/mL (<58.9)
[2023-07-28] MEDS ORDERED: NA CHLORIDE 0.9% 100 ML ONE (04:46)
[2023-07-28] MEDS ORDERED: PIPERACIL/TAZO 3.375 GM VIAL IV ONE (04:46)
[2023-07-28] MEDS ORDERED: CALCIUM GLUCONATE 1 GM IVPB 1 GM/50 ML BAG IV ONE (04:47)
[2023-07-28 04:59] LABS: Anion Gap 14.8 mEq/L (5.0-15.0); Potassium 5.8 mEq/L (3.5-5.1)
--- NOTE | 2023-07-28 05:42 | ER ---
Nurse's Notes [facility] Name: Judy Acevedo Age: 83 yrs Sex: Female : 1940 Arrival Date: 07/27/2023 Time: 23:49 Bed 15 Private MD: Diagnosis: Acute on chronic renal failure, Hyperkalemia, Acidosis, Hyponatremia, volume contraction, Gastroenteritis. Elevated Troponin ;Dehydration Presentation: 07/27 00:08 Chief complaint: Patient states: upper abdominal pain of 8 with nausea, vomiting and pf1 diarrhea,onset Monday with weakness,onset 3 days, worse today. Coronavirus screen: Client denies travel out of the [place] in the last 14 days. Client presents with at least one sign or symptom that may indicate coronavirus-19. Ebola Screen: Patient negative for fever greater than or equal to 101.5 degrees Fahrenheit, and additional compatible Ebola Virus Disease symptoms. Initial Sepsis Screen: Does the patient meet any 2 criteria? No. Patient's initial sepsis screen is negative. Does the patient have a suspected source of infection? No. Patient's initial sepsis screen is negative. Risk Assessment: Do you want to hurt yourself or someone else? Patient reports no desire to harm self or others. Onset of symptoms was July 22, 2023. 00:08 Method Of Arrival: Wheelchair pf1 00:08 Acuity: [place] 3 pf1 Triage Assessment: 00:14 General: Appears in no apparent distress. comfortable, well groomed, well developed, pf1 Behavior is calm, cooperative, appropriate for age, quiet. Pain: Complains of pain in abdomen Pain currently is 8 out of 10 on a pain scale. GI: Reports upper abdominal pain, diarrhea, nausea, vomiting. Historical: - Allergies: 00:12 No Known Allergies; pf1 - PMHx: 00:12 Acute Kidney Failure; AFIB; bowel obstruction; breast cancer; Congestive heart failure; pf1 Hypertensive disorder; syncope; Hypothyroidism; - PSHx: 00:12 hysterectomy; Left Mastectomy; pf1 - Immunization history:: Adult Immunizations up to date, Client reports receiving the 2nd dose of the Covid vaccine, pfizer Last tetanus immunization: > 10 years ago Flu vaccine is not up to date. - Social history:: Smoking status: Smoking status: Patient denies any tobacco usage or history of. Patient uses alcohol, occasionally. Patient/guardian denies using street drugs. - Family history:: not pertinent. Screenin:44 [facility] ED Fall Risk Assessment (Adult) History of falling in the last 3 months, jj7 including since admission No falls in past 3 months (0 pts) Confusion or Disorientation No (0 pts) Intoxicated or Sedated No (0 pts) Impaired Gait No (0 pts) Mobility Assist Device Used No (0 pt) Altered Elimination No (0 pt) Score/Fall Risk Level 0 - 2 = Low Risk Oriented to surroundings, Maintained a safe environment, Educated pt \T\ family on fall prevention, incl call for assistance when getting out of bed. Abuse screen: Denies threats or abuse. Nutritional screening: No deficits noted. Tuberculosis screening: No symptoms or risk factors identified. Assessment: 00:44 General: Appears in no apparent distress. uncomfortable, Behavior is calm, cooperative, jj7 appropriate for age. GI: Abdomen is flat, Reports lower abdominal pain, upper abdominal pain, diarrhea, nausea, vomiting. 07:00 General: Appears in no apparent distress. comfortable, well groomed, well developed, kc6 Behavior is calm, cooperative, appropriate for age. Pain: Complains of pain in abdomen. Neuro: Level of Consciousness is awake, alert, obeys commands, Oriented to person, place, time, situation, Appropriate for age. Cardiovascular: Denies chest pain, Heart tones S1 S2 present Capillary refill < 3 seconds Rhythm is atrial fibrillation. Respiratory: Reports cough that is productive, Airway is patent Trachea midline Respiratory effort is even, unlabored, Respiratory pattern is regular, symmetrical. GI: Abdomen is flat, non-distended, Bowel sounds present X 4 quads. Reports lower abdominal pain, upper abdominal pain, diarrhea, nausea, vomiting. : No signs and/or symptoms were reported regarding the genitourinary system. EENT: No signs and/or symptoms were reported regarding the EENT system. Derm: No signs and/or symptoms reported regarding the dermatologic system. Skin is intact, is healthy with good turgor, Skin is pink, warm \T\ dry. Musculoskeletal: No signs and/or symptoms reported regarding the musculoskeletal system. Circulation, motion, and sensation intact. Capillary refill < 3 seconds, Range of motion: intact in all extremities. 08:00 Reassessment: Patient appears in no apparent distress at this time. No changes from kc6 previously documented assessment. Patient and/or family updated on plan of care and expected duration. Pain level reassessed. Patient is alert, oriented x 3, equal unlabored respirations, skin warm/dry/pink. 09:00 Reassessment: Patient appears in no apparent distress at this time. No changes from kc6 previously documented assessment. Patient and/or family updated on plan of care and expected duration. Pain level reassessed. Patient is alert, oriented x 3, equal unlabored respirations, skin warm/dry/pink. 09:22 Reassessment: Taj (son) [phone]. kc6 Vital Signs: 00:08 BP 112 / 73; Pulse 87; Resp 18; Temp 97; Pulse Ox 100% on R/A; Weight 49.9 kg; Height 5 pf1 ft. 5 in. ; Pain 8/10; 01:30 BP 121 / 76; Pulse 82; Resp 17; Pulse Ox 96% ; jj7 02:30 BP 119 / 73; Pulse 89; Resp 16; Pulse Ox 96% ; jj7 03:30 BP 122 / 80; Pulse 71; Resp 19; Pulse Ox 95% ; jj7 04:31 BP 114 / 81; Pulse 85; Resp 16; Pulse Ox 95% ; jj7 05:35 BP 112 / 70; Pulse 80; Resp 16; Temp 99; Pain 0/10; jj7 00:08 Body Mass Index 18.30 (49.90 kg, 165.1 cm) pf1 00:08 Pain Scale: Adult pf1 05:35 Pain Scale: Adult jj7 [place] Coma Score: 05:47 Eye Response: spontaneous(4). Motor Response: obeys commands(6). Verbal Response: sp4 oriented(5). Total: 15. ED Course: 07/26 23:52 Patient arrived in ED. jj6 07/27 00:12 Triage completed. pf1 00:44 Patient has correct armband on for positive identification. Placed in gown. Bed in low jj7 position. Call light in reach. Side rails up X2. Adult w/ patient. Client placed on continuous cardiac and pulse oximetry monitoring. NIBP monitoring applied. Warm blanket given. Assisted with bedpan. Assisted with dressing. 01:01 Britton Dyson MD is Attending Physician. sp4 01:19 Kyile Levine, RN is Primary Nurse. jj7 01:30 Inserted saline lock: 20 gauge 22 gauge in right hand, using aseptic technique. jj7 01:33 Radiology exam delayed due to lab results not completed at this time. (BUN/Creatinine) eh4 IV insertion attempt and/or patient not having appropriate IV at this time. 01:45 Urinalysis w/ reflexes Sent. jj7 01:45 SARS RAPID Sent. jj7 01:45 Influenza Screen (a \T\ B) Sent. jj7 03:05 EKG done, by certified cytotechnologist. reviewed by Britton Dyson MD. oe 04:18 CT Chest Abdomen Pelvis W/O Contrast In Process Unspecified. EDMS 04:30 BMP Sent. jj7 04:55 US Abdomen Limited In Process Unspecified. EDMS 05:39 Idris Arora MD is Hospitalizing Provider. sp4 07:00 Oxygen administration via nasal cannula \T\ 2L/min. kc6 07:00 Report received from MANUEL BARNETT. kc6 07:00 Arm band placed on. kc6 07:07 Report given to TIANA JACKSON. jj7 09:00 No provider procedures requiring assistance completed. Patient admitted, IV remains in kc6 place. Administered Medications: 01:43 Drug: NS 0.9% IV 500 ml IV at bolus once Route: IV; Rate: bolus; Site: right hand; jj7 02:17 Follow up: IV Status: Completed infusion jj7 01:44 Drug: NS 0.9% IV 1000 ml IV at 125 ml/hr continuous Route: IV; Rate: 125 ml/hr; Site: j right hand; 01:44 Drug: Ondansetron IVP 4 mg IVP once; over 2 minutes Route: IVP; Site: right hand; jj7 02:00 Follow up: Response: Marked relief of symptoms; Nausea is decreased jj7 01:45 Drug: morphine IVP or IV 2 mg IVP once over 4 mins Route: IVP; Infused Over: 4 mins; jj7 Site: right hand; 02:00 Follow up: Response: Marked relief of symptoms; Pain is decreased jj7 05:04 Drug: Calcium Gluconate IVPB 1 grams IVPB once over 60 mins; (mix in NS 100 mL) Route: jj7 IVPB; Infused Over: 60 mins; Site: left hand; 06:01 Follow up: IV Status: Completed infusion jj7 05:04 Drug: Piperacillin-Tazobactam IVPB 3.375 grams IVPB once over 60 mins; (mix in NS 100 jj7 mL) Route: IVPB; Infused Over: 60 mins; Site: left forearm; 06:02 Follow up: IV Status: Completed infusion jj7 06:46 Drug: Insulin Regular Human IVP 5 units IVP once {Co-Signature: pf1 (Jenise Leija RN).} Route: IVP; Site: left forearm; 07:11 Follow up: Response: No adverse reaction jj7 06:46 Drug: Sodium Bicarbonate IVP 50 mEq IVP once Route: IVP; Site: left forearm; jj7 07:11 Follow up: Response: No adverse reaction jj7 06:47 Drug: D50W IVP 50 ml IVP once; (1 amp) Route: IVP; Site: left hand; jj7 07:11 Follow up: Response: No adverse reaction jj7 07:11 Drug: Kayexalate PO 15 grams PO once Route: PO; jj7 07:12 Follow up: Response: No adverse reaction j7 Medication: 00:44 VIS not applicable for this client. jj7 Outcome: 05:41 Decision to Hospitalize by Provider. sp4 09:00 Admitted to ER Hold. Please see [facility] for further documentation. kc6 09:00 Condition: good 09:00 Instructed on the need for admit, 17:28 Patient left the ED. kc6 Signatures: Dispatcher [employer] EDMS Pipe Raines Jennifer jj6 Vy Fleming RN RN kc6 Juliana Valderrama 4 Kylie Levine RN RN jj7 Jenise Leija RN RN pf1 Britton Dyson MD MD sp4 Jenise Leija RN pf1
--- NOTE | 2023-07-28 05:42 | EDPHYS ---
Physician Documentation [facility] Name: Judy Acevedo Age: 83 yrs Sex: Female : 1940 Arrival Date: 07/27/2023 Time: 23:49 Bed 15 Private MD: ED Physician Britton Dyson HPI: 07/27 01:05 This 83 yrs old Female presents to ER via Wheelchair with complaints of sp4 Nausea/Vomiting/Diarrhea, Abdominal Pain. 01:05 Allergies: No Known Allergies; PMHx: bowel obstruction; Hypertensive disorder; sp4 Congestive heart failure; breast cancer; AFIB; Acute Kidney Failure; Hypothyroidism; syncope; PSHx: hysterectomy; Left Mastectomy;. 03:42 83-year-old female presents with acute abdominal pain nausea vomiting and diarrhea sp4 starting 3 days ago. . 05:42 Patient is 83-year-old female who presents with several days of profuse vomiting. sp4 Patient also reports diarrhea and diffuse abdominal pain. Patient has history of chronic kidney disease stage IV, hypothyroidism, atrial fibrillation status post Watchman device, gastroesophageal reflux, anemia of chronic disease. History of chronic atrial fibrillation hypothyroidism GERD history of parietal bowel resection, left radical mastectomy. . Last admission 12/14/2022. Patient's medications include clopidogrel, atorvastatin, calcium carbonate, Tylenol with codeine, melatonin, Remeron, omeprazole, Lokelma, B vitamins, levothyroxine 50 mcg p.o. daily.. Historical: - Allergies: 00:12 No Known Allergies; pf1 - PMHx: 00:12 Acute Kidney Failure; AFIB; bowel obstruction; breast cancer; Congestive heart failure; pf1 Hypertensive disorder; syncope; Hypothyroidism; - PSHx: 00:12 hysterectomy; Left Mastectomy; pf1 - Immunization history:: Adult Immunizations up to date, Client reports receiving the 2nd dose of the Covid vaccine, pfizer Last tetanus immunization: > 10 years ago Flu vaccine is not up to date. - Social history:: Smoking status: Smoking status: Patient denies any tobacco usage or history of. Patient uses alcohol, occasionally. Patient/guardian denies using street drugs. - Family history:: not pertinent. ROS: 05:47 Constitutional: Negative for fever, chills, and weight loss, positive for profuse sp4 nausea vomiting and diarrhea. Positive diffuse abdominal pain 05:47 All other systems are negative, Exam: 04:10 ECG was reviewed by the Attending Physician. EKG at 0 228 normal sinus rhythm with a sp4 rate of 82 05:47 Constitutional: This is a well developed, well nourished patient who is awake, alert, sp4 and in no acute distress. Head/Face: Normocephalic, atraumatic. Eyes: Pupils equal round and reactive to light, extra-ocular motions intact. Lids and lashes normal. Conjunctiva and sclera are not injected. Cornea within normal limits. Periorbital areas with no swelling, redness, or edema. ENT: Nares patent. No nasal discharge, no septal abnormalities noted. Tympanic membranes are normal and external auditory canals are clear. Oropharynx with no redness, swelling, or masses, exudates, or evidence of obstruction, uvula midline. Mucous membranes moist. Neck: Trachea midline, no thyromegaly or masses palpated, and no cervical lymphadenopathy. Supple, full range of motion without nuchal rigidity, or vertebral point tenderness. Chest/axilla: Normal chest wall appearance and motion. Nontender with no deformity. No lesions are appreciated. Cardiovascular: Regular rate and rhythm with a normal S1 and S2. No gallops, murmurs, or rubs. Normal PMI, no JVD. No pulse deficits. Respiratory: Lungs have equal breath sounds bilaterally, clear to auscultation and percussion. No rales, rhonchi or wheezes noted. No increased work of breathing, no retractions or nasal flaring. Abdomen/GI: Soft, with normal bowel sounds. No distension or tympany. No guarding or rebound. No evidence of tenderness throughout. Back: No spinal tenderness. No costovertebral tenderness. Skin: Warm, dry with normal turgor. Normal color with no rashes, no lesions, and no evidence of cellulitis. MS/ Extremity: Pulses equal, no cyanosis. Neurovascular intact. Full, normal range of motion. Neuro: Awake and alert, GCS 15, oriented to person, place, time, and situation. Cranial nerves II-XII grossly intact. Motor strength 5/5 in all extremities. Sensory grossly intact. Psych: Awake, alert, with orientation to person, place and time. Behavior, mood, and affect are within normal limits Vital Signs: 00:08 BP 112 / 73; Pulse 87; Resp 18; Temp 97; Pulse Ox 100% on R/A; Weight 49.9 kg; Height 5 pf1 ft. 5 in. ; Pain 8/10; 01:30 BP 121 / 76; Pulse 82; Resp 17; Pulse Ox 96% ; jj7 02:30 BP 119 / 73; Pulse 89; Resp 16; Pulse Ox 96% ; jj7 03:30 BP 122 / 80; Pulse 71; Resp 19; Pulse Ox 95% ; jj7 04:31 BP 114 / 81; Pulse 85; Resp 16; Pulse Ox 95% ; jj7 05:35 BP 112 / 70; Pulse 80; Resp 16; Temp 99; Pain 0/10; jj7 00:08 Body Mass Index 18.30 (49.90 kg, 165.1 cm) pf1 00:08 Pain Scale: Adult pf1 05:35 Pain Scale: Adult jj7 Opdyke Coma Score: 05:47 Eye Response: spontaneous(4). Motor Response: obeys commands(6). Verbal Response: sp4 oriented(5). Total: 15. MDM: 01:01 Patient medically screened. sp4 05:34 ED course: CLINICAL HISTORY: cough, abd distention COMPARISON: None. TECHNIQUE: CT sp4 CHESTABDOMEN PELVIS WITHOUT IV CONTRAST on 07/28/2023 3:44 AM CDT This exam was performed according to our departmental dose-optimization program, which includes automated exposure control, adjustment of the mA and/or kV according to patient size and/or use of iterative reconstruction technique. FINDINGS: Chest: The heart is moderately enlarged. There is an occlusion device in the left atrial appendage. There is no pericardial effusion. Left axillary lymph node dissection was performed. There are small bilateral pleural effusions. Central airways are patent. There is bibasilar bronchiectasis with coarse interstitial changes in the lower lungs. Left mastectomy was performed. Abdomen: There is trace perihepatic ascites. There is no biliary dilatation. Gallbladder is moderately distended. The pancreas and spleen are normal in appearance. Adrenal glands are normal. Kidneys are mildly atrophic. There is a punctate mid pole right renal calculus. Abdominal aorta is normal in course and caliber without aneurysm. There is no free air. There is no retroperitoneal adenopathy. Pelvis: There is mild diverticulosis of the distal colon. Urinary bladder is unremarkable. There is moderate amount of free pelvic fluid. Uterus is absent. Appendix is not well seen. Skeleton: There is a severe old L1 compression fracture. IMPRESSION: Pleural effusions with bibasilar probable fibrotic changes. Underlying pneumonia is not excluded. Mild ascites. . 05:47 Differential diagnosis: Nonspecific abd pain, gastritis, cholecystitis, pancreatitis, sp4 diverticulitis, viral gastroenteritis, gastroenteritis. Data reviewed: vital signs, nurses notes, old medical records, lab test result(s), EKG, radiologic studies, CT scan, ultrasound. Consideration of Admission/Observation Patient was admitted/placed on observation. Escalation of care including admission/observation considered. Management of patient was discussed with the following: Hospitalist: Ulysses BOWER . Software Recruiter: Juana Ramsay MD - Nephrology . ED course: CT has revealed no sign of bowel obstruction. It has revealed pleural effusions , bibasilar fibrotic changes. Mild ascites. Patient has signs of acute on chronic renal failure with mild hyperkalemia potassium 5.8. Patient was given medications for hyperkalemia also IV hydration. Patient has improved symptomatically. She warrants admission with nephrology consult. Incidentally mildly elevated troponin found . May warrant cardiology consult.. 06:39 ED course: EXAM DESCRIPTION: Abdomen Exam Limited RadLex: US ABDOMEN LIMITED CLINICAL sp4 HISTORY: 83 years Female; ABD PAIN TECHNIQUE: Limited gallbladder ultrasound was performed. COMPARISON: CT chest abdomen pelvis 07/28/2023. FINDINGS: Gallbladder distended. Gallbladder wall measures 3 mm. Trace pericholecystic fluid. Possible few tiny stones noted. Common bile duct measures 8 mm, at upper limits of normal for age. IMPRESSION: 1. Distended gallbladder with possible few tiny stones and trace pericholecystic fluid. However no significant gallbladder wall thickening. Sonographic findings are equivocal for acute cholecystitis. 2. Common bile duct measures up to 8 mm, at upper limits of normal for age. . 07/27 01:01 Order name: CBC with Diff; Complete Time: 03:11 sp4 07/27 01:01 Order name: Urinalysis w/ reflexes; Complete Time: 03:11 sp4 07/27 01:09 Order name: CRP; Complete Time: 03:44 sp4 07/27 01:10 Order name: Troponin High Sensitivity; Complete Time: :44 sp4 07/27 01:10 Order name: CK; Complete Time: 03:44 sp4 07/27 01:10 Order name: Lactate w/ 2H reflex if indic.; Complete Time: 03:43 sp4 07/27 01:10 Order name: PT-INR; Complete Time: 03:43 sp4 07/27 01:10 Order name: Influenza Screen (a \T\ B); Complete Time: 03:11 sp4 07/27 01:10 Order name: SARS RAPID; Complete Time: 03:11 sp4 07/27 02:20 Order name: Urine Culture EDMS 07/27 02:33 Order name: Comprehensive Metabolic Panel; Complete Time: 03:44 EDMS 07/27 02:33 Order name: Lipase; Complete Time: 03:44 EDMS 07/27 04:12 Order name: BMP; Complete Time: 08:33 sp4 07/27 07:00 Order name: Lipase; Complete Time: 08:33 EDMS 07/27 11:02 Order name: Thyroid Stimulating Hormone EDMS 07/27 11:02 Order name: CBC with Automated Diff EDMS 07/27 11:03 Order name: CBC with Automated Diff EDMS 07/27 11:03 Order name: CBC with Automated Diff EDMS 07/27 11:03 Order name: CBC with Automated Diff EDMS 07/27 11:03 Order name: Comprehensive Metabolic Panel EDMS 07/27 11:03 Order name: Comprehensive Metabolic Panel EDMS 07/27 11:03 Order name: Comprehensive Metabolic Panel EDMS 07/27 11:03 Order name: Lipid Profile EDMS 07/27 11:03 Order name: Lipid Profile EDMS 07/27 11:03 Order name: Magnesium EDMS 07/27 11:03 Order name: Magnesium EDMS 07/27 11:05 Order name: Troponin High Sensitivity EDMS 07/27 11:05 Order name: Troponin High Sensitivity EDMS 07/27 11:05 Order name: Troponin High Sensitivity EDMS 07/27 11:05 Order name: Troponin High Sensitivity EDMS 07/27 03:44 Order name: CT Chest Abdomen Pelvis W/O Contrast sp4 07/27 04:10 Order name: US Abdomen Limited sp4 07/27 10:43 Order name: Cholangiogram EDMS 07/27 01:10 Order name: EKG; Complete Time: 01:10 4 07/27 01:01 Order name: IV Saline Lock; Complete Time: 01:45 sp4 07/27 01:01 Order name: Labs collected and sent; Complete Time: 01:45 sp4 07/27 01:10 Order name: EKG - Nurse/Tech; Complete Time: 03:04 sp4 07/27 02:41 Order name: Misc. Order: recollect green, arshad, blue; Complete Time: 05:05 vc1 EC:10 Rate is 82 beats/min. Rhythm is regular, Sinus Rhythm. QRS Collins is Normal. OK interval sp4 is prolonged. QRS interval is prolonged. QT interval is normal. No Q waves. T waves are Normal. No ST changes noted. Clinical impression: No evidence of ischemia. Interpreted by me. Administered Medications: 01:43 Drug: NS 0.9% IV 500 ml IV at bolus once Route: IV; Rate: bolus; Site: right hand; jj7 02:17 Follow up: IV Status: Completed infusion 01:44 Drug: NS 0.9% IV 1000 ml IV at 125 ml/hr continuous Route: IV; Rate: 125 ml/hr; Site: [facility] right hand; 01:44 Drug: Ondansetron IVP 4 mg IVP once; over 2 minutes Route: IVP; Site: right hand; jj7 02:00 Follow up: Response: Marked relief of symptoms; Nausea is decreased 01:45 Drug: morphine IVP or IV 2 mg IVP once over 4 mins Route: IVP; Infused Over: 4 mins; jj7 Site: right hand; 02:00 Follow up: Response: Marked relief of symptoms; Pain is decreased j7 05:04 Drug: Calcium Gluconate IVPB 1 grams IVPB once over 60 mins; (mix in NS 100 mL) Route: jj7 IVPB; Infused Over: 60 mins; Site: left hand; 06:01 Follow up: IV Status: Completed infusion 05:04 Drug: Piperacillin-Tazobactam IVPB 3.375 grams IVPB once over 60 mins; (mix in NS 100 jj7 mL) Route: IVPB; Infused Over: 60 mins; Site: left forearm; 06:02 Follow up: IV Status: Completed infusion 7 06:46 Drug: Insulin Regular Human IVP 5 units IVP once {Co-Signature: pf1 (Jenise Leija RN).} Route: IVP; Site: left forearm; 07:11 Follow up: Response: No adverse reaction jj7 06:46 Drug: Sodium Bicarbonate IVP 50 mEq IVP once Route: IVP; Site: left forearm; jj7 07:11 Follow up: Response: No adverse reaction jj7 06:47 Drug: D50W IVP 50 ml IVP once; (1 amp) Route: IVP; Site: left hand; jj7 07:11 Follow up: Response: No adverse reaction jj7 07:11 Drug: Kayexalate PO 15 grams PO once Route: PO; jj7 07:12 Follow up: Response: No adverse reaction jj7 Disposition Summary: 07/28/23 05:41 Hospitalization Ordered Notes: Hospitalization Status: Inpatient Admission sp4 Provider: Idris Arora sp4 Condition: Stable sp4 Problem: new sp4 Symptoms: have improved sp4 Bed/Room Type: Standard sp4 Location: Intensive Care Unit(07/28/23 16:50) kb3 Room Assignment: -(07/28/23 16:50) kb3 Diagnosis - Acute on chronic renal failure, Hyperkalemia, Acidosis, Hyponatremia, volume sp4 contraction, Gastroenteritis. Elevated Troponin - Dehydration sp4 Forms: - Medication Reconciliation Form sp4 - SBAR form sp4 - Leadership Thank You Letter sp4 Signatures: Dispatcher [employer] EDMS Joann Singh FNP-Ambrosio CLIENT SERVICE AND CONSULTING MANAGER-Csnw Glory Knight RN RN cg Salima Clemons RN RN vc1 Palak Segovia RN RN kb3 Kylie Levine RN RN jj7 Jenise Leija, MANUEL JACKSON pf1 Britton Dyson MD MD sp4 Jenise Leija RN pf1 Corrections: (The following items were deleted from the chart) 02:33 01:02 COMPREHENSIVE METABOLIC PANEL+C.LAB.BRZ ordered. EDMS EDMS 02:33 01:02 LIPASE+C.LAB.BRZ ordered. EDMS EDMS 03:48 01:10 Chest Abdomen Pelvis W Con+CT.RAD.BRZ ordered. EDMS EDMS 06:17 05:41 Telemetry/MedSurg (Inpatient) sp4 cg 06:17 05:41 sp4 cg 07:00 03:46 LIPASE+C.LAB.BRZ ordered. EDMS EDMS 08:57 08:52 Lipase ordered. EDMS EDMS 16:50 06:17 BR ER HOLD cg kb3 16:50 06:17 ERHOLD- cg kb3
[2023-07-28] MEDS ORDERED: SOD POLYSTYREN SUL 15 GM/60 ML UCUP ONE (06:29)
[2023-07-28] MEDS ORDERED: INSULIN REGULAR (HUMAN) 100 UNIT/ML ONE (06:30)
[2023-07-28] MEDS ORDERED: D10W 250 ML IV ONE (06:31)
[2023-07-28] MEDS: NA CHLORIDE 0.9% 1,000 ML IV SCH (09:00)
[2023-07-28] MEDS: FOLIC AC PO SCH (09:00)
[2023-07-28] MEDS: VIT K1 PO SCH (09:00)
[2023-07-28] MEDS: CALCIUM PO SCH (09:00)
[2023-07-28] MEDS: CEFTRIAXONE 1,000 MG in NA CHLORIDE 0.9% 50 ML IVPB SCH (09:00)
[2023-07-28] MEDS: MV MN PO SCH (09:00)
[2023-07-28] MEDS: CLOPIDOGREL 75 MG TABLET PO SCH (09:00)
--- NOTE | 2023-07-28 09:18 | P.HP ---
Certification for Inpatient Patient admitted to: Inpatient With expected LOS: >2 Midnights Patient will require the following post-hospital care: Other (lives at home with her Son - may need home health vs inpatient rehab) Practitioner: I am a practitioner with admitting privileges, knowledge of patient current condition, hospital course, and medical plan of care. Services: Services provided to patient in accordance with Admission requirements found in Title 42 Section 412.3 of the Code of Federal Regulations <Anushka Singhbart Sanders - Last Filed: 07/28/23 19:37> Patient History Date of Service: 07/28/23 Reason for admission: BRAD, N/V/D, Inflam Marker elevation History of Present Illness: Ms. Acevedo is an 83 yo with a past medical history of chronic renal insufficiency with acute kidney injury, congestive heart failure with reduced ejection fraction, and generalized weakness who has had nausea, vomiting, and diarrhea for 6 days. Her Son has tried to give her her regular medications but she has not been tolerating them well. In the ED she was noted to by hyperkalemic and treatment was initiated. She had an US and CT showing some dilation of her gallbladder. Dr. Lal and Dr. Arias have been consulted. She will be admitted to ICU for further evaluation and management. Home medications list reviewed: Yes - Past Medical/Surgical History Has patient received pneumonia vaccine in the past: No Diabetic: No -: Hypertension -: Breast Cancer -: CKD -: CHF -: GERD -: Afib -: Hysterectomy -: Mastectomy -: Watchman procedure Psychosocial/ Personal History: Lives at home with her Son - Family History Father -: Heart disease Brother -: Heart disease Sister -: Heart disease - Social History Smoking Status: Never smoker Alcohol use: Yes CD- Drugs: No Caffeine use: Yes Place of Residence: Home <Joann Singh - Last Filed: 07/28/23 19:37> Date of Service: 07/28/23 <Reese Morrow - Last Filed: 07/29/23 16:16> Allergies No Known Allergies Allergy (Verified 12/14/22 22:35) Home Medications: Clopidogrel Bisulfate [Plavix*] 75 mg PO DAILY 30 Days #30 tablet 03/06/22 Atorvastatin Calcium 40 mg PO BEDTIME 12/14/22 Melatonin 10 mg PO BEDTIME 12/14/22 Mirtazapine [Remeron*] 30 mg PO BEDTIME 12/14/22 Mv-Mn/Folic AC/Calcium/Vit K1 [Women's 50 Plus Multivit Tab] 1 each PO DAILY 12/14/22 Omeprazole 40 mg PO DAILY 12/14/22 Sodium Zirconium Cyclosilicate [Lokelma] 10 gm PO NOON 12/14/22 Aspirin [Aspirin EC 81 MG] 81 mg PO DAILY 07/28/23 Levothyroxine Sodium 75 mcg PO DAILY 07/28/23 Loratadine [Claritin] 10 mg PO DAILY 07/28/23 Metoprolol Succinate [Toprol Xl] 25 mg PO DAILY 07/28/23 Sacubitril/Valsartan [Entresto 97 mg-103 mg Tablet] 1 each PO BID 07/28/23 Simethicone [Mylanta] 125 mg PO PRN 07/28/23 Review of Systems 10-point ROS is otherwise unremarkable General: Weakness, Malaise Respiratory: Cough, As per HPI Cardiovascular: As per HPI Gastrointestinal: Nausea, Vomiting, Diarrhea Neurological: Weakness <Singh,Joann Tommy - Last Filed: 07/28/23 19:37> Physical Examination - Physical Exam General: In no apparent distress, Oriented x3, Other (thin) HEENT: Atraumatic, Normocephalic Neck: Supple, 2+ carotid pulse no bruit Respiratory: Normal air movement, Other (cough, nasal congestion) Cardiovascular: No edema, Normal pulses, Irregular heart rate/rhythm Capillary refill: <2 Seconds Gastrointestinal: Soft and benign Musculoskeletal: No clubbing, No swelling Neurological: Normal speech, Other (pallor, fatigue) Lymphatics: No axilla or inguinal lymphadenopathy External genitalia: Deferred - Studies Laboratory Data (last 24 hrs) 07/28/23 07/28/23 07/28/23 08:49 04:23 03:46 WBC Hgb Hct Plt Count PT INR Sodium 126 L Potassium 5.8 H BUN 65 H Creatinine 3.38 H Glucose 122 H Total Bilirubin AST ALT Alkaline Phosphatase Lipase Cancelled 50 Cancelled 07/28/23 07/28/23 07/28/23 02:55 02:55 02:23 WBC 6.60 Hgb 11.3 L Hct 33.4 L Plt Count 325 PT 14.2 H INR 1.30 Sodium 128 L Potassium 6.1 H* BUN 66 H Creatinine 3.39 H Glucose 112 H Total Bilirubin 0.6 AST 255 H ALT 216 H Alkaline Phosphatase 56 Lipase 51 07/28/23 01:01 WBC Hgb Hct Plt Count PT INR Sodium Cancelled Potassium Cancelled BUN Cancelled Creatinine Cancelled Glucose Cancelled Total Bilirubin Cancelled AST Cancelled ALT Cancelled Alkaline Phosphatase Cancelled Lipase Cancelled Microbiology Data (last 24 hrs): 07/28/23 01:30 Nasopharnyx Influenza Type A Antigen Screen - Final 07/28/23 01:30 Nasopharnyx Influenza Type B Antigen Screen - Final <Joann Singh Tommy - Last Filed: 07/28/23 19:37> Assessment and Plan - Plan CKD with BRAD with hyperkalemia: Sodium Zirconium Cyclosilicate [Lokelma] 10 gm has not been given since Monday as pt had N/V/D. Hyperkalemia protocol given in ED with improvement of potassium to normal range Consult Dr. Arias Takes Tamiekema at home Gastroenteritis/Cholecystitis? MRCP today Consult Dr. Hali Flooddiff sample to be collected Rocephin 1 gm IVPB pending urine culture results Elevated Troponin/inflammatory markers: trend troponin observe for symptoms of infection, urine culture Clopidogrel Bisulfate [Plavix*] 75 mg PO DAILY Heparin 5000u sc BID Congestive heart failure with reduced EF: Entresto (pt was on 97/103 dose with improvement in EF; however, second to CKD it was reduced (with reduction in EF), and then slowly increased to 97/103 again). We will have to reduce during admission second to hyperkalemia Hyperlipidemia: Atorvastatin Calcium 40 mg PO BEDTIME 12/14/22 Hypothyroidism: Levothyroxine Sodium 75mcg PO DAILY Dementia: Remeron 15mg po at HS GI prophylaxis: PPI (hx of GIB) Code status: full Plan to discharge in: 72 Hours - Advance Directives Does patient have a Living Will: Yes Does patient have a Durable POA for Healthcare: Yes - Code Status/Comfort Care Code Status Assessed: Yes (Full) <Joann Singh Tommy - Last Filed: 07/28/23 19:37> Date of Service: 07/28/23 Agree with plan of care as mentioned above. Patient seen and examined with son at bedside. Patient with a history of cardiomyopathy. Patient developed a urinary tract infection. Patient was hypotensive. Patient developed elevated liver function test and acute on chronic renal failure. Patient currently with cardiorenal syndrome. Patient is creatinine will continue to be monitored. Patient liver function testing will be monitored. MRCP was reviewed. Patient high risk for any surgical intervention and medical stabilization needs to be done before any surgery should be considered. Patient with a type II myocardial infarction. Cardiology consultation along with nephrology consultation. Appreciate surgery consultation. <Reese Morrow - Last Filed: 07/29/23 16:16>
[2023-07-28] MEDS ORDERED: CEFTRIAXONE 1000 MG/VIAL ONE (10:46)
[2023-07-28] MEDS: SODIUM ZIRCONIUM CYCLOSILICATE 10 GM/PKT PO SCH (12:00)
[2023-07-28] MEDS: METOPROLOL TAR 25 MG TAB PO ONE (12:30)
[2023-07-28] MEDS: ALBUMIN HUMAN 25% 100 ML IV ONE (12:30)
--- NOTE | 2023-07-28 12:54 | CON ---
Date of Consultation: 07/28/2023 Reason: Distended gallbladder. History Of Present Illness: The patient is an 83-year-old female, comes to the emergency room with a bdominal pain, nausea, vomiting, and diarrhea since last Monday, started getting weak about 3 days ago and symptoms became worse, so she came to the emergency room last night. She is awake and alert, in no acute distress currently, has minimal pain in the abdomen and no nausea or vomiting right now. She states that she also had body aches. She denies any sore throat, runny nose, cough, headaches, dizziness. No chest pain. No fever or chills. She has not had symptoms like this in the past. Please note the patient had a stent placed in [address] Godfrey and she is on Plavix. Review of Systems: Otherwise unremarkable. Past Medical History: Significant for chronic renal disease, atrial fibrillation, bowel obstruction, coronary artery disease, breast cancer on the left side, congestive heart failure, hypertension, hyp othyroidism, and syncope. Past Surgical History: Significant for left mastectomy, hysterectomy, exploratory laparotomy for bow el obstruction in the 80s. Allergies: NO ALLERGIES. Social History: The patient denies smoking or drinking any alcohol. Physical Examination: Vital Signs: Stable. She is afebrile. General: She is awake, alert, oriented x3. Head and Neck: There is no evidence of icterus. Cranial nerves 2 through 12 are grossly within norm al limits. No neck masses. No JVD. Throat clear. Neck supple. Chest: Clear. Heart: S1, S2. Abdomen: Soft, nondistended. Positive bowel sounds. Tenderness in the right upper quadrant, but no rebound, rigidity, or guarding. No abdominal wall hernia appreciated. Extremities: Adequately perfused, nontender. Neuro: Nonfocal. Laboratory Data: Reviewed. Her white count is 6.6 with a slight left shift. H and H are 11.3 and 3 3.4. INR is 1.30. Chemistry significant for sodium of 128, potassium of 6.1, BUN of 66, creatinine of 3.39. Her total bilirubin and alkaline phosphatase are normal. However, her AST and ALT are elev ated at 255 and 216 respectively. Troponin 1 is 202.9. Lactic acid is 1.4. Lipase is 50. She had a CT of the abdomen and pelvis and the findings reviewed with the radiologist. Essentially, she has a distended gallbladder with no pericholecystic fluid and a small stone in the neck of the gallbladde r. Her EKG shows first-degree AV block. Assessment: An 83-year-old female with multiple medical problems including coronary artery disease w ith stent placed 2 years ago, chronic renal disease, congestive heart failure, presents with abdomina l pain, nausea, vomiting, and diarrhea and gallstone in the neck of the gallbladder with distention. Recommendations: I discussed the case with Dr. Morrow. We will continue the patient on IV antibiotics . We will get an MRCP to evaluate the common bile duct as her LFTs are elevated. We will await Card iology and Renal Service recommendation. We will stop the Plavix for now and start her on Lovenox an d once she is medically cleared, she would probably benefit from a cholecystectomy and we will make t hat determination after the aforementioned workup has been completed. I will follow this patient em estrada in the hospital. SAHIL/DEXTER Voice ID: [id number] Report ID: [id number]
[2023-07-28] MEDS ORDERED: METOPROLOL TAR 25 MG TAB ONE (13:00)
[2023-07-28] MEDS ORDERED: ALBUMIN HUMAN 25% 50 ML IV ONE (13:00)
[2023-07-28] MEDS: NACHLORIDE 0.45% 1,000 ML with NA BICARB 8.4% 50 MEQ IV SCH (13:00)
[2023-07-28] MEDS: HEPARIN 5000 UNIT/ML 1 ML VIAL SQ SCH (14:00)
[2023-07-28] MEDS ORDERED: HEPARIN 5000 UNIT/ML 1 ML VIAL ONE (15:23)
--- NOTE | 2023-07-28 17:21 | EKG ---
Test Date: 2023-07-28 Test Time: 02:28:33 Cardiology Nurse Practitioner: ADONAY MEASUREMENT RESULTS: Intervals: Rate: 82 IA: 240 QRSD: 154 QT: 426 QTc: 497 Junction: P: 77 IA: 240 QRS: 232 T: 58 INTERPRETIVE STATEMENTS: Sinus rhythm with 1st degree AV block Right superior axis deviation Nonspecific intraventricular block Abnormal ECG Compared to ECG 12/14/2022 16:25:50 Right superior axis now present Ventricular premature complex(es) no longer present Myocardial infarct finding no longer present Electronically Signed On 07-28-23 17:19:53 CDT by Gilberto Barillas
--- NOTE | 2023-07-28 17:24 | RAD REPORT ---
EXAM DESCRIPTION: MRI - Cholangiogram - 07/28/2023 2:56 pm CLINICAL HISTORY: Distended gallbladder with gallstone, elevated LFT COMPARISON: Chest Abd Pelvis Wo Con dated 07/28/2023 TECHNIQUE: Multiplanar multisequence MRI of the abdomen, obtained without IV contrast, utilizing M POWER GRADER OPERATOR sequences. FINDINGS: Markedly distended gallbladder. No filling defects to suggest calculi. No intrahepatic biliary ductal dilation. Common bile duct is distended, measuring 10 millimeter. No filling defects to suggest choledocholithi asis. Smooth tapering at the ampulla. Main pancreatic duct is not dilated. The visualized aspects of the liver, spleen, adrenal glands, pancreas, and kidneys are unremarkable. Mild free ascites. Visualized aspects of the bowel are unremarkable. No suspicious osseous lesions. Small right and trace left pleural effusions IMPRESSION: Distended gallbladder with no evidence of gallstones. Common bile duct is mildly dilated measuring 1 cm in caliber, however without evidence of choledochol ithiasis, stricture, or mass.
[2023-07-28] MEDS: METOPROLOL TAR 25 MG TAB PO SCH (18:12)
[2023-07-28 18:36] VITALS: BMI 18.3
[2023-07-28] MEDS ORDERED: SODIUM CHLORIDE 0.9% 10ML INJ IV PRN (19:35)
[2023-07-28] MEDS: ATORVASTATIN 40 MG TAB PO SCH (21:50)
[2023-07-28] MEDS: MIRTAZAPINE 15 MG TAB PO SCH (22:07)
[2023-07-29 00:15] LABS: Anion Gap 12.8 mEq/L (5.0-15.0); Potassium 4.8 mEq/L (3.5-5.1)
[2023-07-29] MEDS: THIAMINE 200 MG/2 ML INJ IVP ONE (01:02)
[2023-07-29] MEDS ORDERED: THIAMINE 200 MG/2 ML INJ ONE (01:02)
[2023-07-29] MEDS: D5W 1,000 ML IV SCH (01:03)
[2023-07-29 07:25] LABS: Absolute Basophils 0.1 K/uL (0-0.5); Absolute Eosinophils 0.4 K/uL (0-0.5); Absolute Lymphocytes (CBC) 0.5 K/uL (0.7-4.9); Absolute Monocytes 0.5 K/uL (0.1-1.3); Absolute Neutrophil 3.5 K/uL (1.8-8.0); Basophils % 1.5 % (0-1.3); Eosinophils % 7.3 % (0-4.4); Hematocrit 28.9 % (36.0-45.0); Hemoglobin 9.9 g/dL (12.0-15.0); Lymphocytes % 10.3 % (15.3-44.8); MCHC 34.2 g/dL (32.0-36.0); MCV 93.6 fL (80-100); MPV 7.3 fL (7.6-11.3); Monocytes % 9.6 % (3.3-12.3); Neutrophils % 71.3 % (41.7-73.7); Nucleated Red Blood Cells % 0.3 % (0-0); Platelets 322 thou/uL (152-406); RBC Red Blood Cell Count 3.09 M/uL (3.86-4.86); Red Cell Distribution Width 18.4 % (12.1-15.2)
[2023-07-29 07:49] LABS: Albumin 2.9 g/dL (3.4-5.0); Anion Gap 11.6 mEq/L (5.0-15.0); Bilirubin Total 0.6 mg/dL (0.2-1.0); Globulin 2.8 g/dL (2.3-3.5); Potassium 4.6 mEq/L (3.5-5.1); Protein, Total 5.7 g/dL (6.4-8.2); Thyroid Stimulating Hormone 0.579 uIU/mL (0.358-3.740)
[2023-07-29 08:05] LABS: Troponin High Sensitivity 369.2 pg/mL (<58.9)
[2023-07-29] MEDS ORDERED: MULTIVITAMIN TAB PO ONE (08:25)
[2023-07-29] MEDS: PANTOPRAZOLE 40 MG INJ IVP SCH (08:43)
[2023-07-29] MEDS: MULTIVITAMIN TAB PO SCH (08:44)
[2023-07-29] MEDS: THIAMINE 200 MG/2 ML INJ IVP SCH (08:44)
--- NOTE | 2023-07-29 08:46 | CON ---
Date of Consultation: 07/28/2023 Reason For Consultation: Acute on chronic kidney injury, nausea, vomiting, hyponatremia. History Of Present Illness: The patient is an 83-year-old woman with past medical history significan t for chronic kidney disease, history of acute kidney injury, congestive heart failure with reduced e jection fraction, cardiorenal syndrome. She has chronic weakness. She presented to the hospital bec ause of nausea, vomiting, diarrhea for the last 6 days prior to admission. The patient could not leonie erate p.o. intake and could not tolerate taking by mouth medication. She came to the emergency room and was noted to have hyperkalemia and hyponatremia. She was treated for hyperkalemia. She had an u ltrasound and CT scan showing dilatation of gallbladder and surgical team is consulted for possible c holecystectomy and cholecystitis. The patient has history of coronary artery disease, congestive hea rt failure. Past Medical History: Hypertension, chronic kidney disease, diabetes, history of acute kidney injury , coronary artery disease, hyperlipidemia, insomnia, GERD, history of hyperkalemia, hypothyroidism, h ypertension, hysterectomy, breast cancer, mastectomy, Watchman procedure. Family History: Father, heart disease. Brother, heart disease. Sister, heart disease. Social History: Denies tobacco, alcohol, or illicit drugs. Review of Systems: General: Denies weakness, malaise. Denies syncope. Eyes: Denies new vision changes. Respiratory: Has cough and congestion. Cardiovascular: Denies palpitations, syncope. GI: Has nausea, vomiting, diarrhea. Denies melena, hematemesis. : Denies dysuria, hematuria. Physical Examination: General: The patient is awake, alert, and oriented x3. HEENT: Atraumatic, normocephalic. Neck: Supple. No bruits. Respiratory: Normal air movement. although patient has some edema. Heart: S1, S2. Irregularly irregular. GI: Denies tenderness. No rebound. No guarding. Musculoskeletal: No swelling, no joint tenderness. Neurologic: Normal speech. No tremor. Cranial nerves intact. Laboratory Data: Lab work done on July 27, showed sodium 126, potassium 5.8, BUN 65, creatinine 3.3 8, glucose 122. Hemoglobin 11.3, WBC 6.6, platelet count 325. Assessment And Plan: 1.Acute on chronic kidney injury with hyperkalemia, hyponatremia. Patient is treated with Lokelma f or hypernatremia. Monitor renal function closely. Potassium level has improved from 6.1 to 5.8. Mo nitor renal panel, assess for metabolic changes, and continue Lokelma. 2.Gastrointestinal. Likely patient has cholecystitis. The patient is to have a magnetic resonance cholangiopancreatography. Surgical team was consulted. Continue broad-spectrum antibiotics, adjust dose to renal function. 3.Elevated troponin. The urine culture was also obtained because of increase of inflammatory marker s. The patient has history of coronary artery disease. Recommend Cardiology consultation. 4.Congestive heart failure, on Entresto. Entresto on hold due to hyperkalemia. Continue p.o. hydra tion and diuretics. 5.Hyperlipidemia. Continue atorvastatin. 6.Dementia. Patient is on Remeron per primary team. consult chronic kidney disease, acute kidney injury, hyperkalemia, cholecystitis, elevated troponin, coronary artery disease, congestive heart failure with reduced ejection fraction, acute on chronic hyperlipidemia, hypothyroidism, altered mental status. EB/MODL Voice ID: [id number] Report ID: [id number]
[2023-07-29] MEDS ORDERED: ENOXAPARIN 40 MG/0.4 ML SQ SCH (09:00)
--- NOTE | 2023-07-29 10:37 | PN ---
Date of Progress Note: 07/29/2023 Subjective: The patient is little agitated, but no abdominal pain. Objective: Vital signs are stable. She is afebrile. MRCP reviewed with the radiologist showed a distended gallbladder with no evidence of pericholecystic fluid. There was slight prominence of common bile duct appropriate for the age of the patient and n o obstructing mass or stone seen. Laboratory Data: Reviewed. White count is normal. There is no left shift. Chemistry shows decreas e in the AST and ALT. Troponin is slightly elevated still, but her BUN and creatinine have markedly improved as sodium has corrected and potassium has gone down. Assessment: An 83-year-old female with multiple medical problems including ejection fraction of 25% on her echo with distended gallbladder, but asymptomatic at this point. Recommendations: Continue IV antibiotics. We will start clear liquids, see how the patient does. S hould the patient have any issues, she may benefit from a HIDA scan. Plan of care discussed with Dr. Morrow. SAHIL/DEXTER Voice ID: [id number] Report ID: [id number]
--- NOTE | 2023-07-29 10:43 | P.PN ---
Subjective Date of Service: 07/29/23 Chief Complaint: BRAD, N/V/D, Inflam Marker elevation Subjective: Improving (Pt states she is feeling better. IV therapy here for Midline placement) <Joann Singh - Last Filed: 07/29/23 15:07> Date of Service: 07/29/23 <Reese Morrow - Last Filed: 07/29/23 16:10> Review of Systems 10-point ROS is otherwise unremarkable General: Weakness, Malaise Respiratory: Cough, Other (nasal congestion), As per HPI Cardiovascular: Orthopnea <Joann Singhlen - Last Filed: 07/29/23 15:07> Physical Examination - Vital Signs Temperature: 97.9 F Blood Pressure: 123/85 Pulse: 83 Respirations: 20 Pulse Ox (%): 97 - Physical Exam General: Alert, In no apparent distress, Oriented x3, Other (facial edema) HEENT: Atraumatic, Normocephalic Neck: Supple Respiratory: Normal air movement Cardiovascular: No murmurs, Edema, Irregular heart rate/rhythm Capillary refill: <2 Seconds Gastrointestinal: Soft and benign Musculoskeletal: No clubbing, No swelling Integumentary: No rashes, Other (pallor) Neurological: Abnormal strength Lymphatics: No axilla or inguinal lymphadenopathy External genitalia: Deferred Rectal: Deferred <Joann Singh - Last Filed: 07/29/23 15:07> Assessment And Plan - Plan CKD with BRAD with hyperkalemia: Sodium Zirconium Cyclosilicate [Lokelma] 10 gm has not been given since Monday as pt had N/V/D. Hyperkalemia protocol given in ED with improvement of potassium to normal range 07/28/23 Dr. Arias consulted Takes Lokema at home Gastroenteritis/Cholecystitis? Consult Dr. Lal - MRCP ordered per Dr. Lal MRCP results on chart :IMPRESSION: Distended gallbladder with no evidence of gallstones. Common bile duct is mildly dilated measuring 1 cm in caliber, however without evidence of choledocholithiasis, stricture, or mass." Clear liquid diet today 07/29/23 C.diff sample to be collected - no specimen as of 07/29/23 Rocephin 1 gm IVPB pending urine culture results Elevated Troponin/inflammatory markers: trend troponin observe for symptoms of infection, urine culture Clopidogrel Bisulfate [Plavix*] 75 mg PO DAILY Heparin 5000u sc BID Congestive heart failure with reduced EF: Entresto (pt was on 97/103 dose with improvement in EF; however, second to CKD it was reduced (with reduction in EF), and then slowly increased to 97/103 again). Start Entresto this evening 07/29/23 at lower dose Hyperlipidemia: Atorvastatin Calcium 40 mg PO at HS Hypothyroidism: Levothyroxine Sodium 75mcg PO DAILY Dementia: Remeron 15mg po at HS GI prophylaxis: PPI (hx of GIB) Code status: full <Joann Singh Tommy - Last Filed: 07/29/23 15:07> Date of Service: 07/29/23 Agree with findings as mentioned above. Patient seen and examined. Patient states she is feeling much better today. Her labs corroborate that her clinical status have much improved. Patient with a history of cardiomyopathy and we will go ahead and stop IV fluids. Will monitor patient's volume status and we will start encouraging her to get out of bed and start ambulating. If she needs assistance we will start with physical therapy as well. Patient can downgrade to general medical floor. CKD with BRAD with hyperkalemia: Patient with acute on chronic kidney disease. Patient's clinical symptoms have improved. Patient's potassium is stable. Patient renal function has improved as well. Patient potassium is at 4.6. Elevated ALT/AST Patient had MRCP revealed gallbladder distention with biliary ductal dilatation however, there was no evidence of; choledocholithiasis. Patient bilirubin is normal. Patient's synthetic liver functioning are within normal limits. ALT and AST are elevated but are improved significantly. No surgical intervention at this time as patient is high risk and needs to be medically stabilized prior to any surgical intervention. Elevated Troponin/inflammatory markers: Troponins remained stable. Continue with antiplatelet therapy and cardiac meds. Cardiology consultation pending as well. Cardiomyopathy/acute systolic congestive heart failure with ejection fraction of 30% on prior echocardiogram: Entresto (pt was on 97/103 dose with improvement in EF; however, second to CKD it was reduced (with reduction in EF), and then slowly increased to 97/103 again). Started Entresto this evening 07/29/23 at lower dose. Patient was also given low-dose beta-abel therapy as well. Echocardiogram is pending. Patient with severe cardiomyopathy with secondary cardiorenal syndrome. Hyperlipidemia: Continue with statin therapy-Atorvastatin Calcium 40 mg PO at HS Hypothyroidism: Continue with thyroid medication-Levothyroxine Sodium 75mcg PO DAILY Dementia: Continue with medication for depression-Remeron 15mg po at HS Critical care time spent with patient was 35 minutes GI prophylaxis: PPI (hx of GIB) Code status: full <Reese Morrow - Last Filed: 07/29/23 16:10>
--- NOTE | 2023-07-29 13:48 | RAD REPORT ---
EXAM DESCRIPTION: CT - Chest Abd Pelvis Wo Con - 07/28/2023 6:52 am CLINICAL HISTORY: Cough, abd distention COMPARISON: None. TECHNIQUE: CT CHEST ABDOMEN PELVIS WITHOUT IV CONTRAST on 07/28/2023 3:44 AM CDT This exam was performed according to our departmental dose-optimization program, which includes autom ated exposure control, adjustment of the mA and/or kV according to patient size and/or use of iterati ve reconstruction technique. FINDINGS: Chest: The heart is moderately enlarged. There is an occlusion device in the left atrial a ppendage. There is no pericardial effusion. Left axillary lymph node dissection was performed. There are small bilateral pleural effusions. Central airways are patent. There is bibasilar bronchiec tasis with coarse interstitial changes in the lower lungs. Left mastectomy was performed. Abdomen: There is trace perihepatic ascites. There is no biliary dilatation. Gallbladder is moderatel y distended. The pancreas and spleen are normal in appearance. Adrenal glands are normal. Kidneys are mildly atrophic. There is a punctate mid pole right renal calculus. Abdominal aorta is normal in course and caliber without aneurysm. There is no free air. There is no r etroperitoneal adenopathy. Pelvis: There is mild diverticulosis of the distal colon. Urinary bladder is unremarkable. There is m oderate amount of free pelvic fluid. Uterus is absent. Appendix is not well seen. Skeleton: There is a severe old L1 compression fracture. IMPRESSION: Pleural effusions with bibasilar probable fibrotic changes. Underlying pneumonia is not excluded. Mild ascites. . Electronically signed by: Theron Saldana MD 07/28/2023 05:30 AM CDT Due to temporary technical issues with the PACS/Fluency reporting system, reports are being signed by the in house radiologists without review as a courtesy to insure prompt reporting. The interpreting radiologist is fully responsible for the content of the report.
--- NOTE | 2023-07-29 14:03 | RAD REPORT ---
EXAM DESCRIPTION: US - Abdomen Exam Limited - 07/28/2023 4:53 am CLINICAL HISTORY: 83 years Female; ABD PAIN TECHNIQUE: Limited gallbladder ultrasound was performed. COMPARISON: CT chest abdomen pelvis 07/28/2023. FINDINGS: Gallbladder distended. Gallbladder wall measures 3 mm. Trace pericholecystic fluid. Possible few tiny stones noted. Common bile duct measures 8 mm, at upper limits of normal for age. IMPRESSION: 1. Distended gallbladder with possible few tiny stones and trace pericholecystic fluid . However no significant gallbladder wall thickening. Sonographic findings are equivocal for acute ch olecystitis. 2. Common bile duct measures up to 8 mm, at upper limits of normal for age. Electronically signed by: Delonte Clifford MD 07/28/2023 06:31 AM CDT Due to temporary technical issues with the PACS/Fluency reporting system, reports are being signed by the in house radiologists without review as a courtesy to insure prompt reporting. The interpreting radiologist is fully responsible for the content of the report.
[2023-07-29] MEDS: ALBUMIN HUMAN 25% 100 ML IV ONE (16:03)
[2023-07-29] MEDS ORDERED: ALBUMIN HUMAN 25% 50 ML IV ONE (16:23)
[2023-07-29] MEDS: ENSURE MAX PROTEIN 330 ML LIQUID PO SCH (16:30)
--- NOTE | 2023-07-29 20:47 | P.PN ---
Subjective Date of Service: 07/29/23 Chief Complaint: BRAD, N/V/D, Inflam Marker elevation Subjective: No new changes Physical Examination - Vital Signs Temperature: 97.6 F Blood Pressure: 89/62 Pulse: 74 Respirations: 23 Pulse Ox (%): 91 - Physical Exam General: Other (chronically ill-appearing) HEENT: Atraumatic, Normocephalic Neck: Supple Respiratory: Other (symmetric chest expansion) Cardiovascular: No rubs, No murmurs Gastrointestinal: Soft and benign, No guarding Musculoskeletal: No clubbing Integumentary: No warmth Neurological: Normal tone Urinary: Other (no bladder distention) External genitalia: Deferred Rectal: Deferred Assessment And Plan - Plan # BRAD 2/2 prerenal state/ATN, on CKD SCr plateaued at 2.7-2.9 PO fluid intake as able IVF prn # Nausea, vomiting and diarrhea Acute cholecystitis versus gastroenteritis Per other services # Hyperkalemia Improved, received Lokelma, monitor # Hyponatremia Mild, monitor # Chronic systolic heart failure Continue cardioprudent medications # Hyperlipidemia Atorvastatin # Hypothyroidism Levothyroxine
[2023-07-29] MEDS: JUVEN PACKET PO SCH (20:53)
[2023-07-29] MEDS: SACUBITRIL/VALSARTAN 24/26 MG TAB PO SCH (20:53)
[2023-07-29] MEDS: ACETAMINOPHEN 325 MG TABLET PO PRN (23:10)
[2023-07-30] MEDS: LEVOTHYROXINE SOD 0.075 MG TAB PO SCH (06:30)
[2023-07-30 06:36] LABS: Absolute Eosinophils 0.2 K/uL (0-0.5); Absolute Lymphocytes (CBC) 0.7 K/uL (0.7-4.9); Absolute Monocytes 0.6 K/uL (0.1-1.3); Absolute Neutrophil 3.3 K/uL (1.8-8.0); Basophils % 0.5 % (0-1.3); Eosinophils % 3.5 % (0-4.4); Hemoglobin 9.5 g/dL (12.0-15.0); MCH 31.4 pg (27.0-35.0); MCHC 33.9 g/dL (32.0-36.0); MCV 92.8 fL (80-100); MPV 7.2 fL (7.6-11.3); Monocytes % 12.3 % (3.3-12.3); Neutrophils % 69.7 % (41.7-73.7); Nucleated Red Blood Cells % 0.4 % (0-0); Platelets 291 thou/uL (152-406); RBC Red Blood Cell Count 3.02 M/uL (3.86-4.86); Red Cell Distribution Width 18.3 % (12.1-15.2)
[2023-07-30 06:48] LABS: Albumin 3.1 g/dL (3.4-5.0); Anion Gap 13.4 mEq/L (5.0-15.0); Bilirubin Total 0.7 mg/dL (0.2-1.0); Globulin 3.1 g/dL (2.3-3.5); Potassium 4.4 mEq/L (3.5-5.1); Protein, Total 6.2 g/dL (6.4-8.2)
[2023-07-30 08:14] LABS: C.diff Antigen/Toxin Ag neg : Tox neg (NEG : NEG); CDIFF INTERNAL NEG CONTROL White Background (WHITE BKGD); STOOL CONSISTENCY Liquid/Semi-Solid
[2023-07-30] MEDS ORDERED: ASPIRIN EC 81 MG TAB PO ONE (08:59)
[2023-07-30] MEDS: ASPIRIN EC 81 MG TAB PO SCH (09:17)
--- NOTE | 2023-07-30 09:43 | PN ---
Date of Progress Note: 07/30/2023 Subjective: The patient is awake, alert. Denies any abdominal pain. Tolerating clear liquids. Objective: Vital Signs: Stable. She is afebrile. Abdomen: Soft, nondistended, nontender. Positive bowel sounds. Laboratory Data: Reviewed. Her sodium is low. White count is normal. BUN and creatinine have impr yelena slightly. Assessment: The patient likely does not have acute cholecystitis at this time, as there is no abdomi nal pain and she is tolerating her diet. White count is normal. Therefore, I would recommend advanc ing the diet to a heart-healthy, low-fat, low-cholesterol diet. We will monitor that and continue on empiric antibiotics. Follow up with Cardiology and Renal Service. No need for any acute surgical i ntervention at this time. Please note that her AST and ALT are slightly elevated, but her total bili herrera and alkaline phosphatase are normal. /MODL Voice ID: [id number] Report ID: [id number]
[2023-07-30 11:25] LABS: Anion Gap 13.2 mEq/L (5.0-15.0); Magnesium 2.1 mg/dL (1.6-2.4); Potassium 4.2 mEq/L (3.5-5.1)
--- NOTE | 2023-07-30 11:33 | RAD REPORT ---
EXAM DESCRIPTION: RADChest Single View07/30/2023 10:17 am CLINICAL HISTORY: CHF/desat COMPARISON: Chest Single View dated 12/14/2022; Chest Single View dated 04/01/2022; Chest Single View dated 02/23/2022; Chest Pa And Lat (2 Views) dated 02/14/2022 TECHNIQUE: Portable AP view of the chest. FINDINGS: Patchy bibasilar opacities worse on the left with central interstitial prominence. No pne umothorax or effusion. The cardiomediastinal contours are unremarkable. IMPRESSION: Patchy bibasilar airspace opacities worse on the left, which may reflect pulmonary edema . Superimposed pneumonia would be difficult to exclude.
[2023-07-30] MEDS: FUROSEMIDE 20 MG/ 2ML VIAL IV ONE (11:45)
[2023-07-30] MEDS: MIDODRINE HCL 5 MG TABLET PO SCH (15:18)
--- NOTE | 2023-07-30 15:49 | CON ---
Date of Consultation: 07/30/2023 Reason For Consultation: Elevated troponin and congestive heart failure. History Of Present Illness: This 83-year-old female, history of systolic nonischemic cardiomyopathy along with chronic renal failure, presented to the emergency room with nausea, vomiting, and diarrhea , was extremely dehydrated in acute renal failure. Troponin was slightly elevated. Denies having an y chest pain or shortness of breath. Past Medical History: As outlined above in HPI. Medications: Refer consult sheet for detailed list. Allergies: NO KNOWN DRUG ALLERGIES. Family History: No premature coronary artery disease or cancer. Social History: She does not smoke or drink. Does not use any drugs. Review of Systems: All systems reviewed are negative except mentioned in HPI. Physical Examination: Vital Signs: Reviewed. Head and Neck: Pupils are equal, reactive to light. Intact eye movements. No JVD. No cervical lym phadenopathy. Neck: Supple. Thyroid is not enlarged. Lungs: Clear to auscultation bilaterally. No rhonchi, rales, or crackles. No accessory muscle use. Heart: Regular rate and rhythm. No extra sounds. Abdomen: Soft, nontender. Bowel sounds positive. No organomegaly. No masses or hernia. No rigidi ty or rebound. Extremities: No clubbing, cyanosis. Intact pulses. Skin: No rashes. Neurologic: Alert, awake, oriented x3. No acute focal deficits appreciated. Investigations: Troponin at the 300 range and was drifting down. Creatinine is 2.54, down from a 3. 4. Assessment/recommendation: 1.Elevated troponin, probably demand ischemia. No chest pain. We will plan for outpatient stress t est. 2.Systolic heart failure, known to have a low ejection fraction, nonischemic. She responded very we ll to Entresto and beta-abel in the past and now with acute renal failure from dehydration Entrest o is on hold. We will plan to resume it once her kidney function recovers. 3.Acute on chronic renal failure due to gastroenteritis symptoms. Gentle hydration is recommended a nd monitor carefully BUN, creatinine, and fluid status. 4.Dyslipidemia. Continue statin. I will monitor the patient with you. SR/MODL Voice ID: [id number] Report ID: [id number]
--- NOTE | 2023-07-30 19:44 | P.PN ---
Subjective Date of Service: 07/30/23 Chief Complaint: BRAD, N/V/D, Inflam Marker elevation Subjective: Improving (tolerating po, no abdominal pain, awake and sitting at side of bed over the night) Review of Systems 10-point ROS is otherwise unremarkable General: Weakness, Malaise, As per HPI Respiratory: As per HPI Cardiovascular: As per HPI Gastrointestinal: As per HPI Neurological: As per HPI Physical Examination - Vital Signs Temperature: 97.6 F Blood Pressure: 130/75 Pulse: 76 Respirations: 18 Pulse Ox (%): 100 - Physical Exam General: Alert, In no apparent distress, Oriented x3 HEENT: Atraumatic, Normocephalic Neck: Supple, JVD not distended Respiratory: Normal air movement Cardiovascular: Normal pulses Capillary refill: <2 Seconds Gastrointestinal: Soft and benign Musculoskeletal: No clubbing, No swelling Integumentary: No rashes Neurological: Normal speech, Normal tone Lymphatics: No axilla or inguinal lymphadenopathy External genitalia: Deferred Rectal: Deferred - Studies Microbiology Data (last 24 hrs): 07/28/23 01:46 Clean Catch Urine [place] Count - Final >100,000 CFU/ML. 07/28/23 01:46 Clean Catch Urine - Final Klebsiella Pneumoniae Assessment And Plan - Plan CKD with BRAD with hyperkalemia: Sodium Zirconium Cyclosilicate [Lokelma] 10 gm has not been given since Monday as pt had N/V/D. Hyperkalemia protocol given in ED with improvement of potassium to normal range 07/28/23, electrolytes stable (mild hyponatremia) Dr. Arias consulted Takes Lokema at home Gastroenteritis/Cholecystitis? Consult Dr. Lal - MRCP ordered per Dr. Lal MRCP results on chart :IMPRESSION: Distended gallbladder with no evidence of gallstones. Common bile duct is mildly dilated measuring 1 cm in caliber, however without evidence of choledocholithiasis, stricture, or mass." Clear liquid diet today 07/29/23 C.diff sample to be collected - no specimen as of 07/29/23 Rocephin 1 gm IVPB pending urine culture results Elevated Troponin/inflammatory markers: trend troponin - seens per Dr. Barillas 07/30/23 likely demand ischemia, outpatient follow up observe for symptoms of infection, urine culture +, Rocephin stopped after one dose on 07/27, restarted today post uc and sensitivity returned Clopidogrel Bisulfate [Plavix*] 75 mg PO DAILY Heparin 5000u sc BID Congestive heart failure with reduced EF: Entresto (pt was on 97/103 dose with improvement in EF; however, second to CKD it was reduced (with reduction in EF), and then slowly increased to 97/103 again). Start Entresto this evening 07/29/[address] Barillas states restarting Entresto post BRAD is a goal Hyperlipidemia: Atorvastatin Calcium 40 mg PO at HS Hypothyroidism: Levothyroxine Sodium 75mcg PO DAILY Dementia: Remeron 15mg po at HS GI prophylaxis: PPI (hx of GIB) Code status: full
--- NOTE | 2023-07-30 20:49 | P.PN ---
Subjective Date of Service: 07/30/23 Chief Complaint: BRAD, N/V/D, Inflam Marker elevation Subjective: No new changes Physical Examination - Vital Signs Temperature: 97.6 F Blood Pressure: 130/75 Pulse: 76 Respirations: 18 Pulse Ox (%): 100 - Physical Exam General: Other (chronically ill-appearing) HEENT: Atraumatic, Normocephalic Neck: Supple Respiratory: Other (symmetric chest expansion) Cardiovascular: No rubs, No murmurs Gastrointestinal: Soft and benign Musculoskeletal: No clubbing Integumentary: No warmth Neurological: Normal tone Urinary: Other (no bladder distention) External genitalia: Deferred Rectal: Deferred - Studies Microbiology Data (last 24 hrs): 07/28/23 01:46 Clean Catch Urine [place] Count - Final >100,000 CFU/ML. 07/28/23 01:46 Clean Catch Urine - Final Klebsiella Pneumoniae Assessment And Plan - Plan # BRAD 2/2 prerenal state/ATN, on CKD SCr decreased to 2.6 PO fluid intake as able IVF prn # Nausea, vomiting and diarrhea Acute cholecystitis versus gastroenteritis Per other services # Hyperkalemia Improved, received Lokelma, monitor # Hyponatremia If no further improvement tomorrow, give Tolvaptan tomorrow # Chronic systolic heart failure Continue cardioprudent medications # Hyperlipidemia Atorvastatin # Hypothyroidism Levothyroxine
[2023-07-30] MEDS: CEFTRIAXONE 1,000 MG in NA CHLORIDE 0.9% 50 ML IVPB SCH (21:09)
[2023-07-31 06:16] LABS: Absolute Basophils 0.1 K/uL (0-0.5); Absolute Eosinophils 0.5 K/uL (0-0.5); Absolute Lymphocytes (CBC) 0.6 K/uL (0.7-4.9); Absolute Monocytes 0.7 K/uL (0.1-1.3); Absolute Neutrophil 3.7 K/uL (1.8-8.0); Basophils % 0.9 % (0-1.3); Eosinophils % 8.6 % (0-4.4); Hematocrit 29.7 % (36.0-45.0); Lymphocytes % 10.7 % (15.3-44.8); MCH 31.4 pg (27.0-35.0); MCHC 33.7 g/dL (32.0-36.0); MCV 93.1 fL (80-100); MPV 7.1 fL (7.6-11.3); Monocytes % 12.6 % (3.3-12.3); Neutrophils % 67.2 % (41.7-73.7); Nucleated Red Blood Cells % 0.3 % (0-0); Platelets 325 thou/uL (152-406); RBC Red Blood Cell Count 3.19 M/uL (3.86-4.86); Red Cell Distribution Width 18.3 % (12.1-15.2)
[2023-07-31 06:39] LABS: Albumin 3.1 g/dL (3.4-5.0); Anion Gap 12.2 mEq/L (5.0-15.0); Bilirubin Total 0.6 mg/dL (0.2-1.0); Globulin 3.2 g/dL (2.3-3.5); Phosphorus 2.7 mg/dL (2.5-4.9); Potassium 4.2 mEq/L (3.5-5.1); Protein, Total 6.3 g/dL (6.4-8.2)
[2023-07-31] MEDS: PNEUMOCOCCAL VACCINE 0.5 ML IMVAC ONE (08:00)
--- NOTE | 2023-07-31 10:47 | P.PN ---
Subjective Date of Service: 07/31/23 Chief Complaint: BRAD, N/V/D, Inflam Marker elevation Pt is resting comfortably in bed. She appears weak. Pt is using 2L. No other issues overnight Review of Systems General: Unremarkable Eyes: Unremarkable ENT: Unremarkable Respiratory: Unremarkable Cardiovascular: Unremarkable Gastrointestinal: Unremarkable Genitourinary: Unremarkable Musculoskeletal: Unremarkable Integumentary: Unremarkable Neurological: Unremarkable Lymphatics: Unremarkable Physical Examination - Vital Signs Temperature: 97.6 F Blood Pressure: 130/75 Pulse: 76 Respirations: 18 Pulse Ox (%): 100 - Physical Exam General: Alert, In no apparent distress, Oriented x3 HEENT: Atraumatic, Normocephalic, PERRLA Neck: Supple, 2+ carotid pulse no bruit Respiratory: Clear to auscultation bilaterally, Normal air movement Cardiovascular: No edema, Normal pulses, Regular rate/rhythm Capillary refill: <2 Seconds Gastrointestinal: Normal bowel sounds, Soft and benign, Non-distended Musculoskeletal: No clubbing, No swelling Integumentary: No rashes, No breakdown Neurological: Normal gait, Normal speech, Normal strength at 5/5 x4 extr Lymphatics: No axilla or inguinal lymphadenopathy External genitalia: No edema, No lesions - Studies Microbiology Data (last 24 hrs): 07/28/23 01:46 Clean Catch Urine [place] Count - Final >100,000 CFU/ML. 07/28/23 01:46 Clean Catch Urine - Final Klebsiella Pneumoniae Assessment And Plan - Plan Acute gastroenteritis: Will continue rocephin and follow up blood cx. Waiting to r/o C diff. continue CLD Questionable cholecystitis: MRCP shows distended gall bladder with no evidence of gallstones. Common bile duct is mildly dilated measuring 1 cm in caliber, however without evidence of choledocholithiasis, stricture, or mass." Continue CLD. Hyperkalemia: resolved s/o lokelma. k is 4.2. Will monitor. BRAD on CKD: Cr is 2.65. Will avoid nephrotoxins and monitor renal function. Nephrology is following. Elevated Troponin: Likely due to demand ischemia. Will continue plavix. Will f/u Cardiology in clinic. Troponin is 154. Pt denies any chest pain. Will trend troponn Q6h. Transaminitis: Will trend LFTs. AST 104, ALT 128 and Alk phos 42. Congestive heart failure with reduced EF: Will resume entresto after resolution of BARD. Continue low salt diet, strict i/O and daily weight. Hyperlipidemia: Atorvastatin Calcium 40 mg PO at HS Hypothyroidism: Levothyroxine Sodium 75mcg PO DAILY Dementia: Continue supportive care and Remeron 15mg po at HS GI prophylaxis: PPI (hx of GIB) Code status: full
--- NOTE | 2023-07-31 12:10 | PN ---
Date of Progress Note: 07/31/2023 Subjective: Patient is without any abdominal pain. She is tolerating her diet. Objective: Vital Signs: Stable. She is afebrile. Abdomen: Soft, nondistended, nontender. Positive bowel sounds. Laboratory Data: Reviewed. She has a normal white count. No left shift. Her BUN and creatinine ar e 50 and 2.65. Troponin 1 is down to 154. Assessment: The patient does not have any evidence of acute cholecystitis at this time. Likely she had gastroenteritis with dehydration. From a surgical standpoint, she is cleared for discharge. We will await the recommendations of Cardiology and Renal Services. Her AST, ALT, needs to be evaluated by the Medical team. I do not believe it is related to the gallbladder as the MRCP and her total bi li and alk phos did not show any evidence of significant disease. Please re-consult Surgery p.r.n. /MODL Voice ID: [id number] Report ID: [id number]
--- NOTE | 2023-07-31 20:01 | PN ---
Date of Progress Note: 07/31/2023 Subjective: Seen by bedside. She has done better with IV fluids. Kidney function has improved and diarrhea has stopped. Review of Systems: No chest pain, shortness of breath, orthopnea, cough, nausea, vomiting, diarrhea. All other systems reviewed, they are negative. Physical Examination: Vital Signs: Reviewed. Head and Neck: Pupils are equal, reactive to light. Intact eye movements. No JVD. No cervical lym phadenopathy. Neck is supple. Thyroid is not enlarged. Lungs: Clear to auscultation bilaterally. No rhonchi, rales, or crackles. No accessory muscle use. Heart: Regular rate and rhythm. No extra sounds. Abdomen: Soft, nontender. Bowel sounds positive. No organomegaly. No masses or hernia. No rigidi ty or rebound. Extremities: No edema, clubbing, or cyanosis. Intact pulses. Skin: No rash. Neurologic: Alert, awake, oriented x3. No acute focal deficits appreciated. Investigations: BUN is 50, creatinine is 2.65. Assessment/recommendation: 1.Acute renal failure due to dehydration from diarrhea, status post gentle hydration. Creatinine is approaching baseline. Continue to monitor closely. She might need diuretics later on when she is f ully able to take food and fluids by mouth and once the diarrhea stops. 2.Systolic heart failure, known EF to be very low, and I will plan to do an echo on her at a later t adriana as an outpatient, but we are going to attempt to restart the Entresto and continue metoprolol. 3.Dyslipidemia. Continue statin. SR/MODL Voice ID: [id number] Report ID: [id number]
[2023-07-31] MEDS: ENSURE ENLIVE 237 ML CAN PO SCH (20:14)
[2023-07-31] MEDS: ONDANSETRON 4 MG/2 ML VIAL IV PRN (20:15)
[2023-07-31] MEDS: MELATONIN 5 MG TABLET PO PRN (23:57)
--- NOTE | 2023-08-01 01:44 | PN ---
Date of Progress Note: 07/31/2023 Chief Complaint: Acute kidney injury, cardiorenal syndrome, chronic kidney disease. Subjective: The patient presented to the hospital because of nausea, vomiting, diarrhea. She was fo und to have inflammatory marker elevation. She is chronically ill. She denies complaints. She demetrice es PND, orthopnea. Physical Examination: Vital Signs: Blood pressure 130/75, heart rate 76, respiratory rate 18. Neck: Supple. HEENT: Atraumatic, normocephalic. Respiratory: Equal chest expansion. No wheezing. Cardiovascular: No pericardial friction rub. Abdomen: Soft, benign, nontender. Extremities: Slight edema. Impression And Plan: 1.Acute kidney injury secondary to prerenal state, acute tubular necrosis on chronic kidney disease. Serum creatinine decreased to 2.6. Continue p.o. fluid intake as tolerated. IV fluids as needed. 2.Nausea, vomiting, and diarrhea. Acute cholecystitis versus gastroenteritis per other service. 3.Hyperkalemia, improved. The patient received Lokelma. Monitor renal panel. Avoid high potassium diet. 4.Hyponatremia. The patient received tolvaptan. Continue to monitor electrolytes. The patient has asymptomatic hyponatremia. 5.Chronic systolic heart failure. Continue blood pressure medications, including beta-abel. 6.Hyperlipidemia, on atorvastatin. 7.Hypothyroidism. Evaluate TSH. HERNAN/DEXTER Voice ID: [id number] Report ID: [id number]
[2023-08-01] MEDS: PANTOPRAZOLE 40MG TABLET PO SCH (07:56)
--- NOTE | 2023-08-01 11:19 | P.PN ---
Subjective Date of Service: 08/01/23 Chief Complaint: BRAD, N/V/D, Inflam Marker elevation Pt is resting comfortably in bed. She appears weak. Pt is using 2L. Pt had vomiting overnight. No other issues overnight Review of Systems General: Unremarkable Eyes: Unremarkable ENT: Unremarkable Respiratory: Unremarkable Cardiovascular: Unremarkable Gastrointestinal: Unremarkable Genitourinary: Unremarkable Musculoskeletal: Unremarkable Integumentary: Unremarkable Neurological: Unremarkable Lymphatics: Unremarkable Physical Examination - Vital Signs Temperature: 96.7 F Blood Pressure: 100/65 Pulse: 76 Respirations: 14 Pulse Ox (%): 94 - Physical Exam General: Alert, In no apparent distress, Oriented x3 HEENT: Atraumatic, Normocephalic Neck: Supple, 2+ carotid pulse no bruit Respiratory: Clear to auscultation bilaterally, Normal air movement Cardiovascular: No edema, Normal pulses, Regular rate/rhythm, Normal S1 S2 Capillary refill: <2 Seconds Gastrointestinal: Normal bowel sounds, Soft and benign, Non-distended Musculoskeletal: No clubbing, No swelling Integumentary: No rashes, No breakdown Neurological: Normal gait, Normal speech, Normal strength at 5/5 x4 extr Lymphatics: No axilla or inguinal lymphadenopathy Assessment And Plan - Plan Acute gastroenteritis: Will continue rocephin and follow up blood cx. Waiting to r/o C diff. continue CLD Questionable cholecystitis: MRCP shows distended gall bladder with no evidence of gallstones. Common bile duct is mildly dilated measuring 1 cm in caliber, however without evidence of choledocholithiasis, stricture, or mass. Continue CLD. Will advance diet as tolerated. Gen surgery ruled out gall bladder disease. Hyperkalemia: resolved s/o lokelma. k is 4.2. Will monitor. BRAD on CKD: Cr is 2.65. Will avoid nephrotoxins and monitor renal function. Nephrology is following. Elevated Troponin: Likely due to demand ischemia. Will continue plavix. Will f/u Cardiology in clinic. Troponin is 154. Pt denies any chest pain. Will trend troponn Q6h. Nausea and vomiting: Will continue prn zofran Transaminitis: Will trend LFTs. AST 104, ALT 128 and Alk phos 42. Congestive heart failure with reduced EF: Will resume entresto after resolution of BRAD. Continue low salt diet, strict I/O and daily weight. Hyperlipidemia: Atorvastatin Calcium 40 mg PO at HS Hypothyroidism: Levothyroxine Sodium 75mcg PO DAILY Dementia: Continue supportive care and Remeron 15mg po at HS GI prophylaxis: PPI (hx of GIB) Deconditioning: Will consult PT. Code status: full
--- NOTE | 2023-08-01 14:16 | EKG ---
Test Date: 2023-07-28 Test Time: 10:59:48 Vending Machine Collector: BRYANT MEASUREMENT RESULTS: Intervals: Rate: 90 IL: 220 QRSD: 144 QT: 408 QTc: 499 [place]: P: 68 IL: 220 QRS: 240 T: 70 INTERPRETIVE STATEMENTS: Sinus rhythm with sinus arrhythmia with 1st degree AV block Nonspecific intraventricular block Abnormal ECG Compared to ECG 07/28/2023 02:28:33 Right superior axis no longer present Electronically Signed On 08-01-23 14:08:11 CDT by Gilberto Barillas
--- NOTE | 2023-08-01 20:22 | PN ---
Date of Progress Note: 08/01/2023 Subjective: Seen by bedside, doing clinically well. She is currently on antibiotics for UTI. Review of Systems: No chest pain, shortness of breath, orthopnea, cough, nausea, vomiting, diarrhea. All other systems reviewed, they are negative. Objective: Vital Signs: Reviewed. Head and Neck: Pupils are equal, reactive to light. Intact eye movements. No JVD. No cervical lym phadenopathy. Neck: Supple. Thyroid is not enlarged. Lungs: No clubbing, wheezing, or crackles. No accessory muscle use. Heart: Regular rate and rhythm. No extra sounds. Abdomen: Soft, nontender. Bowel sounds positive. No organomegaly. No masses or hernia. No rigidi ty or rebound. Extremities: There is no edema, clubbing, cyanosis. Intact pulses. Skin: No rashes. Neurologic: Alert, awake, oriented x3. No acute focal deficits appreciated. Investigations: Labs reviewed. Creatinine today is 2.65. Assessment/recommendation: 1.Systolic heart failure, nonischemic. She did very well on Entresto, but now she is with acute yanely al failure, so Entresto is on hold. We will re-attempt starting it on an outpatient basis. Continue metoprolol for now. Monitor for fluid overload status. 2.Dyslipidemia, continue on statin. 3.UTI, on Rocephin. 4.Atrial fibrillation. This is controlled. She is in sinus. Continue current therapy. SR/MODL Voice ID: [id number] Report ID: [id number]
--- NOTE | 2023-08-01 23:28 | P.PN ---
Subjective Date of Service: 08/01/23 Chief Complaint: BRAD, N/V/D, Inflam Marker elevation Subjectrive Pt with CKD, admitted with SOB Physical exam General: AAOx3, , looks chronically ill CHEST; basal rales , tachypenia HEART : RRR. Normal S1,2 no murmur or rub Abd: soft, Nt Ext: trace edema, Skin : No rash A/P # BRAD 2/2 prerenal state/ATN, on CKD SCr decreased to 2.6 PO fluid intake as able IVF prn # Nausea, vomiting and diarrhea improving Per other services # Hyperkalemia resolved low K diet # Hyponatremia due to fluid overload and poor oral intake encouraged to increase food intake # Chronic systolic heart failure Continue cardioprudent medications # Hyperlipidemia Atorvastatin # Hypothyroidism Levothyroxine Physical Examination - Vital Signs Temperature: 97.4 F Blood Pressure: 114/97 Pulse: 78 Respirations: 18 Pulse Ox (%): 94
[2023-08-02] MEDS: HYDROCODONE/APAP 7.5/325 MG TAB PO PRN (00:26)
[2023-08-02 04:01] LABS: Absolute Eosinophils 0.1 K/uL (0-0.5); Absolute Lymphocytes (CBC) 0.6 K/uL (0.7-4.9); Absolute Monocytes 0.6 K/uL (0.1-1.3); Absolute Neutrophil 3.3 K/uL (1.8-8.0); Basophils % 0.5 % (0-1.3); Eosinophils % 1.3 % (0-4.4); Hematocrit 27.5 % (36.0-45.0); Hemoglobin 9.4 g/dL (12.0-15.0); MCH 31.6 pg (27.0-35.0); MCHC 34.3 g/dL (32.0-36.0); MCV 92.2 fL (80-100); MPV 7.9 fL (7.6-11.3); Monocytes % 13.1 % (3.3-12.3); Neutrophils % 72.1 % (41.7-73.7); Nucleated Red Blood Cells % 0.2 % (0-0); Platelets 344 thou/uL (152-406); RBC Red Blood Cell Count 2.99 M/uL (3.86-4.86)
[2023-08-02 04:37] LABS: Anion Gap 18.3 mEq/L (5.0-15.0); Potassium 4.3 mEq/L (3.5-5.1)
--- NOTE | 2023-08-02 09:12 | P.PN ---
Subjective Date of Service: 08/02/23 Chief Complaint: BRAD, N/V/D, Inflam Marker elevation Pt is resting comfortably in bed. She was sleeping when I saw her. Pt is using 2L. No other issues overnight Review of Systems General: Weakness Eyes: Unremarkable ENT: Unremarkable Respiratory: Unremarkable Cardiovascular: Unremarkable Gastrointestinal: Unremarkable Genitourinary: Unremarkable Musculoskeletal: Unremarkable Integumentary: Unremarkable Neurological: Unremarkable Lymphatics: Unremarkable Physical Examination - Vital Signs Temperature: 97.5 F Blood Pressure: 113/63 Pulse: 67 Respirations: 15 Pulse Ox (%): 99 - Physical Exam General: Alert, In no apparent distress, Oriented x3 HEENT: Atraumatic, Normocephalic Neck: Supple, 2+ carotid pulse no bruit Respiratory: Clear to auscultation bilaterally, Normal air movement Cardiovascular: No edema, Normal pulses, Regular rate/rhythm, Normal S1 S2 Capillary refill: <2 Seconds Gastrointestinal: Normal bowel sounds, Soft and benign, Non-distended Musculoskeletal: No clubbing, No swelling Integumentary: No rashes, No breakdown Neurological: Normal gait, Normal speech, Normal strength at 5/5 x4 extr Lymphatics: No axilla or inguinal lymphadenopathy Assessment And Plan - Plan Acute gastroenteritis: Will continue rocephin and follow up blood cx. Waiting to r/o C diff. continue CLD Questionable cholecystitis: MRCP shows distended gall bladder with no evidence of gallstones. Common bile duct is mildly dilated measuring 1 cm in caliber, however without evidence of choledocholithiasis, stricture, or mass. Continue CLD. Will advance diet as tolerated. Gen surgery ruled out gall bladder disease. Hyperkalemia: resolved s/o lokelma. k is 4.3. Will monitor. BRAD on CKD: Cr is 2.9<- 2.65. Will avoid nephrotoxins and monitor renal function. Nephrology is following. Elevated Troponin: Likely due to demand ischemia. Will continue plavix. Will f/u Cardiology in clinic. Troponin is 154. Pt denies any chest pain. Will trend troponn Q6h. Nausea and vomiting: Will continue prn zofran Transaminitis: Will trend LFTs. AST 104, ALT 128 and Alk phos 42. Congestive heart failure with reduced EF: Will resume entresto after resolution of BRAD. Continue low salt diet, strict I/O and daily weight. Hyperlipidemia: Atorvastatin Calcium 40 mg PO at HS Hypothyroidism: Levothyroxine Sodium 75mcg PO DAILY Dementia: Continue supportive care and Remeron 15mg po at HS GI prophylaxis: PPI (hx of GIB) Deconditioning: Will consult PT. Code status: full
[2023-08-02 09:45] VITALS: O2SAT 96
--- NOTE | 2023-08-02 12:46 | PN ---
Date of Progress Note: 08/02/2023 Subjective: The patient was admitted to the hospital with acute kidney injury with hyponatremia. Her acute kidney injury was pre-renal. The patient's kidney function continued to improve. The patient had coronary artery disease. The patient's baseline creatinine in the 2's. Physical Examination: Vital Signs: When I saw the patient, blood pressure 113/63, pulse of 67, afebrile. Chest: Clear to auscultation. Heart: S1, S2. Systolic murmur. Abdomen: Soft, nontender. Extremity: No edema. Neuro: Alert, no focality. Labs: WBC 4.5, hemoglobin 9.3. Sodium 129, potassium 4.3, bicarb 20, BUN 56, creatinine 2.9, bounced back, calcium 8.2, phosphorus 2.7. Troponin 154. Albumin 3.1. Corrected calcium of 9. TSH within normal limit. Cortisol level 16. Urinalysis, specific gravity of 1.022. Current Medications: Include: 1. Ceftriaxone. 2. Aspirin. 3. Midodrine 5 t.i.d. 4. Entresto. 5. Metoprolol. 6. Atorvastatin. 7. Mirtazapine. 8. Lokelma. 9. Levothyroxine. Assessment And Plan: 1. Acute kidney injury secondary to pre-renal, superimposed with ARB. Entresto was restarted on the . 2. I am going to hold the Entresto and will monitor the patient. 3. I am going to hold on adding any IV fluid given the history of advanced congestive heart failure. We will monitor. 4. Hyponatremia, secondary to congestive heart failure. Hold Entresto. We will monitor the patient cautiously and we will follow up. 5. Hypothyroidism and adrenal insufficiency have been ruled out. 6. Congestive heart failure, normal volume currently. Continue to monitor off Entresto. We will follow up with Cardiology. 7. Hypertension, controlled, on the lower side, as above, hold diuresis. 8. UTI secondary to Klebsiella pneumoniae. Continue current antibiotic, dose appropriate. We will follow up. Time spent examining the patient [id number] reviewing data lab and the radiology placing orders or discussing the case with the patient family discussing the case with the team truck driver and the hospitalist nursing staff more than 35-minute PENNY/DEXTER Voice ID: [id number] Report ID: [id number] MTDD
--- NOTE | 2023-08-02 17:16 | P.PN ---
Subjective Date of Service: 08/02/23 Chief Complaint: BRAD, N/V/D, Inflam Marker elevation Subjective: No new changes Review of Systems 10-point ROS is otherwise unremarkable Physical Examination - Vital Signs Temperature: 97.2 F Blood Pressure: 126/70 Pulse: 73 Respirations: 17 Pulse Ox (%): 99 - Physical Exam General: Alert, Oriented x3 HEENT: Atraumatic Neck: Supple Respiratory: Clear to auscultation bilaterally Cardiovascular: No edema, Normal S1 S2 Gastrointestinal: Normal bowel sounds Assessment And Plan - Current Problems (Diagnosis) (1) BRAD (acute kidney injury) Current Visit: No Status: Acute Plan: looking at patient creatinine/BUN trend, shows that her kidney function started worsening between 2021 to 2022, patient had coronary angiogram at that time with stent placement in the RCA, which might have contributed to that with the Entresto. Patient kidney function is worsening, and she is dry on exam, i would recommend more gentle hydration with monitoring volume status closely. (2) Chronic systolic heart failure Current Visit: No Status: Acute Plan: Patient is currently euvolemic on exam, will talk to family about getting RHC to better assess her volume status. (3) Elevated troponin Current Visit: No Status: Acute (4) Hypertension Current Visit: No Status: Chronic Plan: Normal, continue Lopressor 25 mg po BID Qualifiers: Hypertension type: primary hypertension Qualified Code(s): I10 - Essential (primary) hypertension
[2023-08-03 03:40] LABS: Absolute Eosinophils 0.6 K/uL (0-0.5); Absolute Lymphocytes (CBC) 0.8 K/uL (0.7-4.9); Absolute Monocytes 0.7 K/uL (0.1-1.3); Absolute Neutrophil 4.2 K/uL (1.8-8.0); Basophils % 0.7 % (0-1.3); Eosinophils % 9.8 % (0-4.4); Hematocrit 29.4 % (36.0-45.0); Lymphocytes % 12.9 % (15.3-44.8); MCHC 33.8 g/dL (32.0-36.0); MCV 91.7 fL (80-100); MPV 7.9 fL (7.6-11.3); Monocytes % 10.9 % (3.3-12.3); Neutrophils % 65.7 % (41.7-73.7); Nucleated Red Blood Cells % 0.1 % (0-0); Platelets 403 thou/uL (152-406); RBC Red Blood Cell Count 3.21 M/uL (3.86-4.86); Red Cell Distribution Width 17.7 % (12.1-15.2)
[2023-08-03 04:03] LABS: Anion Gap 16.7 mEq/L (5.0-15.0); Potassium 3.7 mEq/L (3.5-5.1)
[2023-08-03 04:23] VITALS: BP 115/53; TEMP 96.3
[2023-08-03 09:16] LABS: C-ANCA Anti-Proteinase 3 <1.0 AI (<1.0); P-ANCA Anti-Myeloperoxidase Ab <1.0 AI (<1.0)
--- NOTE | 2023-08-03 10:08 | P.PN ---
Subjective Date of Service: 08/03/23 Chief Complaint: BRAD, N/V/D, Inflam Marker elevation Pt is resting comfortably in bed. She is more awake and alert. Cr is slowly improving. Cardiology is considering right heart cath. No other issues overnight Review of Systems General: Unremarkable Eyes: Unremarkable ENT: Unremarkable Respiratory: Unremarkable Cardiovascular: Unremarkable Gastrointestinal: Unremarkable Genitourinary: Unremarkable Musculoskeletal: Unremarkable Integumentary: Unremarkable Neurological: Unremarkable Lymphatics: Unremarkable Physical Examination - Vital Signs Temperature: 96.3 F Blood Pressure: 115/53 Pulse: 63 Respirations: 16 Pulse Ox (%): 97 - Physical Exam General: Alert, In no apparent distress, Oriented x3 HEENT: Atraumatic, Normocephalic, PERRLA Neck: Supple, 2+ carotid pulse no bruit Respiratory: Clear to auscultation bilaterally, Normal air movement Cardiovascular: No edema, Normal pulses, Regular rate/rhythm, Normal S1 S2 Capillary refill: <2 Seconds Gastrointestinal: Normal bowel sounds, Soft and benign, Non-distended Musculoskeletal: No clubbing, No swelling, No contractures Integumentary: No rashes, No breakdown Neurological: Normal gait, Normal speech, Normal strength at 5/5 x4 extr Lymphatics: No axilla or inguinal lymphadenopathy Assessment And Plan - Plan Acute gastroenteritis: Will continue rocephin. Urine cx is growing klebsiella. Waiting to r/o C diff. continue CLD Questionable cholecystitis: MRCP shows distended gall bladder with no evidence of gallstones. Common bile duct is mildly dilated measuring 1 cm in caliber, however without evidence of choledocholithiasis, stricture, or mass. Continue CLD. Will advance diet as tolerated. Gen surgery ruled out gall bladder disease. Hyperkalemia: resolved s/o lokelma. k is 3.7 <- 4.3. Will monitor. BRAD on CKD: Cr is 2.22<- 2.9<- 2.65. Will avoid nephrotoxins and monitor renal function. Nephrology is following. Elevated Troponin: Likely due to demand ischemia. Will continue plavix. Will f/u Cardiology in clinic. Troponin is 154. Pt denies any chest pain. Will trend troponn Q6h. Nausea and vomiting: Will continue prn zofran Transaminitis: Will trend LFTs. AST 104, ALT 128 and Alk phos 42. Congestive heart failure with reduced EF: Will resume entresto after resolution of BRAD. Continue low salt diet, strict I/O and daily weight. Cardiology is considering right heart cath. Hyperlipidemia: Atorvastatin Calcium 40 mg PO at HS Hypothyroidism: Levothyroxine Sodium 75mcg PO DAILY Dementia: Continue supportive care and Remeron 15mg po at HS GI prophylaxis: PPI (hx of GIB) Deconditioning: Will consult PT. Code status: full
[2023-08-03] MEDS: CALCIUM GLUCONATE 1 GM IVPB 1 GM/50 ML BAG IV ONE (11:02)
--- NOTE | 2023-08-03 12:26 | P.PN ---
Subjective Date of Service: 08/03/23 Chief Complaint: BRAD, N/V/D, Inflam Marker elevation Subjective: No new changes Review of Systems 10-point ROS is otherwise unremarkable Physical Examination - Vital Signs Temperature: 96.3 F Blood Pressure: 115/53 Pulse: 63 Respirations: 16 Pulse Ox (%): 97 - Physical Exam General: Alert, Oriented x3 HEENT: Atraumatic Neck: Supple Respiratory: Clear to auscultation bilaterally Cardiovascular: No edema, Normal S1 S2 Gastrointestinal: Normal bowel sounds Assessment And Plan - Current Problems (Diagnosis) (1) BRAD (acute kidney injury) Current Visit: No Status: Acute Plan: looking at patient creatinine/BUN trend, shows that her kidney function started worsening between 2021 to 2022, patient had coronary angiogram at that time with stent placement in the RCA, which might have contributed to that with the Entresto. Patient kidney function is better today, encourage PO intake and ok to discharge with repeated kidney function in few days. (2) Chronic systolic heart failure Current Visit: No Status: Acute Plan: Patient is currently euvolemic on exam, No need for further cardiac workup at this time. (3) Elevated troponin Current Visit: No Status: Acute (4) Hypertension Current Visit: No Status: Chronic Plan: Normal, continue Lopressor 25 mg po BID Qualifiers: Hypertension type: primary hypertension Qualified Code(s): I10 - Essential (primary) hypertension
--- NOTE | 2023-08-03 15:14 | RAD REPORT ---
EXAM DESCRIPTION: [facility] Single View08/03/2023 2:48 pm CLINICAL HISTORY: Shortness breath COMPARISON: July 30, 2023 FINDINGS: Moderate diffuse bilateral pulmonary opacities without significant change. Small bilateral pleural effusions subparagraph heart is moderately enlarged IMPRESSION: Moderate diffuse bilateral pulmonary opacities. Most of this is chronic. However, there probably is a mild superimposed acute process which could be pulmonary edema or pneumonia Small bilateral pleural effusions
--- NOTE | 2023-08-03 15:19 | P.DS ---
Admission Date: 07/28/23 Discharge Date: 08/03/23 Disposition: DC HOME/HOME HEALTH CARE Discharge Condition: GOOD Reason for Admission: BRAD, N/V/D, Inflam Marker elevation Brief History of Present Illness: Ms. Acevedo is an 83 yo with a past medical history of chronic renal insufficiency with acute kidney injury, congestive heart failure with reduced ejection fraction, and generalized weakness who has had nausea, vomiting, and diarrhea for 6 days. Her Son has tried to give her her regular medications but she has not been tolerating them well. In the ED she was noted to by hyperkalemic and treatment was initiated. She had an US and CT showing some dilation of her gallbladder. Dr. Lal and Dr. Arias have been consulted. She will be admitted to ICU for further evaluation and management. Hospital Course: Ms. Acevedo is an 83 yo female with past medical history of chronic renal insufficiency, congestive heart failure with reduced ejection fraction, and generalized weakness who presented with nausea, vomiting, and diarrhea for 6 days. Her Son tried to give her her regular medications but pt could not keep her meds down. Pt presented in the ER for treatement. On admission, lab studies showed evidence of hyperkalemia and acute kidney injury. Abdominal US and CT showed some dilation of her gallbladder. Dr. Lal and Dr. Arias were consulted. She was admitted to ICU for further evaluation and management. Pt had MRCP which showed distended gall bladder with no evidence of gallstones. Common bile duct was mildly dilated measuring 1 cm in caliber, however without evidence of choledocholithiasis, stricture, or mass. Gen surgeon ruled out gall bladder or biliary duct disease. We continued CLD and advanced diet as tolerated. Pt received rocephin for acute gastroenteritis. Urine culture grew klebsiella. Hyperkalemia and BRAD improved with lokelma and NS IVF respectively. We held Entresto due to BRAD. She had elevated troponin due to demand ischemia. Pt denied any chest pain. We continued plavix and trended troponin. We also monitored LFTs. P later developed hypotension and we started midodrine. Pt couls not be weaned off oxygen. She qualified for home oxygen. We continued prn zofran for nausea and vomiting. Pt was encouraged multiple times to get up and work with physical therapist. We continued home meds for other chronic medical problems. Pt was in NAD prior to discharge. Vital Signs/Physical Exam: Temp Pulse Resp BP Pulse Ox 96.3 F L 63 16 115/53 L 97 08/03/23 12:25 08/03/23 12:25 08/03/23 12:25 08/03/23 12:25 08/03/23 12:25 Laboratory Data at Discharge: WBC 6.30 thou/uL (4.3-10.9) 08/03/23 03:08 Hgb 10.0 g/dL (12.0-15.0) L 08/03/23 03:08 Hct 29.4 % (36.0-45.0) L 08/03/23 03:08 Plt Count 403 thou/uL (152-406) 08/03/23 03:08 PT 14.2 SECONDS (9.5-12.5) H 07/28/23 02:55 INR 1.30 07/28/23 02:55 Sodium 133 mEq/L (136-145) L D 08/03/23 03:08 Potassium 3.7 mEq/L (3.5-5.1) D 08/03/23 03:08 BUN 49 mg/dL (7-18) H 08/03/23 03:08 Creatinine 2.22 mg/dL (0.55-1.02) H 08/03/23 03:08 Glucose 97 mg/dL (74-106) 08/03/23 03:08 Phosphorus 2.7 mg/dL (2.5-4.9) 07/31/23 06:05 Magnesium 2.1 mg/dL (1.6-2.4) 07/30/23 10:37 Total Bilirubin 0.6 mg/dL (0.2-1.0) 07/31/23 06:05 AST 104 U/L (15-37) H 07/31/23 06:05 ALT 128 U/L (13-56) H 07/31/23 06:05 Alkaline Phosphatase 42 U/L (45-117) L 07/31/23 06:05 Triglycerides 82 mg/dL (<150) 07/29/23 06:08 Cholesterol 110 mg/dL (<200) 07/29/23 06:08 HDL Cholesterol 30 mg/dL (40-60) L 07/29/23 06:08 Cholesterol/HDL Ratio 3.67 07/29/23 06:08 Lipase Cancelled 07/28/23 08:49 Home Medications: Clopidogrel Bisulfate [Plavix*] 75 mg PO DAILY 30 Days #30 tablet 03/06/22 Atorvastatin Calcium 40 mg PO BEDTIME 12/14/22 Melatonin 10 mg PO BEDTIME 12/14/22 Mirtazapine [Remeron*] 30 mg PO BEDTIME 12/14/22 Mv-Mn/Folic AC/Calcium/Vit K1 [Women's 50 Plus Multivit Tab] 1 each PO DAILY 12/14/22 Omeprazole 40 mg PO DAILY 12/14/22 Aspirin [Aspirin EC 81 MG] 81 mg PO DAILY 07/28/23 Levothyroxine Sodium 75 mcg PO DAILY 07/28/23 Loratadine [Claritin*] 10 mg PO DAILY 07/28/23 Metoprolol Succinate [Toprol Xl*] 25 mg PO DAILY 07/28/23 Simethicone [Mylanta] 125 mg PO PRN 07/28/23 Midodrine HCl [Proamatine*] 5 mg PO TID 30 Days #90 tab 08/03/23 New Medications: Midodrine HCl [Proamatine*] 5 mg PO TID 30 Days #90 tab Physician Discharge Instructions: Continue ad kendra activity. Take midodrine and other home meds as prescribed. Stop taking Entresto. Follow up with Cardiology and PCP within 1 - 2 weeks. Diet: AHA Activity: Ad kendra Followup: Isabella Richardson MD [Primary Care Provider] -
--- NOTE | 2023-08-03 16:24 | PN ---
Date of Progress Note: 08/03/2023 Subjective: The patient was admitted to the hospital with acute kidney injury secondary to overdiuresis superimposed with ARB. Yesterday, we held the Entresto. Her kidney function is improving. The patient is feeling better. Blood pressure is being controlled. Physical Examination: Vital Signs: Blood pressure 115/53, pulse of 63, afebrile. The patient had good urine output. Chest: Faint rales bilateral. Heart: S1, S2. Systolic murmur. Abdomen: Soft, nontender. Extremities: No edema. Laboratory Data: Chest x-ray, cardiomegaly with congestion. Hemoglobin 10. Sodium 133, potassium 3.7, bicarb 20, BUN 49, creatinine 2.2, GFR 22 calcium 7.2. Current Medications: The patient is on include midodrine 5 mg t.i.d., ceftriaxone, aspirin, atorvastatin 40 daily, metoprolol 25 b.i.d., mirtazapine, calcium gluconate, Ensure, Zofran, pantoprazole, levothyroxine, melatonin. Assessment And Plan: 1. Acute kidney injury on advanced chronic kidney disease secondary to cardiorenal, prerenal secondary to overdiuresis, superimposed with ARB on the recovery phase. I am going to continue to monitor the patient. The patient will keep holding Entresto for the time being, hold diuresis. The patient is okay for discharge planning off Entresto, to follow up in the office in 2-3 weeks with chemistry at that time. Also, we are going to challenge back on the Entresto. 2. Hypertension, controlled, optimal. Continue midodrine. 3. Congestive heart failure, stable, with the presence of acute kidney injury. I am going to go ahead and get a new chest x-ray for better evaluation of the fluid status. Depending on that, we will decide if we need to resume her Lasix upon discharge. 4. Hyponatremia, dilutional, stable. We will monitor. 5. Urinary tract infection secondary to Klebsiella pneumonia. Continue current treatment. 6. Hypothyroidism with adrenal insufficiency has been ruled out. Time spent examining the patient [id number] reviewing data lab and the radiology placing orders or discussing the case with the patient family discussing the case with the operations team leader and the hospitalist nursing staff more than 35-minute PENNY/DEXTER Voice ID: [id number] Report ID: [id number]
== END 2023-08-03 16:30 | disposition home health service (06) | DRG 683 ==
LOC: ER 23:49 → ERHOLD 07-28 10:54 → 3RD-ICU 07-28 16:54 → 2ND 07-30 16:00
PROVIDERS: ADMIT Hospitalist; ATTEND Hospitalist
DX: N17.0 Acute kidney failure with tubular necrosis (principal); E87.1 Hypo-osmolality and hyponatremia; R18.8 Other ascites; I50.22 Chronic systolic (congestive) heart failure; E87.20 Acidosis, unspecified; I43 Cardiomyopathy in diseases classified elsewhere; N39.0 Urinary tract infection, site not specified; I13.2 Hypertensive heart and chronic kidney disease with heart failure and with stage 5 chronic kidney disease, or end stage renal disease; I24.89 Other forms of acute ischemic heart disease; N18.5 Chronic kidney disease, stage 5; E87.5 Hyperkalemia; E86.0 Dehydration; E03.9 Hypothyroidism, unspecified; I48.91 Unspecified atrial fibrillation; E78.5 Hyperlipidemia, unspecified; K21.9 Gastro-esophageal reflux disease without esophagitis; I25.10 Atherosclerotic heart disease of native coronary artery without angina pectoris; F03.90 Unspecified dementia, unspecified severity, without behavioral disturbance, psychotic disturbance, mood disturbance, and anxiety; B96.1 Klebsiella pneumoniae [K. pneumoniae] as the cause of diseases classified elsewhere; R74.01 Elevation of levels of liver transaminase levels; Z95.5 Presence of coronary angioplasty implant and graft; Z85.3 Personal history of malignant neoplasm of breast; Z11.52 Encounter for screening for COVID-19; Z90.12 Acquired absence of left breast and nipple; Z79.82 Long term (current) use of aspirin; Z79.02 Long term (current) use of antithrombotics/antiplatelets; Z79.890 Hormone replacement therapy; Z90.710 Acquired absence of both cervix and uterus; Z79.899 Other long term (current) drug therapy
CPT/HCPCS: 36415; 71045; 71250; 74176; 74181; 76705; 80048; 80053; 80061; 81001; 82306; 82330; 82533; 82550; 82947; 83605; 83690; 83735; 83880; 84100; 84439; 84443; 84484; 85025; 85610; 86021; 86140; 87077; 87086; 87088; 87186; 87324; 87804; 87811; 93005; 97116; 97161; 97530; 99285; C9113; J0612; J0696; J1644; J1815; J1940; J2270; J2405; J2543; J3411; J7030; J7040; P9047

== ENCOUNTER 2023-08-05 22:06 | Inpatient (IN) | payer MEDICAID ==
[2023-08-06 00:15] LABS: Absolute Eosinophils 0.1 K/uL (0-0.5); Absolute Lymphocytes (CBC) 0.8 K/uL (0.7-4.9); Absolute Monocytes 0.9 K/uL (0.1-1.3); Absolute Neutrophil 5.2 K/uL (1.8-8.0); Basophils % 0.5 % (0-1.3); Eosinophils % 1.1 % (0-4.4); Hemoglobin 10.5 g/dL (12.0-15.0); Lymphocytes % 11.5 % (15.3-44.8); MCH 30.5 pg (27.0-35.0); MCV 92.6 fL (80-100); MPV 7.9 fL (7.6-11.3); Monocytes % 12.8 % (3.3-12.3); Neutrophils % 74.1 % (41.7-73.7); Nucleated Red Blood Cells % 0.2 % (0-0); Platelets 438 thou/uL (152-406); RBC Red Blood Cell Count 3.45 M/uL (3.86-4.86); Red Cell Distribution Width 18.2 % (12.1-15.2)
[2023-08-06 00:33] LABS: Albumin 3.4 g/dL (3.4-5.0); Anion Gap 16.1 mEq/L (5.0-15.0); Bilirubin Total 0.8 mg/dL (0.2-1.0); Globulin 3.4 g/dL (2.3-3.5); Magnesium 2.1 mg/dL (1.6-2.4); Potassium 5.1 mEq/L (3.5-5.1); Protein, Total 6.8 g/dL (6.4-8.2); Troponin High Sensitivity 47.3 pg/mL (<58.9)
[2023-08-06 01:06] LABS: PT Prothrombin Time 12.5 SECONDS (9.5-12.5); PTT, Activated Partial Thromb 27.1 SECONDS (24.3-36.9); Protime INR 1.14
[2023-08-06 01:35] LABS: Platelet Estimate INCR
[2023-08-06 01:36] LABS: Anisocytosis 1+; Blood Morphology Comment NOTED (NOT SEEN); Ovalocytes 1+; White Blood Cell Scan OK (OK)
[2023-08-06 01:47] LABS: Renal Epithelial <5 /HPF (None Seen); Specific Gravity 1.016 (1.005-1.030); Sqamous Epithelial <5 /HPF (None Seen); Urine Bacteria <20 /HPF (<20); Urine Bilirubin NEGATIVE (Negative); Urine Blood Negative (Negative); Urine Clarity Turbid (Clear); Urine Color Yellow (Yellow); Urine Culture Reflex Order NOT NEEDED; Urine Glucose NEGATIVE (Negative); Urine Ketones NEGATIVE (Negative); Urine Microscopic Reflex YN ORDER UMIC; Urine Nitrite NEGATIVE (Negative); Urine Protein 1+ (Negative); Urine RBC <5 /HPF (None Seen); Urine Urobilinogen Normal (Normal); Urine WBC <5 /HPF (<5); Urine pH 5.5 (5.0-7.0)
[2023-08-06] MEDS ORDERED: CEFTRIAXONE 2000 MG/VIAL ONE (02:44)
[2023-08-06] MEDS ORDERED: NA CHLORIDE 0.9% 250 ML ONE ×3 (02:45→09:13)
[2023-08-06] MEDS ORDERED: NA CHLORIDE 0.9% 50 ML ONE ×2 (02:45→09:59)
[2023-08-06] MEDS ORDERED: NA CHLORIDE 0.9% 0 ML ONE (02:45)
[2023-08-06] MEDS ORDERED: AZITHROMYCIN 500 MG INJ IVPB ONE (02:45)
--- NOTE | 2023-08-06 02:49 | ER ---
Nurse's Notes [facility] Name: Judy Acevedo Age: 83 yrs Sex: Female : 1940 Arrival Date: 08/05/2023 Time: 22:06 Bed 3 Private MD: Diagnosis: Pneumonia;Hyponatremia;Lactic acidosis Presentation: 08/04 22:11 Chief complaint: EMS states: 83 YEAR OLD FEMALE REPORTS FEELING NAUSEA AND WEAK FOR THE ha1 PAST THREE DAYS. FAMILY MEMBER REPORTS SHE BECAME CONFUSED AFTER DIVING HER SOME LORAZEPAM. 22:11 Coronavirus screen: Vaccine status: Patient reports receiving the 2nd dose of the covid ha1 vaccine. [employer]. Ebola Screen: No symptoms or risks identified at this time. Initial Sepsis Screen: Does the patient meet any 2 criteria? No. Patient's initial sepsis screen is negative. Does the patient have a suspected source of infection? No. Patient's initial sepsis screen is negative. Risk Assessment: Do you want to hurt yourself or someone else? Patient reports no desire to harm self or others. Onset of symptoms was August 02, 2023. 22:11 Method Of Arrival: EMS: [facility] ha1 22:11 Acuity: HENRIETTA 3 ha1 08/05 07:11 Compressions began at 04:52. 1 Triage Assessment: 08/04 22:11 General: Appears comfortable, Behavior is calm, cooperative. Pain: Denies pain. Neuro: ha1 Level of Consciousness is awake, alert, obeys commands, Oriented to person, place, time, situation. Cardiovascular: Capillary refill < 3 seconds Patient's skin is warm and dry. Respiratory: Airway is patent Respiratory effort is even, unlabored, Respiratory pattern is regular, symmetrical. Derm: Skin is pale. Historical: - Allergies: 22:25 No Known Allergies; ha1 - Home Meds: 22:25 Alprazolam Oral [Active]; clopidogrel Oral [Active]; Lasix Oral [Active]; Eliquis 2.5 ha1 mg Oral tab [Active]; Zofran Oral [Active]; Zoloft Oral [Active]; T3 [Active]; Simvastatin Oral [Active]; - PMHx: 22:25 Acute Kidney Failure; AFIB; breast cancer; bowel obstruction; Congestive heart failure; ha1 Hypertensive disorder; Hypothyroidism; syncope; - PSHx: 22:25 hysterectomy; Left Mastectomy; ha1 - Immunization history:: Adult Immunizations up to date. - Social history:: Smoking status: Patient denies any tobacco usage or history of. - Family history:: not pertinent. Screenin:11 [facility] ED Fall Risk Assessment (Adult) History of falling in the last 3 months, ha1 including since admission No falls in past 3 months (0 pts) Confusion or Disorientation No (0 pts) Intoxicated or Sedated No (0 pts) Impaired Gait Yes (1 pt) Mobility Assist Device Used Yes (1 pt) Altered Elimination No (0 pt) Score/Fall Risk Level 3 or more points = High Risk Oriented to surroundings, Maintained a safe environment, Educated pt \\T\\ family on fall prevention, incl call for assistance when getting out of bed, Hourly rounding (assess needs \\T\\ fall precautionary measures) done. Abuse screen: Denies threats or abuse. Denies injuries from another. Nutritional screening: decreased appetite x 3 days . Tuberculosis screening: No symptoms or risk factors identified. Assessment: 22:11 Reassessment: SEE TRIAGE ASSESSMENT. ha1 22:35 Reassessment: NOTIFIED CHARGE NURSE OF NEED FOR AN ULTRASOUND IV. ha1 23:11 Reassessment: Patient and/or family updated on plan of care and expected duration. Pain ha1 level reassessed. Respiratory: Airway is patent Respiratory effort is even, unlabored, Respiratory pattern is regular, symmetrical. 08/05 00:10 Reassessment: Patient and/or family updated on plan of care and expected duration. Pain ha1 level reassessed. Reassessment: eyes closed. Respiratory: Airway is patent Respiratory effort is even, unlabored, Respiratory pattern is regular, symmetrical. 01:10 Reassessment: Patient and/or family updated on plan of care and expected duration. Pain ha1 level reassessed. General: EYES CLOSED. Respiratory: Airway is patent Respiratory effort is even, unlabored, Respiratory pattern is regular, symmetrical. 02:10 Reassessment: EYES CLOSED. Respiratory: Airway is patent Respiratory effort is even, ha1 unlabored, Respiratory pattern is regular, symmetrical. 03:00 General: Appears comfortable. Respiratory: Airway is patent Respiratory effort is even, ha1 unlabored, Respiratory pattern is regular, symmetrical. 03:00 Reassessment: Patient denies pain at this time. ha1 03:25 Reassessment: OXYGEN SATURATION DROPPED TO 74. INCREASED OXYGEN LEVEL TO 6 LITERS NASAL ha1 CANULA NO CHANGE IN OXYGEN SATURATION NOTICED. NONREBREATHER APPLIED TO PATIENT. NOTIFIED DR. HARPER. 03:25 General: Appears uncomfortable, ill, Behavior is anxious. Neuro: Level of Consciousness ha1 is confused, Oriented to person. 03:25 Reassessment: NOTIFIED HOSPITALIST OF RESPIRATORY STATUS. HOSPITALIST STATED" WHY ARE ha1 YOU CALLING ME THIS IS NOT MY PATIENT."ER PHYSICIAN NOTIFIED AND ORDERS RECEIVED. 03:26 Reassessment: DR. HARPER AT BEDSIDE, MARY JO,RN, LESLEY,RN, JOSE,RN SUJIT,MANUEL, ha1 MANUEL PETTY, BHAVIN SYKES, AND THIS NURSE. 03:27 Reassessment: RESPIRATORY THERAPIST IN THE ROOM. Respiratory: Patient placed on BiPAP:. ha1 04:30 Neuro: Level of Consciousness is awake, Oriented to person. Respiratory: Airway is ha1 patent Respiratory effort is labored, gasping, Respiratory pattern is agonal NOTIFIED DR. HARPER . CALLED RESPIRATORY THERAPIST. 04:30 Reassessment: DR. HARPER AND NURSING STAFF AT BEDSIDE, LESLEY,RN, JOSE,RN, BHAVIN Wyatt, MANUEL CAMARGO. 04:51 Cardiac rhythm is asystole. ha1 04:51 Reassessment: CHEST COMPRESSION STARTED. ha1 04:57 CPR assessment: unresponsive, pupils fixed \\T\\ dilated, no respiratory effort, intubated, ha1 Ambu ventilation, cyanotic. 04:57 Respiratory: Airway via oral intubation Respiratory pattern is regular, Ventilator ha1 assessment: ET Tube: 7.5 23 cm at lip. 05:03 Cardiovascular: Heart tones absent. ha1 05:07 Reassessment: PULSE CHECK. ha1 05:07 Cardiovascular: Heart tones absent. ha1 05:15 Cardiovascular: Heart tones present. ha1 05:20 Reassessment:. Cardiovascular: Heart tones absent Capillary refill is > 3 seconds ha1 Rhythm is asystole. 05:23 Cardiovascular: Rhythm is PEA. ha1 05:35 Cardiovascular: Rhythm is regular. ha1 07:00 Respiratory: Respiratory effort is even, Respiratory pattern is regular. ha1 Vital Signs: 08/04 22:11 BP 122 / 91; Pulse 102; Resp 20 S; Temp 97.9(T); Pulse Ox 97% on 2 lpm NC; Weight 56.7 ha1 kg; Height 5 ft. 4 in. ; 23:00 BP 130 / 92; Pulse 103; Resp 20; Pulse Ox 98% on 2 lpm NC; ha1 08/05 00:00 BP 116 / 79; Pulse 98; Resp 17 S; Pulse Ox 98% on R/A; ha1 00:59 BP 126 / 88; Pulse 102; Resp 19 S; Pulse Ox 98% on R/A; ha1 02:00 BP 115 / 88; Pulse 95; Resp 17 S; Pulse Ox 97% on 2 lpm NC; ha1 02:30 BP 117 / 72; Pulse 99; Resp 22 S; Pulse Ox 94% on 3 lpm NC; ha1 03:30 BP 88 / 64; Pulse 91; Resp 23 S; Pulse Ox 77% on BiPAP; ha1 04:00 BP 91 / 64; Pulse 92; Resp 19 S; Pulse Ox 85% on BiPAP; ha1 04:31 Pulse 90; Resp 21; Pulse Ox 46% on BiPAP; ha1 06:00 BP 93 / 62; Pulse 106; Resp 17 A; Pulse Ox 96% on ETT vent; ha1 06:15 BP 89 / 60; Pulse 103; Resp 19 A; Pulse Ox 96% on ETT vent; FiO2 100 %; ha1 06:30 BP 99 / 66; Pulse 105; Resp 20 A; Temp 96.5(T); Pulse Ox 97% on ETT vent; ha1 08/04 22:11 Body Mass Index 21.46 (56.70 kg, 162.56 cm) ha1 ED Course: 08/04 22:08 Patient arrived in ED. mr 22:09 Byron Michael, is Private Physician. mr 22:11 Dm Harper MD is Attending Physician. rt 22:11 Maintain EMS IV. Dressing intact. Site clean \\T\\ dry. Gauge \\T\\ site: 22 RIGHT HAND. duncan 1 22:11 Patient has correct armband on for positive identification. Placed in gown. Bed in low ha1 position. Call light in reach. Side rails up X2. Adult w/ patient. 22:11 Arm band placed on right wrist. ha1 22:15 Missed attempt(s): 22 gauge in right antecubital area. Bleeding controlled, band aid ha1 applied, catheter tip intact. 22:20 Faviola Mason, RN is Primary Nurse. ha1 22:25 Triage completed. ha1 22:30 Missed attempt(s): 22 gauge in right forearm. Bleeding controlled, band aid applied, ha1 catheter tip intact. 22:57 Chest Single View XRAY In Process Unspecified. EDMS 23:00 Missed attempt(s): 22 gauge forearm. ATTEMPTED MISSED BY CHARGE NURSE MANUEL SUTTON. ha1 Bleeding controlled, band aid applied, catheter tip intact. 23:15 Door closed. Noise minimized. Lights dimmed. Warm blanket given. Pillow given. Assisted ha1 with bedpan. Cleaned of incontinence. Linen changed. 23:51 Blood Culture Adult (2) Sent. ha1 23:51 CBC with Diff Sent. ha1 23:51 CMP Sent. ha1 23:51 Lactate w/ 2H reflex if indic. Sent. ha1 23:51 Protime (+inr) Sent. ha1 23:51 Ptt, Activated Sent. ha1 23:51 Magnesium Sent. ha1 23:51 Troponin HS Sent. ha1 03 00:10 Straight cath inserted, using sterile technique, 16 Fr. Specimen obtained. Returned ha1 lucy urine. 00:35 Inserted saline lock: 22 gauge in right forearm, using aseptic technique. ,using ha1 aseptic technique. inserted by MANUEL Miranda. 01:06 CT Head Brain wo Cont In Process Unspecified. EDMS 02:47 Elan Dove is Hospitalizing Provider. rt 04:10 Chest Single View XRAY In Process Unspecified. EDMS 04:18 Contreras cath inserted, using sterile technique, 16 Fr., by nm, balloon inflated, returned ha1 clear yellow urine. Patient tolerated well. 04:57 Assisted provider with intubation using 7.5 mm ETT via oral route. ET tube secured at ha1 23cm at the teeth. Set up intubation tray. Intubated by Dm Harper MD Placement verified by CO2 detector w/ + color change, auscultating bilateral breath sounds, End-tidal CO2 montioring CXR, Patient tolerated well. 05:49 Assisted provider with central line placement. Set up central line tray. Triple lumen ha1 line placed Line placed by Dm Harper MD Placement verified by CXR, blood return, Dressed with Tape, Tegaderm, Blood was collected. Patient tolerated well. 07:00 Patient admitted, IV remains in place. ha1 Administered Medications: 02:45 Drug: NS 0.9% IV 1000 ml IV at 1 bolus Per protocol; 1000 mL bolus Route: IV; Rate: 1 ha1 bolus; Site: right hand; 03:45 Follow up: Response: No adverse reaction; IV Status: Infusion continued; IV Intake: ha1 400ml 02:45 Drug: Rocephin - Rocephin (cefTRIAXone) IVPB 2 grams IVPB once over 30 mins; (mix in ha1 100 mL NS) Route: IVPB; Infused Over: 30 mins; Site: right hand; 03:00 Follow up: Response: No adverse reaction; IV Status: Completed infusion; IV Intake: [id number] 03:10 Drug: AZITHromycin IVPB 500 mg IVPB once over 1 hrs; (mix in 250 mL NS) Route: IVPB; ha1 Infused Over: 1 hrs; Site: right hand; 04:10 Follow up: Response: No adverse reaction; IV Status: Completed infusion; IV Intake: ha1 250ml 04:20 Drug: Furosemide IVP 40 mg IVP once; give over 2 minutes Route: IVP; Site: right ha1 forearm; 05:00 Follow up: Response: No adverse reaction ha1 04:27 Drug: Ondansetron IVP 4 mg IVP once; over 2 minutes Route: IVP; Site: right hand; [facility] 04:45 Follow up: Response: No adverse reaction; Marked relief of symptoms [facility] 04:52 Drug: Atropine 1 mg IVP once Route: IVP; Site: right hand; [facility] 04:53 Drug: EPINEPHrine 0.1mg/mL 1:10,000 1 mg IVP once Route: IVP; Site: right hand; ha1 04:55 Drug: EPINEPHrine 0.1mg/mL 1:10,000 1 mg IVP once Route: IVP; Site: right hand; ha1 04:59 Drug: EPINEPHrine 0.1mg/mL 1:10,000 1 mg IVP once Route: IVP; Site: right hand; [facility] 05:03 Drug: Sodium Bicarbonate 1 amp IVP once; (50 mL); equals 50 mEq Route: IVP; Site: right ha1 hand; 05:06 Drug: EPINEPHrine 0.1mg/mL 1:10,000 1 mg IVP once Route: IVP; Site: right hand; ha1 06:00 Follow up: Response: No adverse reaction ha1 05:08 Drug: tranexamic acid 1000 mg IV at calculated rate once; administer at a rate not to ha1 exceed 100 mg per min Route: IV; Rate: calculated rate; Site: right hand; 05:30 Follow up: Response: No adverse reaction ha1 05:21 Drug: EPINEPHrine 0.1mg/mL 1:10,000 1 mg IVP once Route: IVP; Site: right hand; ha1 06:00 Follow up: Response: No adverse reaction ha1 05:26 Drug: EPINEPHrine 0.1mg/mL 1:10,000 1 mg IVP once Route: IVP; Site: right forearm; ha1 06:00 Follow up: Response: No adverse reaction ha1 05:27 Drug: Sodium Bicarbonate 1 amp IVP once; (50 mL); equals 50 mEq Route: IVP; Site: right ha1 forearm; 06:00 Follow up: Response: No adverse reaction ha1 05:42 Drug: Rocuronium IVP once Route: IVP; Site: right forearm; ha1 06:00 Follow up: Response: No adverse reaction ha1 05:43 Drug: Norepinephrine 0.1 mcg/kg/min IV Per protocol; (Standard concentration 4 mg / 250 ha1 mL D5W); Recommended max rate 3 mcg/kg/min; Titrate 0.05 mcg/kg/min as often as every 5 minutes to achieve goal (see titration policy); Goal parameter MAP greater than 65 mmHg. Route: IV; Rate: calculated rate; Site: right hand; 07:00 Follow up: Response: No adverse reaction; IV Status: Infusion continued; IV Intake: [id number] 05:44 Drug: Midazolam 2 mg IVP once Route: IVP; Site: right hand; ha1 06:00 Follow up: Response: No adverse reaction; RASS: Moderate sedation (-3) ha1 Medication: 00:56 VIS not applicable for this client. ha1 Intake: 03:00 IV: 50ml; Total: 50ml. ha1 03:45 IV: 400ml; Total: 450ml. ha1 04:10 IV: 250ml; Total: 700ml. ha1 07:00 IV: 50ml; Total: 750ml. ha1 Outcome: 02:48 Decision to Hospitalize by Provider. rt 07:00 Admitted to ICU accompanied by nurse, via stretcher, with oxygen, on monitor, with ha1 chart, Report called to MANUEL Land 07:00 Condition: stable 07:29 Patient left the ED. iw Signatures: Dispatcher [employer] EDMS Francisca Duggan, Reg Reg mr MaShavon, RN Favoila Su RN RN ha1 [place], Ryan, MD MD rt Corrections: (The following items were deleted from the chart) 08/04 23:52 23:14 Reassessment: ha1 ha1 08/05 07:14 03:25 General: Appears comfortable, ha1 ha1 07:27 03:26 Reassessment: DR. HARPER AT BEDSIDE, MARY JORN, LESLEY,MANUEL, MANUEL GARCIA RN, simon POPE RN, BHAVIN SYKES, AND THIS NURSE. ha1 07:27 04:30 Neuro: Level of Consciousness is awake, Oriented to person, ha1 ha1 07:27 04:30 Respiratory: Airway is patent Respiratory effort is labored, gasping, Respiratory ha1 pattern is agonal NOTIFIED DR. HARPER ha1 07:44 07:00 Reassessment: REPORT GIVEN TO MANUEL LAND Edward ha1 07:45 03:25 Reassessment: OXYGEN SATURATION DROPPED TO 74. INCREASED OXYGEN LEVEL TO 6 NO ha1 CHANGE IN OXYGEN SATURATION NOTICED. NONREBREATHER APPLIED TO PATIENT. NOTIFIED DR. HARPER. ha1 07:46 03:26 Reassessment: DR. HARPER AT BEDSIDE, MARY JORN, MANUEL SUTTON, MANUEL GARCIA RN, simon POPE RN, BHAVIN SYKES, AND THIS NURSE. ha1 18:57 05:50 Assisted provider with intubation using 7.5 mm ETT via oral route. ET tube ha1 secured at 23cm at the teeth. Set up intubation tray. Intubated by Dm Harper MD Placement verified by CO2 detector w/ + color change, auscultating bilateral breath sounds, End-tidal CO2 montioring CXR, Patient tolerated well. ha1
--- NOTE | 2023-08-06 02:49 | EDPHYS ---
Physician Documentation [facility] Name: Judy Acevedo Age: 83 yrs Sex: Female : 1940 Arrival Date: 08/05/2023 Time: 22:06 Bed 3 Private MD: ED Physician Dm Villalta HPI: 08/05 00:18 This 83 yrs old Female presents to ER via EMS with complaints of weakness. rt 00:18 Patient presents to the ED with nausea, generalized weakness for the past 3 days, has rt been progressively worsening. The patient's son reported the patient became confused this afternoon. Patient denies confusion. Denies any pain. Denies other acute complaints, symptoms are moderate in severity, no other aggravating or alleviating factors.. Historical: - Allergies: 08/04 22:25 No Known Allergies; ha1 - Home Meds: 22:25 Alprazolam Oral [Active]; clopidogrel Oral [Active]; Lasix Oral [Active]; Eliquis 2.5 ha1 mg Oral tab [Active]; Zofran Oral [Active]; Zoloft Oral [Active]; T3 [Active]; Simvastatin Oral [Active]; - PMHx: 22:25 Acute Kidney Failure; AFIB; breast cancer; bowel obstruction; Congestive heart failure; ha1 Hypertensive disorder; Hypothyroidism; syncope; - PSHx: 22:25 hysterectomy; Left Mastectomy; ha1 - Immunization history:: Adult Immunizations up to date. - Social history:: Smoking status: Patient denies any tobacco usage or history of. - Family history:: not pertinent. ROS: 08/05 00:18 Constitutional: Negative for fever, chills, and weight loss, Cardiovascular: Negative rt for chest pain, palpitations, and edema, Respiratory: Negative for shortness of breath, cough, wheezing, and pleuritic chest pain, MS/Extremity: Negative for injury and deformity, Skin: Negative for injury, rash, and discoloration, Abdomen/GI: Positive for nausea, Negative for abdominal pain, Neuro: Positive for altered mental status, weakness, Exam: 00:18 Constitutional: This is a well developed, well nourished patient who is awake, alert, rt and in no acute distress. Head/Face: Normocephalic, atraumatic. Chest/axilla: Normal chest wall appearance and motion. Nontender with no deformity. No lesions are appreciated. Cardiovascular: Regular rate and rhythm with a normal S1 and S2. No gallops, murmurs, or rubs. Normal PMI, no JVD. No pulse deficits. Respiratory: Lungs have equal breath sounds bilaterally, clear to auscultation and percussion. No rales, rhonchi or wheezes noted. No increased work of breathing, no retractions or nasal flaring. Abdomen/GI: Soft, non-tender, with normal bowel sounds. No distension or tympany. No guarding or rebound. No evidence of tenderness throughout. Skin: Warm, dry with normal turgor. Normal color with no rashes, no lesions, and no evidence of cellulitis. MS/ Extremity: Pulses equal, no cyanosis. Neurovascular intact. Full, normal range of motion. Neuro: Awake and alert, GCS 15, oriented to person, place, time, and situation. Cranial nerves II-XII grossly intact. Motor strength 5/5 in all extremities. Sensory grossly intact. Cerebellar exam normal. Normal gait. 00:18 ENT: Dry mucous membranes. 00:18 ECG was reviewed by the Attending Physician. Vital Signs: 08/04 22:11 BP 122 / 91; Pulse 102; Resp 20 S; Temp 97.9(T); Pulse Ox 97% on 2 lpm NC; Weight 56.7 ha1 kg; Height 5 ft. 4 in. ; 23:00 BP 130 / 92; Pulse 103; Resp 20; Pulse Ox 98% on 2 lpm NC; ha1 08/05 00:00 BP 116 / 79; Pulse 98; Resp 17 S; Pulse Ox 98% on R/A; ha1 00:59 BP 126 / 88; Pulse 102; Resp 19 S; Pulse Ox 98% on R/A; ha1 02:00 BP 115 / 88; Pulse 95; Resp 17 S; Pulse Ox 97% on 2 lpm NC; ha1 02:30 BP 117 / 72; Pulse 99; Resp 22 S; Pulse Ox 94% on 3 lpm NC; ha1 03:30 BP 88 / 64; Pulse 91; Resp 23 S; Pulse Ox 77% on BiPAP; ha1 04:00 BP 91 / 64; Pulse 92; Resp 19 S; Pulse Ox 85% on BiPAP; ha1 04:31 Pulse 90; Resp 21; Pulse Ox 46% on BiPAP; 1 06:00 BP 93 / 62; Pulse 106; Resp 17 A; Pulse Ox 96% on ETT vent; 1 06:15 BP 89 / 60; Pulse 103; Resp 19 A; Pulse Ox 96% on ETT vent; FiO2 100 %; 1 06:30 BP 99 / 66; Pulse 105; Resp 20 A; Temp 96.5(T); Pulse Ox 97% on ETT vent; [facility] 08/04 22:11 Body Mass Index 21.46 (56.70 kg, 162.56 cm) [facility] Procedures: 07:20 CPR: See CPR flow sheet. Initial patient assessment: unresponsive, The presenting rt cardiac rhythm is PEA. respirations assisted with BVM, Compressions: began Meds given: See Meds list. regained rhythm. Intubation: Intubated orally using 4. GlideScope with 7.5 mm ETT. was successful on first attempt. Ventilated with Ambu bag. Tube secured with ETT khan Placement verified by CXR, Patient tolerated well. Central Line: the site was prepped with Chlorhexidine, a triple lumen catheter was inserted, in the left internal jugular vein, in 1 attempts. placement was verified, by CXR, by blood return, the site was dressed with Chlorhexidine impregnated Tegaderm, the patient tolerated the procedure, well. MDM: 08/04 22:11 Patient medically screened. rt 08/05 02:48 Differential Diagnosis Dehydration, lactic acidosis, UTI. Data reviewed: vital signs, rt nurses notes, lab test result(s), EKG, radiologic studies. Consideration of Admission/Observation Patient was admitted/placed on observation. Management of patient was discussed with the following: Hospitalist: Agrees to admit. I considered the following discharge prescriptions or medication management in the emergency department Medications were administered in the Emergency Department. See MAR. Independent interpretation of the following test(s) in the Emergency Department CT Scan: My interpretation is No intracranial hemorrhage seen on interpretation of CT scan. Care significantly affected by the following chronic conditions: Congestive Heart Failure, Chronic Obstructive Pulmonary Disease. Counseling: I had a detailed discussion with the patient and/or guardian regarding the historical points, exam findings, and any diagnostic results supporting the discharge/admit diagnosis, lab results, radiology results, the need for further work-up and treatment in the hospital. Response to treatment: the patient's symptoms have mildly improved after treatment. ED course: Patient initial presentation was not thought to be due to infectious etiology. Patient with mild lactic acidosis, there was a delay receiving radiology report for pneumonia, once received, IV fluids, antibiotics were ordered. Will send for repeat lactate.. 04:43 ED course: After about 500 cc of fluid, patient developed respiratory distress, this rt was stopped, Lasix was given after x-ray shows pulmonary edema. BiPAP was started.. 07:20 ED course: After patient was admitted, oxygen saturations began to decrease, patient rt had a bradycardic episode. Patient went to cardiac arrest, PEA was noted rhythm. Patient was intubated, large amount of bleeding from the trachea was noted. Emergent transfusion, TXA was given. ROSC was able to be obtained, central was placed with improvement of patient's hemodynamics. Patient care was discussed with accepting hospitalist.. 08/04 22:12 Order name: Blood Culture Adult (2) rt 08/04 22:12 Order name: CBC with Diff; Complete Time: 02:37 rt 08/04 22:12 Order name: CMP; Complete Time: : rt 08/04 22:12 Order name: Lactate w/ 2H reflex if indic.; Complete Time: : rt 08/04 22:12 Order name: Protime (+inr); Complete Time: : rt 08/04 22:12 Order name: Ptt, Activated; Complete Time: : rt 08/04 22:12 Order name: Urinalysis w/ reflexes; Complete Time: 02:37 rt 08/04 22:12 Order name: Magnesium; Complete Time: : rt 08/04 22:12 Order name: Troponin HS; Complete Time: : rt 08/05 00:10 Order name: Glucose, Ancillary Testing; Complete Time: 00:18 EDMS 08/05 00:11 Order name: Glucose, Ancillary Testing EDMS 08/05 00:42 Order name: CBC Smear Scan; Complete Time: 02:37 EDMS 08/05 03:59 Order name: ABG; Complete Time: 06:41 rt 08/05 04:31 Order name: Basic Metabolic Panel EDMS 08/05 04:31 Order name: Basic Metabolic Panel EDMS 08/05 04:31 Order name: Basic Metabolic Panel EDMS 08/05 04:31 Order name: CBC with Automated Diff EDMS 08/05 04:31 Order name: CBC with Automated Diff EDMS 08/05 04:31 Order name: CBC with Automated Diff EDMS 08/05 04:31 Order name: Magnesium EDMS 08/05 04:31 Order name: Magnesium EDMS 08/05 04:31 Order name: Magnesium EDMS 08/05 04:31 Order name: Phosphorus EDMS 08/05 04:31 Order name: Phosphorus EDMS 08/05 04:31 Order name: Phosphorus EDMS 08/05 04:31 Order name: Troponin High Sensitivity EDMS 08/05 04:31 Order name: Troponin High Sensitivity EDMS 08/05 04:31 Order name: Troponin High Sensitivity EDMS 08/05 05:11 Order name: Lactate Sepsis 2 HR Follow-up; Complete Time: 06:41 EDMS 08/05 06:37 Order name: CBC with Automated Diff; Complete Time: 06:41 EDMS 08/05 07:00 Order name: Basic Metabolic Panel EDMS 08/05 07:00 Order name: Troponin High Sensitivity EDMS 08/05 07:00 Order name: Magnesium EDMS 08/05 07:16 Order name: NT PRO-BNP EDMS 08/04 22:12 Order name: Chest Single View XRAY rt 08/04 22:12 Order name: CT Head Brain wo Cont rt 08/05 03:37 Order name: Chest Single View XRAY ha1 08/05 03:40 Order name: CT Chest For PE Angio rt 08/05 03:50 Order name: BIPAP ha1 08/05 04:21 Order name: ARTERIAL BLOOD GAS EDMS 08/04 22:12 Order name: EKG; Complete Time: 22:13 rt 08/05 04:31 Order name: Physical Therapy Consult EDMS 08/04 22:12 Order name: Accucheck; Complete Time: 23:58 rt 08/04 22:12 Order name: Cardiac monitoring; Complete Time: 22:20 rt 08/04 22:12 Order name: EKG - Nurse/Tech; Complete Time: 22:20 rt 08/04 22:12 Order name: IV Saline Lock - Large Bore; Complete Time: 23:51 rt 08/04 22:12 Order name: Labs collected and sent; Complete Time: 23:51 rt 08/04 22:12 Order name: O2 Per Protocol; Complete Time: 22:20 rt 08/04 22:12 Order name: O2 Sat Monitoring; Complete Time: : rt 08/04 22:12 Order name: Vital Signs; Complete Time: : rt 08/04 22:12 Order name: IV Saline Lock; Complete Time: 22:20 rt EC:18 Rate is 103 beats/min. Rhythm is regular, Sinus tachycardia with No ectopy, Left bundle rt branch block. SD interval is normal. QT interval is normal. No Q waves. Administered Medications: 02:45 Drug: NS 0.9% IV 1000 ml IV at 1 bolus Per protocol; 1000 mL bolus Route: IV; Rate: 1 ha1 bolus; Site: right hand; 03:45 Follow up: Response: No adverse reaction; IV Status: Infusion continued; IV Intake: ha1 400ml 02:45 Drug: Rocephin - Rocephin (cefTRIAXone) IVPB 2 grams IVPB once over 30 mins; (mix in ha1 100 mL NS) Route: IVPB; Infused Over: 30 mins; Site: right hand; 03:00 Follow up: Response: No adverse reaction; IV Status: Completed infusion; IV Intake: [id number] 03:10 Drug: AZITHromycin IVPB 500 mg IVPB once over 1 hrs; (mix in 250 mL NS) Route: IVPB; ha1 Infused Over: 1 hrs; Site: right hand; 04:10 Follow up: Response: No adverse reaction; IV Status: Completed infusion; IV Intake: ha1 250ml 04:20 Drug: Furosemide IVP 40 mg IVP once; give over 2 minutes Route: IVP; Site: right ha1 forearm; 05:00 Follow up: Response: No adverse reaction ha1 04:27 Drug: Ondansetron IVP 4 mg IVP once; over 2 minutes Route: IVP; Site: right hand; ha1 04:45 Follow up: Response: No adverse reaction; Marked relief of symptoms ha1 04:52 Drug: Atropine 1 mg IVP once Route: IVP; Site: right hand; ha1 04:53 Drug: EPINEPHrine 0.1mg/mL 1:10,000 1 mg IVP once Route: IVP; Site: right hand; ha1 04:55 Drug: EPINEPHrine 0.1mg/mL 1:10,000 1 mg IVP once Route: IVP; Site: right hand; ha1 04:59 Drug: EPINEPHrine 0.1mg/mL 1:10,000 1 mg IVP once Route: IVP; Site: right hand; ha1 05:03 Drug: Sodium Bicarbonate 1 amp IVP once; (50 mL); equals 50 mEq Route: IVP; Site: right ha1 hand; 05:06 Drug: EPINEPHrine 0.1mg/mL 1:10,000 1 mg IVP once Route: IVP; Site: right hand; ha1 06:00 Follow up: Response: No adverse reaction ha1 05:08 Drug: tranexamic acid 1000 mg IV at calculated rate once; administer at a rate not to ha1 exceed 100 mg per min Route: IV; Rate: calculated rate; Site: right hand; 05:30 Follow up: Response: No adverse reaction ha1 05:21 Drug: EPINEPHrine 0.1mg/mL 1:10,000 1 mg IVP once Route: IVP; Site: right hand; ha1 06:00 Follow up: Response: No adverse reaction ha1 05:26 Drug: EPINEPHrine 0.1mg/mL 1:10,000 1 mg IVP once Route: IVP; Site: right forearm; ha1 06:00 Follow up: Response: No adverse reaction ha1 05:27 Drug: Sodium Bicarbonate 1 amp IVP once; (50 mL); equals 50 mEq Route: IVP; Site: right ha1 forearm; 06:00 Follow up: Response: No adverse reaction ha1 05:42 Drug: Rocuronium IVP once Route: IVP; Site: right forearm; ha1 06:00 Follow up: Response: No adverse reaction ha1 05:43 Drug: Norepinephrine 0.1 mcg/kg/min IV Per protocol; (Standard concentration 4 mg / 250 ha1 mL D5W); Recommended max rate 3 mcg/kg/min; Titrate 0.05 mcg/kg/min as often as every 5 minutes to achieve goal (see titration policy); Goal parameter MAP greater than 65 mmHg. Route: IV; Rate: calculated rate; Site: right hand; 07:00 Follow up: Response: No adverse reaction; IV Status: Infusion continued; IV Intake: [id number] 05:44 Drug: Midazolam 2 mg IVP once Route: IVP; Site: right hand; ha1 06:00 Follow up: Response: No adverse reaction; RASS: Moderate sedation (-3) ha1 Disposition Summary: 08/06/23 02:48 Hospitalization Ordered Notes: Hospitalization Status: Observation rt Provider: Elan Dove rt Condition: Stable rt Problem: new rt Symptoms: have improved rt Bed/Room Type: Standard rt Location: Intensive Care Unit(08/06/23 04:27) rv1 Room Assignment: 2-(08/06/23 04:27) rv1 Diagnosis - Pneumonia rt - Hyponatremia rt - Lactic acidosis rt Forms: - Medication Reconciliation Form rt - SBAR form rt - Leadership Thank You Letter rt Critical care time excluding procedures: 07:20 Critical care time: Bedside Care: 60 minutes, Consultation: 15 minutes. Total time: 75 rt minutes Signatures: Dispatcher [employer] Faviola Gonzalez RN RN ha1 Dm Villalta MD MD rt Blanca Bravo rv1 Corrections: (The following items were deleted from the chart) 04:27 02:48 Telemetry/MedSurg (observation) rt rv1 04:27 02:48 rt rv1
[2023-08-06 04:17] LABS: Blood Gas Oxyhemoglobin 95.1 % (94-97); Blood Gas THB 10.3 g/dl (12-18); Blood O2 Saturation 97.7 % (92-98.5)
[2023-08-06] MEDS ORDERED: FUROSEMIDE 40 MG/4 ML VIAL ONE (04:18)
[2023-08-06] MEDS ORDERED: ONDANSETRON 4 MG/2 ML VIAL IV PRN (04:19)
[2023-08-06] MEDS ORDERED: ALBUTEROL 2.5 MG/3 ML NEB SOL NEB PRN (04:19)
[2023-08-06] MEDS ORDERED: ONDANSETRON 4 MG/2 ML VIAL ONE (04:22)
--- NOTE | 2023-08-06 04:35 | P.HP ---
Certification for Inpatient Patient admitted to: Inpatient With expected LOS: >2 Midnights Practitioner: I am a practitioner with admitting privileges, knowledge of patient current condition, hospital course, and medical plan of care. Services: Services provided to patient in accordance with Admission requirements found in Title 42 Section 412.3 of the Code of Federal Regulations Patient History Date of Service: 08/06/23 Reason for admission: Generalized weakness, nausea History of Present Illness: 83-year-old woman with systolic heart failure, atrial fibrillation chronic ki dney disease was brought to the emergency department due to generalized weakness, nausea. According to family patient became confused after she received a dose of Ativan. Workup in the emergency department showed hyponatremia and mildly elevated serum creatinine above baseline. Patient has a history of chronic kidney disease stage III. She was discharged from the hospital 3 days ago after she was admitted for nausea, vomiting, diarrhea and generalized weakness, noted to have distended gallbladder which did not require any surgery, noted low blood pressure which was managed with oral midodrine during the hospital stay. Patient was given IV normal saline bolus. She later developed hypoxia which oxygen saturation down to the 70s, patient became hypotensive with systolic blood pressure in the 80s. Patient placed on BiPAP and noted good oxygen saturation and borderline low systolic blood pressure 88. Patient does not appear to be in respiratory distress. She is admitted to the ICU for further management. Allergies No Known Allergies Allergy (Verified 12/14/22 22:35) Home Medications: Clopidogrel Bisulfate [Plavix*] 75 mg PO DAILY 30 Days #30 tablet 03/06/22 Atorvastatin Calcium 40 mg PO BEDTIME 12/14/22 Melatonin 10 mg PO BEDTIME 12/14/22 Mirtazapine [Remeron*] 30 mg PO BEDTIME 12/14/22 Mv-Mn/Folic AC/Calcium/Vit K1 [Women's 50 Plus Multivit Tab] 1 each PO DAILY 12/14/22 Omeprazole 40 mg PO DAILY 12/14/22 Aspirin [Aspirin EC 81 MG] 81 mg PO DAILY 07/28/23 Levothyroxine Sodium 75 mcg PO DAILY 07/28/23 Loratadine [Claritin*] 10 mg PO DAILY 07/28/23 Metoprolol Succinate [Toprol Xl*] 25 mg PO DAILY 07/28/23 Simethicone [Mylanta] 125 mg PO PRN 07/28/23 Midodrine HCl [Proamatine*] 5 mg PO TID 30 Days #90 tab 08/03/23 - Past Medical/Surgical History Diabetic: No -: Hypertension -: Breast Cancer -: CKD -: CHF -: GERD -: Afib -: Hysterectomy -: Mastectomy -: Watchman procedure Psychosocial/ Personal History: Lives at home with her Son - Family History Father -: Heart disease Brother -: Heart disease Sister -: Heart disease - Social History Alcohol use: Yes CD- Drugs: No Caffeine use: Yes Review of Systems Other: Patient is confused and I am not able to obtain review of systems. Physical Examination - Vital Signs Pulse: 91 Pulse Ox (%): 88 - Physical Exam General: In no apparent distress, Confused, Other (Frail-appearing) HEENT: Mucous membr. moist/pink, Sclerae nonicteric Neck: Supple, JVD not distended, No Thyromegaly Respiratory: Diminished (Bilaterally), Other (Mild bibasilar Rales, no rhonchi or wheezes.) Cardiovascular: No edema, Normal S1 S2, Irregular heart rate/rhythm Capillary refill: <2 Seconds Gastrointestinal: Normal bowel sounds, Soft and benign, Non-distended, No ascites Musculoskeletal: No swelling, No tenderness Integumentary: No cyanosis Neurological: Normal strength at 5/5 x4 extr, Cranial nerves 3-12 intact Lymphatics: No axilla or inguinal lymphadenopathy - Studies Laboratory Data (last 24 hrs) 08/06/23 08/05/23 08/05/23 00:35 23:47 23:47 WBC 7.10 Hgb 10.5 L Hct 32.0 L Plt Count 438 H PT 12.5 INR 1.14 APTT 27.1 Sodium 124 L Potassium 5.1 BUN 45 H Creatinine 2.57 H Glucose 142 H Magnesium 2.1 Total Bilirubin 0.8 AST 84 H ALT 93 H Alkaline Phosphatase 48 Assessment and Plan - Problems (Diagnosis) (1) Acute respiratory failure with hypoxia Current Visit: Yes Status: Acute (2) Acute on chronic systolic heart failure Current Visit: Yes Status: Acute (3) BRAD (acute kidney injury) Current Visit: No Status: Acute - Plan Acute respiratory failure with hypoxia Acute on chronic systolic heart failure Hypotension Hyponatremia Admit to the ICU BiPAP Bronchodilators as needed IV Lasix Patient may be a candidate for tolvaptan given significant hyponatremia Nephrology consult. Start vasopressors as we treat CHF exacerbation with IV Lasix. Monitor BMP closely Trend troponin. Acute on chronic kidney disease Likely secondary to poor oral intake. Noted patient is currently not on any diuretics at home. IV Lasix for now Nephrology consult. Acute metabolic encephalopathy Likely secondary to hyponatremia and benzodiazepine Avoid psychotropic medications. Treat hyponatremia. DVT prophylaxis: Heparin SQ. - Advance Directives Does patient have a Living Will: Yes Does patient have a Durable POA for Healthcare: Yes
[2023-08-06] MEDS ORDERED: ROCURONIUM 50 MG/5 ML VIAL IV ONE ×2 (04:57→05:40)
[2023-08-06] MEDS ORDERED: NOREPINEPHRINE 4 MG in D5W 250 ML IV SCH (05:00)
[2023-08-06] MEDS ORDERED: TRANEXAMIC ACID 1,000 MG/10 ML VIAL IV ONE ×2 (05:04→05:06)
[2023-08-06] MEDS: NA CHLORIDE 0.9% 250 ML ONE (05:14)
[2023-08-06] MEDS ORDERED: NOREPINEPHRINE BITARTRATE/D5W 4 MG/250 ML BAG IV ONE (05:22)
[2023-08-06] MEDS ORDERED: MIDAZOLAM HCL 5 ML ONE (05:42)
[2023-08-06 06:34] LABS: Absolute Basophils 0.1 K/uL (0-0.5); Absolute Eosinophils 0.1 K/uL (0-0.5); Absolute Lymphocytes (CBC) 1.7 K/uL (0.7-4.9); Absolute Monocytes 0.8 K/uL (0.1-1.3); Absolute Neutrophil 8.1 K/uL (1.8-8.0); Basophils % 0.7 % (0-1.3); Eosinophils % 0.7 % (0-4.4); Hematocrit 38.6 % (36.0-45.0); Hemoglobin 12.4 g/dL (12.0-15.0); Lymphocytes % 15.8 % (15.3-44.8); MCHC 32.2 g/dL (32.0-36.0); MCV 93.1 fL (80-100); MPV 6.9 fL (7.6-11.3); Monocytes % 7.5 % (3.3-12.3); Neutrophils % 75.3 % (41.7-73.7); Nucleated Red Blood Cells % 0.4 % (0-0); Platelets 341 thou/uL (152-406); RBC Red Blood Cell Count 4.14 M/uL (3.86-4.86); Red Cell Distribution Width 17.7 % (12.1-15.2)
[2023-08-06] MEDS ORDERED: PANTOPRAZOLE 40 MG INJ ONE (06:45)
[2023-08-06] MEDS ORDERED: OCTREOTIDE ACETATE 500 MCG/ML ONE (06:46)
[2023-08-06] MEDS ORDERED: NA CHLORIDE 0.9% 500 ML ONE (06:46)
[2023-08-06] MEDS: PANTOPRAZOLE INJ 80 MG in NA CHLORIDE 0.9% 250 ML IV SCH (06:55)
[2023-08-06] MEDS: OCTREOTIDE 500 MCG in NA CHLORIDE 0.9% 500 ML IV SCH (06:56)
[2023-08-06 06:58] LABS: Anion Gap 19.4 mEq/L (5.0-15.0); Magnesium 2.3 mg/dL (1.6-2.4); Potassium 4.4 mEq/L (3.5-5.1)
[2023-08-06 07:00] LABS: Troponin High Sensitivity 199.7 pg/mL (<58.9)
[2023-08-06] MEDS: IPRATROPIUM BROM 0.5MG/2.5ML NEB SCH (07:00)
--- NOTE | 2023-08-06 07:00 | P.PN ---
Date of Service: 08/06/23 BRY BLUE was called on the patient. Patient noted to be bleeding from the mouth-copious amount of fresh blood drained from the corner of the mouth and was suctioned by ED provider Dr. Ba while he was trying to insert an Endotracheal tube. Chest compressions ongoing, patient given multiple doses of IV epinephrine. She was intubated and bagged. Patient given tranexamic acid, 2 units FFP and emergency uncrossed match blood ordered. She was also given a dose of sodium bicarb. Patient regained pulse, but became pulseless again and ACLS restarted.. I spoke to the son who advised we continue resuscitation and later came to the ED. Patient has a history of chronic systolic heart failure, most recent echocardiogram showed EF of 25 to 30% I had a discussion regarding patient's CODE STATUS. Patient's son requested no more cardiac resuscitation if patient become pulseless again. Patient regained her pulse during the second code. Central line established by ED provider Dr. Ba. ET was initially in the right bronchus which was adjusted, SaO2 after ET tube repositioning has been stable above 90% on 100% FiO2. Blood transfusion and FFP transfusion started. Repeat labs ordered. IV Protonix drip and octreotide drip ordered GI Dr. Burrows informed to evaluate and manage the GI bleed. Pulmonary Dr. Scott also consulted and informed.
[2023-08-06] MEDS ORDERED: IPRATROPIUM BROM 0.5MG/2.5ML ONE (07:53)
[2023-08-06] MEDS: NOREPINEPHRINE 16 MG in D5W 250 ML IV SCH (08:25)
[2023-08-06 08:38] LABS: PT Prothrombin Time 18.3 SECONDS (9.5-12.5); PTT, Activated Partial Thromb 41.9 SECONDS (24.3-36.9); Protime INR 1.69
--- NOTE | 2023-08-06 08:49 | RAD REPORT ---
EXAM DESCRIPTION: RAD - Abdomen 1 View (KUB) - 08/06/2023 7:07 am CLINICAL HISTORY: Placement of NGT/OGT. Post Insertion. Pain COMPARISON: Chest Single View dated 08/06/2023 FINDINGS: The tip of the endotracheal tube is above the danuta at the level of the superior aortic a rch. Left-sided venous catheter its tip in the SVC near the junction with the right atrium. Enteric t ube is not visualized on the present study. If enteric tube was placed, it may be coiled in the mouth and clinical correlation recommended.
[2023-08-06] MEDS ORDERED: FUROSEMIDE 40 MG/4 ML VIAL IV SCH (09:00)
[2023-08-06] MEDS ORDERED: HYDROCORTISONE SUC 100 MG INJ ONE (09:13)
[2023-08-06] MEDS: HYDROCORTISONE NA SUC 200 MG in NA CHLORIDE 0.9% 100 ML IV ONE (09:19)
[2023-08-06] MEDS ORDERED: CEFTRIAXONE 1000 MG/VIAL ONE (09:59)
[2023-08-06] MEDS: CEFTRIAXONE 1,000 MG in NA CHLORIDE 0.9% 50 ML IVPB SCH (10:06)
--- NOTE | 2023-08-06 10:11 | RAD REPORT ---
EXAM DESCRIPTION: RAD - Chest Single View - 08/06/2023 9:54 am CLINICAL HISTORY: Bleeding in lungs Chest pain. COMPARISON: Abdomen 1 View (KUB) dated 08/06/2023; Chest Single View dated 08/06/2023; Chest Single Vi ew dated 08/06/2023; Chest Single View dated 08/05/2023 FINDINGS: Portable technique limits examination quality. Tip of the endotracheal tube is at the level of the superior aortic arch. Left-sided venous catheter its tip in the SVC. Enteric tube coils in the stomach. Extensive bilateral pulmonary opacities are ag ain noted,.
[2023-08-06] MEDS ORDERED: SODIUM CHLORIDE 0.9% 10ML INJ IV PRN (10:40)
--- NOTE | 2023-08-06 10:40 | P.CNS ---
Date of Consult: 08/06/23 Reason for Consult: Cardiac arrest on VENt Chief Complaint: CP arrest onVent History of Present Illness: Age 83 was recently discharged Aw weakness CPR assocaited with bleeding. On Vent with vasopressors Allergies No Known Allergies Allergy (Verified 12/14/22 22:35) Home Medications: Clopidogrel Bisulfate [Plavix*] 75 mg PO DAILY 30 Days #30 tablet 03/06/22 Atorvastatin Calcium 40 mg PO BEDTIME 12/14/22 Melatonin 10 mg PO BEDTIME 12/14/22 Mirtazapine [Remeron*] 30 mg PO BEDTIME 12/14/22 Mv-Mn/Folic AC/Calcium/Vit K1 [Women's 50 Plus Multivit Tab] 1 each PO DAILY 12/14/22 Omeprazole 40 mg PO DAILY 12/14/22 Aspirin [Aspirin EC 81 MG] 81 mg PO DAILY 07/28/23 Levothyroxine Sodium 75 mcg PO DAILY 07/28/23 Loratadine [Claritin*] 10 mg PO DAILY 07/28/23 Metoprolol Succinate [Toprol Xl*] 25 mg PO DAILY 07/28/23 Simethicone [Mylanta] 125 mg PO PRN 07/28/23 Midodrine HCl [Proamatine*] 5 mg PO TID 30 Days #90 tab 08/03/23 - Past Medical/Surgical History Diabetic: No -: Hypertension -: Breast Cancer -: CKD -: CHF -: GERD -: Afib -: Hysterectomy -: Mastectomy -: Watchman procedure Psychosocial/ Personal History: Lives at home with her Son - Family History Father Medical History: Heart disease Brother Medical History: Heart disease Sister Medical History: Heart disease - Social History Alcohol use: Yes CD- Drugs: No Caffeine use: Yes Place of Residence: Home Review of Systems is unable to be obtained Physical Examination Temp Pulse Resp BP Pulse Ox 96.5 F L 91 H 18 111/70 92 08/06/23 07:44 08/06/23 10:15 08/06/23 10:15 08/06/23 10:15 08/06/23 10:15 General: Comatose Respiratory: Clear to auscultation bilaterally Cardiovascular: No edema, Regular rate/rhythm, Normal S1 S2 Laboratory Data (last 24 hrs) 03/24/24 03/23/24 03/23/24 00:35 23:47 23:47 WBC 7.10 Hgb 10.5 L Hct 32.0 L Plt Count 438 H PT 12.5 INR 1.14 APTT 27.1 Sodium 124 L Potassium 5.1 BUN 45 H Creatinine 2.57 H Glucose 142 H Magnesium 2.1 Total Bilirubin 0.8 AST 84 H ALT 93 H Alkaline Phosphatase 48 - Problems (1) Cardiopulmonary arrest Current Visit: Yes Status: Acute Plan: S/p cardiolpulmonary arrest. On Levophed. Add Hydorcort X1 , CXRY worse. Bilateral changes. Traumatic intubation. May have aspirated. REnal fuction stable / Normal WBC. Trop elevated Hx of CAD s/p stent 2021/ on 10% Fio2 as per GI NE of [facility] from traumatic intubationCXRY.labs, Vent seeting reviwed. DW GI and hospitalist
[2023-08-06 11:53] LABS: Hematocrit 42.5 % (36.0-45.0); Hemoglobin 13.9 g/dL (12.0-15.0); MCH 30.1 pg (27.0-35.0); MCHC 32.6 g/dL (32.0-36.0); MCV 92.1 fL (80-100); Platelets 315 thou/uL (152-406); RBC Red Blood Cell Count 4.61 M/uL (3.86-4.86); Red Cell Distribution Width 16.7 % (12.1-15.2)
[2023-08-06] MEDS: NA CHLORIDE 0.9% 100 ML ONE ×2 (12:16→14:08)
[2023-08-06] MEDS ORDERED: NA CHLORIDE 0.9% 1,000 ML ONE (12:54)
--- NOTE | 2023-08-06 13:10 | CON ---
Date of Consultation: 08/06/2023 Reason For Consultation: GI bleeding with hematemesis, hypotension in ICU, intubated, sedated. History Of Present Illness: The patient is an 83-year-old white female with history of hypertension, congestive heart failure, atrial fibrillation, prior GI bleed in 06/2021 at [facility]. The patient presented with generalized weakness and nausea. While in the emergency room, found to h ave hematemesis, had an emergent difficult intubation and patient placed on mechanical ventilation wi th IV pressors. The patient with GI bleeding. Hemoglobin of 10.5, but due to the massive amount of bleeding that was seen, the patient was transfused 2 units of packed RBCs and since that time her hem oglobin has came up to 12.4. Her PT initially was 12.5, INR of 1.14, and PTT of 27.1. Initial oxyge n saturation was 97%, now is down 81%. The patient is in ICU bed on mechanical ventilation with IV p ressures, Levophed currently. Platelets were ordered, but would not be ready for another hour and duncan lf. The patient to take an aspirin and Plavix as outpatient. Past Medical History: Significant for hypertension, congestive heart failure, atrial fibrillation, G I bleed, at [facility] in 2021, as per son. He is unsure of what the lesion was. There was bleeding at that time. She has chronic kidney disease, gastroesophageal reflux disease, breast c ancer status post mastectomy, hysterectomy, and a Watchman procedure for atrial fibrillation. Medications: At home include, Plavix, aspirin, atorvastatin, melatonin, Remeron, Women's 50+ multivi tamin, Prilosec 40 mg daily, levothyroxine, Claritin, Toprol, Mylanta, ProAmatine. Allergies: NKDA. Social History: No tobacco or alcohol. Family History: Father with heart disease. Brother with heart disease. Sister with heart disease. Review of Systems: The patient has hematemesis, hypotension. She is intubated, sedated, but no history of any type of m joe, hematochezia, hematuria, depression, anxiety, muscle aches, joint aches, backaches, fevers, ch ills, night sweats, or other. Physical Examination: Vital Signs: The patient is intubated, sedated. Temperature last taken 96.5 degrees Fahrenheit, pul se 105, respirations 20, blood pressure 74/41 on IV pressors here in ICU. General: She is an elderly female, lying in bed, intubated, sedated with Versed and rocuronium. HEENT: Normocephalic, atraumatic. Anicteric. Pupils equal and reactive to light. ET tube in place . Respirations: Adequate, on the ventilator. Cardiac: Tachycardic. Abdomen: Soft, nontender, nondistended. Extremities: No clubbing, cyanosis, or edema. 2+ pulses. Neuro: The patient is intubated, sedated, so cannot do a full neurologic exam. She is flaccid with Versed and rocuronium. Laboratory Data: The patient has a hemoglobin of 10.7, now 12.4 from 10.5 this morning. Hematocrit 38.6, MCV of 93, platelet count 341. Polys of 75%, lymphocytes 16%, monocytes 8%, eosinophils 1%, PT 12.5, but 18.3 now. INR up to 1.6 that went up from 1.4 earlier, and PTT of 41.9. Blood gas; pH is 7.38, this was at 4 o'clock this morning, pCO2 of 31, PaO2 of 111, bicarb of 18, O2 saturation 98%, and FiO2 100%. The patient has sodium 130, potassium 4.4, chloride 97, bicarb 18, BUN of 44, creatin ine of 2.72, glucose 203, lactic acid . Calcium is 7.2, magnesium 2.3. Troponin I of 199. 7, which is elevated. B-type natriuretic peptide is very elevated at 113,538. AST of 84, ALT of 93, alkaline phosphatase 248. UA, leukocyte esterase 250, was negative. Cytology, negative. Impression: 1.GI bleed, hematemesis on aspirin and Plavix due to her atrial fibrillation. We need to investigat e with esophagogastroduodenoscopy in this critically ill patient. 2.Hypotension on IV Levophed and IV fluids. 3.Respiratory failure, intubated, sedated, on mechanical ventilation, O2 saturation initially at 98% , now down to 81% on 100% FiO2, was noted to have a difficult intubation it appears. 4.History of hypertension, congestive heart failure, atrial fibrillation, GI bleed at [facility] in 2021. Exact location of the bleed was not known by the son. Also, history of chronic ki dney disease, gastroesophageal reflux disease, breast cancer status post mastectomy, hysterectomy, an d Watchman procedure. Recommendations: 1.Continue IV fluids, IV pressors with Levophed currently. 2.Serial H and H, transfuse p.r.n. 3.Transfuse with platelets now since the patient is on Plavix and emergently bleeding. Proceed with EGD urgently. 4.IV octreotide. 5.PPI therapy. PETE/DEXTER Voice ID: [id number] Report ID: [id number]
[2023-08-06 15:06] LABS: Hematocrit 37.9 % (36.0-45.0); Hemoglobin 12.5 g/dL (12.0-15.0)
[2023-08-06 15:55] LABS: MPV 7.1 fL (7.6-11.3); Platelets 265 thou/uL (152-406)
--- NOTE | 2023-08-06 16:05 | P.PN ---
Date of Service: 08/06/23 Pt seen and examined. I agree with the note by the UTILITY TENDER CARDING. Pt is an 83yo female with past medical history of systolic heart failure, atrial fibrillation, and chronic kidney disease who presents with generalized weakness and nausea. Of note, pt was discharged 3 days ago from the hospital. Pt was doing well at home untile monday evening when she started felling weak. It progressively worsened last night and her son brought her to the ER last night for evaluation. While in the ER pt desated and started vomiting blood. She was intubated in order to protect her air way. COde blue was called and pt regained consciousness. She coded again and CPR was activated. Her son decided to make her DNR after the second code blue. On admission, lab studies show wbc 10.7, Hgb 12.4, K 4.4, Cr 2.72, troponin 199 -> 476, BNP [id number]. ABG shows pH 7.38, pCO2 31.4, pO2 111. lactate 2.9 -> 4.1, Calcium 7.2, mag 2.3. Pt was admitted in the ICU for further treatment of acute resp failure with hypoxia. We continued levophed and rocephin for UTI. GI did EGD at bedside but could not see any source of bleeding We continue protonix drip. We monitored electrolytes and trended lactate. Pt later developed bradycardia. We consulted cardiology for NSTEMI but we could not give heparin drip due to hemoptysis.
[2023-08-06 16:08] LABS: PTT, Activated Partial Thromb 29.8 SECONDS (24.3-36.9); Protime INR 1.38
--- NOTE | 2023-08-06 16:09 | CON ---
Date of Consultation: 08/06/2023 Reason For Consultation: BRAD. History Of Present Illness: The patient is unable to provide history. History is mainly obtained fr om the chart. This is an 83-year-old woman with past medical history of chronic kidney disease, stag e 4; congestive heart failure; and atrial fibrillation who was recently admitted for abdominal pain, nausea, vomiting, respiratory failure, and hyponatremia. The patient was discharged recently as ment ioned above. Yesterday, she was brought to the ER for weakness and altered mental status after recei ving Ativan. The patient was hypoxic in the ER and placed on the BiPAP. Since she had a cardiac asy stole that required intubation. Creatinine is up to 2.7, and patient currently is oliguric. Past Medical History: Hypertension, CKD, CHF. Past Surgical History: Hysterectomy, mastectomy, Watchman procedure. Allergies: NO KNOWN DRUG ALLERGIES. Medications: See MAR. Family History: Father and brother have heart disease. Social History: No known history of drug abuse. Occasionally consumes alcohol. Review of Systems: Unable to provide at this point as patient is intubated. Physical Examination: Vital Signs: Pulse ox 95, blood pressure 96/62, O2 saturation 90%. General: Patient is intubated, looks chronically ill and pale. Neck: Supple. No elevated JVD. Heart: Tachycardia. Normal S1, S2. Chest: Clear to auscultation bilaterally. No rales or wheezes. Abdomen: Soft and nontender. Extremities: No edema. Laboratory Data: White count 16.3. Sodium 130, potassium 4.4, BUN 44, creatinine 2.7, GFR of 17. Assessment And Plan: 1.Acute on chronic kidney disease, likely due to ischemic acute tubular necrosis and congestive hear t failure. The patient is oliguric. Continue to monitor renal function. Avoid NSAIDs and contrast. 2.Status post cardiac arrest. Continue supportive care. The patient is DNR now. 3.Lactic acidosis, likely due to an ischemia. Continue pressors to maintain MAP more than 50. 4.Congestive heart failure. Continue Lasix. 5.Acute respiratory failure due to cardiac arrest. Continue vent management as per Pulmonary. Enma ent has overall guarded to poor prognosis. She is DNR now. Family decided about goal of care. We w ill continue medical treatment. Thanks for allowing me to participate in patient's care. Total time spent 75 minutes including documentation, reviewing labs, and discussing with the medical staff. RICHAR Voice ID: [id number] Report ID: [id number]
[2023-08-07] MEDS: MIDAZOLAM HCL 2 MG/2 ML INJ IV PRN (00:22)
[2023-08-07] MEDS ORDERED: FENTANYL CITR 100 MCG/2 ML ONE ×2 (02:02→09:12)
[2023-08-07] MEDS: FENTANYL CITR 100 MCG/2 ML IV PRN (02:05)
[2023-08-07] MEDS ORDERED: MIDAZOLAM HCL 2 MG/2 ML INJ ONE ×3 (05:07→11:40)
[2023-08-07 05:26] LABS: Absolute Basophils 0.2 K/uL (0-0.5); Absolute Lymphocytes (CBC) 0.4 K/uL (0.7-4.9); Absolute Monocytes 0.5 K/uL (0.1-1.3); Basophils % 0.6 % (0-1.3); Hematocrit 36.7 % (36.0-45.0); Lymphocytes % 1.2 % (15.3-44.8); MCH 29.7 pg (27.0-35.0); MCHC 32.6 g/dL (32.0-36.0); MPV 7.8 fL (7.6-11.3); Monocytes % 1.7 % (3.3-12.3); Neutrophils % 96.5 % (41.7-73.7); Nucleated RBC Absolute Count 0.1 (0-0); Nucleated Red Blood Cells % 0.2 % (0-0); Platelets 299 thou/uL (152-406); RBC Red Blood Cell Count 4.03 M/uL (3.86-4.86); Red Cell Distribution Width 16.9 % (12.1-15.2)
[2023-08-07 05:36] LABS: Anion Gap 16.4 mEq/L (5.0-15.0); Magnesium 2.1 mg/dL (1.6-2.4); Phosphorus 4.3 mg/dL (2.5-4.9); Potassium 5.4 mEq/L (3.5-5.1)
[2023-08-07 07:58] LABS: PT Prothrombin Time 16.5 SECONDS (9.5-12.5); PTT, Activated Partial Thromb 29.8 SECONDS (24.3-36.9); Protime INR 1.52
[2023-08-07] MEDS: PANTOPRAZOLE 40 MG INJ IVP SCH (08:07)
[2023-08-07 08:10] LABS: Band Neutrophils 15 % (0-1); Blood Morphology Comment NOT SEEN (NOT SEEN); Differential Total Cells Count 100; Lymphocytes 3 % (15-42); Monocytes 1 % (0-10); Platelet Estimate ADEQ; Segmented Neutrophils 81 % (40-80)
[2023-08-07 08:18] LABS: Troponin High Sensitivity 1110.4 pg/mL (<58.9)
[2023-08-07] MEDS ORDERED: NA CHLORIDE 0.9% 500 ML ONE (08:43)
[2023-08-07] MEDS: NA CHLORIDE 0.9% 500 ML IV ONE (08:44)
[2023-08-07] MEDS: DEXMEDETOMIDINE HCL 200 MCG in NA CHLORIDE 0.9% 98 ML IV SCH (08:45)
--- NOTE | 2023-08-07 09:51 | P.PN ---
Subjective Date of Service: 08/07/23 Chief Complaint: CP arrest onVent Pt is resting comfortably in bed. She is intubated and sedated. Pt is withdrawing from painful stimuli. She was weaned off levophed and her BP later dropped. Will resume levophed. Continue ICU level of care. Pt's son was updated at bedside. Review of Systems is unable to be obtained Physical Examination - Vital Signs Temperature: 98.2 F Blood Pressure: 82/51 Pulse: 112 Respirations: 18 Pulse Ox (%): 99 - Physical Exam General: Alert, In no apparent distress, Unresponsive HEENT: Atraumatic, Normocephalic, Other (pupils are not very reactive to light) Neck: Supple, 2+ carotid pulse no bruit Respiratory: Clear to auscultation bilaterally, Normal air movement Cardiovascular: No edema, Normal pulses, Regular rate/rhythm, Normal S1 S2 Capillary refill: <2 Seconds Gastrointestinal: Normal bowel sounds, Soft and benign, Non-distended Musculoskeletal: No clubbing, No swelling Integumentary: No rashes, No breakdown, No significant lesion Neurological: Other (sedated and intubated) Lymphatics: No axilla or inguinal lymphadenopathy - Studies Microbiology Data (last 24 hrs): 08/05/23 23:47 Blood - Blood Anaerobic Blood Culture - Final Assessment And Plan - Plan Acute respiratory failure with hypoxia: Pt is intubated and sedated. Pulm is managing vent. Septic shock 2/2 aspiration pneumonia: Given the hemoptysis and intubation. Will continue unasyn and follow up blood cx. Continue pressors, trend lactate and WBC Lactic acidossis: Lactate is 4.1 <- 6.2 <- 2.9 <- 2.6. Will trend lactate. Acute on chronic systolic heart failure: Will continue strict I/O and daily weight. Will hold lasix due to hypotension Hypotension: Likely dueto septic shock. NSTEMI: Troponin is 476 <- 199. we could not give heparin drip due to hemoptysis. Hyponatremia: Na is 129. Due to hypovolemia and poor po intake. Will trend Na level. Pt may be a candidate for tolvaptan given significant hyponatremia. Consulted nephrology. GI bleed: Pt had hemoptysis on rodrigo day of admission. Will continue protonix drip. EGD at bedside was unremarkable. Acute on chronic kidney disease: Cr is 3.4. Will avoid nephrotoxins and monitor renal function. Acute metabolic encephalopathy: Likely secondary to hyponatremia and benzodiazepine. Will avoid psychotropic medications. DVT prophylaxis: Heparin SQ. Nutrition: Will started OG tube feedling soon Dispo: Pt has poor prognosis. Will continue ICU level of care. Code: DNR. - Code Status/Comfort Care Code Status Assessed: Yes (DNR)
--- NOTE | 2023-08-07 10:15 | RAD REPORT ---
EXAM DESCRIPTION: XR Chest, 1 View CLINICAL HISTORY: The patient is 83 years old and is Female; POST CPR TECHNIQUE: Single view of the chest. COMPARISON: August 06, 2023 4:03 AM. FINDINGS: Lungs: Bilateral pulmonary opacities are moderately increased from the prior exam sugges ting edema. Pleural space: Unremarkable. No pneumothorax. Heart: The cardiac silhouette is enlarged versus artifact of AP technique. Mediastinum: The mediastinal contours are altered due to patient rotation. Bones/joints: No definite acute fracture visualized. Soft tissues: Left axillary surgical clips and left mastectomy. Tubes, lines and devices: ET tube is 1.5 cm above the danuta. Left IJ line is in the SVC. Upper abdomen: No free air in the visualized upper abdomen. IMPRESSION: 1. ET tube is 1.5 cm above the danuta. Left IJ line is in the SVC. 2. Bilateral pulmonary opacities are moderately increased from the prior exam suggesting edema. Electronically signed by: Yancy Ortiz MD 08/06/2023 06:47 AM CDT Due to temporary technical issues with the PACS/Fluency reporting system, reports are being signed by the in house radiologist without review as a courtesy to ensure prompt reporting. The interpreting r adiologist is fully responsible for the content of the report.
--- NOTE | 2023-08-07 10:19 | RAD REPORT ---
EXAM DESCRIPTION: Chest Single View CLINICAL HISTORY: DYSPNEA COMPARISON: 08/05/2023 FINDINGS: Single frontal view of the chest. Tubes and lines: Leads overlie the chest. Cardiomediastinal silhouette: Stable Lungs: Diffuse bilateral interstitial opacities with small pleural effusions. No pneumothorax. Bones: Stable. Upper abdomen: Stable. IMPRESSION: 1. Chronic peripheral interstitial opacities compatible with pulmonary fibrosis. Superim posed acute pulmonary edema or interstitial pneumonic process could contribute this appearance. 2. Small pleural effusions. Electronically signed by: Long Pena DO 08/06/2023 05:30 AM CDT M Due to temporary technical issues with the PACS/Fluency reporting system, reports are being signed by the in house radiologist without review as a courtesy to ensure prompt reporting. The interpreting r adiologist is fully responsible for the content of the report.
[2023-08-07] MEDS ORDERED: AMPICILLIN/SULBACTAM 3GM/VIAL ONE (11:03)
[2023-08-07] MEDS ORDERED: NA CHLORIDE 0.9% 100 ML ONE (11:03)
[2023-08-07] MEDS: AMPICILLIN/SULBACT 3 GM in NA CHLORIDE 0.9% 100 ML IVPB SCH (11:05)
[2023-08-07] MEDS ORDERED: ATROPINE SULF 1 MG/10 ML SYR IV ONE (11:43)
[2023-08-07] MEDS ORDERED: EPINEPHrine 1 MG/10 ML SYR IV ONE (11:43)
[2023-08-07] MEDS ORDERED: SODIUM CHL 0.9% 1000 ML BAG IV ONE (11:43)
[2023-08-07] MEDS ORDERED: FUROSEMIDE 40 MG/4 ML VIAL ONE ×3 (11:55→22:49)
[2023-08-07] MEDS ORDERED: AMPICILLIN/SULBACT 3 GM in NA CHLORIDE 0.9% 100 ML IVPB SCH (12:00)
--- NOTE | 2023-08-07 12:12 | P.PN ---
Subjective Date of Service: 08/07/23 Chief Complaint: Respiratory failure Patient is still in shock is on vasopressors bonding only to very deep painful stimuli Review of Systems is unable to be obtained Physical Examination - Vital Signs Temperature: 98.2 F Blood Pressure: 126/67 Pulse: 149 Respirations: 22 Pulse Ox (%): 99 - Physical Exam General: Unresponsive Respiratory: Clear to auscultation bilaterally Cardiovascular: Normal pulses, Regular rate/rhythm, Normal S1 S2 - Studies Microbiology Data (last 24 hrs): 08/05/23 23:47 Blood - Blood Anaerobic Blood Culture - Final Assessment And Plan - Current Problems (Diagnosis) (1) Cardiopulmonary arrest Current Visit: Yes Status: Acute Plan: Patient admitted with cardiopulmonary arrest so far no further episodes of bleeding was apparently a traumatic intubation patient's troponins have increased significantly most likely due to the myocardium during resuscitation and anoxia renal function is worse chest x-ray shows bilateral infiltrates possible right-sided pleural effusion continue with antibiotics blood cultures are so far negative add a trial of steroids prognosis is poor color responding to deep painful stimuli 100% FiO2 patient's bleeding seems to have stopped resume DVT prophylaxis only members at bedside cussed with the nurse Vent settings all reviewed
[2023-08-07] MEDS: FUROSEMIDE 40 MG/4 ML VIAL IV SCH (12:17)
--- NOTE | 2023-08-07 12:53 | RAD REPORT ---
EXAM DESCRIPTION: Chest Single View CLINICAL HISTORY: DYSPNEA COMPARISON: 08/05/2023 FINDINGS: Single frontal view of the chest. Tubes and lines: Leads overlie the chest. Cardiomediastinal silhouette: Stable Lungs: Diffuse bilateral interstitial opacities with small pleural effusions. No pneumothorax. Bones: Stable. Upper abdomen: Stable. IMPRESSION: 1. Chronic peripheral interstitial opacities compatible with pulmonary fibrosis. Superim posed acute pulmonary edema or interstitial pneumonic process could contribute this appearance. 2. Small pleural effusions. Electronically signed by: Long Pena DO 08/06/2023 05:30 AM CDT M Due to temporary technical issues with the PACS/Fluency reporting system, reports are being signed by the in house radiologist without review as a courtesy to ensure prompt reporting. The interpreting r adiologist is fully responsible for the content of the report.
[2023-08-07] MEDS ORDERED: METHYLPREDNISOLONE 40 MG INJ ONE (13:10)
[2023-08-07] MEDS: METHYLPREDNISOLONE 40 MG INJ IV SCH (13:12)
--- NOTE | 2023-08-07 14:18 | EKG ---
Test Date: 2023-08-05 Test Time: 22:09:23 Supply Analyst: ISIDRO MEASUREMENT RESULTS: Intervals: Rate: 103 MN: 198 QRSD: 142 QT: 362 QTc: 474 Pep: P: 28 MN: 198 QRS: -18 T: 112 INTERPRETIVE STATEMENTS: Sinus tachycardia Left bundle branch block Abnormal ECG Compared to ECG 07/28/2023 10:59:48 Left bundle-branch block now present Sinus rhythm no longer present Sinus arrhythmia no longer present First degree AV block no longer present Electronically Signed On 08-07-23 14:14:31 CDT by Gilberto Barillas
[2023-08-07] MEDS: DEXMEDETOMIDINE HCL 1,000 MCG in NA CHLORIDE 0.9% 490 ML IV SCH (15:24)
[2023-08-07 16:50] LABS: Arterial Blood Carboxyhemoglob 1.1 % (0-1.5); Blood Gas Oxyhemoglobin 96.6 % (94-97); Blood Gas THB 11.2 g/dl (12-18); Blood O2 Saturation 99.1 % (92-98.5)
[2023-08-07] MEDS ORDERED: THIAMINE 200 MG/2 ML INJ ONE (16:51)
[2023-08-07 17:16] LABS: Anion Gap 12.2 mEq/L (5.0-15.0); Potassium 5.2 mEq/L (3.5-5.1)
[2023-08-07] MEDS: THIAMINE 200 MG/2 ML INJ IVP SCH (17:16)
[2023-08-07] MEDS: SODIUM ZIRCONIUM CYCLOSILICATE 10 GM/PKT FT ONE (17:32)
[2023-08-07] MEDS: D5W 1,000 ML with NA BICARB 8.4% 150 MEQ IV SCH (17:32)
[2023-08-07] MEDS: ALBUTEROL 2.5 MG/3 ML NEB SOL NEB SCH (20:00)
[2023-08-07] MEDS ORDERED: ALBUTEROL 2.5 MG/3 ML NEB SOL ONE (20:01)
--- NOTE | 2023-08-07 20:42 | PN ---
Date of Progress Note: 08/07/2023 Chief Complaint: Acute kidney injury, severe ATN, cardiorenal syndrome. Subjective: The patient remains oliguric and renal function has not improved since yesterday. Sal becker is intubated in ICU. She is an 83-year-old woman with past medical history of chronic kidney dise ase, stage 4; congestive heart failure; cardiorenal syndrome; atrial fibrillation. She was recently admitted for abdominal pain, nausea, vomiting, respiratory failure, and hyponatremia and subsequently , she was discharged. She was admitted to the hospital on August 04 for generalized weakness, altered mental status after she took Ativan. The patient became hypoxemic when in the emergency room was placed on BiPAP. Subsequently, she had c ardiac systolic and she required intubation and she underwent intubation procedure in ICU. Serum cre atinine level is elevated and she is oliguric. Urine output declined and family is considering to st art hemodialysis. The patient is on Levophed and the patient will need dialysis catheter. Family do es not want to use any general anesthesia for this patient and they are still considering dialysis. Review of Systems: Unobtainable. Physical Examination: General: The patient is intubated. She is chronically ill, intubated. Neck: No elevated JVD. Heart: S1, S2. No pericardial friction rub. Chest: Clear to auscultation bilaterally. No wheezes. No rale. Abdomen: Soft, nontender. Extremities: No edema. Laboratory Data: White count 16.3. Sodium 130, BUN 44, creatinine 2.7, GFR 17 on July 2023. Impression And Plan: Acute on chronic kidney injury. The patient has chronic kidney disease. The p atsera has severe kidney injury related to acute tubular necrosis and systolic heart failure. The michael alarcon is hypoxemic and is intubated and is obtunded and not responsive to voice. Patient had cardiac arrest and patient is critically ill. She has congestive heart failure. The patient is on Lasix fo r volume control, although urine output has not increased. Family is considering hemodialysis and th marylou want to discuss with family together about her decision. I informed the patient's son, who was at the bedside about possible hemodialysis, although due to overall condition, prognosis is guarded to poor. EB/MODL Voice ID: [id number] Report ID: [id number]
[2023-08-07 20:45] LABS: Albumin 2.4 g/dL (3.4-5.0); Albumin/Globulin Ratio 0.8 (1.1-1.8); Anion Gap 11.9 mEq/L (5.0-15.0); Bilirubin Total 0.8 mg/dL (0.2-1.0); Globulin 2.9 g/dL (2.3-3.5); Potassium 4.9 mEq/L (3.5-5.1); Protein, Total 5.3 g/dL (6.4-8.2)
[2023-08-07] MEDS: HEPARIN 5000 UNIT/ML 1 ML VIAL SQ SCH (21:09)
[2023-08-07] MEDS: CALCITROL 0.25 MCG CAP PO SCH (21:10)
--- NOTE | 2023-08-07 21:25 | RAD REPORT ---
EXAM DESCRIPTION: CT of the head without contrast CLINICAL HISTORY: Ams COMPARISON: 01/07/2022 TECHNIQUE: Axial CT of the head obtained from the skull apex to the skull base without contrast. Thi s exam was performed according to our departmental dose-optimization program, which includes automate d exposure control, adjustment of the mA and/or kV according to patient size and/or use of iterative reconstruction technique. FINDINGS: No acute intracranial hemorrhage identified. No mass, mass effect, shift of the midline, a bnormal extra-axial fluid collection or CT evidence of acute ischemic change identified. The ventricu lar system and sulcal spaces are mildly enlarged compatible with mild cerebral atrophy. Scattered a reas of hypodensity throughout the supratentorial white matter are nonspecific and may be related to chronic small vessel ischemic change. The visualized paranasal sinuses and the mastoids are clear. No skull fracture identified. Visualiz ed orbits and globes are unremarkable. Atherosclerotic calcification of the intracranial internal car otid arteries. IMPRESSION: 1. No acute intracranial abnormality by CT criteria. Electronically signed by: Long Pena DO 08/06/2023 01:42 AM CDT M Due to temporary technical issues with the PACS/Fluency reporting system, reports are being signed by the in house radiologists without review as a courtesy to insure prompt reporting. The interpreting radiologist is fully responsible for the content of the report.
[2023-08-08] MEDS: FUROSEMIDE 40 MG/4 ML VIAL IV SCH (00:03)
[2023-08-08] MEDS ORDERED: ALBUTEROL 2.5 MG/3 ML NEB SOL ONE ×3 (01:00→12:21)
[2023-08-08 04:28] LABS: Absolute Lymphocytes (CBC) 0.2 K/uL (0.7-4.9); Absolute Monocytes 0.5 K/uL (0.1-1.3); Basophils % 0.1 % (0-1.3); Hematocrit 32.1 % (36.0-45.0); Hemoglobin 10.8 g/dL (12.0-15.0); MCH 30.2 pg (27.0-35.0); MCHC 33.6 g/dL (32.0-36.0); MCV 90.1 fL (80-100); MPV 8.7 fL (7.6-11.3); Monocytes % 2.5 % (3.3-12.3); Nucleated Red Blood Cells % 0.1 % (0-0); Platelets 208 thou/uL (152-406); RBC Red Blood Cell Count 3.56 M/uL (3.86-4.86); Red Cell Distribution Width 17.3 % (12.1-15.2)
[2023-08-08 04:34] LABS: Neutrophils % 96.4 % (41.7-73.7)
[2023-08-08 04:35] LABS: Magnesium 2.1 mg/dL (1.6-2.4); Phosphorus 4.3 mg/dL (2.5-4.9)
[2023-08-08 04:47] LABS: Anion Gap 12.3 mEq/L (5.0-15.0); Potassium 4.3 mEq/L (3.5-5.1)
[2023-08-08] MEDS ORDERED: FUROSEMIDE 40 MG/4 ML VIAL ONE ×4 (06:12→18:02)
[2023-08-08] MEDS ORDERED: PANTOPRAZOLE 40 MG INJ ONE (07:48)
[2023-08-08] MEDS ORDERED: THIAMINE 200 MG/2 ML INJ ONE (07:49)
[2023-08-08] MEDS ORDERED: HEPARIN 5000 UNIT/ML 1 ML VIAL ONE (07:49)
[2023-08-08] MEDS ORDERED: AMPICILLIN/SULBACTAM 3GM/VIAL ONE (07:49)
[2023-08-08] MEDS ORDERED: METHYLPREDNISOLONE 40 MG INJ ONE (07:49)
[2023-08-08] MEDS ORDERED: NA CHLORIDE 0.9% 100 ML ONE (07:50)
--- NOTE | 2023-08-08 08:39 | RAD REPORT ---
EXAM DESCRIPTION: US - Renal Ultrasound-Complete - 08/08/2023 12:04 am CLINICAL HISTORY: Acute renal insufficiency COMPARISON: July 28, 2023 CT FINDINGS: The right kidney measures 10 cm with a normal echotexture. Mild prominence of right renal pelvis. The left kidney measures 10 cm with a normal echotexture. No left renal hydronephrosis Contreras catheter is present within a collapsed bladder. IMPRESSION: Mild prominence right renal pelvis. Most likely this is secondary to it being extrarenal and is physiologic rather than hydronephrosis
--- NOTE | 2023-08-08 09:56 | P.PN ---
Subjective Date of Service: 08/08/23 Chief Complaint: Respiratory failure Pt is resting comfortably in bed. She is intubated and sedated. Pt is withdrawing from painful stimuli. She is still getting levophed. BP is improving. Continue ICU level of care. Pt's son and daughter were updated at bedside. Review of Systems is unable to be obtained Physical Examination - Vital Signs Temperature: 96.9 F Blood Pressure: 84/60 Pulse: 91 Respirations: 17 Pulse Ox (%): 95 - Physical Exam General: In no apparent distress, Unresponsive HEENT: Atraumatic, Normocephalic Neck: Supple, 2+ carotid pulse no bruit Respiratory: Clear to auscultation bilaterally, Normal air movement Cardiovascular: No edema, Normal pulses, Regular rate/rhythm, Normal S1 S2 Capillary refill: <2 Seconds Gastrointestinal: Normal bowel sounds, Soft and benign, Non-distended Musculoskeletal: No clubbing, No swelling Integumentary: No rashes, No breakdown Lymphatics: No axilla or inguinal lymphadenopathy - Studies Microbiology Data (last 24 hrs): 08/05/23 23:47 Blood - Blood Anaerobic Blood Culture - Final Assessment And Plan - Plan Acute respiratory failure with hypoxia: Pt is intubated and sedated. Pulm is managing vent. Septic shock 2/2 aspiration pneumonia: Given the hemoptysis and intubation. Will continue unasyn, steroid and follow up blood cx. Continue pressors, trend lactate and WBC ( 19.7) Lactic acidossis: Lactate is 1.8<- 4.1 <- 6.2 <- 2.9 <- 2.6. Will trend lactate. Acute on chronic systolic heart failure: Will continue strict I/O and daily weight. Will hold lasix due to hypotension Hypotension: Likely dueto septic shock. NSTEMI: Troponin is 1110<- 476 <- 199. we could not give heparin drip due to hemoptysis. Hyponatremia: Na is 131 <- 129. Due to hypovolemia and poor po intake. Will trend Na level. Pt may be a candidate for tolvaptan given significant hyponatremia. Consulted nephrology. GI bleed: Pt had hemoptysis on the day of admission. Will continue protonix drip. EGD at bedside was unremarkable. Acute on chronic kidney disease: Cr is 3.55 <- 3.4. Will avoid nephrotoxins and monitor renal function. nephrology is following Acute metabolic encephalopathy: Likely secondary to hyponatremia and benzodiazepine. Will avoid psychotropic medications. DVT prophylaxis: Heparin SQ. Nutrition: Will started OG tube feedling soon Dispo: Pt has poor prognosis. Will continue ICU level of care. Code: DNR.
[2023-08-08] MEDS: MIDODRINE HCL 5 MG TABLET PO SCH (13:14)
--- NOTE | 2023-08-08 13:19 | P.PN ---
Subjective Date of Service: 08/08/23 Chief Complaint: Respiratory failure No sig change in patients condition. Unresponsive Review of Systems is unable to be obtained Physical Examination - Vital Signs Temperature: 96.5 F Blood Pressure: 93/64 Pulse: 80 Respirations: 19 Pulse Ox (%): 95 - Physical Exam General: Unresponsive Respiratory: Clear to auscultation bilaterally, Diminished Cardiovascular: No edema, Normal pulses Assessment And Plan - Current Problems (Diagnosis) (1) Cardiopulmonary arrest Current Visit: Yes Status: Acute Plan: Respfailure, on 40% FIO2, Midodrine, lasix. WBC and creat decreasing/ on Lasix. CXRY poss RLL consolidation hazy bilaterally, BSugars elevated. ET tube satisfactory. Start tube feeds/ DC solumedrol/ Increase thiamine. Requires precedex/ / Traumatic hemoptysis Sputum cultures
--- NOTE | 2023-08-08 13:45 | P.CNS ---
Date of Consult: 08/07/23 PC: I was asked to see this patient in regards to placement of a temporary dialysis catheter. HPC: Patient coded twice over the weekend, is now on pressure support. On a ventilator, minimal response PMHx: Cardiac issues with borderline renal function prior to this episode Social Hx: No known allergies Sys R: Apparently was at home with independent living according to her son prior to this episode. O/E: On a ventilator HEENT: Left IJ with pressor support running Chest: Chest movement with ventilator Abd: Negative [place]: No evidence of any clavicular fractures Data: Chest x-ray shows left IJ line Impression: This patient, who coded twice, is now on pressure support has increased in renal function. I was asked to evaluate in regards to a temporary dialysis catheter. It is high risk, patient is on a ventilator as the left subclavian would be the choice of positioning. She is a heavy lady, and a groin catheter would be of questionable value benefits. When discussing risks and benefits with the patient and of catheter placement, I do not feel that placement of a catheter at this time would be helpful in view of her overall condition and prognosis. Plan: Hold catheter placement
--- NOTE | 2023-08-08 14:16 | RAD REPORT ---
EXAM DESCRIPTION: RAD - Chest Single View - 08/08/2023 1:59 pm CLINICAL HISTORY: REsp failure Chest pain. COMPARISON: Chest Single View dated 08/06/2023; Abdomen 1 View (KUB) dated 08/06/2023; Chest Single Vi ew dated 08/06/2023; Chest Single View dated 08/06/2023 FINDINGS: Portable technique limits examination quality. Tip of the endotracheal tube is above the danuta. Left-sided venous catheter has tip in the SVC near the right atrial junction. Enteric tube coils in the stomach. Extensive bilateral pulmonary opacities are present, which of mildly to moderately worsened particularly on the right.The heart is mildly en larged in size.
--- NOTE | 2023-08-08 17:45 | P.CNS ---
Date of Consult: 08/08/23 Chief Complaint: Respiratory failure History of Present Illness: Patient with PMH of CAD s/p PCI LCX 2021, AF, CHF presented with generalized weakness and respiratory distress, patient had significant hypoxia after hemoptysis that required intubation, also she had a witnessed cardiac arrest. now she is on mechanical ventilation. Allergies No Known Allergies Allergy (Verified 12/14/22 22:35) Home Medications: Clopidogrel Bisulfate [Plavix*] 75 mg PO DAILY 30 Days #30 tablet 03/06/22 Atorvastatin Calcium 40 mg PO BEDTIME 12/14/22 Melatonin 10 mg PO BEDTIME 12/14/22 Mirtazapine [Remeron*] 30 mg PO BEDTIME 12/14/22 Mv-Mn/Folic AC/Calcium/Vit K1 [Women's 50 Plus Multivit Tab] 1 each PO DAILY 12/14/22 Omeprazole 40 mg PO DAILY 12/14/22 Aspirin [Aspirin EC 81 MG] 81 mg PO DAILY 07/28/23 Levothyroxine Sodium 75 mcg PO DAILY 07/28/23 Loratadine [Claritin*] 10 mg PO DAILY 07/28/23 Metoprolol Succinate [Toprol Xl*] 25 mg PO DAILY 07/28/23 Simethicone [Mylanta] 125 mg PO PRN 07/28/23 Midodrine HCl [Proamatine*] 5 mg PO TID 30 Days #90 tab 08/03/23 - Past Medical/Surgical History Diabetic: No -: Hypertension -: Breast Cancer -: CKD -: CHF -: GERD -: Afib -: Hysterectomy -: Mastectomy -: Watchman procedure Psychosocial/ Personal History: Lives at home with her Son - Family History Father Medical History: Heart disease Brother Medical History: Heart disease Sister Medical History: Heart disease - Social History Alcohol use: Yes CD- Drugs: No Caffeine use: Yes Place of Residence: Home Review of Systems is unable to be obtained (patient is intubated) Physical Examination Temp Pulse Resp BP Pulse Ox 96.5 F L 94 H 19 93/64 96 08/08/23 16:21 08/08/23 16:30 08/08/23 16:21 08/08/23 16:21 08/08/23 16:30 General: Other (intubated, minimal response to painful stimuli) Neck: Supple Respiratory: Crackles/rales Cardiovascular: No edema, Normal S1 S2 Gastrointestinal: Normal bowel sounds - Problems (1) Atrial fibrillation Current Visit: Yes Status: Acute Plan: Patient is currently in sinus rhythm, continue to monitor. (2) Acute on chronic systolic heart failure Current Visit: Yes Status: Acute Plan: agree with IV lasix 60 mh IV q 6 hours. Continue to monitor input and output. correct electrolytes. (3) Cardiopulmonary arrest Current Visit: Yes Status: Acute Plan: most likely secondary to hypoxia as patient went into PEA arrest. follow up on echo. (4) Elevated troponin Current Visit: No Status: Acute Plan: trending down, patient had recent hemoptysis, will need anticoagulation once cleared by ICU team. further cardiac work up depends on patient prognosis during her ICU stay.
--- NOTE | 2023-08-08 18:30 | PN ---
Date of Progress Note: 08/08/2023 Subjective: Patient was admitted to the hospital with altered mental status. Patient with respirato ry failure. Patient intubated, has cardiogenic shock with acute kidney injury secondary to poor perf usion ATN secondary to cardiorenal. Patient was started on diuresis, nonoliguric. Kidney function c ontinued to decline. Objective: Vital Signs: Blood pressure 93/64, pulse of 80, afebrile. Patient had urine output arou nd 800 yesterday. Chest: Crackles, bilateral. Heart: S1, S2. Systolic murmur. Abdomen: Soft, nontender. Extremities: Trace edema. Neuro: Patient is sedated on vent. The patient on vent 40%, saturating well. Laboratory Data: Hemoglobin 10.8. Sodium 131, potassium 4.3, bicarb 25, BUN 62, creatinine 3.5, andre cium 7.6. Current Medications: The patient on, it includes: 1.Zosyn. 2.Nepro. 3.Lasix 60 q.6. 4.Zofran. 5.Fentanyl. 6.Calcitriol. Assessment And Plan: 1.Acute kidney injury secondary to poor perfusion, acute tubular necrosis, cardiorenal syndrome seco ndary to cardiogenic shock, overvolume, nonoliguric. No hyperkalemia. No significant acidosis with the advanced cardiac history to initiate dialysis given that creatinine has improved odette red to yesterday even though that is marginal improved but the trend is trending down. I am going to go ahead and start the patient on midodrine and we will repeat chest x-ray to evaluate, possibly pat ient may mostly going to need to be switch to Lasix drip and we will follow up. 2.Hypertension, currently blood pressure on the lower side. Patient in shock. Start midodrine. Chandler agnes may need pressor. 3.Cardiogenic shock complicated with congestive heart failure with acute kidney injury secondary to poor perfusion ATN. We will continue diuresis to establish better volume control. 4.Hyponatremia, dilutional. We will diurese. 5.Respiratory failure secondary to congestive heart failure, as above. We will try to optimize the fluid status. Time spent examining the patient [id number], reviewing data, lab and radiology, placing order, disc ussing the case with the patient, discussing the case with the steamship agent including ICU staff and brent weeks and the son by bedside more than 35 minutes. OTTO Voice ID: [id number] Report ID: [id number]
--- NOTE | 2023-08-08 18:54 | RAD REPORT ---
EXAM DESCRIPTION: RAD - Abdomen 1 View (KUB) - 08/08/2023 6:44 pm CLINICAL HISTORY: Dobhoff placement Pain COMPARISON: Abdomen 1 View (KUB) dated 08/06/2023 FINDINGS: Contrast is present in the stomach. The tip of the enteric tube appears in the stomach.
[2023-08-08] MEDS ORDERED: FENTANYL CITR 100 MCG/2 ML ONE (23:09)
[2023-08-09] MEDS: JEVITY 1.2 CAL LIQUID 1,000 ML BOT FT SCH
[2023-08-09] MEDS: NOREPINEPHRINE 4 MG in D5W 250 ML IV SCH (01:25)
[2023-08-09] MEDS: NOREPINEPHRINE BITARTRATE/D5W 4 MG/250 ML BAG IV ONE (02:01)
[2023-08-09] MEDS: HYDROCORTISONE SUC 100 MG INJ IV ONE (02:02)
[2023-08-09] MEDS ORDERED: HYDROCORTISONE SUC 100 MG INJ ONE (02:02)
[2023-08-09 04:53] LABS: Absolute Lymphocytes (CBC) 0.2 K/uL (0.7-4.9); Absolute Monocytes 0.9 K/uL (0.1-1.3); Absolute Neutrophil 24.9 K/uL (1.8-8.0); Basophils % 0.2 % (0-1.3); Hematocrit 33.8 % (36.0-45.0); Hemoglobin 11.4 g/dL (12.0-15.0); Lymphocytes % 0.9 % (15.3-44.8); MCH 30.2 pg (27.0-35.0); MCHC 33.8 g/dL (32.0-36.0); MCV 89.5 fL (80-100); MPV 8.6 fL (7.6-11.3); Monocytes % 3.5 % (3.3-12.3); Neutrophils % 95.4 % (41.7-73.7); Nucleated Red Blood Cells % 0.1 % (0-0); Platelets 291 thou/uL (152-406); RBC Red Blood Cell Count 3.78 M/uL (3.86-4.86)
[2023-08-09 05:15] LABS: Albumin 2.4 g/dL (3.4-5.0); Albumin/Globulin Ratio 0.7 (1.1-1.8); Bilirubin Total 1.1 mg/dL (0.2-1.0); Globulin 3.4 g/dL (2.3-3.5); Protein, Total 5.8 g/dL (6.4-8.2)
[2023-08-09] MEDS ORDERED: FUROSEMIDE 40 MG/4 ML VIAL ONE (06:03)
[2023-08-09] MEDS ORDERED: FUROSEMIDE 20 MG/ 2ML VIAL ONE (06:03)
[2023-08-09 06:06] VITALS: BMI 22.9
--- NOTE | 2023-08-09 08:56 | RAD REPORT ---
[facility] CLINICAL HISTORY: REsp failure COMPARISON: Chest Single View dated 08/08/2023; Chest Single View dated 08/06/2023; Abdomen 1 View (KU B) dated 08/06/2023 TECHNIQUE: Portable AP view of the chest. FINDINGS: Enteric tube with weighted tip present along the mid stomach has been placed. Left IJ CVC and endotracheal tube unchanged in position. Partial improvement of central predominant fluffy opacit ies with underlying interstitial prominence. Stable right pleural effusion. No pneumothorax. The car diomediastinal contours are unremarkable. IMPRESSION: Partial improvement of pulmonary edema pattern with stable right effusion. Enteric tube in satisfactory position.
[2023-08-09] MEDS ORDERED: NA CHLORIDE 0.9% 100 ML ONE (11:23)
[2023-08-09] MEDS ORDERED: AMPICILLIN/SULBACTAM 3GM/VIAL ONE (11:23)
[2023-08-09] MEDS ORDERED: THIAMINE 200 MG/2 ML INJ ONE (11:24)
[2023-08-09] MEDS: THIAMINE 200 MG/2 ML INJ IVP SCH (11:29)
[2023-08-09] MEDS: FUROSEMIDE 100 MG in NA CHLORIDE 0.9% 90 ML IV SCH (11:29)
--- NOTE | 2023-08-09 11:55 | P.PN ---
Subjective Date of Service: 08/09/23 Chief Complaint: Respiratory failure No significant change in patient's condition very minimally responsive son at the bedside was started on levophed yesterday Review of Systems is unable to be obtained Physical Examination - Vital Signs Temperature: 96.8 F Blood Pressure: 112/71 Pulse: 90 Respirations: 17 Pulse Ox (%): 99 - Physical Exam General: Unresponsive Respiratory: Clear to auscultation bilaterally Cardiovascular: No edema, Normal S1 S2, Abnormal S3 Gastrointestinal: Normal bowel sounds, Non-distended Assessment And Plan - Current Problems (Diagnosis) (1) Cardiopulmonary arrest Current Visit: Yes Status: Acute Plan: Patient continues to remain unresponsive has brisk plantary flexes renal function remains stable patient is in high doses of diuretics chest x-ray shows an improvementIs also on leave affect now will continue with low dosesteroidsPatient is in significant negative fluid balance sputum cultures not done/All labs chest x-rays reviewed
--- NOTE | 2023-08-09 12:27 | PN ---
Date of Progress Note: 08/09/2023 Subjective: The patient was admitted to the hospital with acute kidney injury secondary to cardiorenal. The patient had cardiac arrest. The patient had resuscitation. The patient was placed on Lasix yesterday because of the low blood pressure. The patient skipped couple of dose of Lasix, yet had good urine output. Physical Examination: Vital Signs: When I saw the patient, the patient is still on vent, blood pressure 112/71, pulse of 89, afebrile. Chest: Crackles at bilateral base. Heart: S1, S2 systolic murmur. Abdomen: Soft, nontender. Extremities: Trace edema. Neuro: The patient is on vent, sedated. Laboratory Data: Hemoglobin 11.4. Sodium 132, potassium 4, bicarb 27, BUN 71, creatinine 3.5, GFR 12, calcium 11.1. AST 125, ALT 148, albumin 2.4, corrected calcium is 9.3. Current Medications: The patient on include: 1. Ampicillin. 2. Midodrine. 3. Levophed. 4. Lasix 60 mg q.6. 5. Hydrocortisone. 6. Fentanyl. Assessment And Plan: 1. Acute kidney injury secondary to cardiorenal, poor perfusion, ATN, nonoliguric, over volume. I am going to continue to challenge the patient. We will switch the patient to Lasix drip to avoid any fluctuation on the blood pressure and we will follow up the patient. 2. Hypertension. Currently, hypotension secondary to the shock. The patient is on Levophed and midodrine. 3. Cardiogenic shock secondary to [id number] LA, complicated with congestive heart failure and acute kidney injury, poor perfusion, ATN, cardiorenal. Continue Levophed. Follow up with Cardiology. Plan for echocardiogram today. 4. Hyponatremia secondary to dilutional. We will continue diuresis. 5. Encephalopathy, hypoxemic. We will follow up with primary. Continue support. Time spent examining the patient [id number], reviewing data, lab and radiology, placing order, discussing the case with the patient, discussing the case with the team physician including ICU staff and and the son by bedside more than 35 minutes. OTTO Voice ID: [id number] Report ID: [id number] [facility]ITAL[facility]
[2023-08-09] MEDS: METHYLPREDNISOLONE 40 MG INJ IV SCH (13:55)
--- NOTE | 2023-08-09 14:42 | ECHO ---
HEIGHT: 5 ft 4 in WEIGHT: 133 lb 9.6 oz DATE OF STUDY: 08/09/[address]: Gilberto Barillas 2-DIMENSIONAL: YES M.MODE: YES DOPPLER: YES COLOR FLOW: YES TDS: PORTABLE: YES DEFINITY: BUBBLE STUDY: DIAGNOSIS: ELEVATED TROPONIN CARDIAC HISTORY: CATHERIZATION: YES SURGERY: NO PROSTHETIC VALVE: NO PACEMAKER: NO MEASUREMENTS (cm) DIASTOLIC (NORMALS) SYSTOLIC (NORMALS) IVSd 1.0 (0.6-1.2) LA Diam 3.0 (1.9-4.0) LVEF 35-40% LVIDd 3.3 (3.5-5.7) LVIDs 2.5 (2.0-3.5) %FS 25% LVPWd 1.1 (0.6-1.2) Ao Diam 3.1 (2.0-3.7) 2 DIMENSIONAL ASSESSMENT: RIGHT ATRIUM: NORMAL LEFT ATRIUM: NORMAL RIGHT VENTRICLE: NORMAL LEFT VENTRICLE: DEPRESSED EJECTION FRACTION TRICUSPID VALVE: MODERATE TRICUSPID REGURGITATION MITRAL VALVE: MILD MITRAL REGURGITATION PULMONIC VALVE: MODERATE PULMONIC INSUFFICIENCY AORTIC VALVE: NORMAL PERICARDIAL EFFUSION: NONE AORTIC ROOT: NORMAL LEFT VENTRICULAR WALL MOTION: MODERATE GLOBAL HYPOKINESIS DOPPLER/COLOR FLOW: SEE BELOW COMMENTS: 1. MODERATELY DEPRESSED LEFT VENTRICULAR EJECTION FRACTION 35-40% 2. MODERATE GLOBAL HYPOKINESIS 3. MODERATE TRICUSPID REGURGITATION 4. MODERATE PULMONIC INSUFFICIENCY 5. MILD MITRAL REGURGITATION TECHNOLOGIST: JHON RANGEL
--- NOTE | 2023-08-09 15:21 | P.PN ---
Subjective Date of Service: 08/09/23 Chief Complaint: Respiratory failure No issues overnight. Patient withdraws to pain. Patient noted to be spontaneous breathing trial off sedation during my examination. Patient appears to asume decerebrate posture with touch. No recorded fever. Physical Examination - Vital Signs Temperature: 96.8 F Blood Pressure: 112/71 Pulse: 90 Respirations: 17 Pulse Ox (%): 99 Assessment And Plan - Current Problems (Diagnosis) (1) Acute respiratory failure with hypoxia Current Visit: Yes Status: Acute (2) Acute on chronic systolic heart failure Current Visit: Yes Status: Acute (3) BRAD (acute kidney injury) Current Visit: No Status: Acute - Plan Physical examination General: Unresponsive HEENT: Intubated and on mechanical ventilation. Neck: Supple, no elevated JVD Heart: Heart sounds 1 and 2 normal, regular rhythm, normal rate, no pedal edema Lungs: Bilateral upper airway transmitted sounds, no rhonchi. Abdomen: Soft, nondistended, nontender, normal bowel sounds. Extremities: No tenderness, no deformity Skin: Normal skin turgor, no rash, no nodules or ulcers. Neuro: Unresponsive, patient withdrawals all extremities to touch and pain and appears to asume decerebrate posture with touch Psychiatry: Unresponsive. Assessment and plan Acute respiratory failure with hypoxia Pt is intubated and sedated. Pulm is managing vent. She underwent spontaneous breathing trial today. Pulmonary to follow for extubation as needed. Cardiogenic shock Possible septic shock Possible aspiration pneumonia given the hemoptysis and intubation. Continue unasyn, steroid. Blood cultures: No growth to date Lactic acid level trended down. Acute on chronic systolic heart failure: Nephrology is following and managing with Lasix. Monitor intake and output. Cardiac arrest/NSTEMI Troponin is 1110<- 476 <- 199. Anticoagulation was not given due to hemoptysis. Cardiology is following. Cardiac arrest deemed secondary to hypoxia. 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 Patient with spontaneous breathing, reflexes are present. 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 Neurology Dr. Mejia consulted for mental status assessment and prognosis. CT head ordered. Dr. Mejia recommendation. Neurochecks. Hyponatremia Nephrology is following and managing. Patient is currently on nasal. Monitor BMP. GI bleed/hemoptysis Unknown source EGD at bedside was unremarkable. Continue Protonix. Status post octreotide. Status post 2 unit blood transfusion. Acute on chronic kidney disease: C Cr is 3.5. Slight improvement from yesterday. BUN elevated to 71. Nephrology is following and managing. No indication for hemodialysis yet per nephrology Dr. Arias. Monitor renal function. DVT prophylaxis: On heparin subcu. Nutrition: OG tube feedling soon Dispo: Poor prognosis. High risk of developing persistent vegetative state given prolonged CPR. Code: DNR.
--- NOTE | 2023-08-09 16:32 | RAD REPORT ---
EXAM DESCRIPTION: CT - Head Brain Wo Cont - 08/09/2023 2:39 pm CLINICAL HISTORY: Headache COMPARISON: August 06, 2023 TECHNIQUE: Computed axial tomography of the head was obtained. IV contrast was not requested. All CT scans are performed using dose optimization technique as appropriate and may include automated exposure control or mA/KV adjustment according to patient size. FINDINGS: An intracranial bleed is not seen The ventricles are normal in caliber Extensive low density is present throughout the occipital lobes, right temporal, left frontal and par ietal lobes. Low-density is present within the right thalamus. Rubio and white matter involves. Signif icant mass effect upon the sulci. Ventricles are diminished in caliber when compared to prior exam. Shift of midline structures 2 millimeters towards the left. No extra-axial fluid collection is noted. A few air bubbles within the soft tissues of the upper neck IMPRESSION: Extensive low density throughout the cerebral bilaterally has the appearance of an anoxi c brain injury The exam was discussed with Dr Dove at approximately 4:20 p.m. August 09, 2023
[2023-08-09 17:14] LABS: Magnesium 2.2 mg/dL (1.6-2.4); Phosphorus 3.4 mg/dL (2.5-4.9)
--- NOTE | 2023-08-09 22:15 | CON ---
Reason For Consultation: Consultation called because of the patient being poorly responsive followin g multiple episodes of cardiopulmonary resuscitation due to respiratory failure. History Of Present Illness: Ms. Carrion is an 83-year-old patient, who came to [facility] on 08/06/2023 with generalized weakness, nausea, and confusion per family. She reportedly received A tivan and became confused. At [facility], found to be hyponatremic with elevated creatinine consistent with dehydration in addition to chronic renal stage III failure subacute on chronic renal insufficiency and she was recently admitted with nausea, vomiting, diarrhea, generalized weakness, a nd distended bladder which was nonsurgical. While the patient was evaluated, she had significant diandra p in oxygenation with hypoxia down to saturation in the 70s. She became hypotensive, but systolic bl ood pressure is down to the 80s. She was managed initially by BiPAP, but respiratory condition worse alisia and she eventually had Code Blue and had 2 rounds of cardiopulmonary resuscitation, receiving sev eral rounds of epinephrine, tranexamic acid, sodium bicarbonate, and again intubated. Following intu bation, the patient has been unresponsive to verbal stimulation and has generalized movements noted w ith decerebrate posturing of upper extremities with stimulation of lower extremities and no spontaneo us eye opening or directed movement. Today is third day status post resuscitation. CT scan of the h ead today shows evidence of severe hypoxic ischemic brain injury. She had extensive low-density find ings throughout the cerebral white matter bilaterally in the occipital lobe, right temporal lobe, lef t frontal lobe, parietal lobes, right thalamus, and at the russo-white junctions. There was significa nt mass effect upon the sulci with the ventricles being diminished in caliber and this was compared t o a prior examination done on August 05, 3 days ago. The EEG not available at this point. Past Medical History: As noted in addition to hypertension, breast cancer, chronic kidney disease, c ongestive heart failure, gastroesophageal reflux disease, atrial fibrillation. Surgical History: Hysterectomy, mastectomy, status post Watchman procedure. Allergies: NO KNOWN DRUG ALLERGIES. Medications: At home, she had received Plavix, aspirin, atorvastatin, melatonin, mirtazapine, levoth yroxine, Claritin, metoprolol, simethicone, midodrine. Family History: Heart disease in father, brother, and sister. Social History: Occasional alcohol use and caffeinated beverages use and no tobacco use. Review of Systems: Not possible. The patient is intubated and is not responding to any verbal stimulation and no sponta neous eye opening. No spontaneous movements noted in the extremities. Physical Examination: Vital Signs: Blood pressure 109/63, pulse of 89, respiratory rate up to 22 to 25, temperature 96.9, oxygen saturation 92% to 99%, FiO2 40%. General: Ms. Carrion is intubated. No spontaneous eye opening. HEENT: Pupils are very sluggishly reactive. No doll's eyes appreciated and no visual threat respons e noted and very minimal if any pupillary response seen. She does have some posturing noted with sti mulation to the extremities with extension of the arms and some stimulation of the feet also may elic it mild posturing movement. She has slight increased tone in the upper extremities. Laboratory Studies: White blood cell count elevated to 26,200 with 95% neutrophils, hemoglobin 11.4, hematocrit 33.8, platelets 291. Her INR 1.52. Arterial blood gas 2 days ago, pH 7.34, pCO2 of 37.5 , pO2 of 209. Sodium 132, potassium 4, chloride 95, carbon dioxide 27, BUN 71, creatinine 3.54, gluc ose ranged from 178 to 219, calcium 8.1, phosphorus 3.4, magnesium 2.2, total bilirubin 1.5, AST 125, ALT 148. Troponins is 396.6, total serum protein 5.8. Chest x-ray done earlier today shows partial improvement in pulmonary edema with stable right effusion. Assessment: Ms. Carrion is an 83-year-old patient with severe hypoxic ischemic injury as I identifi ed on CT scan of her head. She has posturing with extension of the extremities consistent with signi ficant cortical dysfunction. She does breathe somewhat over the vent, but has no meaningful purposef ul responses to tactile or verbal stimulation. At this point, she does have acute on chronic renal i nsufficiency, significant infection potentially from aspiration pneumonia in addition to her atrial f ibrillation. At this point, she has very poor prognosis for meaningful recovery given evidence of si gnificant hypoxic ischemic brain injury on CT scan on neurological examination. This was discussed w ith the patient's daughter and family members over the phone. She will be re-evaluated again tomorro w and the patient's family have decided to put her DNR status and the recommendation is to withdraw c are given the patient's lack of any significant chance of improvement as she does have significant ce rebral edema and likely will herniate on the brainstem and be unable to sustain any respiratory effor t at that is independent of a ventilator. The patient's family is in discussion and will have all th e family members come by to see her tomorrow and it is likely we will agree with withdrawal of care. LB/MODL Voice ID: [id number] Report ID: [id number]
[2023-08-09] MEDS ORDERED: ALBUTEROL 2.5 MG/3 ML NEB SOL ONE (22:47)
[2023-08-09] MEDS: ALBUTEROL 2.5 MG/3 ML NEB SOL NEB PRN (22:59)
[2023-08-10 04:50] LABS: Absolute Lymphocytes (CBC) 0.2 K/uL (0.7-4.9); Absolute Monocytes 0.4 K/uL (0.1-1.3); Absolute Neutrophil 14.6 K/uL (1.8-8.0); Hematocrit 30.4 % (36.0-45.0); Hemoglobin 10.2 g/dL (12.0-15.0); Lymphocytes % 1.4 % (15.3-44.8); MCH 30.2 pg (27.0-35.0); MCHC 33.5 g/dL (32.0-36.0); MPV 8.3 fL (7.6-11.3); Monocytes % 2.5 % (3.3-12.3); Neutrophils % 96.1 % (41.7-73.7); Nucleated Red Blood Cells % 0.2 % (0-0); Platelets 205 thou/uL (152-406); RBC Red Blood Cell Count 3.37 M/uL (3.86-4.86); Red Cell Distribution Width 17.6 % (12.1-15.2)
[2023-08-10 05:00] LABS: Albumin 2.5 g/dL (3.4-5.0); Anion Gap 12.2 mEq/L (5.0-15.0); Magnesium 2.2 mg/dL (1.6-2.4); Phosphorus 3.5 mg/dL (2.5-4.9); Potassium 3.2 mEq/L (3.5-5.1)
[2023-08-10] MEDS ORDERED: AMPICILLIN/SULBACTAM 3GM/VIAL ONE (08:39)
[2023-08-10] MEDS ORDERED: THIAMINE 200 MG/2 ML INJ ONE (08:39)
[2023-08-10] MEDS ORDERED: NA CHLORIDE 0.9% 100 ML ONE (08:39)
--- NOTE | 2023-08-10 12:09 | PN ---
Date of Progress Note: 08/10/2023 Subjective: The patient was admitted with cardiac arrest, cardiogenic shock. The patient started on Levophed. The patient had poor functional status. Had anoxic encephalopathy. Objective: Vital Signs: Blood pressure 118/90, pulse of 107. Chest: Crackles, bilateral. Heart: S1, S2. Systolic murmur. Abdomen: Soft, nontender. Extremity: Trace edema. Neuro: Patient on vent. Laboratory Data: Hemoglobin 10.2, sodium 135, potassium 3.2, bicarb 28, BUN 82, creatinine 3.4, calc ium 7.9. Current Medications: The patient on include Levophed, Zosyn, midodrine, Lasix drip, heparin, hydroco rtisone, Zofran. Assessment And Plan: 1.Acute kidney injury secondary to cardiorenal, poor perfusion, ATN, nonoliguric. Patient on diures is. Apparently, patient has anoxic encephalopathy. Family decided for hospice care. I am going to go ahead and discontinue Lasix and midodrine. We will follow up with the Primary. We will sign off. Please call us if condition changes. 2.Cardiogenic shock, pressor dependent, complicated with acute kidney injury secondary to cardiorena l, poor perfusion, ATN, and anoxic encephalopathy. As above, patient is going to be in hospice. PENNY/DEXTER Voice ID: [id number] Report ID: [id number]
[2023-08-10] MEDS ORDERED: GLYCOPYRROLATE 0.2 MG/ML SYR IV PRN (12:24)
[2023-08-10] MEDS ORDERED: LORazepam 2 MG/ML VIAL ONE ×2 (12:45→15:16)
[2023-08-10] MEDS ORDERED: MORPHINE 2 MG/ML SYR ONE (12:46)
[2023-08-10] MEDS ORDERED: MORPHINE 4 MG/ML SYR ONE ×2 (12:53→15:16)
[2023-08-10] MEDS: MORPHINE 4 MG/ML SYR IV PRN (12:53)
[2023-08-10] MEDS: LORazepam 2 MG/ML VIAL IV PRN (12:54)
--- NOTE | 2023-08-10 13:03 | P.PN ---
Subjective Date of Service: 08/10/23 Chief Complaint: Respiratory failure Subjective: No new changes Review of Systems 10-point ROS is otherwise unremarkable Physical Examination - Vital Signs Temperature: 97.6 F Blood Pressure: 116/85 Pulse: 97 Respirations: 18 Pulse Ox (%): 96 - Physical Exam General: Alert, Oriented x3 HEENT: Atraumatic Neck: Supple Respiratory: Clear to auscultation bilaterally Cardiovascular: No edema, Normal S1 S2 Gastrointestinal: Normal bowel sounds Assessment And Plan - Current Problems (Diagnosis) (1) Atrial fibrillation Current Visit: Yes Status: Acute Plan: Patient is currently in sinus rhythm, continue to monitor. (2) Acute on chronic systolic heart failure Current Visit: Yes Status: Acute Plan: agree with IV lasix 60 mh IV q 6 hours. Continue to monitor input and output. correct electrolytes. (3) Cardiopulmonary arrest Current Visit: Yes Status: Acute Plan: most likely secondary to hypoxia as patient went into PEA arrest. (4) Elevated troponin Current Visit: No Status: Acute Plan: trending down, patient had recent hemoptysis further cardiac work up depends on patient prognosis during her ICU stay.
--- NOTE | 2023-08-10 15:27 | P.PN ---
Subjective Date of Service: 08/10/23 Chief Complaint: Respiratory failure No changes from yesterday. No change in mental status. Patient assumes decerebrate posture with touch. Physical Examination - Vital Signs Temperature: 97.6 F Blood Pressure: 116/85 Pulse: 97 Respirations: 16 Pulse Ox (%): 96 Assessment And Plan - Current Problems (Diagnosis) (1) Acute respiratory failure with hypoxia Current Visit: Yes Status: Acute (2) Acute on chronic systolic heart failure Current Visit: Yes Status: Acute (3) BRAD (acute kidney injury) Current Visit: No Status: Acute - Plan Physical examination General: Unresponsive HEENT: Intubated and on mechanical ventilation. Neck: Supple, no elevated JVD Heart: Heart sounds 1 and 2 normal, regular rhythm, normal rate, no pedal edema Lungs: Bilateral upper airway transmitted sounds, no rhonchi. Abdomen: Soft, nondistended, nontender, normal bowel sounds. Extremities: No tenderness, no deformity Skin: Normal skin turgor, no rash, no nodules or ulcers. Neuro: Unresponsive, patient withdrawals all extremities to touch and pain and appears to asume decerebrate posture with touch Psychiatry: Unresponsive. Assessment and plan Acute respiratory failure with hypoxia Pt is intubated and sedated. Pulm following. She only tolerated spontaneous breathing trial for couple of hours. Family would like to withdraw care and pursue comfort measures Cardiogenic shock Possible septic shock Possible aspiration pneumonia given the hemoptysis and intubation. Patient treated with Unasyn and steroid Blood cultures: No growth to date Acute on chronic systolic heart failure: Nephrology followed and managed with [facility] requesting for withdrawal of care. Cardiac arrest/NSTEMI Troponin is 1110<- 476 <- 199. Anticoagulation was not given due to hemoptysis. 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 Patient with some spontaneous breathing, reflexes are present. 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 Neurology Dr. Mejia input appreciated. CT head done showed large areas of hypodensity indicating severe anoxic encephalopathy. Very poor prognosis, Dr. Mejia discussed prognosis with the family. Family would like to proceed with withdrawal of care and comfort measures Withdrawal of care initiated. Hospice consulted for comfort measures. Hyponatremia On comfort measures. GI bleed/hemoptysis Unknown source EGD at bedside was unremarkable. Comfort measures initiated. Acute on chronic kidney disease: C Comfort measures initiated Nutrition: Keep n.p.o. Code: DNR.
--- NOTE | 2023-08-10 18:03 | P.PN ---
Subjective Date of Service: 08/10/23 Chief Complaint: Respiratory failure Patient is not doing well and responsive Review of Systems is unable to be obtained Physical Examination - Vital Signs Temperature: 97.6 F Blood Pressure: 151/124 Pulse: 90 Respirations: 18 Pulse Ox (%): 60 - Physical Exam General: Unresponsive, Comatose Respiratory: Clear to auscultation bilaterally Cardiovascular: No edema, Regular rate/rhythm Assessment And Plan - Current Problems (Diagnosis) (1) Cardiopulmonary arrest Current Visit: Yes Status: Acute Plan: Patient is caused and unresponsive CT scan shows extensive anoxic encephalopathy prognosis poor to discuss with family members regarding withdrawal of careAlthough white count is declining creatinine is stableCultures are so far negativeAgree withdrawal of care including ventilator support
[2023-08-10 21:58] VITALS: BP 79/56; TEMP 96.6; O2SAT 76
--- NOTE | 2023-08-11 00:24 | P.DS ---
Discharge Date: 08/10/23 Disposition: Reason for Admission: Respiratory failure Consultations: Pulmonary, [facility], [facility]phrology, Dr. Nick Brief History of Present Illness: Patient is an 83-year-old woman with systolic heart failure, atrial fibrillation chronic kidney disease was brought to the emergency department due to generalized weakness, nausea. According to family patient became confused after she received a dose of Ativan. Workup in the emergency department showed hyponatremia and mildly elevated serum creatinine above baseline. Patient has a history of chronic kidney disease stage III. She was discharged from the hospital 3 days ago after she was admitted for nausea, vomiting, diarrhea and generalized weakness, noted to have distended gallbladder which did not require any surgery, noted low blood pressure which was managed with oral midodrine during the hospital stay. Patient was given IV normal saline bolus. She later developed hypoxia which oxygen saturation down to the 70s, patient became hypotensive with systolic blood pressure in the 80s. Patient placed on BiPAP and noted good oxygen saturation and borderline low systolic blood pressure 88. Patient does not appear to be in respiratory distress. She is admitted to the ICU for further management. Hospital Course: Ms. Carrion presented with respiratory failure. Patient's long-term prognosis had been poor as she had significant cardiomyopathy with ejection fraction which was found to be in the 30 percentile range. Patient also had valvular disease. Patient was found to have a pneumonia with leukocytosis and severe hypoxemia. Patient was on mechanical ventilation, and unfortunately her clinical condition deteriorated throughout her hospital stay. The family did not want to see her suffer any further, and the family decided to withdraw care. Patient was extubated, and patient was made comfortable. Patient on the evening of August 10, 2023 at 2225 with her family at bedside. Her body was released to the home. Home Medications: Clopidogrel Bisulfate [Plavix*] 75 mg PO DAILY 30 Days #30 tablet 03/06/22 Atorvastatin Calcium 40 mg PO BEDTIME 12/14/22 Melatonin 10 mg PO BEDTIME 12/14/22 Mirtazapine [Remeron*] 30 mg PO BEDTIME 12/14/22 Mv-Mn/Folic AC/Calcium/Vit K1 [Women's 50 Plus Multivit Tab] 1 each PO DAILY 12/14/22 Omeprazole 40 mg PO DAILY 12/14/22 Aspirin [Aspirin EC 81 MG] 81 mg PO DAILY 07/28/23 Levothyroxine Sodium 75 mcg PO DAILY 07/28/23 Loratadine [Claritin*] 10 mg PO DAILY 07/28/23 Metoprolol Succinate [Toprol Xl*] 25 mg PO DAILY 07/28/23 Simethicone [Mylanta] 125 mg PO PRN 07/28/23 Midodrine HCl [Proamatine*] 5 mg PO TID 30 Days #90 tab 08/03/23 Physician Discharge Instructions: Patient , and patient's body was released to the home Followup: Isabella Richardson MD [Primary Care Provider] - Time spent managing pt's care (in minutes): 35
== END 2023-08-10 22:25 | disposition expired | DRG 870 ==
LOC: ER 22:06 → 3RD-ICU 08-06 04:12
PROVIDERS: ADMIT Internal Medicine; ATTEND Internal Medicine
PROC: 5A1955Z Respiratory Ventilation, Greater than 96 Consecutive Hours (ICD-10-PCS; 2023-08-06)
PROC: 4A033R1 Measurement of Arterial Saturation, Peripheral, Percutaneous Approach (ICD-10-PCS; 2023-08-06)
PROC: 0BH17EZ Insertion of Endotracheal Airway into Trachea, Via Natural or Artificial Opening (ICD-10-PCS; 2023-08-06)
PROC: 0T9B70Z Drainage of Bladder with Drainage Device, Via Natural or Artificial Opening (ICD-10-PCS; 2023-08-06)
PROC: 5A12012 Performance of Cardiac Output, Single, Manual (ICD-10-PCS; 2023-08-06)
PROC: 30233K1 Transfusion of Nonautologous Frozen Plasma into Peripheral Vein, Percutaneous Approach (ICD-10-PCS; 2023-08-06)
PROC: 30233N1 Transfusion of Nonautologous Red Blood Cells into Peripheral Vein, Percutaneous Approach (ICD-10-PCS; 2023-08-06)
PROC: 30233R1 Transfusion of Nonautologous Platelets into Peripheral Vein, Percutaneous Approach (ICD-10-PCS; 2023-08-06)
PROC: 3E033XZ Introduction of Vasopressor into Peripheral Vein, Percutaneous Approach (ICD-10-PCS; 2023-08-06)
PROC: 02HV33Z Insertion of Infusion Device into Superior Vena Cava, Percutaneous Approach (ICD-10-PCS; 2023-08-06)
PROC: 0DJ08ZZ Inspection of Upper Intestinal Tract, Via Natural or Artificial Opening Endoscopic (ICD-10-PCS; 2023-08-06)
PROC: 5A09357 Assistance with Respiratory Ventilation, Less than 24 Consecutive Hours, Continuous Positive Airway Pressure (ICD-10-PCS; principal; 2023-08-06 08:00)
DX: A41.9 Sepsis, unspecified organism (principal); J96.01 Acute respiratory failure with hypoxia; G92.8 Other toxic encephalopathy; I50.23 Acute on chronic systolic (congestive) heart failure; R40.20 Unspecified coma; N17.0 Acute kidney failure with tubular necrosis; R65.21 Severe sepsis with septic shock; J69.0 Pneumonitis due to inhalation of food and vomit; I21.4 Non-ST elevation (NSTEMI) myocardial infarction; G93.6 Cerebral edema; I13.0 Hypertensive heart and chronic kidney disease with heart failure and stage 1 through stage 4 chronic kidney disease, or unspecified chronic kidney disease; E87.1 Hypo-osmolality and hyponatremia; E87.20 Acidosis, unspecified; K92.0 Hematemesis; N39.0 Urinary tract infection, site not specified; N18.4 Chronic kidney disease, stage 4 (severe); G93.1 Anoxic brain damage, not elsewhere classified; E03.9 Hypothyroidism, unspecified; I46.9 Cardiac arrest, cause unspecified; R57.0 Cardiogenic shock; E87.5 Hyperkalemia; I48.91 Unspecified atrial fibrillation; K21.9 Gastro-esophageal reflux disease without esophagitis; T42.4X5A Adverse effect of benzodiazepines, initial encounter; Z66 Do not resuscitate; Z78.1 Physical restraint status; Z85.3 Personal history of malignant neoplasm of breast; Z79.02 Long term (current) use of antithrombotics/antiplatelets; Z79.01 Long term (current) use of anticoagulants; Z90.12 Acquired absence of left breast and nipple; Z79.82 Long term (current) use of aspirin; Z79.899 Other long term (current) drug therapy; Z90.710 Acquired absence of both cervix and uterus; Z79.890 Hormone replacement therapy
CPT/HCPCS: 31500; 36415; 36600; 51702; 70450; 71045; 74018; 76770; 80048; 80053; 80069; 81001; 82550; 82805; 82947; 83605; 83615; 83735; 83880; 84100; 84484; 85014; 85018; 85025; 85027; 85049; 85610; 85730; 86850; 86900; 86901; 86920; 87040; 87070; 87077; 87086; 87088; 87186; 87205; 92950; 93005; 93306; 94002; 94003; 94660; 99285; C9113; J0171; J0295; J0461; J0696; J1644; J1720; J1940; J2250; J2270; J2354; J2405; J2920; J3010; J3411; J7030; J7040; J7050; J7060; J7613; J7644; P9016; P9059; P9073